=== PATIENT | male | born 1970 | race Caucasian/White ===

== ENCOUNTER 2018-10-25 15:11 | Inpatient (IN) | payer SELFPAY ==
[~2018-10-25] VITALS: Ht 165.1 cm; Wt 127.0 kg
--- OUTSIDE RECORDS SUMMARY | 2018-10-25 15:19 | XMS REPORT ---
Author Author CHRISTIANO MAHONEY Organization [facility] Address [address] [place] [address] Care Team Providers Care Water And [employer] Helper Name Role Phone CHRISTIANO MAHONEY Unavailable PROBLEMS Type Condition ICD9-CM Code SYO77-KT Code Onset Dates Condition Status SNOMED Code Problem Gastroesophageal reflux disease without esophagitis K21.9 Active 178914268 Problem Diabetes type 2, controlled E11.9 Active 36318436 Problem Uncontrolled type 2 diabetes mellitus with hyperglycemia E11.65 Active 021563274 Problem Uncontrolled type 2 diabetes mellitus without complication, without long-term current use of insulin E11.65 Active 054191206 Problem Lumbago with sciatica, 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 Active 989986909 Problem Sciatica, left side M54.32 Active 30990241 Problem Controlled type 2 diabetes mellitus without complication, without long -term current use of insulin E11.9 Active 354663288 Problem Other chronic pain G89.29 Active 02349800 ALLERGIES Substance Reaction Event Type Date Status Aleve Unknown Drug Allergy Aug, Active ENCOUNTERS Encounter Location Date Diagnosis [place] [id number] [place] [address]202[address] Aug, Uncontrolled type 2 diabetes mellitus with hyperglycemia E11.65 and Lumbago with sciatica, 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 [facility] [id number] [address] Aug, Diabetes type 2, controlled E11.9 [facility] [address], [place] [address] 8[address] Aug, Diabetes type 2, controlled E11.9 [facility] [address] [address] 97[address] May, Diabetes type 2, controlled E11.9 [facility] [address] [address] 6140 May, Diabetes type 2, controlled E11.9 and Lumbago with sciatica , 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 [facility] [id number] [place] [address] 90841- 7202 May, [facility] [id number] [place] [address] 15261- 2765 May, Diabetes type 2, controlled E11.9 [facility] [id number] [place] [address] 87107- 9200 May, Diabetes type 2, controlled E11.9 [facility] [id number] [place] [address] 01255- 1846 May, Diabetes type 2, controlled E11.9 [place] [id number] [place] [address] 90403- 6843 March, Uncontrolled type 2 diabetes mellitus without complication, without long-term current use of insulin E11.65 [facility] [id number] [place] [address] 77638- 5911 March, Other chronic pain G89.29 [place] [address] [address] [id number] [place] [address] 57550- 5417 Mar, Other chronic pain G89.29 [place] [address] [place] [address] [id number] [place] [address] 24521- 6762 Jan, BMI 45.0-49.9, adult Z68.42 ; Sciatica, left side M54.32 ; Other chronic pain G89.29 and Diabetes type 2, controlled E11.9 [facility] [address] [address] 94[address] Jan, Other chronic pain G89.29 [place] [address] [address] [id number] [place] [address] 91998- 5100 Jan, Diabetes type 2, controlled E11.9 and Other chronic pain G89.29 [place] [address] [address] [id number] [place] [address] 06109- 8219 Dec, Diabetes type 2, controlled E11.9 [facility] [address], [place] [address] 71[address] Oct, Diabetes type 2, controlled E11.9 [facility] [id number] [address] 5759 Oct, Diabetes type 2, controlled E11.9 [facility] [id number] [place] [address] 68878- 8668 Aug, Diabetes type 2, controlled E11.9 [facility] [address] [address] 2442 Aug, Diabetes type 2, controlled E11.9 and Lumbago with sciatica , 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 [facility] [id number] [place] [address] 99671- 3385 Jul, Diabetes type 2, controlled E11.9 [facility] [id number] [place] [address] 00273- 1525 May, Diabetes type 2, controlled E11.9 [facility] [address] [place] [address] 58543- 6311 May, Diabetes type 2, controlled E11.9 [facility] [address] [address] 7594 March, Diabetes type 2, controlled E11.9 [facility] [id number] [address] 5659 24 Mar, 2017 Diabetes type 2, controlled E11.9 and Sciatica, left side M54.32 [facility] [address], [place] [address]- 4008 14 Mar, 2017 Diabetes type 2, controlled E11.9 [facility] [address] [address]- 8728 Jan, Diabetes type 2, controlled E11.9 and Sciatica, left side M54.32 [facility] [id number] [address] 38[address] Jan, Controlled type 2 diabetes mellitus without complication, without long-term current use of insulin E11.9 [place] [address] [address] [id number] [place] [address] 33722- 6940 Dec, Controlled type 2 diabetes mellitus without complication, without long-term current use of insulin E11.9 [place] [address] [address] [id number] [place] [address] 28496- 2588 Oct, Diabetes type 2, controlled E11.9 [place] [address] [address] [id number] [place] [address] 72087- 2233 Oct, Diabetes type 2, controlled E11.9 ; Lumbago with sciatica, 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 and Other chronic pain G89.29 [place] [address] [address] [id number] [place] [address] 93576- 4658 Aug, Sciatica, left side M54.32 and Gastroesophageal reflux disease without esophagitis K21.9 [place] [address] [address] [id number] [place] [address] 54741- 4598 Aug, Pain in right knee M25.561 ; Pain in left hip M25.552 and Uncontrolled type 2 diabetes mellitus without complication, without long-term current use of insulin E11.65 [place] [address] [id number] [place] [address] 53434- 3320 Jul, Diabetes type 2, controlled E11.9 and Cardiac arrhythmia, unspecified cardiac arrhythmia type I49.9 [place] [address] [place] [address] 68862- 2467 15 Jul, 2016 Diabetes type 2, controlled E11.9 ; Cardiac arrhythmia, unspecified cardiac arrhythmia type I49.9 ; Other chronic pain G89.29 ; Pain in right knee M25.561 and Candidiasis B37.9 [place] [address] [place] [address] 83538- 6703 May, [place] [address] [address] [id number] [place] [address] 70273- 3879 Jan, [facility] [address] [facility] [id number] [address]- 0426 Jan, Diabetes type 2, controlled E11.9 [facility] [address] [facility] [id number] [address]- 7869 Oct, Type 2 diabetes mellitus without complications E11.9 and 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 [facility] [address] [facility] [id number] [address]- 9931 Oct, [facility] [address] [facility] [id number], [place] [address]- 9552 Mar, [facility] [address] [facility] [id number], [place] [address]- 9182 Mar, [facility] [address] [facility] [id number], [place] [address]- 2324 Jan, [facility] [address] [facility] [id number], [place] [address]- 5128 Jan, [facility] [address] [facility] [id number], [place] [address]- 4393 Jan, [facility] [id number] [address]- 0384 Jan, [facility] [address] [facility] [id number], [place] [address]- 1577 Dec, [facility] [address] [facility] [id number], [place] [address]- 7869 Dec, [facility] [address] [facility] [id number], [place] [address]- 5578 Oct, [facility] [address] [facility] [id number], [place] [address]- 8492 Oct, [facility] [address] [facility] [id number], [place] [address]- 8309 Aug, [facility] [address] [facility] [id number] [place] [address]- 7793 Aug, [facility] [place] [facility] [address] [id number] [place] [address]- 5891 Jul, [facility] [place] [facility] [address] [id number] [place] [address]- 1105 Jul, [facility] [place] [facility] [address] [id number] [place] [address]- 0175 May, [facility] [place] [facility] [address] [id number] [place] [address]- 6034 May, [facility] [place] [facility] [address] [id number] [place] [address]- 2278 May, [facility] [place] [facility] [address] [id number] [place] [address]- 4291 May, [facility] [place] [facility] [address] [id number] [place] [address]- 3251 March, [facility] [place] [facility] [address] [id number] [place] [address]- 1503 March, [facility] [place] [facility] [address] [id number] [place] [address]- 4637 March, [facility] [place] [facility] [address] [id number] [place] [address]- 8090 March, [facility] [place] [facility] [address] [id number] [place] [address]- 2779 March, [facility] [place] [facility] [address] [id number] [place] [address]- 1751 March, [facility] [place] [facility] [address] [id number] [place] [address]- 1468 Mar, [facility] [place] [facility] [address] [id number] [place] [address]- 3003 Mar, [facility] [place] [facility] [address] [id number] [place] [address]- 2582 Mar, [facility] [place] [facility] [address] [id number] [place] [address]- 8145 Mar, [facility] [place] [facility] [address] [id number] [place] [address]- 1492 Dec, [facility] [place] [facility] [address] [id number] [place] [address]- 9539 Aug, [facility] [place] [facility] [address] [id number] [place] [address]- 0709 Aug, [facility] [place] [facility] [address] [id number] [place] [address]- 8255 Aug, [facility] [place] [facility] [address] [id number] [place] [address]- 6976 20 Aug, 2012 [facility] [place] [facility] [address] [id number] [place] [address]- 1036 Aug, [facility] [place] [facility] [address] [id number] [place] [address]- 9210 Aug, [facility] [place] [facility] [address] [id number] [place] [address]- 7366 Jan, [facility] [place] [facility] [address] [id number] [place] [address]- 5998 Jan, [facility] [place] [facility] [address] [id number] [place] [address]- 3798 Jan, [facility] [place] [facility] [address] [id number] [place] [address]- 1489 Jan, [facility] [place] [facility] [address] [id number] [place] [address]- 8837 Oct, [facility] [place] [facility] [address] [id number] [place] [address]- 9376 Oct, [facility] [place] [facility] [address] [id number] [place] [address]- 4263 17 Oct, 2010 [facility] [place] [facility] [address] [id number] [place] [address]- 0073 Oct, [facility] [address] [facility] [id number] [place] [address]- 2546 Oct, [facility] [address] [facility] [id number], [place] [address]- 2546 Oct, [facility] [address] [facility] [id number] [place] [address]- 2546 Aug, IMMUNIZATIONS No Known Immunizations SOCIAL HISTORY Never Assessed REASON FOR VISIT diabtes and pain medication refill RIKKI Cai PLAN OF CARE Activity Details Follow Up 4 Months Reason:dm2 3mo. checkup VITAL SIGNS Height 62 in 2018-09-23 Weight 282.2 lbs 2018-09-23 Temperature 98.2 degrees Fahrenheit 2018-09-23 Heart Rate 90 bpm 2018-09-23 Respiratory Rate 20 2018-09-23 BMI 51.61 kg/m2 2018-09-23 Blood pressure systolic 138 mmHg 2018-09-23 Blood pressure diastolic 78 mmHg 2018-09-23 MEDICATIONS Medication Instructions Dosage Frequency Start Date End Date Duration Status Actos 30 MG Orally Once a day 1 tablet 24h Jan, 30 day(s) Active Viagra 100 mg 1 tablet as needed 24h 10 Active Ranitidine HCl 150 MG TAKE ONE TABLET BY MOUTH TWICE DAILY 30 Active Cyclobenzaprine HCl 10 mg 1 tablet as needed 8h Active Ibuprofen 200 MG Orally every 6 hrs 1 tablet as needed 6h Active Fish Oil 1200 MG Orally Twice a day 1 capsule 12h Active Victoza 18 MG/3ML Subcutaneous Once a day Inject 0.3 ml (1.8 mg) 24h MarchDec, 30 days Active [place] 10-325 MG Orally every 6 hrs 1 tablet as needed 6h 2018 28 days Active Metformin HCl 1000 mg 1 tablet with a meal 12h Active GlipiZIDE 10 mg 2 tablets 12h Active NovoFine 32G X 6 MM subcutaneously Once a day use for injectio of victoza pen 24h May, 90 days Unknown Aspirin 325 MG Orally Once a day 1 tablet 24h Active Cozaar 50 mg Orally Once a day 1 tablet 24h Jul, 30 day(s) Active RESULTS No Results PROCEDURES No Known procedures INSTRUCTIONS MEDICATIONS ADMINISTERED No Known Medications MEDICAL (GENERAL) HISTORY Type Description Date Medical History Diabetes mellitus without mention of complication, type II or unspecified type, not stated as uncontrolled Medical History Impotence of organic origin Medical History hypertension Medical History bells palsy Surgical History L foot maggi age 30 Surgical History colon rupture/ colostomy bag 2004 Surgical History removal of colostomy bag 2004 Hospitalization History surgery (multiple)
--- OUTSIDE RECORDS SUMMARY | 2018-10-25 15:20 | XMS REPORT ---
Author Author CHRISTIANO MAHONEY Organization [facility] Address [address] [place] [address] Care Team Providers Care Batter Depositor Name Role Phone CHRISTIANO MAHONEY Unavailable PROBLEMS Type Condition ICD9-CM Code IDH75-CM Code Onset Dates Condition Status SNOMED Code Problem Diabetes type 2, controlled E11.9 Active 57736414 Problem Uncontrolled type 2 diabetes mellitus without complication, without long-term current use of insulin E11.65 Active 438676506 Problem Controlled type 2 diabetes mellitus without complication, without long -term current use of insulin E11.9 Active 508545979 Problem Sciatica, left side M54.32 Active 42969814 Problem Gastroesophageal reflux disease without esophagitis K21.9 Active 212043350 Problem Other chronic pain G89.29 Active 19673395 Problem Lumbago with sciatica, 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 Active [id number] ALLERGIES No Information ENCOUNTERS Encounter Location Date Diagnosis [place] [id number] [place] [address] 86472- 0956 Aug, Diabetes type 2, controlled E11.9 [facility] [id number] [place] [address] 54512- 6509 May, Diabetes type 2, controlled E11.9 [facility] [id number] [place] [address] 67920- 9037 May, Diabetes type 2, controlled E11.9 and Lumbago with sciatica , 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 [facility] [id number] [place] [address] 48472- 8674 May, [facility] [id number] [place] [address] 64680- 6374 May, Diabetes type 2, controlled E11.9 [facility] [address] [address]- [address] May, Diabetes type 2, controlled E11.9 [facility] [address], [place] [address]29 May, Diabetes type 2, controlled E11.9 [facility] [id number] [place] [address] 24352- 5836 March, Uncontrolled type 2 diabetes mellitus without complication, without long-term current use of insulin E11.65 [facility] [id number] [place] [address] 99692- 6730 March, Other chronic pain G89.29 [place] [id number] [place] [address] 48923- 6028 Mar, Other chronic pain G89.29 [place] [id number] [place] [address] 63183- 3686 Jan, BMI 45.0-49.9, adult Z68.42 ; Sciatica, left side M54.32 ; Other chronic pain G89.29 and Diabetes type 2, controlled E11.9 [facility] [address], [place] [address] 8833 Jan, Other chronic pain G89.29 [place] [id number] [place] [address] 68200- 2847 Jan, Diabetes type 2, controlled E11.9 and Other chronic pain G89.29 [place] [address], [place] [address] Dec, Diabetes type 2, controlled E11.9 [facility] [address], [place] [address] 7991 Oct, Diabetes type 2, controlled E11.9 [facility] [address], [place] [address] 2896 Oct, Diabetes type 2, controlled E11.9 [facility] [address] [place] [address] 6849 Aug, Diabetes type 2, controlled E11.9 [facility] [address], [place] [address] 3810 Aug, Diabetes type 2, controlled E11.9 and Lumbago with sciatica , 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 [facility] [address], [place] [address] 6008 Jul, Diabetes type 2, controlled E11.9 [facility] [id number] [place] [address] 16336- 9035 May, Diabetes type 2, controlled E11.9 [facility] [id number] [place] [address] 67652- 1195 May, Diabetes type 2, controlled E11.9 [facility] [id number] [place] [address] 99606- 9873 March, Diabetes type 2, controlled E11.9 [place] [id number] [place] [address] 17578- 1279 Mar, Diabetes type 2, controlled E11.9 and Sciatica, left side M54.32 [place] [id number] [place] [address] 34969- 9937 Mar, Diabetes type 2, controlled E11.9 [facility] [address] [place] [address] 27199- 1231 Jan, Diabetes type 2, controlled E11.9 and Sciatica, left side M54.32 [facility] [address], [place] [address]- 4286 Jan, Controlled type 2 diabetes mellitus without complication, without long-term current use of insulin E11.9 [facility] [id number] [place] [address] 9819 Dec, Controlled type 2 diabetes mellitus without complication, without long-term current use of insulin E11.9 [place] [address], [place] [address]- 0118 Oct, Diabetes type 2, controlled E11.9 [place] [address], [place] [address] 7626 Oct, Diabetes type 2, controlled E11.9 ; Lumbago with sciatica, 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 and Other chronic pain G89.29 [place] [id number] [place] [address] 18765- 9987 Aug, Sciatica, left side M54.32 and Gastroesophageal reflux disease without esophagitis K21.9 [facility] [id number] [place] [address] 46299- 7828 19 Aug, 2016 Pain in right knee M25.561 ; Pain in left hip M25.552 and Uncontrolled type 2 diabetes mellitus without complication, without long-term current use of insulin E11.65 [place] [id number] [place] [address] 45226- 7442 Jul, Diabetes type 2, controlled E11.9 and Cardiac arrhythmia, unspecified cardiac arrhythmia type I49.9 [place] [id number] [place] [address] 12787- 6398 Jul, Diabetes type 2, controlled E11.9 ; Cardiac arrhythmia, unspecified cardiac arrhythmia type I49.9 ; Other chronic pain G89.29 ; Pain in right knee M25.561 and Candidiasis B37.9 [place] [address] [place] [address] 96303- 7284 May, [place] [id number] [place] [address] 46678- 9731 Jan, [place] [id number] [place] [address] 78760- 3724 Jan, Diabetes type 2, controlled E11.9 [place] [id number] [place] [address] 33253- 2982 14 Oct, 2015 Type 2 diabetes mellitus without complications E11.9 and 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 [place] [id number] [place] [address] 99215- 8934 Oct, [facility] [place] [facility] [address] [id number] [place] [address]- 5051 Mar, [facility] [place] [facility] [address] [id number] [place] [address]- 4352 Mar, [facility] [place] [facility] [address] [id number] [place] [address]- 0793 Jan, [facility] [place] [facility] [address] [id number] [place] [address]- 5671 Jan, [facility] [place] [facility] [address] [id number] [place] [address]- 1343 Jan, [facility] [place] [facility] [address] [id number] [place] [address]- 8299 Jan, [facility] [place] [facility] [address] [id number] [place] [address]- 8308 Dec, [facility] [place] [facility] [address] [id number] [place] [address]- 5826 Dec, [facility] [place] [facility] [address] [id number] [place] [address]- 6118 Oct, [facility] [place] [facility] [address] [id number] [place] [address]- 0782 Oct, [facility] [place] [facility] [address] [id number] [address]- 0068 Aug, [facility] [place] [facility] [address] [id number], [place] [address]- 7115 Aug, [facility] [place] [facility] [address] [id number] [place] [address]- 5128 Jul, [facility] [place] [facility] [address] [id number] [place] [address]- 0314 Jul, [facility] [place] [facility] [address] [id number] [place] [address]- 8571 May, [facility] [place] [facility] [address] [id number] [place] [address]- 9573 May, [facility] [place] [facility] [address] [id number] [place] [address]- 9460 May, [facility] [place] [facility] [address] [id number] [place] [address]- 3536 May, [facility] [place] [facility] [address] [id number] [place] [address]- 4623 March, [facility] [place] [facility] [address] [id number] [place] [address]- 7420 March, [facility] [place] [facility] [address] [id number] [place] [address]- 3099 March, [facility] [place] [facility] [address] [id number] [place] [address]- 2696 March, [facility] [place] [facility] [address] [id number] [place] [address]- 1984 March, [facility] [place] [facility] [address] [id number] [place] [address]- 6729 March, [facility] [place] [facility] [address] [id number] [place] [address]- 4710 Mar, [facility] [place] [facility] [address] [id number] [place] [address]- 1513 Mar, [facility] [place] [facility] [address] [id number] [place] [address]- 9138 Mar, [facility] [place] [facility] [address] [id number] [place] [address]- 6405 Mar, [facility] [place] [facility] [address] [id number] [place] [address]- 4052 Dec, [facility] [place] [facility] [address] [id number] [place] [address]- 7912 Aug, [facility] [place] [facility] [address] [id number] [place] [address]- 8160 Aug, [facility] [address] [id number], [place] [address]- 2766 Aug, [facility] [address] [facility] [id number], [place] [address]- 3116 Aug, [facility] [address] [facility] [id number], [place] [address]- 5776 Aug, [facility] [address] [facility] [id number], [place] [address]- 4521 Aug, [facility] [address] [id number], [place] [address]- 8513 Jan, [facility] [address] [facility] [id number], [place] [address]- 1376 Jan, [facility] [address] [facility] [id number], [place] [address]- 9714 Jan, [facility] [address] [facility] [id number], [place] [address]- 3237 Jan, [facility] [id number] [address] Oct, [facility] [id number] [address]- 7166 Oct, [facility] [address], [place] [address]- 8812 17 Oct, 2010 [facility] [address] [facility] [id number], [place] [address]- 1846 Oct, [facility] [address] [facility] [id number], [place] [address]- 5261 Oct, [facility] [address] [facility] [id number], [place] [address]- 5636 17 Oct, 2009 [facility] [address] [facility] [id number], [place] [address]- 2201 11 Aug, 2009 IMMUNIZATIONS No Known Immunizations SOCIAL HISTORY Never Assessed REASON FOR VISIT Controlled Med Refill PLAN OF CARE VITAL SIGNS MEDICATIONS Medication Instructions Dosage Frequency Start Date End Date Duration Status [place] 10-325 MG Orally every 6 hrs 1 tablet as needed 6h Aug, 28 days Active RESULTS No Results PROCEDURES No Known procedures INSTRUCTIONS MEDICATIONS ADMINISTERED No Known Medications MEDICAL (GENERAL) HISTORY Type Description Date Medical History Diabetes mellitus without mention of complication, type II or unspecified type, not stated as uncontrolled Medical History Impotence of organic origin Medical History hypertension Medical History bells palsy Surgical History L foot sugery age 30 Surgical History colon rupture/ colostomy bag 2003 Surgical History removal of colostomy bag 2003 Hospitalization History surgery (multiple)
--- OUTSIDE RECORDS SUMMARY | 2018-10-25 15:20 | XMS REPORT ---
Author Author CHRISTIANO MAHONEY Organization [facility], [place] Address [address] [place] [address] Care Team Providers Care Global Technical Writer Name Role Phone CHRISTIANO MAHONEY Unavailable PROBLEMS Type Condition ICD9-CM Code VIA60-CI Code Onset Dates Condition Status SNOMED Code Problem Diabetes type 2, controlled E11.9 Active 24289266 Problem Uncontrolled type 2 diabetes mellitus without complication, without long-term current use of insulin E11.65 Active 096625872 Problem Controlled type 2 diabetes mellitus without complication, without long -term current use of insulin E11.9 Active 415202160 Problem Sciatica, left side M54.32 Active 14308619 Problem Gastroesophageal reflux disease without esophagitis K21.9 Active 401121669 Problem Other chronic pain G89.29 Active 83023472 Problem Lumbago with sciatica, 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 Active 600901614 ALLERGIES No Information ENCOUNTERS Encounter Location Date Diagnosis [facility] [id number] [place] [address] 26619- 4257 Aug, [facility] [id number] [place] [address] 46851- 6391 Aug, Diabetes type 2, controlled E11.9 [facility] [place] [id number] [place] [address] 33241- 2656 Aug, Diabetes type 2, controlled E11.9 [facility] [place] [id number] [place] [address] 26149- 5979 May, Diabetes type 2, controlled E11.9 [facility] [place] [id number] [place] [address] 91319- 8484 May, Diabetes type 2, controlled E11.9 and Lumbago with sciatica , 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 [facility] [place] [id number] [place] [address] 35037- 2937 May, [facility] [place] [address], [place] [address] 6244 May, Diabetes type 2, controlled E11.9 [facility] [place] [address] [address] 8918 May, Diabetes type 2, controlled E11.9 [facility] [place] [id number] [place] [address] 39918- 3481 May, Diabetes type 2, controlled E11.9 [facility] [place] [id number] [address] 9754 March, Uncontrolled type 2 diabetes mellitus without complication, without long-term current use of insulin E11.65 [facility] [place] [address] [address] 3312 March, Other chronic pain G89.29 [facility] [place] [id number] [place] [address] 83494- 8717 Mar, Other chronic pain G89.29 [facility] [place] [address] [address] 5686 Jan, BMI 45.0-49.9, adult Z68.42 ; Sciatica, left side M54.32 ; Other chronic pain G89.29 and Diabetes type 2, controlled E11.9 [facility] [place] [address], [place] [address] 6749 Jan, Other chronic pain G89.29 [facility] [place] [address] [address] 1651 Jan, Diabetes type 2, controlled E11.9 and Other chronic pain G89.29 [facility] [place] [id number] [address] 5304 Dec, Diabetes type 2, controlled E11.9 [facility] [place] [address], [place] [address] 4982 Oct, Diabetes type 2, controlled E11.9 [facility] [place] [address] [address] 5914 17 Oct, 2017 Diabetes type 2, controlled E11.9 [facility] [place] [id number] [place] [address] 39993- 6335 18 Aug, 2017 Diabetes type 2, controlled E11.9 [facility] [place] [id number] [place] [address] 29957- 4198 Aug, Diabetes type 2, controlled E11.9 and Lumbago with sciatica , 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 [facility] [place] [id number] [place] [address] 33984- 4221 Jul, Diabetes type 2, controlled E11.9 [facility] [place] [id number] [place] [address] 47850- 5279 May, Diabetes type 2, controlled E11.9 [facility] [place] [id number] [place] [address] 77693- 0592 May, Diabetes type 2, controlled E11.9 [facility] [place] [id number] [place] [address] 13646- 6194 March, Diabetes type 2, controlled E11.9 [facility] [place] [id number] [place] [address] 26707- 5833 Mar, Diabetes type 2, controlled E11.9 and Sciatica, left side M54.32 [facility] [place] [id number] [place] [address] 64364- 2872 Mar, Diabetes type 2, controlled E11.9 [facility] [place] [address], [place] [address] 1614 Jan, Diabetes type 2, controlled E11.9 and Sciatica, left side M54.32 [facility] [place] [id number] [address] 2105 Jan, Controlled type 2 diabetes mellitus without complication, without long-term current use of insulin E11.9 [facility] [place] [id number] [address] 9493 Dec, Controlled type 2 diabetes mellitus without complication, without long-term current use of insulin E11.9 [facility] [address], [place] [address]- 2042 Oct, Diabetes type 2, controlled E11.9 [facility] [address], [place] [address]- 2123 Oct, Diabetes type 2, controlled E11.9 ; Lumbago with sciatica, 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 and Other chronic pain G89.29 [facility] [id number] [place] [address] 21604- 9715 Aug, Sciatica, left side M54.32 and Gastroesophageal reflux disease without esophagitis K21.9 [facility] [id number] [place] [address] 87732- 6266 Aug, Pain in right knee M25.561 ; Pain in left hip M25.552 and Uncontrolled type 2 diabetes mellitus without complication, without long-term current use of insulin E11.65 [facility] [place] [address] [place] [address] 66320- 3158 Jul, Diabetes type 2, controlled E11.9 and Cardiac arrhythmia, unspecified cardiac arrhythmia type I49.9 [facility] [place] [address], [place] [address]- 9775 Jul, Diabetes type 2, controlled E11.9 ; Cardiac arrhythmia, unspecified cardiac arrhythmia type I49.9 ; Other chronic pain G89.29 ; Pain in right knee M25.561 and Candidiasis B37.9 [facility] [address], [place] [address]- 2221 May, [facility] [place] [id number] [place] [address] 88350- 1549 Jan, [facility] [place] [address], [place] [address]- 1244 Jan, Diabetes type 2, controlled E11.9 [facility] [address], [place] [address]- 2935 14 Oct, 2015 Type 2 diabetes mellitus without complications E11.9 and 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 [facility] [place] [address], [place] [address]- 2863 Oct, [facility] [place] [address], [place] [address]- 6761 Mar, [facility] [place] [address] [facility] [address] [id number] [address] 0013 Mar, [facility] [place] [id number] [place] [address] 54419- 1644 Jan, [facility] [place] [id number] [place] [address]- 1363 Jan, [facility] [place] [id number] [place] [address] 75785- 1093 Jan, [facility] [place] [address], [place] [address]- 5229 Jan, [facility] [place] [address], [place] [address]- 4788 Dec, [facility] [place] [address], [place] [address]- 9643 Dec, [facility] [place] [address], [place] [address]- 0171 Oct, [facility] [place] [address], [place] [address]- 4961 Oct, [facility] [place] [address], [place] [address]- 9130 Aug, [facility] [place] [address], [place] [address]- 7158 Aug, [facility] [place] [address], [place] [address]- 2221 Jul, [facility] [place] [facility] [address] [id number] [place] [address]- 4514 Jul, [facility] [place] [facility] [address] [id number] [place] [address]- 7770 May, [facility] [place] [facility] [address] [id number] [place] [address]- 6245 May, [facility] [place] [facility] [address] [id number] [place] [address]- 1546 May, [facility] [place] [facility] [address] [id number] [place] [address]- 0974 May, [facility] [place] [facility] [address] [id number] [place] [address]- 3160 March, [facility] [place] [facility] [address] [id number] [place] [address]- 4731 March, [facility] [place] [facility] [address] [id number] [place] [address]- 9386 March, [facility] [place] [facility] [address] [id number] [place] [address]- 2293 March, [facility] [place] [facility] [address] [id number] [place] [address]- 7638 March, [facility] [place] [facility] [address] [id number] [place] [address]- 5948 March, [facility] [place] [facility] [address] [id number] [place] [address]- 4248 Mar, [facility] [place] [facility] [address] [id number] [place] [address]- 4421 Mar, [facility] [place] [facility] [address] [id number] [place] [address]- 3621 Mar, [facility] [place] [facility] [address] [id number] [place] [address]- 1915 Mar, [facility] [place] [facility] [address] [id number] [place] [address]- 3396 Dec, [facility] [place] [facility] [address] [id number] [place] [address]- 1456 Aug, [facility] [place] [facility] [address] [id number] [place] [address]- 0709 Aug, [facility] [place] [facility] [address] [id number] [place] [address]- 6576 Aug, [facility] [place] [facility] [address] [id number] [place] [address]- 1424 20 Aug, 2012 [facility] [place] [facility] [address] [id number] [place] [address]- 5190 13 Aug, 2012 [facility] [place] [facility] [address] [id number] [place] [address]- 0313 12 Aug, 2012 [facility] [place] [facility] [address] [id number] [place] [address]- 5074 Jan, [facility] [place] [facility] [address] [id number] [place] [address]- 0811 Jan, [facility] [place] [facility] [address] [id number] [place] [address]- 2881 Jan, [facility] [place] [facility] [address] [id number] [place] [address]- 3168 Jan, [facility] [place] [facility] [address] [id number] [address]- 2684 15 Oct, 2010 [facility] [place] [facility] [address] [id number] [address]- 3664 15 Oct, 2010 [facility] [place] [facility] [address] [id number] [place] [address]- 3181 17 Oct, 2010 [facility] [place] [facility] [address] [id number] [address]- 5726 17 Oct, 2010 [facility] [place] [facility] [address] [facility] [address] [id number] [place] [address]- 2546 17 Oct, 2010 [facility] [place] [facility] [address] [facility] [address] [id number] [place] [address]- 4585 Oct, [facility] [place] [address] [facility] [address] [id number] [place] [address]- 2306 Aug, IMMUNIZATIONS No Known Immunizations SOCIAL HISTORY Never Assessed REASON FOR VISIT Controlled Med Refill PLAN OF CARE VITAL SIGNS MEDICATIONS Medication Instructions Dosage Frequency Start Date End Date Duration Status Keyser 10-325 MG Orally every 6 hrs 1 tablet as needed 6h 14 Aug, 2018 28 days Active RESULTS No Results PROCEDURES [...]
--- OUTSIDE RECORDS SUMMARY | 2018-10-25 15:20 | XMS REPORT ---
Author Author CHRISTIANO MAHONEY Organization [facility] Address [address] [place] [address] Care Team Providers Care Superintendent Power Name Role Phone CHRISTIANO MAHONEY Unavailable PROBLEMS Type Condition ICD9-CM Code CRS60-RL Code Onset Dates Condition Status SNOMED Code Problem Diabetes type 2, controlled E11.9 Active 76142764 Problem Uncontrolled type 2 diabetes mellitus without complication, without long-term current use of insulin E11.65 Active 530119053 Problem Controlled type 2 diabetes mellitus without complication, without long -term current use of insulin E11.9 Active 597228465 Problem Sciatica, left side M54.32 Active 56862898 Problem Gastroesophageal reflux disease without esophagitis K21.9 Active 243391732 Problem Other chronic pain G89.29 Active 43163975 Problem Lumbago with sciatica, 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 Active 886262417 ALLERGIES Substance Reaction Event Type Date Status Aleve Unknown Drug Allergy May, Active ENCOUNTERS Encounter Location Date Diagnosis [facility] [id number] [place] [address] 93909- 9734 Aug, [facility] [id number] [place] [address] 33998- 3773 May, Diabetes type 2, controlled E11.9 [facility] [id number] [place] [address] 22279- 6762 May, Diabetes type 2, controlled E11.9 and Lumbago with sciatica , 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 [facility] [id number] [place] [address] 13933- 8038 May, [facility] [id number] [place] [address] 62167- 3094 May, Diabetes type 2, controlled E11.9 [facility] [id number] [place] [address] 34419- 0432 May, Diabetes type 2, controlled E11.9 [facility] [id number] [place] [address] 10115- 6466 May, Diabetes type 2, controlled E11.9 [facility] [id number] [place] [address] 33788- 3931 March, Uncontrolled type 2 diabetes mellitus without complication, without long-term current use of insulin E11.65 [facility] [id number] [place] [address] 34469- 7176 March, Other chronic pain G89.29 [facility] [id number] [place] [address] 15262- 8065 Mar, Other chronic pain G89.29 [facility] [id number] [place] [address] 16616- 1862 Jan, BMI 45.0-49.9, adult Z68.42 ; Sciatica, left side M54.32 ; Other chronic pain G89.29 and Diabetes type 2, controlled E11.9 [facility] [id number] [place] [address] 98664- 1446 Jan, Other chronic pain G89.29 [facility] [id number] [place] [address] 22335- 3842 Jan, Diabetes type 2, controlled E11.9 and Other chronic pain G89.29 [facility] [id number] [place] [address] 44704- 4342 Dec, Diabetes type 2, controlled E11.9 [facility] [address] [address] Oct, Diabetes type 2, controlled E11.9 [facility] [id number] [place] [address] 10077- 8026 Oct, Diabetes type 2, controlled E11.9 [facility] [id number] [place] [address] 26576- 4854 Aug, Diabetes type 2, controlled E11.9 [facility] [address] [address] 4531 Aug, Diabetes type 2, controlled E11.9 and Lumbago with sciatica , 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 [facility] [address] [address] 3977 Jul, Diabetes type 2, controlled E11.9 [facility] [id number] [place] [address] 57247- 9901 May, Diabetes type 2, controlled E11.9 [facility] [id number] [place] [address] 55764- 8784 May, Diabetes type 2, controlled E11.9 [facility] [id number] [place] [address] 14366- 5558 March, Diabetes type 2, controlled E11.9 [facility] [id number] [place] [address] 37289- 8141 Mar, Diabetes type 2, controlled E11.9 and Sciatica, left side M54.32 [facility] [id number] [place] [address] 69641- 2250 Mar, Diabetes type 2, controlled E11.9 [facility] [address] [address] 0667 Jan, Diabetes type 2, controlled E11.9 and Sciatica, left side M54.32 [facility] [address] [address] 94[address] Jan, Controlled type 2 diabetes mellitus without complication, without long-term current use of insulin E11.9 [facility] [id number] [address] 4523 Dec, Controlled type 2 diabetes mellitus without complication, without long-term current use of insulin E11.9 [facility] [address] [address] 6996 Oct, Diabetes type 2, controlled E11.9 [facility] [address] [address]- 1125 Oct, Diabetes type 2, controlled E11.9 ; Lumbago with sciatica, 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 and Other chronic pain G89.29 [facility] [address] [address]- 8566 Aug, Sciatica, left side M54.32 and Gastroesophageal reflux disease without esophagitis K21.9 [facility] [id number] [place] [address] 54776- 9691 19 Aug, 2016 Pain in right knee M25.561 ; Pain in left hip M25.552 and Uncontrolled type 2 diabetes mellitus without complication, without long-term current use of insulin E11.65 [facility] [id number] [place] [address] 79584- 9310 Jul, Diabetes type 2, controlled E11.9 and Cardiac arrhythmia, unspecified cardiac arrhythmia type I49.9 [facility] [id number] [place] [address] 27718- 3781 15 Jul, 2016 Diabetes type 2, controlled E11.9 ; Cardiac arrhythmia, unspecified cardiac arrhythmia type I49.9 ; Other chronic pain G89.29 ; Pain in right knee M25.561 and Candidiasis B37.9 [facility] [address] [address]- 6919 May, [place] [facility] [id number] [place] [address] 45395- 9384 Jan, [facility] [facility] [id number] [place] [address] 42381- 5450 Jan, Diabetes type 2, controlled E11.9 [facility] [id number] [place] [address] 47131- 4983 14 Oct, 2015 Type 2 diabetes mellitus without complications E11.9 and 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 [facility] [id number] [place] [address] 44833- 2546 Oct, [facility] [place] [facility] [address] [id number] [place] [address]- 3560 Mar, [facility] [place] [facility] [address] [id number] [place] [address]- 6480 Mar, [facility] [place] [facility] [address] [id number] [place] [address]- 8337 Jan, [facility] [place] [facility] [address] [id number] [place] [address] Jan, [facility] [place] [facility] [address] [id number] [place] [address]- 5613 Jan, [facility] [place] [facility] [address] [id number] [place] [address]- 6232 Jan, [facility] [place] [facility] [address] [id number] [place] [address]- 2632 Dec, [facility] [place] [facility] [address] [id number] [place] [address]- 9078 Dec, [facility] [place] [facility] [address] [id number] [place] [address]- 4140 Oct, [facility] [place] [facility] [address] [id number] [place] [address]- 8154 Oct, [facility] [place] [facility] [address] [id number] [place] [address]- 9170 Aug, [facility] [place] [facility] [address] [id number] [place] [address]- 8561 Aug, [facility] [place] [facility] [address] [id number] [place] [address]- 3479 Jul, [facility] [place] [facility] [address] [id number] [place] [address]- 1340 Jul, [facility] [place] [facility] [address] [id number] [place] [address]- 3635 May, [facility] [place] [facility] [address] [id number] [place] [address]- 9711 May, [facility] [address] [id number] [place] [address]- 9953 May, [facility] [place] [facility] [address] [id number] [place] [address]- 5919 May, [facility] [place] [facility] [address] [id number] [place] [address]- 1896 March, [facility] [place] [facility] [address] [id number] [place] [address]- 0923 March, [facility] [place] [facility] [address] [id number] [place] [address]- 8895 March, [facility] [place] [facility] [address] [id number] [place] [address]- 2003 March, [facility] [place] [facility] [address] [id number] [place] [address]- 0408 March, [facility] [place] [facility] [address] [id number] [place] [address]- 4332 March, [facility] [place] [facility] [address] [id number] [place] [address]- 2008 Mar, [facility] [place] [facility] [address] [id number] [place] [address]- 7802 Mar, [facility] [place] [facility] [address] [id number] [place] [address]- [address]111 Mar, [facility] [place] [facility] [address] [id number] [place] [address]- 3401 Mar, [facility] [place] [facility] [address] [id number] [place] [address]- 0562 Dec, [facility] [place] [facility] [address] [id number] [place] [address]- 4509 Aug, [facility] [place] [facility] [address] [id number] [place] [address]- 0812 Aug, [facility] [address] [facility] [id number] [address]- 2185 03 Aug, 2012 [facility] [address] [facility] [id number] [place] [address]- 3574 20 Aug, 2012 [facility] [address] [facility] [id number] [place] [address] 13 Aug, 2012 [facility] [address] [facility] [id number] [place] [address]- 0319 12 Aug, 2012 [facility] [address] [facility] [id number] [place] [address]004 Jan, [facility] [address] [facility] [id number] [place] [address]- 2823 Jan, [facility] [address] [facility] [id number] [place] [address]- 4928 Jan, [facility] [address] [facility] [id number] [place] [address]- 7995 Jan, [facility] [address] [facility] [id number] [place] [address]- 2908 15 Oct, 2010 [facility] [address] [facility] [id number] [place] [address]- 0342 15 Oct, 2010 [facility] [address] [facility] [id number] [place] [address]- 5789 17 Oct, 2010 [facility] [address] [facility] [id number] [place] [address]- 4299 17 Oct, 2010 [facility] [address] [facility] [id number] [place] 3796 17 Oct, 2010 [facility] [address] [facility] [id number] [place] [address]- 9830 17 Oct, 2009 [facility] [address] [facility] [id number] [place] [address]- 3655 11 Aug, 2009 IMMUNIZATIONS No Known Immunizations SOCIAL HISTORY Never Assessed REASON FOR VISIT Diabetes f/u, ghulamza was increased at last visit-RIKKI ascencio PLAN OF CARE VITAL SIGNS Height 62 in 2018-06-22 Weight 272.9 lbs 2018-06-22 Temperature 98.6 degrees Fahrenheit 2018-06-22 Heart Rate 84 bpm 2018-06-22 Respiratory Rate 20 2018-06-22 BMI 49.91 kg/m2 2018-06-22 Blood pressure systolic 140 mmHg 2018-06-22 Blood pressure diastolic 70 mmHg 2018-06-22 MEDICATIONS Medication Instructions Dosage Frequency Start Date End Date Duration Status [place] 10-325 MG Orally every 6 hrs 1 tablet as needed 6h May, Jul, 28 days Active NovoFine 32G X 6 MM subcutaneously Once a day use for injectio of victoza pen 24h May, 90 days Active Actos 30 MG Orally Once a day 1 tablet 24h Jan, 30 day(s) Active Metformin HCl 1000 MG 1 tablet with a meal 12h Active Cyclobenzaprine HCl 10 mg 1 tablet as needed 8h Active Aspirin 325 MG Orally Once a day 1 tablet 24h Active Ranitidine HCl 150 MG 1 tablet 12h Active Victoza 18 MG/3ML Subcutaneous Once a day Inject 0.3 ml (1.8 mg) 24h MarchDec, 30 days Active GlipiZIDE 10 mg 2 tablets 12h Active Ibuprofen 200 MG Orally every 6 hrs 1 tablet as needed 6h Active Viagra 100 mg 1 tablet as needed 24h 10 Active Cozaar 50 mg Orally Once a day 1 tablet 24h Jul, 30 day(s) Active Fish Oil 1200 MG Orally Twice a day 1 capsule 12h Active RESULTS No Results PROCEDURES No Known [...]
--- OUTSIDE RECORDS SUMMARY | 2018-10-25 15:20 | XMS REPORT ---
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 Role Phone CHRISTIANO MAHONEY Unavailable PROBLEMS Type Condition ICD9-CM Code SGZ39-UA Code Onset Dates Condition Status SNOMED Code Problem Diabetes type 2, controlled E11.9 Active 00243450 Problem Uncontrolled type 2 diabetes mellitus without complication, without long-term current use of insulin E11.65 Active 027802641 Problem Controlled type 2 diabetes mellitus without complication, without long -term current use of insulin E11.9 Active 605601871 Problem Sciatica, left side M54.32 Active 41358072 Problem Gastroesophageal reflux disease without esophagitis K21.9 Active 960844846 Problem Other chronic pain G89.29 Active 00486761 Problem Lumbago with sciatica, 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 Active 889875300 ALLERGIES No Information ENCOUNTERS Encounter Location Date Diagnosis [place] [id number] [place] [address] 57136- 7572 May, Diabetes type 2, controlled E11.9 [facility] [id number] [place] [address] 23746- 2163 May, Diabetes type 2, controlled E11.9 and Lumbago with sciatica , 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 [facility] [id number] [place] [address] 00385- 1017 May, [facility] [id number] [place] [address] 37419- 8740 May, Diabetes type 2, controlled E11.9 [facility] [id number] [place] [address] 48229- 6094 May, Diabetes type 2, controlled E11.9 [facility] [id number] [place] [address] 53300- 7531 May, Diabetes type 2, controlled E11.9 [facility] [address], [place] [address] 8816 March, Uncontrolled type 2 diabetes mellitus without complication, without long-term current use of insulin E11.65 [facility] [address], [place] [address] 8153 March, Other chronic pain G89.29 [facility] [id number] [place] [address] 50498- 1471 Mar, Other chronic pain G89.29 [place] [id number] [place] [address] 55689- 2881 Jan, BMI 45.0-49.9, adult Z68.42 ; Sciatica, left side M54.32 ; Other chronic pain G89.29 and Diabetes type 2, controlled E11.9 [facility] [id number] [place] [address] 20415- 9372 Jan, Other chronic pain G89.29 [facility] [id number] [place] [address] 26639- 4389 Jan, Diabetes type 2, controlled E11.9 and Other chronic pain G89.29 [facility] [address], [place] [address] 0488 Dec, Diabetes type 2, controlled E11.9 [facility] [id number] [address] 1607 Oct, Diabetes type 2, controlled E11.9 [facility] [address], [place] [address]- 7492 Oct, Diabetes type 2, controlled E11.9 [facility] [id number] [place] [address] 06731- 8934 Aug, Diabetes type 2, controlled E11.9 [facility] [id number] [place] [address] 74976- 2655 Aug, Diabetes type 2, controlled E11.9 and Lumbago with sciatica , 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 [facility] [address], [place] [address]- 8238 Jul, Diabetes type 2, controlled E11.9 [facility] [id number] [address]- 6716 May, Diabetes type 2, controlled E11.9 [facility] [id number] [place] [address] 78112- 2823 May, Diabetes type 2, controlled E11.9 [facility] [id number] [place] [address] 70311- 4388 March, Diabetes type 2, controlled E11.9 [facility] [id number] [place] [address] 36511- 0153 Mar, Diabetes type 2, controlled E11.9 and Sciatica, left side M54.32 [place] [id number] [place] [address] 01295- 4545 Mar, Diabetes type 2, controlled E11.9 [facility] [id number] [place] [address] 09668- 1537 Jan, Diabetes type 2, controlled E11.9 and Sciatica, left side M54.32 [facility] [address], [place] [address]- 9402 Jan, Controlled type 2 diabetes mellitus without complication, without long-term current use of insulin E11.9 [facility] [address], [place] [address]- 5399 Dec, Controlled type 2 diabetes mellitus without complication, without long-term current use of insulin E11.9 [facility] [id number] [place] [address] 89012- 5586 Oct, Diabetes type 2, controlled E11.9 [facility] [id number] [address]- 2681 Oct, Diabetes type 2, controlled E11.9 ; Lumbago with sciatica, 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 and Other chronic pain G89.29 [place] [id number] [place] [address] 73451- 4515 Aug, Sciatica, left side M54.32 and Gastroesophageal reflux disease without esophagitis K21.9 [facility] [id number] [place] [address] 09447- 1666 Aug, Pain in right knee M25.561 ; Pain in left hip M25.552 and Uncontrolled type 2 diabetes mellitus without complication, without long-term current use of insulin E11.65 [place] [id number] [place] [address] 89785- 5970 Jul, Diabetes type 2, controlled E11.9 and Cardiac arrhythmia, unspecified cardiac arrhythmia type I49.9 [place] [id number] [place] [address] 58232- 0631 Jul, Diabetes type 2, controlled E11.9 ; Cardiac arrhythmia, unspecified cardiac arrhythmia type I49.9 ; Other chronic pain G89.29 ; Pain in right knee M25.561 and Candidiasis B37.9 [place] [id number] [place] [address] 92929- 6055 May, [place] [id number] [place] [address] 53940- 0565 Jan, [place] [id number] [place] [address] 45967- 5721 Jan, Diabetes type 2, controlled E11.9 [facility] [id number] [place] [address] 59159- 3932 Oct, Type 2 diabetes mellitus without complications E11.9 and 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 [facility] [id number] [place] [address] 12217- 3057 Oct, [place] [id number] [place] [address] 55268- 5191 Mar, [facility] [place] [facility] [address] [id number] [place] [address]- 6470 Mar, [facility] [place] [facility] [address] [id number] [place] [address]- 6627 Jan, [facility] [place] [facility] [address] [id number] [place] [address]- 0585 Jan, [facility] [place] [facility] [address] [id number] [place] [address]- 9571 Jan, [facility] [place] [facility] [address] [id number] [place] [address]- 3137 Jan, [facility] [place] [facility] [address] [id number] [place] [address]- 6246 Dec, [facility] [place] [facility] [address] [id number] [place] [address]- 8276 Dec, [facility] [place] [facility] [address] [id number] [place] [address]- 5336 Oct, [facility] [place] [facility] [address] [id number] [place] [address]- 4090 Oct, [facility] [place] [facility] [address] [id number] [place] [address]- 0678 Aug, [facility] [place] [facility] [address] [id number] [place] [address]- 7391 Aug, [facility] [place] [facility] [address] [id number] [place] [address]- 9289 Jul, [facility] [place] [facility] [address] [id number] [place] [address]- 3307 Jul, [facility] [place] [facility] [address] [id number] [place] [address]- 9802 May, [facility] [place] [facility] [address] [id number] [place] [address]- 9975 May, [facility] [place] [facility] [address] [id number] [place] [address]- 5941 May, [facility] [place] [facility] [address] [id number] [place] [address]- 7238 May, [facility] [place] [facility] [address] [id number] [place] [address]- 4205 March, [facility] [place] [facility] [address] [id number] [place] [address]- 8317 March, [facility] [place] [facility] [address] [id number] [place] [address]- 2908 March, [facility] [place] [facility] [address] [id number] [place] [address]- 7686 March, [facility] [place] [facility] [address] [id number] [place] [address]- 8130 March, [facility] [place] [facility] [address] [id number] [place] [address]- 4143 March, [facility] [place] [facility] [address] [id number] [place] [address]- 0405 Mar, [facility] [place] [facility] [address] [id number] [place] [address]- 2888 Mar, [facility] [place] [facility] [address] [id number] [place] [address]- 7900 Mar, [facility] [place] [facility] [address] [id number] [place] [address]- 1168 Mar, [facility] [place] [facility] [address] [id number] [place] [address]- 9950 Dec, [facility] [place] [facility] [address] [id number] [place] [address]- 3869 Aug, [facility] [place] [facility] [address] [id number] [place] [address]- 9062 Aug, [facility] [place] [facility] [address] [id number] [place] [address]- 9237 Aug, [facility] [place] [facility] [address] [id number] [address]- 2017 20 Aug, 2012 [facility] [address] [facility] [id number] [address]- 9377 13 Aug, 2012 [facility] [address], [place] [address]- 9256 12 Aug, 2012 [facility] [address], [place] [address]- 4426 Jan, [facility] [address] [facility] [id number], [place] [address]- 3491 Jan, [facility] [id number] [place] [address] 88927- 4189 Jan, [facility] [address], [place] [address]- 0654 Jan, [facility] [address] [place] [address] 27333- 7578 15 Oct, 2010 [facility] [address] 3456 Oct, [facility] [address] 8902 Oct, [facility] [address]- 3814 17 Oct, 2010 [facility] [address], [place] [address]- 8704 Oct, [facility] [address] 6138 Oct, [facility] [address] 1351 Aug, IMMUNIZATIONS No Known Immunizations SOCIAL HISTORY Never Assessed REASON FOR VISIT Sample Request PLAN OF CARE VITAL SIGNS MEDICATIONS Medication Instructions Dosage Frequency Start Date End Date Duration Status NovoFine 32G X 6 MM subcutaneously Once a day use for injectio of victoza pen 24h May, 90 days Active RESULTS No Results PROCEDURES No [...]
--- OUTSIDE RECORDS SUMMARY | 2018-10-25 15:21 | XMS REPORT ---
Author Author CHRISTIANO MAHONEY Organization [facility] Address [address] [place] [address] Care Team Providers Care System Software Programmer Name Role Phone CHRISTIANO MAHONEY Unavailable PROBLEMS Type Condition ICD9-CM Code HIZ40-NB Code Onset Dates Condition Status SNOMED Code Problem Diabetes type 2, controlled E11.9 Active 41054934 Problem Uncontrolled type 2 diabetes mellitus without complication, without long-term current use of insulin E11.65 Active 360146657 Problem Controlled type 2 diabetes mellitus without complication, without long -term current use of insulin E11.9 Active 224912601 Problem Sciatica, left side M54.32 Active 05837713 Problem Gastroesophageal reflux disease without esophagitis K21.9 Active 806382200 Problem Other chronic pain G89.29 Active 19661769 Problem Lumbago with sciatica, 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 Active 072793230 ALLERGIES Substance Reaction Event Type Date Status Aleve Unknown Drug Allergy May, Active ENCOUNTERS Encounter Location Date Diagnosis [facility] [id number] [place] [address] 39728- 8984 Aug, [facility] [id number] [place] [address] 50153- 5920 May, Diabetes type 2, controlled E11.9 [facility] [id number] [place] [address] 89521- 8271 May, Diabetes type 2, controlled E11.9 and Lumbago with sciatica , 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 [facility] [id number] [place] [address] 72427- 4502 May, [facility] [id number] [place] [address] 41571- 1013 May, Diabetes type 2, controlled E11.9 [facility] [id number] [place] [address] 84980- 4923 May, Diabetes type 2, controlled E11.9 [facility] [id number] [place] [address] 17079- 8009 May, Diabetes type 2, controlled E11.9 [facility] [id number] [place] [address] 10784- 9110 March, Uncontrolled type 2 diabetes mellitus without complication, without long-term current use of insulin E11.65 [facility] [id number] [place] [address] 73155- 1690 March, Other chronic pain G89.29 [place] [id number] [place] [address] 99810- 5295 Mar, Other chronic pain G89.29 [place] [id number] [place] [address] 22500- 5012 Jan, BMI 45.0-49.9, adult Z68.42 ; Sciatica, left side M54.32 ; Other chronic pain G89.29 and Diabetes type 2, controlled E11.9 [facility] [id number] [place] [address] 47403- 2271 Jan, Other chronic pain G89.29 [place] [id number] [place] [address] 09172- 1882 Jan, Diabetes type 2, controlled E11.9 and Other chronic pain G89.29 [place] [id number] [place] [address] 09795- 1865 Dec, Diabetes type 2, controlled E11.9 [facility] [address] [address]- 6083 Oct, Diabetes type 2, controlled E11.9 [facility] [id number] [place] [address] 52891- 6760 Oct, Diabetes type 2, controlled E11.9 [facility] [id number] [place] [address] 97090- 5648 Aug, Diabetes type 2, controlled E11.9 [facility] [address] [address]- 0198 Aug, Diabetes type 2, controlled E11.9 and Lumbago with sciatica , 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 [facility] [address], [place] [address]- 2541 Jul, Diabetes type 2, controlled E11.9 [facility] [id number] [place] [address] 10691- 2861 May, Diabetes type 2, controlled E11.9 [facility] [id number] [place] [address] 04800- 2356 May, Diabetes type 2, controlled E11.9 [facility] [id number] [place] [address] 26208- 0924 March, Diabetes type 2, controlled E11.9 [facility] [id number] [place] [address] 42860- 1648 Mar, Diabetes type 2, controlled E11.9 and Sciatica, left side M54.32 [facility] [id number] [place] [address] 39276- 3450 Mar, Diabetes type 2, controlled E11.9 [facility] [address] [address]- 6631 Jan, Diabetes type 2, controlled E11.9 and Sciatica, left side M54.32 [facility] [address], [place] [address]- 6829 Jan, Controlled type 2 diabetes mellitus without complication, without long-term current use of insulin E11.9 [facility] [address], [place] [address]- 9279 Dec, Controlled type 2 diabetes mellitus without complication, without long-term current use of insulin E11.9 [facility] [address], [place] [address]- 9923 Oct, Diabetes type 2, controlled E11.9 [place] [address] [address]- 5390 Oct, Diabetes type 2, controlled E11.9 ; Lumbago with sciatica, 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 and Other chronic pain G89.29 [place] [address], [place] [address]- 9735 Aug, Sciatica, left side M54.32 and Gastroesophageal reflux disease without esophagitis K21.9 [place] [id number] [place] [address] 52148- 5719 19 Aug, 2016 Pain in right knee M25.561 ; Pain in left hip M25.552 and Uncontrolled type 2 diabetes mellitus without complication, without long-term current use of insulin E11.65 [place] [id number] [place] [address] 09634- 1292 Jul, Diabetes type 2, controlled E11.9 and Cardiac arrhythmia, unspecified cardiac arrhythmia type I49.9 [place] [id number] [place] [address] 33943- 3525 15 Jul, 2016 Diabetes type 2, controlled E11.9 ; Cardiac arrhythmia, unspecified cardiac arrhythmia type I49.9 ; Other chronic pain G89.29 ; Pain in right knee M25.561 and Candidiasis B37.9 [place] [address] [address]- 1795 May, [place] [id number] [place] [address] 27333- 9764 Jan, [place] [id number] [place] [address] 32509- 8110 Jan, Diabetes type 2, controlled E11.9 [place] [id number] [place] [address] 67822- 6558 14 Oct, 2015 Type 2 diabetes mellitus without complications E11.9 and 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 [place] [id number] [place] [address] 18306- 2546 Oct, [facility] [place] [facility] [address] [id number] [place] [address]- 0138 Mar, [facility] [place] [facility] [address] [id number] [place] [address]- 6216 Mar, [facility] [place] [facility] [address] [id number] [place] [address]- 2144 Jan, [facility] [place] [facility] [address] [id number] [place] 3855 Jan, [facility] [place] [facility] [address] [id number] [place] [address]- 2669 Jan, [facility] [place] [facility] [address] [id number] [place] [address]- 8525 Jan, [facility] [place] [facility] [address] [id number] [place] [address]- 4532 Dec, [facility] [place] [facility] [address] [id number] [place] [address]- 2864 Dec, [facility] [place] [facility] [address] [id number] [place] [address]- 6327 Oct, [facility] [place] [facility] [address] [id number] [place] [address]- 4625 Oct, [facility] [place] [facility] [address] [id number] [place] [address]- 7564 Aug, [facility] [place] [facility] [address] [id number] [place] [address]- 8294 Aug, [facility] [place] [facility] [address] [id number] [place] [address]- 1177 Jul, [facility] [place] [facility] [address] [id number] [place] [address]- 3550 Jul, [facility] [place] [facility] [address] [id number] [place] [address]- 4119 May, [facility] [place] [facility] [address] [id number] [place] [address]- 6987 May, [facility] [address] [id number] [place] [address]- 2364 May, [facility] [place] [facility] [address] [id number] [place] [address]- 9156 May, [facility] [place] [facility] [address] [id number] [place] [address]- 7677 March, [facility] [place] [facility] [address] [id number] [place] [address]- 0327 March, [facility] [place] [facility] [address] [id number] [place] [address]- 8099 March, [facility] [place] [facility] [address] [id number] [place] [address]- 8800 March, [facility] [place] [facility] [address] [id number] [place] [address]- 3417 March, [facility] [place] [facility] [address] [id number] [place] [address]- 5654 March, [facility] [place] [facility] [address] [id number] [place] [address]- 0105 Mar, [facility] [place] [facility] [address] [id number] [place] [address]- 7272 Mar, [facility] [place] [facility] [address] [id number] [place] [address]- 7324 Mar, [facility] [place] [facility] [address] [id number] [place] [address]- 4219 Mar, [facility] [place] [facility] [address] [id number] [place] [address]- 4716 Dec, [facility] [place] [facility] [address] [id number] [place] [address] Aug, [facility] [place] [facility] [address] [id number] [place] [address] Aug, [facility] [address] [facility] [id number] [address] 03 Aug, 2012 [facility] [address] [facility] [id number] [address] 20 Aug, 2012 [facility] [address] [facility] [id number] [address] 13 Aug, 2012 [facility] [address] [facility] [id number], [place] [address] 12 Aug, 2012 [facility] [address] [facility] [id number] [place] [address] Jan, [facility] [address] [facility] [id number] [address] Jan, [facility] [address] [facility] [id number] [address] Jan, [facility] [address] [facility] [id number] [address] Jan, [facility] [address] [facility] [id number] [address] 15 Oct, 2010 [facility] [address] [facility] [id number] [address] 15 Oct, 2010 [facility] [address] [facility] [id number] [address] 17 Oct, 2010 [facility] [address] [facility] [id number] [address] 17 Oct, 2010 [facility] [address] [facility] [id number] [address] 17 Oct, 2010 [facility] [address] [facility] [id number] [address] 17 Oct, 2009 [facility] [address] [facility] [id number] [address] 11 Aug, 2009 IMMUNIZATIONS No Known Immunizations SOCIAL HISTORY Never Assessed REASON FOR VISIT PALS-victoza PLAN OF CARE VITAL SIGNS MEDICATIONS Medication Instructions Dosage Frequency Start Date End Date Duration Status NovoFine 32G X 6 MM subcutaneously Once a day use for injectio of victoza pen 24h May, 90 days Active Victoza 18 MG/3ML Subcutaneous Once a day Inject 0.3 ml (1.8 mg) 24h March 90 days Active RESULTS No Results PROCEDURES [...]
--- OUTSIDE RECORDS SUMMARY | 2018-10-25 15:21 | XMS REPORT ---
Author Author CHRISTIANO MAHONEY Organization [facility] Address [address] [place] [address] Care Team Providers Care Retirement Assistant Name Role Phone CHRISTIANO MAHONEY Unavailable PROBLEMS Type Condition ICD9-CM Code NXN85-WT Code Onset Dates Condition Status SNOMED Code Problem Diabetes type 2, controlled E11.9 Active 79892279 Problem Uncontrolled type 2 diabetes mellitus without complication, without long-term current use of insulin E11.65 Active 822003239 Problem Controlled type 2 diabetes mellitus without complication, without long -term current use of insulin E11.9 Active 516434045 Problem Sciatica, left side M54.32 Active 45894949 Problem Gastroesophageal reflux disease without esophagitis K21.9 Active 961417436 Problem Other chronic pain G89.29 Active 62603491 Problem Lumbago with sciatica, 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 Active 295136183 ALLERGIES No Information ENCOUNTERS Encounter Location Date Diagnosis [place] [id number] [place] [address] 03412- 8091 Aug, [place] [id number] [place] [address] 34878- 6793 May, Diabetes type 2, controlled E11.9 [facility] [id number] [place] [address] 52475- 1752 May, Diabetes type 2, controlled E11.9 and Lumbago with sciatica , 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 [facility] [id number] [place] [address] 45055- 8398 May, [facility] [id number] [place] [address] 88881- 2526 May, Diabetes type 2, controlled E11.9 [facility] [id number] [place] [address] 33096- 1190 May, Diabetes type 2, controlled E11.9 [facility] [address] [address]- 7350 May, Diabetes type 2, controlled E11.9 [facility] [id number] [place] [address] 15786- 7003 March, Uncontrolled type 2 diabetes mellitus without complication, without long-term current use of insulin E11.65 [facility] [id number] [place] [address] 91504- 0567 March, Other chronic pain G89.29 [facility] [id number] [place] [address] 64492- 5556 Mar, Other chronic pain G89.29 [facility] [id number] [place] [address] 24497- 4698 Jan, BMI 45.0-49.9, adult Z68.42 ; Sciatica, left side M54.32 ; Other chronic pain G89.29 and Diabetes type 2, controlled E11.9 [facility] [id number] [place] [address] 59425- 9486 Jan, Other chronic pain G89.29 [facility] [id number] [place] [address] 52001- 2779 Jan, Diabetes type 2, controlled E11.9 and Other chronic pain G89.29 [facility] [address] [address]- 1844 Dec, Diabetes type 2, controlled E11.9 [facility] [address] [address]- 7342 Oct, Diabetes type 2, controlled E11.9 [facility] [id number] [place] [address] 88685- 3021 Oct, Diabetes type 2, controlled E11.9 [facility] [address] [address]- 5111 Aug, Diabetes type 2, controlled E11.9 [facility] [address] [address]- 8824 14 Aug, 2017 Diabetes type 2, controlled E11.9 and Lumbago with sciatica , 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 [facility] [id number] [address]- 9674 16 Jul, 2017 Diabetes type 2, controlled E11.9 [facility] [id number] [place] [address] 25781- 0566 May, Diabetes type 2, controlled E11.9 [facility] [id number] [place] [address] 15444- 2882 May, Diabetes type 2, controlled E11.9 [place] [id number] [place] [address] 44779- 2137 March, Diabetes type 2, controlled E11.9 [place] [id number] [place] [address] 08284- 9784 Mar, Diabetes type 2, controlled E11.9 and Sciatica, left side M54.32 [facility] [id number] [place] [address] 00087- 3611 Mar, Diabetes type 2, controlled E11.9 [facility] [id number] [place] [address] 56583- 5192 Jan, Diabetes type 2, controlled E11.9 and Sciatica, left side M54.32 [place] [address] [place] [address] 79962- 3024 Jan, Controlled type 2 diabetes mellitus without complication, without long-term current use of insulin E11.9 [place] [address] [place] [address] 11413- 5663 Dec, Controlled type 2 diabetes mellitus without complication, without long-term current use of insulin E11.9 [place] [address] [address]- 5786 Oct, Diabetes type 2, controlled E11.9 [place] [address] [place] [address] 15597- 5238 Oct, Diabetes type 2, controlled E11.9 ; Lumbago with sciatica, 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 and Other chronic pain G89.29 [place] [id number] [place] [address] 69002- 2004 Aug, Sciatica, left side M54.32 and Gastroesophageal reflux disease without esophagitis K21.9 [place] [id number] [place] [address] 53582- 8452 Aug, Pain in right knee M25.561 ; Pain in left hip M25.552 and Uncontrolled type 2 diabetes mellitus without complication, without long-term current use of insulin E11.65 [place] [id number] [place] [address] 41836- 0803 Jul, Diabetes type 2, controlled E11.9 and Cardiac arrhythmia, unspecified cardiac arrhythmia type I49.9 [place] [id number] [place] [address] 65272- 4592 Jul, Diabetes type 2, controlled E11.9 ; Cardiac arrhythmia, unspecified cardiac arrhythmia type I49.9 ; Other chronic pain G89.29 ; Pain in right knee M25.561 and Candidiasis B37.9 [place] [address] [place] [address] 03386- 7241 May, [place] [id number] [place] [address] 58438- 8522 Jan, [place] [id number] [place] [address] 37645- 8035 Jan, Diabetes type 2, controlled E11.9 [place] [id number] [place] [address] 35737- 5763 Oct, Type 2 diabetes mellitus without complications E11.9 and 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 [place] [id number] [place] [address] 22525- 4998 Oct, [facility] [place] [facility] [address] [id number] [place] [address]- 8739 Mar, [facility] [place] [facility] [address] [id number] [place] [address]- 1855 Mar, [facility] [place] [facility] [address] [id number] [place] [address]- 7808 Jan, [facility] [place] [facility] [address] [id number] [place] [address]- 0952 Jan, [facility] [place] [facility] [address] [id number] [place] [address]- 7256 Jan, [facility] [place] [facility] [address] [id number] [place] [address]- 4232 Jan, [facility] [place] [facility] [address] [id number] [place] [address]- 0552 Dec, [facility] [place] [facility] [address] [id number] [place] [address]- 3650 Dec, [facility] [place] [facility] [address] [id number] [place] [address]- 7425 Oct, [facility] [place] [facility] [address] [id number] [place] [address]- 0512 Oct, [facility] [place] [facility] [address] [id number] [place] [address]- 7544 Aug, [facility] [place] [facility] [address] [id number] [place] [address]- 6314 Aug, [facility] [place] [facility] [address] [id number] [place] [address]- 9790 Jul, [facility] [place] [facility] [address] [id number] [place] [address]- 8633 Jul, [facility] [place] [facility] [address] [id number] [place] [address]- 4684 May, [facility] [place] [facility] [address] [id number] [place] [address]- 1130 May, [facility] [place] [facility] [address] [id number] [place] [address]- 6500 May, [facility] [place] [facility] [address] [id number] [place] [address]- 2535 May, [facility] [place] [facility] [address] [id number] [place] [address]- 1587 March, [facility] [place] [facility] [address] [id number] [place] [address]- 3033 March, [facility] [place] [facility] [address] [id number] [place] [address]- 4859 March, [facility] [place] [facility] [address] [id number] [place] [address]- 1652 March, [facility] [place] [facility] [address] [id number] [place] [address]- 2639 March, [facility] [place] [facility] [address] [id number] [place] [address]- 5462 March, [facility] [place] [facility] [address] [id number] [place] [address]- 0358 Mar, [facility] [place] [facility] [address] [id number] [place] [address]- 4919 Mar, [facility] [place] [facility] [address] [id number] [place] [address]- 3210 Mar, [facility] [place] [facility] [address] [id number] [place] [address]- 3751 Mar, [facility] [place] [facility] [address] [id number] [place] [address]- 1388 Dec, [facility] [place] [facility] [address] [id number] [place] [address]- 4285 Aug, [facility] [place] [facility] [address] [id number] [place] [address]- 5865 Aug, [facility] [place] [facility] [address] [id number] [address] 2546 03 Aug, 2012 [facility] [address] [facility] [id number] [address]- 8262 20 Aug, 2012 [facility] [address] [facility] [id number] [place] [address]- 4236 13 Aug, 2012 [facility] [address] [facility] [id number] [address]- 7473 12 Aug, 2012 [facility] [address] [facility] [id number] [address]- 0271 22 Jan, 2012 [facility] [address] [facility] [id number] [place] [address]- 6463 Jan, [facility] [address] [facility] [id number] [address]- 4696 Jan, [facility] [address] [address]- 8436 Jan, [facility] [address] [address]- 7640 15 Oct, 2010 [facility] [address] [address]- 8220 15 Oct, 2010 [facility] [address] [address]- 9455 17 Oct, 2010 [facility] [address] [address]- 8104 17 Oct, 2010 [facility] [id number] [address]- 0213 17 Oct, 2010 [facility] [address] [address]- 9797 17 Oct, 2009 [facility] [address] 5650 11 Aug, 2009 IMMUNIZATIONS No Known Immunizations SOCIAL HISTORY Never Assessed REASON FOR [facility]ISIT [facility] PLAN OF CARE VITAL SIGNS MEDICATIONS Unknown Medications RESULTS No Results PROCEDURES No Known procedures [...] 2004 Surgical History removal of colostomy bag 2003 Hospitalization History surgery (multiple)
--- OUTSIDE RECORDS SUMMARY | 2018-10-25 15:21 | XMS REPORT ---
Author Author CHRISTIANO MAHONEY Organization [facility] Address [address] [place] [address] Care Team Providers Care Registered Safety Engineer Name Role Phone CHRISTIANO AMHONEY Unavailable PROBLEMS Type Condition ICD9-CM Code ITO05-IL Code Onset Dates Condition Status SNOMED Code Problem Diabetes type 2, controlled E11.9 Active 39688629 Problem Uncontrolled type 2 diabetes mellitus without complication, without long-term current use of insulin E11.65 Active 228727836 Problem Controlled type 2 diabetes mellitus without complication, without long -term current use of insulin E11.9 Active 853597089 Problem Sciatica, left side M54.32 Active 67447343 Problem Gastroesophageal reflux disease without esophagitis K21.9 Active 295023605 Problem Other chronic pain G89.29 Active 35445449 Problem Lumbago with sciatica, 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 Active 607848856 ALLERGIES No Information ENCOUNTERS Encounter Location Date Diagnosis [id number] [place] [address] 87458- 7711 Aug, [place] [id number] [place] [address] 86907- 8856 May, Diabetes type 2, controlled E11.9 [facility] [id number] [place] [address] 22608- 8303 May, Diabetes type 2, controlled E11.9 and Lumbago with sciatica , 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 [facility] [id number] [place] [address] 22442- 5552 May, [facility] [id number] [place] [address] 47711- 2378 May, Diabetes type 2, controlled E11.9 [facility] [id number] [place] [address] 77106- 2236 May, Diabetes type 2, controlled E11.9 [facility] [address], [place] [address]- 3479 May, Diabetes type 2, controlled E11.9 [facility] [id number] [place] [address] 50464- 3609 March, Uncontrolled type 2 diabetes mellitus without complication, without long-term current use of insulin E11.65 [facility] [id number] [place] [address] 17820- 7930 March, Other chronic pain G89.29 [facility] [id number] [place] [address] 34351- 5941 Mar, Other chronic pain G89.29 [facility] [id number] [place] [address] 56988- 1972 Jan, BMI 45.0-49.9, adult Z68.42 ; Sciatica, left side M54.32 ; Other chronic pain G89.29 and Diabetes type 2, controlled E11.9 [facility] [address] [place] [address] 90123- 9665 Jan, Other chronic pain G89.29 [facility] [id number] [place] [address] 74410- 7047 Jan, Diabetes type 2, controlled E11.9 and Other chronic pain G89.29 [facility] [address], [place] [address]- 5457 Dec, Diabetes type 2, controlled E11.9 [facility] [address], [place] [address]- 7036 Oct, Diabetes type 2, controlled E11.9 [facility] [id number] [place] [address] 69204- 8594 Oct, Diabetes type 2, controlled E11.9 [facility] [address], [place] [address]- 9074 Aug, Diabetes type 2, controlled E11.9 [facility] [address], [place] [address]- 5871 14 Aug, 2017 Diabetes type 2, controlled E11.9 and Lumbago with sciatica , 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 [facility] [id number] [address]- 7100 16 Jul, 2017 Diabetes type 2, controlled E11.9 [facility] [id number] [place] [address] 88428- 7194 May, Diabetes type 2, controlled E11.9 [facility] [id number] [place] [address] 72509- 1008 May, Diabetes type 2, controlled E11.9 [place] [id number] [place] [address] 09889- 8348 March, Diabetes type 2, controlled E11.9 [place] [id number] [place] [address] 62220- 1173 Mar, Diabetes type 2, controlled E11.9 and Sciatica, left side M54.32 [facility] [id number] [place] [address] 20760- 3434 Mar, Diabetes type 2, controlled E11.9 [facility] [address] [place] [address] 64677- 6050 Jan, Diabetes type 2, controlled E11.9 and Sciatica, left side M54.32 [place] [address] [place] [address] 61286- 2082 Jan, Controlled type 2 diabetes mellitus without complication, without long-term current use of insulin E11.9 [place] [address] [place] [address] 58588- 2030 Dec, Controlled type 2 diabetes mellitus without complication, without long-term current use of insulin E11.9 [place] [address] [address]- 1878 Oct, Diabetes type 2, controlled E11.9 [place] [address] [place] [address] 03196- 7931 Oct, Diabetes type 2, controlled E11.9 ; Lumbago with sciatica, 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 and Other chronic pain G89.29 [place] [id number] [place] [address] 01718- 0450 Aug, Sciatica, left side M54.32 and Gastroesophageal reflux disease without esophagitis K21.9 [place] [id number] [place] [address] 40286- 0010 Aug, Pain in right knee M25.561 ; Pain in left hip M25.552 and Uncontrolled type 2 diabetes mellitus without complication, without long-term current use of insulin E11.65 [place] [id number] [place] [address] 36586- 2877 Jul, Diabetes type 2, controlled E11.9 and Cardiac arrhythmia, unspecified cardiac arrhythmia type I49.9 [place] [id number] [place] [address] 33889- 5079 Jul, Diabetes type 2, controlled E11.9 ; Cardiac arrhythmia, unspecified cardiac arrhythmia type I49.9 ; Other chronic pain G89.29 ; Pain in right knee M25.561 and Candidiasis B37.9 [place] [address] [place] [address] 72617- 8932 May, [place] [id number] [place] [address] 75818- 3590 Jan, [place] [id number] [place] [address] 17835- 1694 Jan, Diabetes type 2, controlled E11.9 [place] [id number] [place] [address] 22764- 0342 Oct, Type 2 diabetes mellitus without complications E11.9 and 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 [id number] [place] [address] 01170- 5357 Oct, [facility] [place] [facility] [address] [id number] [place] [address]- 0380 Mar, [facility] [place] [facility] [address] [id number] [place] [address]- 8963 Mar, [facility] [place] [facility] [address] [id number] [place] [address]- 2193 Jan, [facility] [place] [facility] [address] [id number] [place] [address]- 7896 Jan, [facility] [place] [facility] [address] [id number] [place] [address]- 9777 Jan, [facility] [place] [facility] [address] [id number] [place] [address]- 6171 Jan, [facility] [place] [facility] [address] [id number] [place] [address]- 2796 Dec, [facility] [place] [facility] [address] [id number] [place] [address]- 1950 Dec, [facility] [place] [facility] [address] [id number] [place] [address]- 1038 Oct, [facility] [place] [facility] [address] [id number] [place] [address]- 5080 Oct, [facility] [place] [facility] [address] [id number] [place] [address]- 5000 Aug, [facility] [place] [facility] [address] [id number] [place] [address]- 6218 Aug, [facility] [place] [facility] [address] [id number] [place] [address]- 5644 Jul, [facility] [place] [facility] [address] [id number] [place] [address]- 5615 Jul, [facility] [place] [facility] [address] [id number] [place] [address]- 6626 May, [facility] [place] [facility] [address] [id number] [place] [address]- 5292 May, [facility] [place] [facility] [address] [id number] [place] [address]- 4629 May, [facility] [place] [facility] [address] [id number] [place] [address]- 7662 May, [facility] [place] [facility] [address] [id number] [place] [address]- 4451 March, [facility] [place] [facility] [address] [id number] [place] [address]- 8916 March, [facility] [place] [facility] [address] [id number] [place] [address]- 8343 March, [facility] [place] [facility] [address] [id number] [place] [address]- 5677 March, [facility] [place] [facility] [address] [id number] [place] [address]- 2309 March, [facility] [place] [facility] [address] [id number] [place] [address]- 0602 March, [facility] [place] [facility] [address] [id number] [place] [address]- 2300 Mar, [facility] [place] [facility] [address] [id number] [place] [address]- 5261 Mar, [facility] [place] [facility] [address] [id number] [place] [address]- 0932 Mar, [facility] [place] [facility] [address] [id number] [place] [address]- 1358 Mar, [facility] [place] [facility] [address] [id number] [place] [address]- 7454 Dec, [facility] [place] [facility] [address] [id number] [place] [address] Aug, [facility] [place] [facility] [address] [id number] [place] [address] Aug, [facility] [place] [facility] [address] [id number], [place] [address] 03 Aug, 2012 [facility] [address] [facility] [id number], [place] [address] 20 Aug, 2012 [facility] [address] [facility] [id number], [place] [address] 13 Aug, 2012 [facility] [address] [facility] [id number], [place] [address] 12 Aug, 2012 [facility] [address] [facility] [id number] [place] [address] 22 Jan, 2012 [facility] [address] [facility] [id number] [place] [address] Jan, [facility] [address] [facility] [id number], [place] [address] Jan, [facility] [id number] [address] Jan, [facility] [address] [facility] [id number], [place] [address] 15 Oct, 2010 [facility] [id number] [address] 15 Oct, 2010 [facility] [id number], [place] [address] 17 Oct, 2010 [facility] [id number], [place] [address] 17 Oct, 2010 [facility] [address] [facility] [id number], [place] [address] 17 Oct, 2010 [facility] [id number], [place] [address] 17 Oct, 2009 [facility] [address] [id number], [place] [address] 11 Aug, 2009 IMMUNIZATIONS No Known Immunizations SOCIAL HISTORY Never Assessed REASON FOR VISIT Refill request PLAN OF CARE VITAL SIGNS MEDICATIONS Medication Instructions Dosage Frequency Start Date End Date Duration Status Victoza 18 MG/3ML Subcutaneous Once a day Inject 0.3 ml (1.8 mg) 24h March 30 days Active RESULTS No Results PROCEDURES No [...]
--- OUTSIDE RECORDS SUMMARY | 2018-10-25 15:21 | XMS REPORT ---
Author Author CHRISTIANO MAHONEY Organization [facility] Address [address] [place] [address] Care Team Providers Care Product Safety Expert Name Role Phone CHRISTIANO MAHONEY Unavailable PROBLEMS Type Condition ICD9-CM Code [id number] Code Onset Dates Condition Status SNOMED Code Problem Diabetes type 2, controlled E11.9 Active 48581071 Problem Uncontrolled type 2 diabetes mellitus without complication, without long-term current use of insulin E11.65 Active 820734066 Problem Controlled type 2 diabetes mellitus without complication, without long -term current use of insulin E11.9 Active 500953613 Problem Sciatica, left side M54.32 Active 69455577 Problem Gastroesophageal reflux disease without esophagitis K21.9 Active 875533664 Problem Other chronic pain G89.29 Active 68253804 Problem Lumbago with sciatica, 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 Active 832039597 ALLERGIES Substance Reaction Event Type Date Status Aleve Unknown Drug Allergy May, Active ENCOUNTERS Encounter Location Date Diagnosis [facility] [id number] [place] [address] 47694- 3186 Aug, [facility] [id number] [place] [address] 27733- 2187 May, Diabetes type 2, controlled E11.9 [facility] [id number] [place] [address] 17604- 4292 May, Diabetes type 2, controlled E11.9 and Lumbago with sciatica , 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 [facility] [id number] [place] [address] 62771- 7028 May, [facility] [id number] [place] [address] 31062- 0841 May, Diabetes type 2, controlled E11.9 [facility] [id number] [place] [address] 13341- 0470 May, Diabetes type 2, controlled E11.9 [facility] [id number] [place] [address] 55206- 8268 May, Diabetes type 2, controlled E11.9 [facility] [id number] [place] [address] 03394- 3114 March, Uncontrolled type 2 diabetes mellitus without complication, without long-term current use of insulin E11.65 [facility] [id number] [place] [address] 12273- 9753 March, Other chronic pain G89.29 [facility] [id number] [place] [address] 62917- 4099 Mar, Other chronic pain G89.29 [facility] [id number] [place] [address] 27925- 1208 Jan, BMI 45.0-49.9, adult Z68.42 ; Sciatica, left side M54.32 ; Other chronic pain G89.29 and Diabetes type 2, controlled E11.9 [facility] [id number] [place] [address] 61687- 1048 Jan, Other chronic pain G89.29 [facility] [facility] [id number] [place] [address] 98470- 1721 Jan, Diabetes type 2, controlled E11.9 and Other chronic pain G89.29 [place] [id number] [place] [address] 25022- 9471 Dec, Diabetes type 2, controlled E11.9 [facility] [address] [address] 4043 Oct, Diabetes type 2, controlled E11.9 [facility] [id number] [place] [address] 06120- 3093 Oct, Diabetes type 2, controlled E11.9 [facility] [id number] [place] [address] 98710- 6626 Aug, Diabetes type 2, controlled E11.9 [facility] [address] [address] 3087 Aug, Diabetes type 2, controlled E11.9 and Lumbago with sciatica , 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 [facility] [address] [address]- 3399 Jul, Diabetes type 2, controlled E11.9 [facility] [id number] [place] [address] 38260- 9922 May, Diabetes type 2, controlled E11.9 [facility] [id number] [place] [address] 97740- 1971 May, Diabetes type 2, controlled E11.9 [facility] [id number] [place] [address] 02583- 7452 March, Diabetes type 2, controlled E11.9 [facility] [id number] [place] [address] 44771- 3965 Mar, Diabetes type 2, controlled E11.9 and Sciatica, left side M54.32 [facility] [id number] [place] [address] 60213- 4077 Mar, Diabetes type 2, controlled E11.9 [facility] [address] [address] 7994 Jan, Diabetes type 2, controlled E11.9 and Sciatica, left side M54.32 [facility] [address] [address] 5430 Jan, Controlled type 2 diabetes mellitus without complication, without long-term current use of insulin E11.9 [facility] [id number] [address]- 5867 Dec, Controlled type 2 diabetes mellitus without complication, without long-term current use of insulin E11.9 [facility] [address] [address]- 9386 Oct, Diabetes type 2, controlled E11.9 [facility] [address] [address]- 0786 Oct, Diabetes type 2, controlled E11.9 ; Lumbago with sciatica, 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 and Other chronic pain G89.29 [place] [address] [address]- 8952 Aug, Sciatica, left side M54.32 and Gastroesophageal reflux disease without esophagitis K21.9 [facility] [id number] [place] [address] 90965- 5953 19 Aug, 2016 Pain in right knee M25.561 ; Pain in left hip M25.552 and Uncontrolled type 2 diabetes mellitus without complication, without long-term current use of insulin E11.65 [facility] [id number] [place] [address] 61740- 0362 Jul, Diabetes type 2, controlled E11.9 and Cardiac arrhythmia, unspecified cardiac arrhythmia type I49.9 [facility] [facility] [id number] [place] [address] 00293- 2216 15 Jul, 2016 Diabetes type 2, controlled E11.9 ; Cardiac arrhythmia, unspecified cardiac arrhythmia type I49.9 ; Other chronic pain G89.29 ; Pain in right knee M25.561 and Candidiasis B37.9 [place] [address] [address]- 4574 May, [place] [id number] [place] [address] 70805- 2019 Jan, [place] [facility] [id number] [place] [address] 41922- 3852 Jan, Diabetes type 2, controlled E11.9 [facility] [id number] [place] [address] 17801- 7244 14 Oct, 2015 Type 2 diabetes mellitus without complications E11.9 and 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 [place] [id number] [place] [address] 84282- 2546 Oct, [facility] [place] [facility] [address] [id number] [place] [address]- 5463 Mar, [facility] [place] [facility] [address] [id number] [place] [address]- 3616 Mar, [facility] [place] [facility] [address] [id number] [place] [address]- 5655 Jan, [facility] [place] [facility] [address] [id number] [place] [address]10 Jan, [facility] [place] [facility] [address] [id number] [place] [address]- 8925 Jan, [facility] [place] [facility] [address] [id number] [place] [address]- 0624 Jan, [facility] [place] [facility] [address] [id number] [place] [address]- 1139 Dec, [facility] [place] [facility] [address] [id number] [place] [address]- 7255 Dec, [facility] [place] [facility] [address] [id number] [place] [address]- 3509 Oct, [facility] [place] [facility] [address] [id number] [place] [address]- 4358 Oct, [facility] [place] [facility] [address] [id number] [place] [address]- 3782 Aug, [facility] [place] [facility] [address] [id number] [place] [address]- 1914 Aug, [facility] [place] [facility] [address] [id number] [place] [address]- 3101 Jul, [facility] [place] [facility] [address] [id number] [place] [address]- 2808 Jul, [facility] [place] [facility] [address] [id number] [place] [address]- 8879 May, [facility] [place] [facility] [address] [id number] [place] [address]- 6950 May, [facility] [address] [id number] [place] [address]- 6741 May, [facility] [place] [facility] [address] [id number] [place] [address]- 8972 May, [facility] [place] [facility] [address] [id number] [place] [address]- 3491 March, [facility] [place] [facility] [address] [id number] [place] [address]- 8880 March, [facility] [place] [facility] [address] [id number] [place] [address]- 0631 March, [facility] [place] [facility] [address] [id number] [place] [address]- 2763 March, [facility] [place] [facility] [address] [id number] [place] [address]- 5920 March, [facility] [place] [facility] [address] [id number] [place] [address]- 1365 March, [facility] [place] [facility] [address] [id number] [place] [address]- 9604 Mar, [facility] [place] [facility] [address] [id number] [place] [address]- 3531 Mar, [facility] [place] [facility] [address] [id number] [place] [address]- 2066 Mar, [facility] [place] [facility] [address] [id number] [place] [address]- 1629 Mar, [facility] [place] [facility] [address] [id number] [place] [address]- 4240 Dec, [facility] [place] [facility] [address] [id number] [place] [address]- 6188 Aug, [facility] [place] [facility] [address] [id number] [place] [address]- 9188 Aug, [facility] [address] [facility] [id number] [address]- 5690 03 Aug, 2012 [facility] [address] [id number] [place] [address]- 9712 20 Aug, 2012 [facility] [address] [id number] [place] [address]- 9772 13 Aug, 2012 [facility] [address] [id number] [address]- 9530 12 Aug, 2012 [facility] [address] [id number] [place] [address]- 3912 Jan, [facility] [address] [id number] [place] 1182 Jan, [facility] [address] [id number] [place] [address]- 2122 Jan, [facility] [address] [id number] [place] [address]- 7477 Jan, [facility] [address] [id number] [place] [address]- 6902 15 Oct, 2010 [facility] [address] [id number] [place] [address]- 2368 15 Oct, 2010 [facility] [address] [id number] [address]- 1884 17 Oct, 2010 [facility] [address] [id number] [place] [address]- 7482 17 Oct, 2010 [facility] [address] [id number] [place] [address]- 7789 17 Oct, 2010 [facility] [address] [id number] [address]- 0796 17 Oct, 2009 [facility] [address] [id number] [place] 2108 11 Aug, 2009 IMMUNIZATIONS No Known Immunizations SOCIAL HISTORY Never Assessed REASON FOR VISIT Diabetes [facility] PLAN OF CARE VITAL SIGNS Height 62 in 2018-05-25 Weight 274 lbs 2018-05-25 Temperature 99.2 degrees Fahrenheit 2018-05-25 Heart Rate 108 bpm 2018-05-25 Respiratory Rate 20 2018-05-25 BMI 50.11 kg/m2 2018-05-25 Blood pressure systolic 138 mmHg 2018-05-25 Blood pressure diastolic 86 mmHg 2018-05-25 MEDICATIONS Medication Instructions Dosage Frequency Start Date End Date Duration Status Viagra 100 mg 1 tablet as needed 24h 10 Active Ranitidine HCl 150 MG 1 tablet 12h Active Metformin HCl 1000 MG 1 tablet with a meal 12h Active Cozaar 50 mg Orally Once a day 1 tablet 24h Jul, 30 day(s) Active Aspirin 325 MG Orally Once a day 1 tablet 24h Active Victoza 18 MG/3ML as directed March, Active GlipiZIDE 10 mg 2 tablets 12h Active [facility] 10-325 MG Orally every 6 hrs 1 tablet as needed 6h May, May, 28 days Active Ibuprofen 200 MG Orally every 6 hrs 1 tablet as needed 6h Active Cyclobenzaprine HCl 10 mg 1 tablet as needed 8h Active Fish Oil 1200 MG Orally Twice a day 1 capsule 12h Active Actos 30 MG Orally Once a day 1 tablet 24h Jan, 30 day(s) Active RESULTS Name Result Date Reference Range A1C (IN HOUSE) 2018-05-25 A1C IN HOUSE 10.6 4.3 - 5.6 % Previous A1c 12.0 Lot [id number] Exp date 01/2020 MICROALBUMIN, URINE (IN HOUSE) 2018-05-25 MICROALBUMIN Abnormal Lot # [id number] Exp date 03/2019 Clarity clear Color Yellow ALB 80mg/l CRE 200mg/dl A:C (IN HOUSE) 30-300mg/g Control + Control Lot # Exp date PROCEDURES Procedure Date Ordered Result Body Site GLYCATED HEMOGLOBIN TEST May 25, 2018 MICROALBUMIN, SEMIQUANT May 25, 2018 INSTRUCTIONS MEDICATIONS ADMINISTERED No Known Medications MEDICAL [...]
--- OUTSIDE RECORDS SUMMARY | 2018-10-25 15:22 | XMS REPORT ---
Author Author CHRISTIANO MAHONEY Organization [facility] Address [address] [place] [address] Care Team Providers Care Barrel Header Name Role Phone CHRISTIANO MAHONEY Unavailable PROBLEMS Type Condition ICD9-CM Code RPN01-RT Code Onset Dates Condition Status SNOMED Code Problem Diabetes type 2, controlled E11.9 Active 85944475 Problem Uncontrolled type 2 diabetes mellitus without complication, without long-term current use of insulin E11.65 Active 268774790 Problem Controlled type 2 diabetes mellitus without complication, without long -term current use of insulin E11.9 Active 898232002 Problem Sciatica, left side M54.32 Active 85026191 Problem Gastroesophageal reflux disease without esophagitis K21.9 Active 935705058 Problem Other chronic pain G89.29 Active 74250943 Problem Lumbago with sciatica, 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 Active 019579099 ALLERGIES Substance Reaction Event Type Date Status Aleve Unknown Drug Allergy Jan, Active ENCOUNTERS Encounter Location Date Diagnosis [facility] [id number] [place] [address]25- 1972 May, [facility] [id number] [place] [address] 53313- 7135 May, [facility] [id number] [place] [address] 85620- 8174 May, Diabetes type 2, controlled E11.9 [facility] [address], [place] [address] May, Diabetes type 2, controlled E11.9 [facility] [id number] [place] [address] 61485- 6850 May, Diabetes type 2, controlled E11.9 [facility] [id number] [place] [address] 50348- 5953 March, Uncontrolled type 2 diabetes mellitus without complication, without long-term current use of insulin E11.65 [place] [address] [address] March, Other chronic pain G89.29 [facility] [id number] [place] [address] 16100- 3719 Mar, Other chronic pain G89.29 [facility] [id number] [place] [address] 06553- 3203 Jan, BMI 45.0-49.9, adult Z68.42 ; Sciatica, left side M54.32 ; Other chronic pain G89.29 and Diabetes type 2, controlled E11.9 [facility] [id number] [place] [address] 55138- 2119 Jan, Other chronic pain G89.29 [facility] [id number] [place] [address] 54632- 6953 Jan, Diabetes type 2, controlled E11.9 and Other chronic pain G89.29 [facility] [facility] [address] [address] 2[address] Dec, Diabetes type 2, controlled E11.9 [facility] [id number] [address] 5764 Oct, Diabetes type 2, controlled E11.9 [facility] [id number] [address] 0847 Oct, Diabetes type 2, controlled E11.9 [facility] [id number] [place] [address] 81156- 4948 Aug, Diabetes type 2, controlled E11.9 [facility] [id number] [place] [address] 94852- 3052 14 Aug, 2017 Diabetes type 2, controlled E11.9 and Lumbago with sciatica , 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 [facility] [id number] [place] [address] 86442- 9801 Jul, Diabetes type 2, controlled E11.9 [facility] [id number] [address] 9151 May, Diabetes type 2, controlled E11.9 [facility] [address] [address] 6754 May, Diabetes type 2, controlled E11.9 [facility] [id number] [place] [address] 79045- 6275 March, Diabetes type 2, controlled E11.9 [facility] [address] [place] [address] 58201- 8108 Mar, Diabetes type 2, controlled E11.9 and Sciatica, left side M54.32 [facility] [id number] [place] [address] 38314- 6815 Mar, Diabetes type 2, controlled E11.9 [facility] [id number] [place] [address] 21428- 4986 Jan, Diabetes type 2, controlled E11.9 and Sciatica, left side M54.32 [facility] [id number] [place] [address] 14093- 1824 Jan, Controlled type 2 diabetes mellitus without complication, without long-term current use of insulin E11.9 [place] [address] [address]- 7[address] Dec, Controlled type 2 diabetes mellitus without complication, without long-term current use of insulin E11.9 [facility] [address] [address] 8355 Oct, Diabetes type 2, controlled E11.9 [facility] [id number] [place] [address] 30970- 2126 Oct, Diabetes type 2, controlled E11.9 ; Lumbago with sciatica, 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 and Other chronic pain G89.29 [facility] [id number] [place] [address] 32560- 6207 Aug, Sciatica, left side M54.32 and Gastroesophageal reflux disease without esophagitis K21.9 [facility] [id number] [place] [address] 94424- 4437 Aug, Pain in right knee M25.561 ; Pain in left hip M25.552 and Uncontrolled type 2 diabetes mellitus without complication, without long-term current use of insulin E11.65 [facility] [id number] [place] [address] 94958- 9660 Jul, Diabetes type 2, controlled E11.9 and Cardiac arrhythmia, unspecified cardiac arrhythmia type I49.9 [place] [address] [address]- 7830 Jul, Diabetes type 2, controlled E11.9 ; Cardiac arrhythmia, unspecified cardiac arrhythmia type I49.9 ; Other chronic pain G89.29 ; Pain in right knee M25.561 and Candidiasis B37.9 [facility] [id number] [place] [address] 07537- 8552 May, [facility] [id number] [place] [address] 73345- 9657 Jan, [facility] [id number] [place] [address] 34404- 3305 Jan, Diabetes type 2, controlled E11.9 [facility] [id number] [place] [address] 21937- 7274 Oct, Type 2 diabetes mellitus without complications E11.9 and 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 [facility] [address] [place] [address] 90808- 2725 Oct, [facility] [id number] [place] [address] 04347- 3994 Mar, [facility] [place] [id number] [place] [address] 86800- 2434 Mar, [facility] [id number] [place] [address] 13764- 4918 Jan, [facility] [place] [facility] [address] [id number] [place] [address]- 3644 Jan, [facility] [place] [facility] [address] [id number] [place] [address]- 0121 Jan, [facility] [place] [facility] [address] [id number] [place] [address]- 8386 Jan, [facility] [place] [facility] [address] [id number] [place] [address]- 1805 Dec, [facility] [place] [facility] [address] [id number] [place] [address]- 3599 Dec, [facility] [place] [facility] [address] [id number] [place] [address]- 9579 Oct, [facility] [place] [facility] [address] [id number] [place] [address]- 7869 Oct, [facility] [place] [facility] [address] [id number] [place] [address]- 4830 Aug, [facility] [place] [facility] [address] [id number] [place] [address]- 1792 Aug, [facility] [place] [facility] [address] [id number] [place] [address]- 2924 Jul, [facility] [place] [facility] [address] [id number] [place] [address]- 1683 Jul, [facility] [place] [facility] [address] [id number] [place] [address]- 0059 May, [facility] [place] [facility] [address] [id number] [place] [address]- 1497 May, [facility] [place] [facility] [address] [id number] [place] [address]21 May, [facility] [place] [facility] [address] [id number] [place] [address]004 May, [facility] [place] [facility] [address] [id number] [place] [address]- 8033 March, [facility] [place] [facility] [address] [id number] [place] [address]- 7658 March, [facility] [place] [facility] [address] [id number] [place] [address]- 0476 March, [facility] [place] [facility] [address] [id number] [place] [address]- 9515 March, [facility] [place] [facility] [address] [id number] [place] [address]- 9060 March, [facility] [place] [facility] [address] [id number] [place] [address]- 2867 March, [facility] [place] [facility] [address] [id number] [place] [address]- 4532 Mar, [facility] [place] [facility] [address] [id number] [place] [address]- 5193 Mar, [facility] [place] [facility] [address] [id number] [place] [address]- 5936 Mar, [facility] [place] [facility] [address] [id number] [place] [address]- 9558 Mar, [facility] [place] [facility] [address] [id number] [place] [address]- 1900 Dec, [facility] [place] [facility] [address] [id number] [place] [address]- 1013 Aug, [facility] [place] [facility] [address] [id number] [place] [address]- 1567 Aug, [facility] [place] [facility] [address] [id number] [place] [address]44 Aug, [facility] [place] [facility] [address] [id number] [place] [address]- 4454 Aug, [facility] [place] [facility] [address] [id number] [place] [address]- 2559 13 Aug, 2012 [facility] [id number] [address]- 7696 Aug, [facility] [address] [address]- 8605 Jan, [facility] [address] [address]- 5403 Jan, [facility] [id number] [place] [address] 11297- 7423 Jan, [facility] [address] [place] [address] 70916- 3819 Jan, [facility] [id number] [place] [address] 23468- 6000 Oct, [facility] [address], [place] [address]- 0225 Oct, [facility] [address] [address]- 3671 Oct, [facility] [address], [place] [address]- 9914 Oct, [facility] [address] [address]- 2662 Oct, [facility] [address] [place] [address]- 0224 Oct, [facility] [id number] [address]- 6985 Aug, IMMUNIZATIONS No Known Immunizations SOCIAL HISTORY Never Assessed REASON FOR VISIT Pain management (chronic), Contract/ameritox, diabetes , bells palsy started about a month ago. CBrumbackRN PLAN OF CARE Activity Details Follow Up 4 Weeks Reason:dm2 ooc VITAL SIGNS Height 62 in 2018-02-06 Weight 270.3 lbs 2018-02-06 Temperature 97.9 degrees Fahrenheit 2018-02-06 Heart Rate 84 bpm 2018-02-06 Respiratory Rate 20 2018-02-06 BMI 49.43 kg/m2 2018-02-06 Blood pressure systolic 136 mmHg 2018-02-06 Blood pressure diastolic 88 mmHg 2018-02-06 MEDICATIONS Medication Instructions Dosage Frequency Start Date End Date Duration Status Cyclobenzaprine HCl 10 mg Orally 3 times a day 1 tablet 8h 20 Aug, 2016 30 day(s) Active Cozaar 50 mg Orally Once a day 1 tablet 24h 15 Jul, 2016 30 day(s) Active Actos 30 MG Orally Once a day 1 tablet 24h Jan, 30 day(s) Active Metformin HCl 1000 MG Orally Twice a day 1 tablet with meals 12h Active Aspirin 325 MG Orally Once a day 1 tablet 24h Active Ibuprofen 200 MG Orally every 6 hrs 1 tablet as needed 6h Active Viagra 100 MG TAKE ONE TABLET BY MOUTH ONCE A DAY NEEDED 10 Active Killdeer 10-325 MG Orally every 6 hrs 1 tablet as needed 6h Jan, 28 days Active Fish Oil 1200 MG Orally Twice a day 1 capsule 12h Active Ranitidine HCl 150 MG TAKE ONE TABLET BY MOUTH TWICE DAILY 30 Active GlipiZIDE 10 mg Orally 2 times a day 2 tablets 12h Active RESULTS No Results PROCEDURES Procedure Date Ordered Result Body Site No Charge February 06, 2018 GLYCATED HEMOGLOBIN TEST February 06, 2018 COMPREHEN METABOLIC PANEL February 06, 2018 LIPID PANEL February 06, 2018 ASSAY THYROID STIM HORMONE February 06, 2018 COMPLETE CBC W/AUTO DIFF WBC February 06, 2018 INSTRUCTIONS MEDICATIONS ADMINISTERED No Known Medications [...]
--- OUTSIDE RECORDS SUMMARY | 2018-10-25 15:22 | XMS REPORT ---
Author Author CHRISTIANO MAHONEY Organization [facility] Address [address] [place] [address] Care Team Providers Care Magento Developer Name Role Phone CHRISTIANO MAHONEY Unavailable PROBLEMS Type Condition ICD9-CM Code VHB28-HI Code Onset Dates Condition Status SNOMED Code Problem Diabetes type 2, controlled E11.9 Active 93008023 Problem Uncontrolled type 2 diabetes mellitus without complication, without long-term current use of insulin E11.65 Active 477131861 Problem Controlled type 2 diabetes mellitus without complication, without long -term current use of insulin E11.9 Active 781641495 Problem Sciatica, left side M54.32 Active 83358531 Problem Gastroesophageal reflux disease without esophagitis K21.9 Active 808849966 Problem Other chronic pain G89.29 Active 91430876 Problem Lumbago with sciatica, 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 Active 065793481 ALLERGIES Substance Reaction Event Type Date Status Aleve Unknown Drug Allergy March, Active ENCOUNTERS Encounter Location Date Diagnosis [facility] [id number] [place] [address] 19446- 1684 Aug, [facility] [id number] [place] [address] 22980- 8253 May, Diabetes type 2, controlled E11.9 [facility] [id number] [place] [address] 44748- 4980 May, Diabetes type 2, controlled E11.9 and Lumbago with sciatica , 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 [facility] [id number] [place] [address] 09342- 1373 May, [facility] [id number] [place] [address] 86478- 1140 May, Diabetes type 2, controlled E11.9 [facility] [id number] [place] [address] 91082- 5330 May, Diabetes type 2, controlled E11.9 [facility] [id number] [place] [address] 29194- 0720 May, Diabetes type 2, controlled E11.9 [facility] [id number] [place] [address] 68259- 6646 March, Uncontrolled type 2 diabetes mellitus without complication, without long-term current use of insulin E11.65 [facility] [id number] [place] [address] 52840- 1704 March, Other chronic pain G89.29 [place] [id number] [place] [address] 41293- 7524 Mar, Other chronic pain G89.29 [place] [id number] [place] [address] 05508- 6607 Jan, BMI 45.0-49.9, adult Z68.42 ; Sciatica, left side M54.32 ; Other chronic pain G89.29 and Diabetes type 2, controlled E11.9 [facility] [id number] [place] [address] 78762- 0366 Jan, Other chronic pain G89.29 [place] [id number] [place] [address] 73251- 0395 Jan, Diabetes type 2, controlled E11.9 and Other chronic pain G89.29 [place] [id number] [place] [address] 35195- 6246 Dec, Diabetes type 2, controlled E11.9 [facility] [address] [address] 6128 Oct, Diabetes type 2, controlled E11.9 [facility] [id number] [place] [address] 80323- 5360 Oct, Diabetes type 2, controlled E11.9 [facility] [id number] [place] [address] 15890- 9182 Aug, Diabetes type 2, controlled E11.9 [facility] [address] [address] 2705 Aug, Diabetes type 2, controlled E11.9 and Lumbago with sciatica , 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 [facility] [address] [address] 1624 Jul, Diabetes type 2, controlled E11.9 [facility] [id number] [place] [address] 61160- 7349 May, Diabetes type 2, controlled E11.9 [facility] [id number] [place] [address] 13098- 5970 May, Diabetes type 2, controlled E11.9 [facility] [id number] [place] [address] 21216- 8802 March, Diabetes type 2, controlled E11.9 [facility] [id number] [place] [address] 95317- 7323 Mar, Diabetes type 2, controlled E11.9 and Sciatica, left side M54.32 [facility] [id number] [place] [address] 21146- 7507 Mar, Diabetes type 2, controlled E11.9 [facility] [address] [address]- 2807 Jan, Diabetes type 2, controlled E11.9 and Sciatica, left side M54.32 [facility] [address] [address]- 3252 Jan, Controlled type 2 diabetes mellitus without complication, without long-term current use of insulin E11.9 [facility] [id number] [address]- 7246 Dec, Controlled type 2 diabetes mellitus without complication, without long-term current use of insulin E11.9 [facility] [address] [address]- 0555 Oct, Diabetes type 2, controlled E11.9 [place] [address] [address]- 0143 Oct, Diabetes type 2, controlled E11.9 ; Lumbago with sciatica, 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 and Other chronic pain G89.29 [place] [address] [address]- 6065 Aug, Sciatica, left side M54.32 and Gastroesophageal reflux disease without esophagitis K21.9 [place] [id number] [place] [address] 38358- 2442 19 Aug, 2016 Pain in right knee M25.561 ; Pain in left hip M25.552 and Uncontrolled type 2 diabetes mellitus without complication, without long-term current use of insulin E11.65 [place] [id number] [place] [address] 51945- 7887 Jul, Diabetes type 2, controlled E11.9 and Cardiac arrhythmia, unspecified cardiac arrhythmia type I49.9 [place] [id number] [place] [address] 67346- 7118 15 Jul, 2016 Diabetes type 2, controlled E11.9 ; Cardiac arrhythmia, unspecified cardiac arrhythmia type I49.9 ; Other chronic pain G89.29 ; Pain in right knee M25.561 and Candidiasis B37.9 [place] [address] [address]- 0860 May, [place] [id number] [place] [address] 56197- 2740 Jan, [place] [id number] [place] [address] 00721- 8517 Jan, Diabetes type 2, controlled E11.9 [place] [id number] [place] [address] 66418- 1937 14 Oct, 2015 Type 2 diabetes mellitus without complications E11.9 and 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 [place] [id number] [place] [address] 12082- 2546 Oct, [facility] [place] [facility] [address] [id number] [place] [address]- 7694 Mar, [facility] [place] [facility] [address] [id number] [place] [address]- 0088 Mar, [facility] [place] [facility] [address] [id number] [place] [address]- 4333 Jan, [facility] [place] [facility] [address] [id number] [place] [address] Jan, [facility] [place] [facility] [address] [id number] [place] [address]- 9229 Jan, [facility] [place] [facility] [address] [id number] [place] [address]- 0287 Jan, [facility] [place] [facility] [address] [id number] [place] [address]- 3247 Dec, [facility] [place] [facility] [address] [id number] [place] [address]- 7641 Dec, [facility] [place] [facility] [address] [id number] [place] [address]- 0992 Oct, [facility] [place] [facility] [address] [id number] [place] [address]- 6515 Oct, [facility] [place] [facility] [address] [id number] [place] [address]- 1380 Aug, [facility] [place] [facility] [address] [id number] [place] [address]- 4192 Aug, [facility] [place] [facility] [address] [id number] [place] [address]- 8772 Jul, [facility] [place] [facility] [address] [id number] [place] [address]- 6439 Jul, [facility] [place] [facility] [address] [id number] [place] [address]- 5692 May, [facility] [place] [facility] [address] [id number] [place] [address]- 1049 May, [facility] [address] [id number] [place] [address]- 2748 May, [facility] [place] [facility] [address] [id number] [place] [address]- 5267 May, [facility] [place] [facility] [address] [id number] [place] [address]- 1911 March, [facility] [place] [facility] [address] [id number] [place] [address]- 5568 March, [facility] [place] [facility] [address] [id number] [place] [address]- 6517 March, [facility] [place] [facility] [address] [id number] [place] [address]- 0226 March, [facility] [place] [facility] [address] [id number] [place] [address]- 5915 March, [facility] [place] [facility] [address] [id number] [place] [address]- 7593 March, [facility] [place] [facility] [address] [id number] [place] [address]- 9141 Mar, [facility] [place] [facility] [address] [id number] [place] [address]- 2173 Mar, [facility] [place] [facility] [address] [id number] [place] [address]- 3641 Mar, [facility] [place] [facility] [address] [id number] [place] [address]- 6153 Mar, [facility] [place] [facility] [address] [id number] [place] [address]- 9433 Dec, [facility] [place] [facility] [address] [id number] [place] [address]- 8418 Aug, [facility] [place] [facility] [address] [id number] [place] [address]- 4904 Aug, [facility] [address] [facility] [id number] [address]- 0053 03 Aug, 2012 [facility] [address] [facility] [id number] [address]- 6706 20 Aug, 2012 [facility] [address] [facility] [id number] [address]- 7245 13 Aug, 2012 [facility] [address] [facility] [id number] [address]- 9776 12 Aug, 2012 [facility] [address] [facility] [id number] [place] [address]- 2924 Jan, [facility] [address] [facility] [id number] [address]- 3208 Jan, [facility] [address] [facility] [id number] [address]- 2542 Jan, [facility] [address] [facility] [id number] [address]- 3588 Jan, [facility] [address] [facility] [id number] [address]- 7475 15 Oct, 2010 [facility] [address] [facility] [id number] [address]- 7022 15 Oct, 2010 [facility] [address] [facility] [id number] [address]- 2296 17 Oct, 2010 [facility] [address] [facility] [id number] [address]- 6533 17 Oct, 2010 [facility] [address] [facility] [id number] [address]- 9848 17 Oct, 2010 [facility] [address] [facility] [id number] [address]- 5626 17 Oct, 2009 [facility] [address] [facility] [id number] [address]- 7700 11 Aug, 2009 IMMUNIZATIONS No Known Immunizations SOCIAL HISTORY Never Assessed REASON FOR VISIT [facility] PLAN OF CARE Activity Details Follow Up 4 Weeks Reason:dm2 ooc VITAL SIGNS Height 62 in 2018-04-23 Weight 274.0 lbs 2018-04-23 Temperature 97.7 degrees Fahrenheit 2018-04-23 Heart Rate 110 bpm 2018-04-23 Respiratory Rate 20 2018-04-23 BMI 50.11 kg/m2 2018-04-23 Blood pressure systolic 142 mmHg 2018-04-23 Blood pressure diastolic 74 mmHg 2018-04-23 MEDICATIONS Medication Instructions Dosage Frequency Start Date End Date Duration Status Metformin HCl 1000 MG 1 tablet with a meal 12h Active [place] 10-325 MG Orally every 6 hrs 1 tablet as needed 6h March, 28 days Active Ranitidine HCl 150 MG 1 tablet 12h Active Viagra 100 mg 1 tablet as needed 24h 10 Active Aspirin 325 MG Orally Once a day 1 tablet 24h Active Ibuprofen 200 MG Orally every 6 hrs 1 tablet as needed 6h Active Victoza 18 MG/3ML as directed March, Active Cyclobenzaprine HCl 10 mg 1 tablet as needed 8h Active GlipiZIDE 10 mg 2 tablets 12h Active Actos 30 MG Orally Once a day 1 tablet 24h Jan, 30 day(s) Active Cozaar 50 mg Orally Once a day 1 tablet 24h Jul, 30 day(s) Active Diflucan 100 mg Orally Once a day 1 tablet 24h March, May, 14 days Active Fish Oil 1200 MG Orally [...]
--- OUTSIDE RECORDS SUMMARY | 2018-10-25 15:22 | XMS REPORT ---
Author Author CHRISTIANO MAHONEY Organization [facility] Address [address] [place] [address] Care Team Providers Care Professor Of Counseling Name Role Phone CHRISTIANO MAHONEY Unavailable PROBLEMS Type Condition ICD9-CM Code SAW17-OS Code Onset Dates Condition Status SNOMED Code Problem Diabetes type 2, controlled E11.9 Active 90919166 Problem Uncontrolled type 2 diabetes mellitus without complication, without long-term current use of insulin E11.65 Active 786972488 Problem Controlled type 2 diabetes mellitus without complication, without long -term current use of insulin E11.9 Active 139937006 Problem Sciatica, left side M54.32 Active 72046485 Problem Gastroesophageal reflux disease without esophagitis K21.9 Active 166432691 Problem Other chronic pain G89.29 Active 03816513 Problem Lumbago with sciatica, 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 Active 331289875 ALLERGIES No Information ENCOUNTERS Encounter Location Date Diagnosis [place] [id number] [place] [address] 93335- 4454 Aug, [facility] [id number] [place] [address] 34991- 1910 May, [facility] [id number] [place] [address] 94136- 3155 May, Diabetes type 2, controlled E11.9 and Lumbago with sciatica , 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 [facility] [id number] [place] [address] 51675- 4189 May, [facility] [id number] [place] [address] 10175- 1362 May, Diabetes type 2, controlled E11.9 [facility] [id number] [place] [address] 03229- 3930 May, Diabetes type 2, controlled E11.9 [facility] [address] [address]- 8236 May, Diabetes type 2, controlled E11.9 [facility] [address] [place] [address] 19480- 4779 March, Uncontrolled type 2 diabetes mellitus without complication, without long-term current use of insulin E11.65 [facility] [address] [place] [address] 48585- 3868 March, Other chronic pain G89.29 [facility] [id number] [place] [address] 06634- 5252 Mar, Other chronic pain G89.29 [place] [id number] [place] [address] 09791- 2665 Jan, BMI 45.0-49.9, adult Z68.42 ; Sciatica, left side M54.32 ; Other chronic pain G89.29 and Diabetes type 2, controlled E11.9 [facility] [address] [place] [address] 62073- 0191 Jan, Other chronic pain G89.29 [facility] [address] [place] [address] 80654- 3782 Jan, Diabetes type 2, controlled E11.9 and Other chronic pain G89.29 [facility] [address] [address]- 6692 Dec, Diabetes type 2, controlled E11.9 [facility] [address] [address]- 8190 Oct, Diabetes type 2, controlled E11.9 [facility] [address] [place] [address] 32531- 2307 Oct, Diabetes type 2, controlled E11.9 [facility] [address] [address]- 4251 Aug, Diabetes type 2, controlled E11.9 [facility] [address] [address]- 6865 14 Aug, 2017 Diabetes type 2, controlled E11.9 and Lumbago with sciatica , 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 [facility] [id number] [place] [address] 66798- 9666 Jul, Diabetes type 2, controlled E11.9 [facility] [id number] [place] [address] 33982- 3879 May, Diabetes type 2, controlled E11.9 [facility] [id number] [place] [address] 18844- 5137 May, Diabetes type 2, controlled E11.9 [facility] [id number] [place] [address] 40614- 1362 March, Diabetes type 2, controlled E11.9 [place] [id number] [place] [address] 75930- 3298 Mar, Diabetes type 2, controlled E11.9 and Sciatica, left side M54.32 [facility] [address] [address]- 1430 Mar, Diabetes type 2, controlled E11.9 [facility] [id number] [place] [address] 18621- 5752 Jan, Diabetes type 2, controlled E11.9 and Sciatica, left side M54.32 [facility] [address] [address]- 2987 Jan, Controlled type 2 diabetes mellitus without complication, without long-term current use of insulin E11.9 [facility] [address] [address]- 0925 Dec, Controlled type 2 diabetes mellitus without complication, without long-term current use of insulin E11.9 [facility] [address] [address]- 1844 Oct, Diabetes type 2, controlled E11.9 [facility] [id number] [place] [address] 42832- 5521 Oct, Diabetes type 2, controlled E11.9 ; Lumbago with sciatica, 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 and Other chronic pain G89.29 [place] [id number] [place] [address] 20098- 4086 Aug, Sciatica, left side M54.32 and Gastroesophageal reflux disease without esophagitis K21.9 [place] [id number] [place] [address] 99014- 8728 Aug, Pain in right knee M25.561 ; Pain in left hip M25.552 and Uncontrolled type 2 diabetes mellitus without complication, without long-term current use of insulin E11.65 [place] [id number] [place] [address] 89769- 9373 Jul, Diabetes type 2, controlled E11.9 and Cardiac arrhythmia, unspecified cardiac arrhythmia type I49.9 [place] [id number] [place] [address] 00801- 8264 Jul, Diabetes type 2, controlled E11.9 ; Cardiac arrhythmia, unspecified cardiac arrhythmia type I49.9 ; Other chronic pain G89.29 ; Pain in right knee M25.561 and Candidiasis B37.9 [place] [address] [place] [address] 33067- 5487 May, [place] [address] [place] [address] 29971- 9680 Jan, [place] [id number] [place] [address] 89892- 6654 Jan, Diabetes type 2, controlled E11.9 [place] [id number] [place] [address] 75404- 1188 Oct, Type 2 diabetes mellitus without complications E11.9 and 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 [place] [id number] [place] [address] 59187- 5415 Oct, [place] [address] [place] [address] [place] [address]- 3068 14 Mar, 2015 [facility] [address] [id number] [place] [address]- 3351 Mar, [facility] [place] [facility] [address] [id number] [place] [address]- 5103 Jan, [facility] [place] [facility] [address] [id number] [place] [address]- 1658 Jan, [facility] [place] [facility] [address] [id number] [place] [address]- 3156 Jan, [facility] [place] [facility] [address] [id number] [place] [address]- 7916 Jan, [facility] [place] [facility] [address] [id number] [place] [address]- 1806 Dec, [facility] [place] [facility] [address] [id number] [place] [address]- 2195 Dec, [facility] [place] [facility] [address] [id number] [place] [address]- 3170 Oct, [facility] [place] [facility] [address] [id number] [place] [address]- 1238 Oct, [facility] [place] [facility] [address] [id number] [place] [address]- 6838 Aug, [facility] [place] [facility] [address] [id number] [place] [address]- 7433 Aug, [facility] [place] [facility] [address] [id number] [place] [address]- 7343 Jul, [facility] [place] [facility] [address] [id number] [place] [address]- 2355 Jul, [facility] [place] [facility] [address] [id number] [place] 5569 May, [facility] [place] [facility] [address] [id number] [place] [address]- 1200 May, [facility] [place] [facility] [address] [id number] [place] [address]- 7510 May, [facility] [place] [facility] [address] [id number] [place] [address]- 6936 May, [facility] [place] [facility] [address] [id number] [place] [address]- 7063 March, [facility] [place] [facility] [address] [id number] [place] [address]- 9986 March, [facility] [place] [facility] [address] [id number] [place] [address]- 5584 March, [facility] [place] [facility] [address] [id number] [place] [address]- 9381 March, [facility] [place] [facility] [address] [id number] [place] [address]- 5372 March, [facility] [place] [facility] [address] [id number] [place] [address]- 9508 March, [facility] [place] [facility] [address] [id number] [place] [address]- 0620 Mar, [facility] [place] [facility] [address] [id number] [place] [address]- 1545 Mar, [facility] [place] [facility] [address] [id number] [place] [address]- 1019 Mar, [facility] [place] [facility] [address] [id number] [place] [address]- 4988 Mar, [facility] [place] [facility] [address] [id number] [place] [address]- 6877 Dec, [facility] [place] [facility] [address] [id number] [place] [address]- 6914 Aug, [facility] [place] [facility] [address] [id number] [place] [address]- 0824 Aug, [facility] [place] [facility] [address] [id number] [address]- 5029 03 Aug, 2012 [facility] [address] [address]- 0743 20 Aug, 2012 [facility] [address] [address]- 7776 13 Aug, 2012 [facility] [address] [address]- 5920 12 Aug, 2012 [facility] [address] [address]- 1654 22 Jan, 2012 [facility] [address] [place] [address] 66204- 0459 Jan, [facility] [address] 5217 Jan, [facility] [address] [place] [address] 89204- 8826 Jan, [facility] [address] [address]- 7155 15 Oct, 2010 [facility] [address] [address]- 2616 Oct, [facility] [address] [address]- 2944 Oct, [facility] [address] [address]- 7013 17 Oct, 2010 [facility] [id number] [address]- 3367 Oct, [facility] [address] 8122 17 Oct, 2009 [facility] [address] [address]- 0343 11 Aug, 2009 IMMUNIZATIONS No Known Immunizations SOCIAL HISTORY Never Assessed REASON FOR VISIT Controlled Med Refill / PLAN OF CARE VITAL SIGNS MEDICATIONS Medication Instructions Dosage Frequency Start Date End Date Duration Status [place] 10-325 MG Orally every 6 hrs 1 tablet as needed 6h Mar, 28 days Active RESULTS No Results PROCEDURES [...]
--- OUTSIDE RECORDS SUMMARY | 2018-10-25 15:22 | XMS REPORT ---
Author Author CHRISTIANO MAHONEY Organization [facility] Address [address] [place] [address] Care Team Providers Care Transliterator Name Role Phone CHRISTIANO MAHONEY Unavailable PROBLEMS Type Condition ICD9-CM Code SGI80-PG Code Onset Dates Condition Status SNOMED Code Problem Diabetes type 2, controlled E11.9 Active 53928768 Problem Uncontrolled type 2 diabetes mellitus without complication, without long-term current use of insulin E11.65 Active 764718019 Problem Controlled type 2 diabetes mellitus without complication, without long -term current use of insulin E11.9 Active 897943540 Problem Sciatica, left side M54.32 Active 63031799 Problem Gastroesophageal reflux disease without esophagitis K21.9 Active 010742911 Problem Other chronic pain G89.29 Active 04861475 Problem Lumbago with sciatica, 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 Active 133478390 ALLERGIES No Information ENCOUNTERS Encounter Location Date Diagnosis [place] [id number] [place] [address] 00952- 9088 Aug, [place] [id number] [place] [address] 43244- 8225 May, Diabetes type 2, controlled E11.9 [facility] [id number] [place] [address] 92214- 6135 May, Diabetes type 2, controlled E11.9 and Lumbago with sciatica , 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 [facility] [id number] [place] [address] 35791- 3806 May, [facility] [id number] [place] [address] 06150- 3227 May, Diabetes type 2, controlled E11.9 [facility] [id number] [place] [address] 14488- 7452 May, Diabetes type 2, controlled E11.9 [facility] [address], [place] [address]- 5208 May, Diabetes type 2, controlled E11.9 [facility] [id number] [place] [address] 24733- 4139 March, Uncontrolled type 2 diabetes mellitus without complication, without long-term current use of insulin E11.65 [facility] [id number] [place] [address] 34883- 2545 March, Other chronic pain G89.29 [facility] [id number] [place] [address] 88268- 1083 Mar, Other chronic pain G89.29 [facility] [id number] [place] [address] 10909- 8601 Jan, BMI 45.0-49.9, adult Z68.42 ; Sciatica, left side M54.32 ; Other chronic pain G89.29 and Diabetes type 2, controlled E11.9 [facility] [address] [place] [address] 40412- 7482 Jan, Other chronic pain G89.29 [facility] [id number] [place] [address] 54903- 1011 Jan, Diabetes type 2, controlled E11.9 and Other chronic pain G89.29 [facility] [address], [place] [address]- 7789 Dec, Diabetes type 2, controlled E11.9 [facility] [address], [place] [address]- 4173 Oct, Diabetes type 2, controlled E11.9 [facility] [id number] [place] [address] 57033- 4070 Oct, Diabetes type 2, controlled E11.9 [facility] [address], [place] [address]- 6219 Aug, Diabetes type 2, controlled E11.9 [facility] [address], [place] [address]- 2901 14 Aug, 2017 Diabetes type 2, controlled E11.9 and Lumbago with sciatica , 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 [facility] [address], [place] [address]- 9270 16 Jul, 2017 Diabetes type 2, controlled E11.9 [facility] [id number] [place] [address] 16088- 6190 May, Diabetes type 2, controlled E11.9 [facility] [id number] [place] [address] 51649- 1899 May, Diabetes type 2, controlled E11.9 [place] [id number] [place] [address] 30858- 0535 March, Diabetes type 2, controlled E11.9 [place] [id number] [place] [address] 51628- 7760 Mar, Diabetes type 2, controlled E11.9 and Sciatica, left side M54.32 [facility] [id number] [place] [address] 46806- 0255 Mar, Diabetes type 2, controlled E11.9 [facility] [address] [place] [address] 04547- 5859 Jan, Diabetes type 2, controlled E11.9 and Sciatica, left side M54.32 [place] [address] [place] [address] 45787- 7122 Jan, Controlled type 2 diabetes mellitus without complication, without long-term current use of insulin E11.9 [place] [address] [place] [address] 22259- 7995 Dec, Controlled type 2 diabetes mellitus without complication, without long-term current use of insulin E11.9 [place] [address], [place] [address]- 4344 Oct, Diabetes type 2, controlled E11.9 [place] [address] [place] [address] 27530- 6419 Oct, Diabetes type 2, controlled E11.9 ; Lumbago with sciatica, 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 and Other chronic pain G89.29 [place] [id number] [place] [address] 58637- 2702 Aug, Sciatica, left side M54.32 and Gastroesophageal reflux disease without esophagitis K21.9 [place] [address] [place] [address] 07094- 3799 Aug, Pain in right knee M25.561 ; Pain in left hip M25.552 and Uncontrolled type 2 diabetes mellitus without complication, without long-term current use of insulin E11.65 [place] [address] [place] [address] 78546- 8027 Jul, Diabetes type 2, controlled E11.9 and Cardiac arrhythmia, unspecified cardiac arrhythmia type I49.9 [place] [id number] [place] [address] 25768- 3139 Jul, Diabetes type 2, controlled E11.9 ; Cardiac arrhythmia, unspecified cardiac arrhythmia type I49.9 ; Other chronic pain G89.29 ; Pain in right knee M25.561 and Candidiasis B37.9 [place] [address] [place] [address] 87767- 2468 May, [place] [id number] [place] [address] 81132- 0323 Jan, [place] [id number] [place] [address] 80197- 8412 Jan, Diabetes type 2, controlled E11.9 [place] [id number] [place] [address] 64677- 2448 Oct, Type 2 diabetes mellitus without complications E11.9 and 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 [place] [id number] [place] [address] 21507- 8422 Oct, [facility] [place] [facility] [address] [id number] [place] [address]- 7067 Mar, [facility] [place] [facility] [address] [id number] [place] [address]- 4042 Mar, [facility] [place] [facility] [address] [id number] [place] [address]- 8935 Jan, [facility] [place] [facility] [address] [id number] [place] [address]- 9192 Jan, [facility] [place] [facility] [address] [id number] [place] [address]- 2701 Jan, [facility] [place] [facility] [address] [id number] [place] [address]- 8164 Jan, [facility] [place] [facility] [address] [id number] [place] [address]- 5413 Dec, [facility] [place] [facility] [address] [id number] [place] [address]- 2820 Dec, [facility] [place] [facility] [address] [id number] [place] [address]- 6809 Oct, [facility] [place] [facility] [address] [id number] [place] [address]- 9501 Oct, [facility] [place] [facility] [address] [id number] [place] [address]- 0020 Aug, [facility] [place] [facility] [address] [id number] [place] [address]- 6316 Aug, [facility] [place] [facility] [address] [id number] [place] [address]- 4823 Jul, [facility] [place] [facility] [address] [id number] [place] [address]- 4311 Jul, [facility] [place] [facility] [address] [id number] [place] [address]- 7503 May, [facility] [place] [facility] [address] [id number] [place] [address]- 6429 May, [facility] [place] [facility] [address] [id number] [place] [address]- 4190 May, [facility] [place] [facility] [address] [id number] [place] [address]- 8835 May, [facility] [place] [facility] [address] [id number] [place] [address]- 4824 March, [facility] [place] [facility] [address] [id number] [place] [address]- 9900 March, [facility] [place] [facility] [address] [id number] [place] [address]- 1948 March, [facility] [place] [facility] [address] [id number] [place] [address]- 9508 March, [facility] [place] [facility] [address] [id number] [place] [address]- 4605 March, [facility] [place] [facility] [address] [id number] [place] [address]- 4667 March, [facility] [place] [facility] [address] [id number] [place] [address]- 1498 Mar, [facility] [place] [facility] [address] [id number] [place] [address]- 1983 Mar, [facility] [place] [facility] [address] [id number] [place] [address]- 5482 Mar, [facility] [place] [facility] [address] [id number] [place] [address]- 8451 Mar, [facility] [place] [facility] [address] [id number] [place] [address]- 4315 Dec, [facility] [place] [facility] [address] [id number] [place] [address]- 8809 Aug, [facility] [place] [facility] [address] [id number] [place] [address]- 1911 Aug, [facility] [place] [facility] [address] [id number] [address]- 2546 03 Aug, 2012 [facility] [address] [facility] [id number], [place] [address]- 2858 20 Aug, 2012 [facility] [address] [facility] [id number][place] [address] 13 Aug, 2012 [facility] [address] [facility] [id number], [place] [address] 12 Aug, 2012 [facility] [address] [facility] [id number] [place] [address] 22 Jan, 2012 [facility] [address] [facility] [id number], [place] [address] Jan, [facility] [address] [facility] [id number][place] [address] Jan, [facility] [id number], [place] [address] Jan, [facility] [address] [facility] [id number][place] [address] 15 Oct, 2010 [facility] [id number], [place] [address] 15 Oct, 2010 [facility] [id number], [place] [address] 17 Oct, 2010 [facility] [id number], [place] [address] 17 Oct, 2010 [facility] [address] [facility] [id number], [place] [address] 17 Oct, 2010 [facility] [id number], [place] [address] 17 Oct, 2009 [facility] [id number], [place] [address] 11 Aug, 2009 IMMUNIZATIONS No Known Immunizations SOCIAL HISTORY Never Assessed REASON FOR VISIT Controlled Med Refill PLAN OF CARE VITAL SIGNS MEDICATIONS Medication Instructions Dosage Frequency Start Date End Date Duration Status Eland 10-325 MG Orally every 6 hrs 1 tablet as needed 6h March, 28 days Active RESULTS No Results PROCEDURES [...]
--- OUTSIDE RECORDS SUMMARY | 2018-10-25 15:23 | XMS REPORT ---
Author Author CHRISTIANO MAHONEY Organization [facility] Address [address] [place] [address] Care Team Providers Care Food Storeroom Clerk Name Role Phone CHRISTIANO MAHONEY Unavailable PROBLEMS Type Condition ICD9-CM Code MJP91-SE Code Onset Dates Condition Status SNOMED Code Problem Diabetes type 2, controlled E11.9 Active 83634241 Problem Uncontrolled type 2 diabetes mellitus without complication, without long-term current use of insulin E11.65 Active 147931152 Problem Controlled type 2 diabetes mellitus without complication, without long -term current use of insulin E11.9 Active 609017605 Problem Sciatica, left side M54.32 Active 56452544 Problem Gastroesophageal reflux disease without esophagitis K21.9 Active 424572004 Problem Other chronic pain G89.29 Active 16905973 Problem Lumbago with sciatica, 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 Active 575704570 ALLERGIES No Information ENCOUNTERS Encounter Location Date Diagnosis [place] [id number] [place] [address] 48200- 7783 May, [place] [id number] [place] [address] 40128- 8821 March, Uncontrolled type 2 diabetes mellitus without complication, without long-term current use of insulin E11.65 [place] [id number] [place] [address] 14807- 2463 March, Other chronic pain G89.29 [place] [id number] [place] [address] 22559- 7750 Mar, Other chronic pain G89.29 [place] [address] [address]- 1244 Jan, BMI 45.0-49.9, adult Z68.42 ; Sciatica, left side M54.32 ; Other chronic pain G89.29 and Diabetes type 2, controlled E11.9 [facility] [address] [address] 4616 Jan, Other chronic pain G89.29 [facility] [id number] [place] [address] 26901- 4406 Jan, Diabetes type 2, controlled E11.9 and Other chronic pain G89.29 [facility] [id number] [place] [address] 91761- 2725 Dec, Diabetes type 2, controlled E11.9 [facility] [address] [place] [address] 64613- 4083 Oct, Diabetes type 2, controlled E11.9 [facility] [id number] [place] [address] 97556- 2897 Oct, Diabetes type 2, controlled E11.9 [facility] [id number] [place] [address] 81492- 5057 Aug, Diabetes type 2, controlled E11.9 [facility] [id number] [place] [address] 46910- 7266 14 Aug, 2017 Diabetes type 2, controlled E11.9 and Lumbago with sciatica , 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 [facility] [address] [address] 2457 Jul, Diabetes type 2, controlled E11.9 [facility] [id number] [address] 1503 May, Diabetes type 2, controlled E11.9 [facility] [address], [place] [address]- 8530 May, Diabetes type 2, controlled E11.9 [facility] [id number] [place] [address] 78172- 8402 March, Diabetes type 2, controlled E11.9 [facility] [id number] [place] [address] 05841- 9508 Mar, Diabetes type 2, controlled E11.9 and Sciatica, left side M54.32 [place] [id number] [place] [address] 13741- 6112 14 Mar, 2017 Diabetes type 2, controlled E11.9 [place] [id number] [place] [address] 93225- 8242 Jan, Diabetes type 2, controlled E11.9 and Sciatica, left side M54.32 [place] [id number] [place] [address] 18119- 0182 Jan, Controlled type 2 diabetes mellitus without complication, without long-term current use of insulin E11.9 [place] [address] 03621- 8563 Dec, Controlled type 2 diabetes mellitus without complication, without long-term current use of insulin E11.9 [place] [id number] [place] [address] 11772- 6724 Oct, Diabetes type 2, controlled E11.9 [place] [id number] [place] [address] 16876- 8493 Oct, Diabetes type 2, controlled E11.9 ; Lumbago with sciatica, 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 and Other chronic pain G89.29 [place] [id number] [place] [address] 14298- 7353 Aug, Sciatica, left side M54.32 and Gastroesophageal reflux disease without esophagitis K21.9 [place] [id number] [place] [address] 43833- 0871 Aug, Pain in right knee M25.561 ; Pain in left hip M25.552 and Uncontrolled type 2 diabetes mellitus without complication, without long-term current use of insulin E11.65 [place] [id number] [place] [address] 95302- 5261 Jul, Diabetes type 2, controlled E11.9 and Cardiac arrhythmia, unspecified cardiac arrhythmia type I49.9 [place] [address] [place] [address]- 9373 Jul, Diabetes type 2, controlled E11.9 ; Cardiac arrhythmia, unspecified cardiac arrhythmia type I49.9 ; Other chronic pain G89.29 ; Pain in right knee M25.561 and Candidiasis B37.9 [facility] [address], [place] [address]- 7704 May, [facility] [id number] [place] [address] 06447- 4594 Jan, [facility] [id number] [place] [address] 29452- 7222 Jan, Diabetes type 2, controlled E11.9 [facility] [id number] [place] [address] 14363- 9525 Oct, Type 2 diabetes mellitus without complications E11.9 and 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 [facility] [id number] [place] [address] 14211- 0892 Oct, [facility] [id number] [place] [address] 18009- 8295 Mar, [facility] [id number] [place] [address] 79567- 7962 Mar, [facility] [address] [place] [address] 37959- 5815 Jan, [facility] [id number] [place] [address] 95067- 7650 Jan, [facility] [id number] [place] [address] 74467- 9951 Jan, [facility] [id number] [place] [address] 91459- 1282 Jan, [facility] [address] [place] [address] 94993- 6923 Dec, [facility] [id number] [place] [address] 63428- 1633 Dec, [facility] [place] [facility] [address] [id number] [place] [address]- 5156 Oct, [facility] [place] [facility] [address] [id number] [place] [address]- 1203 Oct, [facility] [place] [facility] [address] [id number] [place] [address]- 5415 Aug, [facility] [place] [facility] [address] [id number] [place] [address]- 5787 Aug, [facility] [place] [facility] [address] [id number] [place] [address]- 8056 Jul, [facility] [place] [facility] [address] [id number] [place] [address]- 8108 Jul, [facility] [place] [facility] [address] [id number] [place] [address]- 1695 May, [facility] [place] [facility] [address] [id number] [place] [address]- 5152 May, [facility] [place] [facility] [address] [id number] [place] [address]- 0227 May, [facility] [place] [facility] [address] [id number] [place] [address]- 5542 May, [facility] [place] [facility] [address] [id number] [place] [address]- 7306 March, [facility] [place] [facility] [address] [id number] [place] [address]- 8030 March, [facility] [place] [facility] [address] [id number] [place] 1945 March, [facility] [place] [facility] [address] [id number] [place] [address]- 6969 March, [facility] [place] [facility] [address] [id number] [place] 0008 March, [facility] [place] [facility] [address] [id number] [place] [address]- 8785 March, [facility] [address] [id number] [place] [address]- 1356 Mar, [facility] [place] [facility] [address] [id number] [place] [address]- 1348 Mar, [facility] [address] [id number] [place] [address]- 6296 Mar, [facility] [address] [id number] [place] [address]- 4130 Mar, [facility] [address] [id number] [place] [address]- 1730 Dec, [facility] [address] [id number] [place] [address]- 9304 Aug, [facility] [address] [id number] [place] [address]- 3852 Aug, [facility] [address] [id number] [place] [address]- 6129 Aug, [facility] [address] [id number] [place] [address]- 7136 20 Aug, 2012 [facility] [address] [id number] [place] [address]- 0972 13 Aug, 2012 [facility] [place] [facility] [address] [id number] [place] [address]- 8599 12 Aug, 2012 [facility] [place] [facility] [address] [id number] [place] [address]- 1840 Jan, [facility] [place] [facility] [address] [id number] [place] [address]- 8641 Jan, [facility] [place] [facility] [address] [id number] [place] [address]- 9046 Jan, [facility] [place] [facility] [address] [id number] [place] [address]- 6784 Jan, [facility] [id number] [address]- 2546 Oct, [facility] [id number], [place] [address]- 2546 Oct, [facility] [id number] [address]- 2546 Oct, [facility] [id number] [address]- 2546 Oct, [facility] [id number], [place] [address]- 2546 Oct, [facility] [id number] [address]- 2546 Oct, [facility] [id number] [address]- 2546 Aug, IMMUNIZATIONS No Known Immunizations SOCIAL HISTORY Never Assessed REASON FOR VISIT Controlled Refill Request PLAN OF CARE VITAL SIGNS MEDICATIONS Medication Instructions Dosage Frequency Start Date End Date Duration Status [place] 10-325 MG Orally every 6 hrs 1 tablet as needed 6h Oct, 28 days Active RESULTS No Results PROCEDURES [...]
--- OUTSIDE RECORDS SUMMARY | 2018-10-25 15:23 | XMS REPORT ---
Author Author CHRISTIANO MAHONEY Organization [facility] Address [address] [place] [address] Care Team Providers Care It Service Manager Name Role Phone CHRISTIANO MAHONEY Unavailable PROBLEMS Type Condition ICD9-CM Code OED05-IE Code Onset Dates Condition Status SNOMED Code Problem Diabetes type 2, controlled E11.9 Active 15972770 Problem Uncontrolled type 2 diabetes mellitus without complication, without long-term current use of insulin E11.65 Active 901555113 Problem Controlled type 2 diabetes mellitus without complication, without long -term current use of insulin E11.9 Active 622198917 Problem Sciatica, left side M54.32 Active 89478214 Problem Gastroesophageal reflux disease without esophagitis K21.9 Active 625343326 Problem Other chronic pain G89.29 Active 07229311 Problem Lumbago with sciatica, 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 Active 897246688 ALLERGIES No Information ENCOUNTERS Encounter Location Date Diagnosis [place] [id number] [place] [address] 43333- 7663 May, [facility] [id number] [place] [address] 43019- 0074 May, [facility] [id number] [place] [address] 93136- 1145 May, Diabetes type 2, controlled E11.9 [facility] [id number] [place] [address] 83419- 4801 May, Diabetes type 2, controlled E11.9 [facility] [id number] [place] [address] 05553- 3711 May, Diabetes type 2, controlled E11.9 [facility] [id number] [place] [address] 56574- 8459 March, Uncontrolled type 2 diabetes mellitus without complication, without long-term current use of insulin E11.65 [facility] [address], [place] [address]- 7055 March, Other chronic pain G89.29 [facility] [id number] [place] [address] 949529- 6556 Mar, Other chronic pain G89.29 [facility] [id number] [place] [address] 48955- 2325 Jan, BMI 45.0-49.9, adult Z68.42 ; Sciatica, left side M54.32 ; Other chronic pain G89.29 and Diabetes type 2, controlled E11.9 [facility] [id number] [place] [address] 20786- 2295 Jan, Other chronic pain G89.29 [facility] [id number] [place] [address] 38363- 1506 Jan, Diabetes type 2, controlled E11.9 and Other chronic pain G89.29 [facility] [id number] [place] [address] 96059- 1851 Dec, Diabetes type 2, controlled E11.9 [facility] [id number] [place] [address] 06051- 6177 Oct, Diabetes type 2, controlled E11.9 [facility] [address], [place] [address]- 8898 Oct, Diabetes type 2, controlled E11.9 [facility] [id number], [place] [address]- 4966 Aug, Diabetes type 2, controlled E11.9 [facility] [id number] [place] [address] 59074- 5557 14 Aug, 2017 Diabetes type 2, controlled E11.9 and Lumbago with sciatica , 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 [facility] [address], [place] [address]- 3053 Jul, Diabetes type 2, controlled E11.9 [facility] [address], [place] [address]- 4702 May, Diabetes type 2, controlled E11.9 [facility] [id number] [place] [address] 39697- 7433 May, Diabetes type 2, controlled E11.9 [facility] [id number] [place] [address] 46922- 8273 March, Diabetes type 2, controlled E11.9 [place] [id number] [place] [address] 91046- 9016 Mar, Diabetes type 2, controlled E11.9 and Sciatica, left side M54.32 [place] [id number] [place] [address] 08008- 3412 Mar, Diabetes type 2, controlled E11.9 [place] [id number] [place] [address] 20892- 4276 Jan, Diabetes type 2, controlled E11.9 and Sciatica, left side M54.32 [place] [address] [place] [address] 49073- 8444 Jan, Controlled type 2 diabetes mellitus without complication, without long-term current use of insulin E11.9 [place] [address], [place] [address]- 4296 Dec, Controlled type 2 diabetes mellitus without complication, without long-term current use of insulin E11.9 [place] [address], [place] [address]- 4860 Oct, Diabetes type 2, controlled E11.9 [place] [id number] [place] [address] 65815- 8359 Oct, Diabetes type 2, controlled E11.9 ; Lumbago with sciatica, 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 and Other chronic pain G89.29 [place] [id number] [place] [address] 28327- 6816 Aug, Sciatica, left side M54.32 and Gastroesophageal reflux disease without esophagitis K21.9 [facility] [id number] [place] [address] 44383- 3576 Aug, Pain in right knee M25.561 ; Pain in left hip M25.552 and Uncontrolled type 2 diabetes mellitus without complication, without long-term current use of insulin E11.65 [place] [id number] [place] [address] 91405- 4686 Jul, Diabetes type 2, controlled E11.9 and Cardiac arrhythmia, unspecified cardiac arrhythmia type I49.9 [place] [id number] [place] [address] 38637- 3542 Jul, Diabetes type 2, controlled E11.9 ; Cardiac arrhythmia, unspecified cardiac arrhythmia type I49.9 ; Other chronic pain G89.29 ; Pain in right knee M25.561 and Candidiasis B37.9 [place] [id number] [place] [address] 83778- 1617 May, [place] [id number] [place] [address] 43652- 5219 Jan, [place] [id number] [place] [address] 97111- 2433 Jan, Diabetes type 2, controlled E11.9 [place] [id number] [place] [address] 40033- 1172 Oct, Type 2 diabetes mellitus without complications E11.9 and 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 [place] [id number] [place] [address] 23626- 5103 Oct, [place] [id number] [place] [address] 83398- 4376 Mar, [facility] [id number] [place] [address] 71734- 6425 Mar, [place] [id number] [place] [address] 03559- 5911 Jan, [facility] [place] [facility] [address] [id number] [place] [address]- 1073 Jan, [facility] [place] [facility] [address] [id number] [place] [address]- 4645 Jan, [facility] [place] [facility] [address] [id number] [place] [address]- 3982 Jan, [facility] [place] [facility] [address] [id number] [place] [address]- 0975 Dec, [facility] [place] [facility] [address] [id number] [place] [address]- 4438 Dec, [facility] [place] [facility] [address] [id number] [place] [address]- 7849 Oct, [facility] [place] [facility] [address] [id number] [place] [address]- 3339 Oct, [facility] [place] [facility] [address] [id number] [place] [address]- 3851 Aug, [facility] [place] [facility] [address] [id number] [place] [address]- 2704 Aug, [facility] [place] [facility] [address] [id number] [place] [address]- 4508 Jul, [facility] [place] [facility] [address] [id number] [place] [address]- 7259 Jul, [facility] [place] [facility] [address] [id number] [place] [address]- 2400 May, [facility] [place] [facility] [address] [id number] [place] [address]- 3375 May, [facility] [place] [facility] [address] [id number] [place] [address]- 4786 May, [facility] [place] [facility] [address] [id number] [place] [address]- 1481 May, [facility] [place] [facility] [address] [id number] [place] [address]- 3187 March, [facility] [place] [facility] [address] [id number] [place] [address]- 4472 March, [facility] [place] [facility] [address] [id number] [place] 9036 March, [facility] [place] [facility] [address] [id number] [place] [address]- 0426 March, [facility] [place] [facility] [address] [id number] [place] [address]- 1766 March, [facility] [place] [facility] [address] [id number] [place] [address]- 2422 March, [facility] [place] [facility] [address] [id number] [place] [address]- 1966 Mar, [facility] [place] [facility] [address] [id number] [place] [address]- 9489 Mar, [facility] [place] [facility] [address] [id number] [place] [address]- 5185 Mar, [facility] [place] [facility] [address] [id number] [place] [address]- 0397 Mar, [facility] [place] [facility] [address] [id number] [place] [address]- 9031 Dec, [facility] [place] [facility] [address] [id number] [place] [address]- 1702 Aug, [facility] [place] [facility] [address] [id number] [place] [address]- 2356 Aug, [facility] [place] [facility] [address] [id number] [place] [address]- 4256 Aug, [facility] [place] [facility] [address] [id number] [place] [address]- 8628 Aug, [facility] [place] [facility] [address] [id number] [place] [address]- 3620 Aug, [facility] [place] [facility] [address] [id number] [address]- 7616 Aug, [facility] [address] 3206 Jan, [facility] [address], [place] [address]- 3986 Jan, [facility] [address], [place] [address]- 1960 Jan, [facility] [address] 2894 Jan, [facility] [id number] [place] [address] 429111- 5293 Oct, [facility] [id number] [place] [address] 904555- 7981 Oct, [facility] [id number] [place] [address] 68557- 8894 Oct, [facility] [address], [place] [address]- 3699 Oct, [facility] [id number] [phone] Oct, [facility] [id number] [phone] Oct, [facility] [id number] [address] Aug, IMMUNIZATIONS No Known Immunizations SOCIAL HISTORY Never Assessed REASON FOR VISIT Controlled Med Refill PLAN OF CARE VITAL SIGNS MEDICATIONS Medication Instructions Dosage Frequency Start Date End Date Duration Status [place] 10-325 MG Orally every 6 hrs 1 tablet as needed 6h Jan, 28 days Active RESULTS No Results PROCEDURES [...]
--- OUTSIDE RECORDS SUMMARY | 2018-10-25 15:23 | XMS REPORT ---
Author Author CHRISTIANO MAHONEY Organization [facility] Address [address] [place] [address] Care Team Providers Care Sow Farm Manager Name Role Phone CHRISTIANO MAHONEY Unavailable PROBLEMS Type Condition ICD9-CM Code VWO54-WN Code Onset Dates Condition Status SNOMED Code Problem Diabetes type 2, controlled E11.9 Active 80016289 Problem Uncontrolled type 2 diabetes mellitus without complication, without long-term current use of insulin E11.65 Active 297652940 Problem Controlled type 2 diabetes mellitus without complication, without long -term current use of insulin E11.9 Active 595683978 Problem Sciatica, left side M54.32 Active 89407785 Problem Gastroesophageal reflux disease without esophagitis K21.9 Active 080429134 Problem Other chronic pain G89.29 Active 25762265 Problem Lumbago with sciatica, 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 Active 494839358 ALLERGIES No Information ENCOUNTERS Encounter Location Date Diagnosis [place] [id number] [place] [address] 05693- 3140 May, [place] [id number] [place] [address] 06034- 0888 March, Uncontrolled type 2 diabetes mellitus without complication, without long-term current use of insulin E11.65 [place] [id number] [place] [address] 41814- 7242 March, Other chronic pain G89.29 [place] [id number] [place] [address] 62889- 4815 Mar, Other chronic pain G89.29 [place] [address] 95934- 7432 Jan, BMI 45.0-49.9, adult Z68.42 ; Sciatica, left side M54.32 ; Other chronic pain G89.29 and Diabetes type 2, controlled E11.9 [facility] [address], [place] [address] 1119 Jan, Other chronic pain G89.29 [facility] [id number] [place] [address] 81040- 0876 Jan, Diabetes type 2, controlled E11.9 and Other chronic pain G89.29 [facility] [id number] [place] [address] 97406- 1025 Dec, Diabetes type 2, controlled E11.9 [facility] [id number] [place] [address] 18194- 5052 Oct, Diabetes type 2, controlled E11.9 [facility] [id number] [place] [address] 24238- 8116 Oct, Diabetes type 2, controlled E11.9 [facility] [id number] [place] [address] 72920- 9858 Aug, Diabetes type 2, controlled E11.9 [facility] [id number] [place] [address] 85072- 5154 14 Aug, 2017 Diabetes type 2, controlled E11.9 and Lumbago with sciatica , 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 [facility] [address], [place] [address]- 3717 Jul, Diabetes type 2, controlled E11.9 [facility] [id number], [place] [address]- 3927 May, Diabetes type 2, controlled E11.9 [facility] [address], [place] [address]- 9392 May, Diabetes type 2, controlled E11.9 [facility] [id number] [place] [address] 31225- 7409 March, Diabetes type 2, controlled E11.9 [facility] [id number] [place] [address] 67309- 6658 Mar, Diabetes type 2, controlled E11.9 and Sciatica, left side M54.32 [place] [id number] [place] [address] 17513- 7653 14 Mar, 2017 Diabetes type 2, controlled E11.9 [place] [id number] [place] [address] 14279- 7645 Jan, Diabetes type 2, controlled E11.9 and Sciatica, left side M54.32 [place] [id number] [place] [address] 10170- 9927 Jan, Controlled type 2 diabetes mellitus without complication, without long-term current use of insulin E11.9 [place] [address] 24377- 3269 Dec, Controlled type 2 diabetes mellitus without complication, without long-term current use of insulin E11.9 [place] [id number] [place] [address] 63800- 6149 Oct, Diabetes type 2, controlled E11.9 [place] [id number] [place] [address] 38879- 1615 Oct, Diabetes type 2, controlled E11.9 ; Lumbago with sciatica, 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 and Other chronic pain G89.29 [place] [id number] [place] [address] 86601- 6884 Aug, Sciatica, left side M54.32 and Gastroesophageal reflux disease without esophagitis K21.9 [place] [id number] [place] [address] 53386- 4068 Aug, Pain in right knee M25.561 ; Pain in left hip M25.552 and Uncontrolled type 2 diabetes mellitus without complication, without long-term current use of insulin E11.65 [place] [id number] [place] [address] 22256- 9297 Jul, Diabetes type 2, controlled E11.9 and Cardiac arrhythmia, unspecified cardiac arrhythmia type I49.9 [place] [address] [place] [address]- 2236 Jul, Diabetes type 2, controlled E11.9 ; Cardiac arrhythmia, unspecified cardiac arrhythmia type I49.9 ; Other chronic pain G89.29 ; Pain in right knee M25.561 and Candidiasis B37.9 [facility] [address], [place] [address]- 8959 May, [facility] [id number] [place] [address] 23231- 6777 Jan, [facility] [id number] [place] [address] 21796- 2614 Jan, Diabetes type 2, controlled E11.9 [facility] [id number] [place] [address] 41835- 3101 Oct, Type 2 diabetes mellitus without complications E11.9 and 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 [facility] [id number] [place] [address] 82016- 8975 Oct, [facility] [id number] [place] [address] 90417- 1414 Mar, [facility] [id number] [place] [address] 38988- 2888 Mar, [facility] [address] [place] [address] 99669- 1705 Jan, [facility] [id number] [place] [address] 71704- 9402 Jan, [facility] [id number] [place] [address] 68222- 6111 Jan, [facility] [id number] [place] [address] 60583- 5940 Jan, [facility] [id number] [place] [address] 90896- 0357 Dec, [facility] [id number] [place] [address] 08275- 1251 Dec, [facility] [place] [facility] [address] [id number] [place] [address]- 0056 Oct, [facility] [place] [facility] [address] [id number] [place] [address]- 3915 Oct, [facility] [place] [facility] [address] [id number] [place] [address]- 5154 Aug, [facility] [place] [facility] [address] [id number] [place] [address]- 6465 Aug, [facility] [place] [facility] [address] [id number] [place] [address]- 2252 Jul, [facility] [place] [facility] [address] [id number] [place] [address]- 8649 Jul, [facility] [place] [facility] [address] [id number] [place] [address]- 7438 May, [facility] [place] [facility] [address] [id number] [place] [address]- 0917 May, [facility] [place] [facility] [address] [id number] [place] [address]- 2401 May, [facility] [place] [facility] [address] [id number] [place] [address]- 4410 May, [facility] [place] [facility] [address] [id number] [place] [address]- 7421 March, [facility] [place] [facility] [address] [id number] [place] [address]- 8414 March, [facility] [place] [facility] [address] [id number] [place] 6331 March, [facility] [place] [facility] [address] [id number] [place] [address]- 7138 March, [facility] [place] [facility] [address] [id number] [place] 3052 March, [facility] [place] [facility] [address] [id number] [place] [address]- 2588 March, [facility] [address] [id number] [place] [address]- 0104 Mar, [facility] [place] [facility] [address] [id number] [place] [address]- 8236 Mar, [facility] [address] [id number] [place] [address]- 1818 Mar, [facility] [address] [id number] [place] [address]- 5854 Mar, [facility] [address] [id number] [place] [address]- 3389 Dec, [facility] [address] [id number] [place] [address]- 4990 Aug, [facility] [address] [id number] [place] [address]- 0091 Aug, [facility] [address] [id number] [place] [address]- 6302 Aug, [facility] [address] [id number] [place] [address]- 1035 20 Aug, 2012 [facility] [address] [id number] [place] [address]- 2998 13 Aug, 2012 [facility] [place] [facility] [address] [id number] [place] [address]- 1871 12 Aug, 2012 [facility] [place] [facility] [address] [id number] [place] [address]- 8282 Jan, [facility] [place] [facility] [address] [id number] [place] [address]- 2077 Jan, [facility] [place] [facility] [address] [id number] [place] [address]- 8168 Jan, [facility] [place] [facility] [address] [id number] [place] [address]- 6687 Jan, [facility] [id number], [place] [address] 2546 Oct, [facility] [id number], [place] [address] 2546 Oct, [facility] [id number], [place] [address]- 2546 Oct, [facility] [id number], [place] [address]- 2546 Oct, [facility] [id number], [place] [address]- 2546 Oct, [facility] [id number], [place] [address] 2546 Oct, [facility] [id number], [place] [address] 2546 Aug, IMMUNIZATIONS No Known Immunizations SOCIAL HISTORY Never Assessed REASON FOR VISIT Controlled Med Refill PLAN OF CARE VITAL SIGNS MEDICATIONS Medication Instructions Dosage Frequency Start Date End Date Duration Status [place] 10-325 MG Orally every 6 hrs 1 [...]
--- OUTSIDE RECORDS SUMMARY | 2018-10-25 15:23 | XMS REPORT ---
Author Author CHRISTIANO MAHONEY Organization [facility] Address [address] [place] [address] Care Team Providers Care Safety Deposit Supervisor Name Role Phone DENZEL CHRISTIANO Unavailable PROBLEMS Type Condition ICD9-CM Code BUR50-TP Code Onset Dates Condition Status SNOMED Code Problem Controlled type 2 diabetes mellitus without complication, without long -term current use of insulin E11.9 Active 398825636 Problem Other chronic pain G89.29 Active 19680361 Problem Gastroesophageal reflux disease without esophagitis K21.9 Active 510420787 Problem Diabetes type 2, controlled E11.9 Active 00875349 Problem Lumbago with sciatica, 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 Active 563245761 Problem Sciatica, left side M54.32 Active 06681115 ALLERGIES No Information SOCIAL HISTORY Never Assessed PLAN OF CARE VITAL SIGNS MEDICATIONS Medication Instructions Dosage Frequency Start Date End Date Duration Status [place] 10-325 MG Orally every 6 hrs 1 tablet as needed 6h Jan, Active RESULTS No Results PROCEDURES No Known procedures IMMUNIZATIONS No Known Immunizations MEDICAL (GENERAL) HISTORY Type Description Date Medical History Diabetes mellitus without mention of complication, type II or unspecified type, not stated as uncontrolled Medical History Impotence of organic origin Surgical History L foot sugery age 30 Surgical History colon rupture/ colostomy bag 2003 Surgical History removal of colostomy bag 2003 Hospitalization History surgery (multiple)
--- OUTSIDE RECORDS SUMMARY | 2018-10-25 15:23 | XMS REPORT ---
Author Author CHRISTIANO MAHONEY Organization [facility] [place] Address [address] [place] [address] Care Team Providers Care Patent Drafter Name Role Phone CHRISTIANO MAHONEY Unavailable PROBLEMS Type Condition ICD9-CM Code TTJ37-CL Code Onset Dates Condition Status SNOMED Code Problem Controlled type 2 diabetes mellitus without complication, without long -term current use of insulin E11.9 Active 515549880 Problem Other chronic pain G89.29 Active 42400698 Problem Gastroesophageal reflux disease without esophagitis K21.9 Active 635321939 Problem Diabetes type 2, controlled E11.9 Active 17988205 Problem Lumbago with sciatica, 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 Active 178305548 Problem Sciatica, left side M54.32 Active 82746563 ALLERGIES No Information ENCOUNTERS Encounter Location Date Diagnosis [place] [id number] [place] [address] 37015- 7541 Mar, Other chronic pain G89.29 [facility] [place] [id number] [place] [address] 58975- 0664 Jan, BMI 45.0-49.9, adult Z68.42 ; Sciatica, left side M54.32 ; Other chronic pain G89.29 and Diabetes type 2, controlled E11.9 [facility] [place] [id number] [place] [address] 65166- 6810 Jan, Other chronic pain G89.29 [facility] [place] [id number] [place] [address] 50774- 0507 Jan, Diabetes type 2, controlled E11.9 and Other chronic pain G89.29 [facility] [place] [id number] [place] [address] 54169- 0843 Dec, Diabetes type 2, controlled E11.9 [facility] [place] [address] [place] [address]- 0165 Oct, Diabetes type 2, controlled E11.9 [facility] [place] [id number], [place] [address]- 1386 Oct, Diabetes type 2, controlled E11.9 [facility] [place] [address], [place] [address]- 0671 Aug, Diabetes type 2, controlled E11.9 [facility] [place] [id number] [place] [address] 36348- 9980 Aug, Diabetes type 2, controlled E11.9 and Lumbago with sciatica , 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 [facility] [place] [id number] [place] [address] 29164- 3566 Jul, Diabetes type 2, controlled E11.9 [facility] [place] [id number] [place] [address] 89838- 7723 May, Diabetes type 2, controlled E11.9 [facility] [place] [id number], [place] [address]- 4367 May, Diabetes type 2, controlled E11.9 [facility] [place] [id number], [place] [address]- 4674 March, Diabetes type 2, controlled E11.9 [facility] [place] [address], [place] [address]- 3536 Mar, Diabetes type 2, controlled E11.9 and Sciatica, left side M54.32 [facility] [place] [address], [place] [address]- 0451 Mar, Diabetes type 2, controlled E11.9 [facility] [place] [address], [place] [address]- 4623 Jan, Diabetes type 2, controlled E11.9 and Sciatica, left side M54.32 [facility] [place] [address], [place] [address]- 5726 Jan, Controlled type 2 diabetes mellitus without complication, without long-term current use of insulin E11.9 [place] [address] [place] [address] 64050- 7574 Dec, Controlled type 2 diabetes mellitus without complication, without long-term current use of insulin E11.9 [place] [id number] [place] [address] 07887- 6238 Oct, Diabetes type 2, controlled E11.9 [place] [id number] [place] [address] 08046- 4763 Oct, Diabetes type 2, controlled E11.9 ; Lumbago with sciatica, 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 and Other chronic pain G89.29 [place] [id number] [place] [address] 82519- 6699 Aug, Sciatica, left side M54.32 and Gastroesophageal reflux disease without esophagitis K21.9 [place] [id number] [place] [address] 34990- 7677 Aug, Pain in right knee M25.561 ; Pain in left hip M25.552 and Uncontrolled type 2 diabetes mellitus without complication, without long-term current use of insulin E11.65 [place] [id number] [place] [address] 20657- 3264 Jul, Diabetes type 2, controlled E11.9 and Cardiac arrhythmia, unspecified cardiac arrhythmia type I49.9 [place] [id number] [place] [address] 65028- 2028 Jul, Diabetes type 2, controlled E11.9 ; Cardiac arrhythmia, unspecified cardiac arrhythmia type I49.9 ; Other chronic pain G89.29 ; Pain in right knee M25.561 and Candidiasis B37.9 [place] [id number] [place] [address] 00551- 8310 May, [place] [id number] [place] [address] 02058- 0979 Jan, [place] [id number] [place] [address] 76558- 0533 Jan, Diabetes type 2, controlled E11.9 [facility] [place] [address] [facility] [id number]- 7145 Oct, Type 2 diabetes mellitus without complications E11.9 and 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 [facility] [place] [address]- 8502 Oct, [facility] [place] [address] [facility] [id number], [place] [address]- 7309 Mar, [facility] [place] [address] [facility] [id number], [place] [address]- 1474 Mar, [facility] [place] [address], [place] [address]- 5835 Jan, [facility] [place] [address], [place] [address]- 7434 Jan, [facility] [place] [address] [facility] [id number], [place] [address]- 6528 Jan, [facility] [place] [id number], [place] [address]- 3905 Jan, [facility] [place] [id number], [place] [address]- 2923 Dec, [facility] [place] [id number], [place] [address]- 2890 Dec, [facility] [place] [id number], [place] [address]- 2605 Oct, [facility] [place] [address] [facility] [id number], [place] [address]- 9468 Oct, [facility] [place] [id number] 5534 Aug, [facility] [place] [id number], [place] [address]- 9380 Aug, [facility] [place] [facility] [address] [id number] [place] [address]- 1579 Jul, [facility] [address] [id number] [place] [address]- 0238 Jul, [facility] [place] [facility] [address] [id number] [place] [address]- 4459 May, [facility] [address] [id number] [place] [address]- 6661 May, [facility] [place] [facility] [address] [id number] [place] [address]- 5412 May, [facility] [address] [id number] [place] [address]- 0860 May, [facility] [address] [id number] [place] [address]- 8652 March, [facility] [place] [facility] [address] [id number] [place] [address]- 6960 March, [facility] [address] [id number] [place] [address]- 5868 March, [facility] [address] [id number] [place] [address]- 2844 March, [facility] [address] [id number] [place] [address]- 5361 March, [facility] [place] [facility] [address] [id number] [place] [address]- 8968 March, [facility] [place] [facility] [address] [id number] [place] [address]- 7529 Mar, [facility] [place] [facility] [address] [id number] [place] [address]- 6904 Mar, [facility] [place] [facility] [address] [id number] [place] [address]- 0773 Mar, [facility] [place] [facility] [address] [id number] [place] [address]- 8895 Mar, [facility] [address] [id number] [place] [address]- 6967 Dec, [facility] [place] [facility] [address] [id number] [place] [address]- 8578 Aug, [facility] [place] [facility] [address] [id number] [place] [address]- 1306 Aug, [facility] [place] [facility] [address] [id number] [place] [address]- 8136 Aug, [facility] [place] [facility] [address] [id number] [place] [address]- 6357 20 Aug, 2012 [facility] [place] [facility] [address] [id number] [place] [address] 13 Aug, 2012 [facility] [place] [facility] [address] [id number] [place] [address] Aug, [facility] [place] [facility] [address] [id number] [place] [address] Jan, [facility] [place] [facility] [address] [id number] [place] [address] Jan, [facility] [place] [facility] [address] [facility] [id number], [place] [address] Jan, [facility] [place] [facility] [address] [facility] [id number], [place] [address] Jan, [facility] [place] [facility] [address] [id number], [place] [address] Oct, [facility] [place] [facility] [address] [id number] [place] [address] Oct, [facility] [place] [facility] [address] [id number], [place] [address] Oct, [facility] [place] [facility] [address] [facility] [id number], [place] [address] 17 Oct, 2010 [facility] [place] [facility] [address] [id number], [place] [address] Oct, [facility] [place] [address] [facility] [id number], [place] [address] Oct, [facility] [place] [address] [facility] [id number], [place] [address] Aug, IMMUNIZATIONS No Known Immunizations SOCIAL HISTORY Never Assessed REASON FOR VISIT Controlled Med Refill PLAN OF CARE VITAL SIGNS MEDICATIONS Medication Instructions Dosage Frequency Start Date End Date Duration Status [place] 10-325 MG Orally every 6 hrs 1 [...]
--- OUTSIDE RECORDS SUMMARY | 2018-10-25 15:24 | XMS REPORT ---
Author Author CHRISTIANO MAHONEY [facility] Address [address] [place] [address] Care Team Providers Care Metallurgical Engineering Technician Name Role Phone CHRISTIANO MAHONEY Unavailable PROBLEMS Type Condition ICD9-CM Code [id number] Code Onset Dates Condition Status SNOMED Code Problem Special screening examination for unspecified chlamydial disease V73.98 Active Problem Impotence of organic origin 607.84 Active 235314412 Problem Candidiasis of other urogenital sites 112.2 Active 41642957 Assessment Uncontrolled type 2 diabetes mellitus without complication, without long-term current use of insulin E11.65 Aug, Active 277107789 Assessment Pain in left hip M25.552 Aug, Active 50029229 Assessment Pain in right knee M25.561 Aug, Active 91838318 Problem Diabetes type 2, controlled E11.9 Active 17911051 Problem Candidiasis of skin and nails 112.3 Active 333079143 Problem Screening examination for venereal disease V74.5 Active 971347952 Problem Contact with or exposure to venereal diseases V01.6 Active 098039730 Problem Issue of repeat prescriptions V68.1 Active Problem Diabetes mellitus without mention of complication, type II or unspecified type, not stated as uncontrolled 250.00 Active 896154342 ALLERGIES Substance Reaction Event Type Date Status Aleve Unknown Drug Allergy Aug, Active SOCIAL HISTORY No smoking Hx information available PLAN OF CARE VITAL SIGNS Height 62 in 2016-08-19 Weight 267.2 lbs 2016-08-19 Heart Rate irregular:88 bpm 2016-08-19 Respiratory Rate 20 2016-08-19 BMI 48.87 kg/m2 2016-08-19 Blood pressure systolic 152 mmHg 2016-08-19 Blood pressure diastolic 80 mmHg 2016-08-19 MEDICATIONS Medication Instructions Dosage Frequency Start Date End Date Duration Status GlipiZIDE 10 mg Orally 2 times a day 1 tablet 12h Active Cozaar 50 mg Orally Once a day 1 tablet 24h 15 Jul, 2016 30 day(s) Active Aspirin 325 MG Orally Once a day 1 tablet 24h Active Fish Oil 1200 MG Orally Once a day 1 capsule 24h Active Metformin HCl 1000 MG Orally Twice a day 1 tablet with meals 12h Active Viagra 100 MG Orally Once a day 1 tablet as needed 24h Aug, Active [place] 5-325 MG Orally every 6 hrs 1 tablet as needed 6h 15 Jul, 2016 Active RESULTS No Results PROCEDURES Procedure Date Ordered Related Diagnosis Body Site Office Visit, Est Pt., Level 3 Aug 19, 2016 IMMUNIZATIONS No Known Immunizations
--- OUTSIDE RECORDS SUMMARY | 2018-10-25 15:24 | XMS REPORT ---
Author Author CHRISTIANO MAHONEY Organization [facility] Address [address] [place] [address] Care Team Providers Care Web Producer Name Role Phone CHRISTIANO MAHONEY Unavailable PROBLEMS Type Condition ICD9-CM Code VZH82-KY Code Onset Dates Condition Status SNOMED Code Problem Controlled type 2 diabetes mellitus without complication, without long -term current use of insulin E11.9 Active 675654284 Problem Other chronic pain G89.29 Active 26475369 Problem Gastroesophageal reflux disease without esophagitis K21.9 Active 308620284 Problem Diabetes type 2, controlled E11.9 Active 98826774 Problem Lumbago with sciatica, 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 Active 740981912 Problem Sciatica, left side M54.32 Active 29867078 ALLERGIES Substance Reaction Event Type Date Status Aleve Unknown Drug Allergy Aug, Active ENCOUNTERS Encounter Location Date Diagnosis [place] [id number] [place] [address] 88396- 9596 Mar, Other chronic pain G89.29 [facility] [id number] [place] [address] 87023- 2273 Jan, BMI 45.0-49.9, adult Z68.42 ; Sciatica, left side M54.32 ; Other chronic pain G89.29 and Diabetes type 2, controlled E11.9 [facility] [id number] [place] [address] 78081- 5609 Jan, Other chronic pain G89.29 [place] [id number] [place] [address] 84483- 5361 Jan, Diabetes type 2, controlled E11.9 and Other chronic pain G89.29 [facility] [id number] [place] [address] 45388- 2634 Dec, Diabetes type 2, controlled E11.9 [facility] [address] [address] Oct, Diabetes type 2, controlled E11.9 [facility] [id number] [place] [address] 04012- 5436 Oct, Diabetes type 2, controlled E11.9 [facility] [id number] [place] [address] 29011- 4835 Aug, Diabetes type 2, controlled E11.9 [facility] [id number] [place] [address] 80317- 7907 Aug, Diabetes type 2, controlled E11.9 and Lumbago with sciatica , 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 [facility] [id number] [place] [address] 30285- 4565 Jul, Diabetes type 2, controlled E11.9 [facility] [id number] [place] [address] 70560- 2411 May, Diabetes type 2, controlled E11.9 [facility] [id number] [place] [address] 98531- 4649 May, Diabetes type 2, controlled E11.9 [facility] [id number] [place] [address] 93324- 8749 March, Diabetes type 2, controlled E11.9 [facility] [id number] [place] [address] 79839- 3804 Mar, Diabetes type 2, controlled E11.9 and Sciatica, left side M54.32 [facility] [address] [address] 228[address] Mar, Diabetes type 2, controlled E11.9 [facility] [id number] [place] [address] 17966- 6313 Jan, Diabetes type 2, controlled E11.9 and Sciatica, left side M54.32 [facility] [id number] [place] [address] 60601- 0537 Jan, Controlled type 2 diabetes mellitus without complication, without long-term current use of insulin E11.9 [place] [id number] [place] [address] 48225- 5743 Dec, Controlled type 2 diabetes mellitus without complication, without long-term current use of insulin E11.9 [place] [id number] [place] [address] 39117- 1014 Oct, Diabetes type 2, controlled E11.9 [place] [id number] [place] [address] 34142- 5877 Oct, Diabetes type 2, controlled E11.9 ; Lumbago with sciatica, 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 and Other chronic pain G89.29 [place] [id number] [place] [address] 55409- 9727 Aug, Sciatica, left side M54.32 and Gastroesophageal reflux disease without esophagitis K21.9 [place] [id number] [place] [address] 79314- 1555 Aug, Pain in right knee M25.561 ; Pain in left hip M25.552 and Uncontrolled type 2 diabetes mellitus without complication, without long-term current use of insulin E11.65 [place] [id number] [place] [address] 43011- 6749 Jul, Diabetes type 2, controlled E11.9 and Cardiac arrhythmia, unspecified cardiac arrhythmia type I49.9 [place] [id number] [place] [address] 74119- 5654 Jul, Diabetes type 2, controlled E11.9 ; Cardiac arrhythmia, unspecified cardiac arrhythmia type I49.9 ; Other chronic pain G89.29 ; Pain in right knee M25.561 and Candidiasis B37.9 [place] [id number] [place] [address] 80551- 7957 May, [place] [id number] [place] [address] 07020- 2182 Jan, [place] [address] [address] 8528 Jan, Diabetes type 2, controlled E11.9 [facility] [id number] [place] [address] 15597- 0020 Oct, Type 2 diabetes mellitus without complications E11.9 and 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 [facility] [address] [address] 0681 Oct, [facility] [id number] [place] [address] 21899- 3946 Mar, [facility] [id number] [place] [address] 25280- 1724 Mar, [facility] [id number] [address]- 6741 Jan, [facility] [id number] [place] [address] 40053- 5237 Jan, [facility] [id number] [address]- 1648 Jan, [facility] [id number] [address]- 3248 Jan, [facility] [id number] [address]- 3368 Dec, [facility] [id number] [address]- 9158 Dec, [facility] [id number] [address]- 8345 Oct, [facility] [id number] Oct, [facility] [id number] [address]- 0017 Aug, [facility] [id number] [address] Aug, [facility] [place] [facility] [address] [id number] [place] [address]- 8882 Jul, [facility] [place] [facility] [address] [id number] [place] [address]- 2619 Jul, [facility] [place] [facility] [address] [id number] [place] [address]- 0908 May, [facility] [place] [facility] [address] [id number] [place] [address]- 8561 May, [facility] [place] [facility] [address] [id number] [place] [address]- 2759 May, [facility] [place] [facility] [address] [id number] [place] [address]- 3429 May, [facility] [place] [facility] [address] [id number] [place] [address]- 1150 March, [facility] [place] [facility] [address] [id number] [place] [address]- 8290 March, [facility] [place] [facility] [address] [id number] [place] [address]- 2673 March, [facility] [place] [facility] [address] [id number] [place] [address]- 4844 March, [facility] [place] [facility] [address] [id number] [place] [address]- 0456 March, [facility] [place] [facility] [address] [id number] [place] [address]- 4002 March, [facility] [place] [facility] [address] [id number] [place] [address]- 9896 Mar, [facility] [place] [facility] [address] [id number] [place] [address]- 9181 Mar, [facility] [place] [facility] [address] [id number] [place] [address]- 8952 Mar, [facility] [place] [facility] [address] [id number] [place] [address]- 7574 Mar, [facility] [address] [id number] [place] [address]- 8396 Dec, [facility] [place] [facility] [address] [id number] [place] [address]- 7016 Aug, [facility] [place] [facility] [address] [id number] [place] [address]- 8036 Aug, [facility] [place] [facility] [address] [id number] [place] [address]- 6190 Aug, [facility] [address] [id number] [place] [address]- 2804 20 Aug, 2012 [facility] [place] [facility] [address] [id number] [place] [address]- 3711 13 Aug, 2012 [facility] [address] [id number] [place] [address]- 3084 Aug, [facility] [place] [facility] [address] [id number] [place] [address]- 9966 Jan, [facility] [place] [facility] [address] [id number] [place] [address]- 3397 Jan, [facility] [place] [facility] [address] [id number] [place] [address]- 7912 Jan, [facility] [place] [facility] [address] [id number] [place] [address]- 7246 Jan, [facility] [place] [facility] [address] [id number] [address]- 1266 Oct, [facility] [place] [facility] [address] [id number] [place] [address]- 1286 Oct, [facility] [place] [facility] [address] [id number] [place] [address]- 4492 Oct, [facility] [place] [facility] [address] [id number] [place] [address]- 4106 Oct, [facility] [place] [facility] [address] [facility] [id number] [place] [address] Oct, [facility] [address] [facility] [id number] [place]2 Oct, [facility] [address] [facility] [id number] [place] Aug, IMMUNIZATIONS No Known Immunizations SOCIAL HISTORY Never Assessed REASON FOR VISIT Diabetes f/u, medications refilled--H Preston BRANDT PLAN OF CARE VITAL SIGNS Height 62 in 2017-08-14 Weight 275.1 lbs 2017-08-14 Temperature 98.8 degrees Fahrenheit 2017-08-14 Heart Rate 102 bpm 2017-08-14 Respiratory Rate 20 2017-08-14 BMI 50.31 kg/m2 2017-08-14 Blood pressure systolic 134 mmHg 2017-08-14 Blood pressure diastolic 92 mmHg 2017-08-14 MEDICATIONS Medication Instructions Dosage Frequency Start Date End Date Duration Status Ranitidine HCl 150 MG Orally Twice a day 1 tablet 12h Aug, 30 day(s) Active Aspirin 325 MG Orally Once a day 1 tablet 24h Active Cozaar 50 mg Orally Once a day 1 tablet 24h Jul, 30 day(s) Active Fish Oil 1200 MG Orally Twice a day 1 capsule 12h Active Cyclobenzaprine HCl 10 mg Orally 3 times a day 1 tablet 8h Aug, 30 day(s) Active Metformin HCl 1000 MG Orally Twice a day 1 tablet with meals 12h Active Ibuprofen 200 MG Orally every 6 hrs 1 tablet as needed 6h Active Diflucan 100 mg Orally Once a day 1 tablet 24h Aug, Aug, 14 days Active GlipiZIDE 10 mg Orally 2 times a day 2 tablets 12h Active [place] 10-325 MG Orally every 6 hrs 1 tablet as needed 6h Aug, 28 days Active Viagra 100 MG Orally Once a day 1 tablet as needed 24h Aug, 10 Active RESULTS No Results PROCEDURES No Known [...]
--- OUTSIDE RECORDS SUMMARY | 2018-10-25 15:24 | XMS REPORT ---
Author Author CHRISTIANO MAHONEY Organization [facility] Address [address] [place] [address] Care Team Providers Care Journalism Internship Name Role Phone CHRISTIANO MAHONEY Unavailable PROBLEMS Type Condition ICD9-CM Code JEF01-MR Code Onset Dates Condition Status SNOMED Code Problem Diabetes type 2, controlled E11.9 Active 35698080 Problem Uncontrolled type 2 diabetes mellitus without complication, without long-term current use of insulin E11.65 Active 621278263 Problem Controlled type 2 diabetes mellitus without complication, without long -term current use of insulin E11.9 Active 925654364 Problem Sciatica, left side M54.32 Active 71446464 Problem Gastroesophageal reflux disease without esophagitis K21.9 Active 186339217 Problem Other chronic pain G89.29 Active 26503977 Problem Lumbago with sciatica, 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 Active 670983293 ALLERGIES No Information ENCOUNTERS Encounter Location Date Diagnosis [facility] [id number] [place] [address] 53982- 2419 May, [facility] [id number] [place] [address] 64668- 7892 May, Diabetes type 2, controlled E11.9 [facility] [id number] [place] [address] 81870- 5141 May, Diabetes type 2, controlled E11.9 [facility] [id number] [place] [address] 04900- 1739 March, Uncontrolled type 2 diabetes mellitus without complication, without long-term current use of insulin E11.65 [facility] [id number] [place] [address] 27812- 9521 March, Other chronic pain G89.29 [facility] [id number] [place] [address] 47027- 3192 Mar, Other chronic pain G89.29 [facility] [id number] [place] [address] 52888- 2574 Jan, BMI 45.0-49.9, adult Z68.42 ; Sciatica, left side M54.32 ; Other chronic pain G89.29 and Diabetes type 2, controlled E11.9 [facility] [id number] [place] [address] 18579- 5288 Jan, Other chronic pain G89.29 [facility] [id number] [place] [address] 97056- 0839 Jan, Diabetes type 2, controlled E11.9 and Other chronic pain G89.29 [facility] [id number] [place] [address] 44137- 1204 Dec, Diabetes type 2, controlled E11.9 [facility] [id number] [place] [address] 04164- 0624 Oct, Diabetes type 2, controlled E11.9 [facility] [id number] [place] [address] 57537- 7596 Oct, Diabetes type 2, controlled E11.9 [facility] [id number] [place] [address] 86100- 5679 Aug, Diabetes type 2, controlled E11.9 [facility] [id number] [place] [address] 58972- 1540 14 Aug, 2017 Diabetes type 2, controlled E11.9 and Lumbago with sciatica , 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 [facility] [id number] [place] [address] 56720- 4027 Jul, Diabetes type 2, controlled E11.9 [facility] [id number] [place] [address] 61434- 3553 May, Diabetes type 2, controlled E11.9 [facility] [id number] [place] [address] 09447- 5695 May, Diabetes type 2, controlled E11.9 [facility] [address] [address] 84[address] March, Diabetes type 2, controlled E11.9 [facility] [id number] [place] [address] 43380- 0543 Mar, Diabetes type 2, controlled E11.9 and Sciatica, left side M54.32 [facility] [id number] [place] [address] 62840- 8395 Mar, Diabetes type 2, controlled E11.9 [facility] [id number] [place] [address] 79406- 3835 Jan, Diabetes type 2, controlled E11.9 and Sciatica, left side M54.32 [facility] [id number] [place] [address] 60291- 4661 Jan, Controlled type 2 diabetes mellitus without complication, without long-term current use of insulin E11.9 [facility] [id number] [place] [address] 83543- 9184 Dec, Controlled type 2 diabetes mellitus without complication, without long-term current use of insulin E11.9 [facility] [id number] [place] [address] 88507- 7615 Oct, Diabetes type 2, controlled E11.9 [facility] [id number] [place] [address] 41166- 7930 Oct, Diabetes type 2, controlled E11.9 ; Lumbago with sciatica, 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 and Other chronic pain G89.29 [facility] [place] [address] [address] 3766 Aug, Sciatica, left side M54.32 and Gastroesophageal reflux disease without esophagitis K21.9 [facility] [id number] [place] [address] 54523- 9591 Aug, Pain in right knee M25.561 ; Pain in left hip M25.552 and Uncontrolled type 2 diabetes mellitus without complication, without long-term current use of insulin E11.65 [facility] [address] [address] 4076 Jul, Diabetes type 2, controlled E11.9 and Cardiac arrhythmia, unspecified cardiac arrhythmia type I49.9 [facility] [address] [address]- 2967 Jul, Diabetes type 2, controlled E11.9 ; Cardiac arrhythmia, unspecified cardiac arrhythmia type I49.9 ; Other chronic pain G89.29 ; Pain in right knee M25.561 and Candidiasis B37.9 [facility] [address] [address] 1394 May, [facility] [id number] [place] [address] 74256- 0545 Jan, [facility] [id number] [place] [address] 40187- 2697 Jan, Diabetes type 2, controlled E11.9 [facility] [address] [address]- 7287 Oct, Type 2 diabetes mellitus without complications E11.9 and 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 [facility] [address] [address]- 4582 Oct, [facility] [address] [address]- 3129 Mar, [facility] [address] [address]- 2480 Mar, [facility] [address] [address]- 1336 Jan, [facility] [address] [address]- 1444 Jan, [facility] [address] [address]- 4737 Jan, [facility] [place] [facility] [address] [id number] [place] [address]- 6295 Jan, [facility] [place] [facility] [address] [id number] [place] [address]- 6496 Dec, [facility] [place] [facility] [address] [id number] [place] [address]- 0475 Dec, [facility] [place] [facility] [address] [id number] [place] [address]- 4693 Oct, [facility] [place] [facility] [address] [id number] [place] [address]- 7517 Oct, [facility] [place] [facility] [address] [id number] [place] [address]- 0569 Aug, [facility] [place] [facility] [address] [id number] [place] [address]- 8872 Aug, [facility] [place] [facility] [address] [id number] [place] [address]- 2448 Jul, [facility] [place] [facility] [address] [id number] [place] [address]- 0972 Jul, [facility] [place] [facility] [address] [id number] [place] [address]- 4422 May, [facility] [place] [facility] [address] [id number] [place] [address]- 0329 May, [facility] [place] [facility] [address] [id number] [place] [address]- 0448 May, [facility] [place] [facility] [address] [id number] [place] [address]- 5000 May, [facility] [place] [facility] [address] [id number] [place] [address]- 2195 March, [facility] [place] [facility] [address] [id number] [place] [address]- 2136 March, [facility] [place] [facility] [address] [id number] [place] [address]- 0142 March, [facility] [place] [facility] [address] [id number] [place] [address]- 8370 March, [facility] [place] [facility] [address] [id number] [place] [address]- 2082 March, [facility] [place] [facility] [address] [id number] [place] [address]- 3327 March, [facility] [place] [facility] [address] [id number] [place] [address]- 1667 Mar, [facility] [place] [facility] [address] [id number] [place] [address]- 7417 Mar, [facility] [place] [facility] [address] [id number] [place] [address]- 0789 Mar, [facility] [place] [facility] [address] [id number] [place] [address]- 2190 Mar, [facility] [place] [facility] [address] [id number] [place] [address]- 5399 Dec, [facility] [place] [facility] [address] [id number] [place] [address]- 8626 Aug, [facility] [place] [facility] [address] [id number] [place] [address]- 5684 Aug, [facility] [place] [facility] [address] [id number] [place] [address]- 9949 Aug, [facility] [place] [facility] [address] [id number] [address]- 9413 20 Aug, 2012 [facility] [place] [facility] [address] [id number] [place] [address]- 6481 13 Aug, 2012 [facility] [place] [facility] [address] [id number] [place] [address]- 9126 Aug, [facility] [place] [facility] [address] [id number] [place] [address]- 6772 Jan, [facility] [place] [facility] [id number] [address]- 9239 Jan, [facility] [address] [address]- 4142 Jan, [facility] [id number] [address]- 2252 Jan, [facility] [address] [address]- 2825 Oct, [facility] [address] [address] [address]177 Oct, [facility] [address] [place] [address] 020563- 4731 Oct, [facility] [address] [address] 6129 Oct, [facility] [address] 4839 Oct, [facility] [address] [address]- 0842 Oct, [facility] [address] [address] [address] Aug, IMMUNIZATIONS No Known Immunizations SOCIAL HISTORY Never Assessed REASON FOR VISIT Controlled Med Refill PLAN OF CARE VITAL SIGNS MEDICATIONS Medication Instructions Dosage Frequency Start Date End Date Duration Status [place] 10-325 MG Orally every 6 hrs 1 [...]
--- OUTSIDE RECORDS SUMMARY | 2018-10-25 15:24 | XMS REPORT ---
Author Author CHRISTIANO MAHONEY Organization [facility] Address [address] [place] [address] Care Team Providers Care [employer] Name Role Phone DENZEL CHRISTIANO Unavailable PROBLEMS Type Condition ICD9-CM Code LJN58-PY Code Onset Dates Condition Status SNOMED Code Problem Controlled type 2 diabetes mellitus without complication, without long -term current use of insulin E11.9 Active 958114189 Problem Other chronic pain G89.29 Active 15133952 Problem Gastroesophageal reflux disease without esophagitis K21.9 Active 667143045 Problem Diabetes type 2, controlled E11.9 Active 52913510 Problem Lumbago with sciatica, 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 Active 712987967 Problem Sciatica, left side M54.32 Active 58747379 ALLERGIES No Information SOCIAL HISTORY Never Assessed PLAN OF CARE VITAL SIGNS MEDICATIONS Medication Instructions Dosage Frequency Start Date End Date Duration Status [place] 10-325 MG Orally every 6 hrs 1 [...]
--- OUTSIDE RECORDS SUMMARY | 2018-10-25 15:24 | XMS REPORT ---
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 Active Problem Candidiasis of skin and nails 112.3 Active Problem Issue of repeat prescriptions V68.1 Active Problem Type 2 diabetes mellitus without complications E11.9 Active Problem Contact with or exposure to venereal diseases V01.6 Active Problem Impotence of organic origin 607.84 Active Problem Diabetes mellitus without mention of complication, type II or unspecified type, not stated as uncontrolled 250.00 Active Problem Screening examination for venereal disease V74.5 Active Medications Medication Code System Code Instructions Start Date End Date Status Dosage GlipiZIDE [facility] [address]-14 5 MG TAKE ONE TABLET BY MOUTH TWICE DAILY Metformin HCl [facility] [address]-34 1000 MG Orally Twice a day Nov 09, 2015 1 tablet with meals Diflucan [facility] [address]-33 100 MG Orally Nov 13, 2015 Nov 23, 2015 1 tablet Procedures Procedure Coding System Code Date COMPREHEN METABOLIC PANEL CPT-4 04098 Nov 13, 2015 Office Visit, Est Pt., Level 4 CPT-4 59608 Nov 13, 2015 GLYCATED HEMOGLOBIN TEST CPT-4 61950 Nov 13, 2015 VENIPUNCT, ROUTINE* CPT-4 97380 Nov 13, 2015 Vital Signs Date/Time: Nov 13, 2015 Temperature 98.0 F Weight 271 lbs Height 62 in BMI 49.56 Index Blood Pressure Diastolic 88 mmHg Blood Pressure Systolic 160 mmHg Cardiac Monitoring Heart Rate 60 bpm Results Name Result Date Reference Range Unit Abnormality Flag ROUTINE VENIPUNCTURE Summary Purpose eClinicalWorks Submission
--- OUTSIDE RECORDS SUMMARY | 2018-10-25 15:24 | XMS REPORT ---
Author CHRISTIANO Saldana [facility] eClinicalWorks Address Unknown Phone Unavailable Care Team Providers Care Milling/Polishing Operator Name Role Phone CHRISTIANO MAHONEY CP Unavailable Allergies, Adverse Reactions, Alerts Substance Reaction Event Type Aleve Info Not Available Drug Allergy Problems Problem Type Condition Code Onset Dates Condition Status Assessment Diabetes type 2, controlled E11.9 Active Problem Candidiasis of other urogenital sites 112.2 Active Problem Special screening examination for unspecified chlamydial disease V73.98 Active Problem Candidiasis of skin and nails 112.3 Active Problem Issue of repeat prescriptions V68.1 Active Problem Diabetes type 2, controlled E11.9 Active Problem Contact with or exposure to venereal diseases V01.6 Active Problem Impotence of organic origin 607.84 Active Problem Diabetes mellitus without mention of complication, type II or unspecified type, not stated as uncontrolled 250.00 Active Problem Screening examination for venereal disease V74.5 Active Assessment Candidiasis B37.9 Active Assessment Pain in right knee M25.561 Active Assessment Other chronic pain G89.29 Active Assessment Cardiac arrhythmia, unspecified cardiac arrhythmia type I49.9 Active Medications Medication Code System Code Instructions Start Date End Date Status Dosage Diflucan [facility] [address]-52 100 MG Orally Once a day Jul 15, 2016 Jul 29, 2016 1 tablet [place] [facility] [address]-78 5-325 MG Orally every 6 hrs Jul 15, 2016 1 tablet as needed Aspirin [facility] [address]-05 325 MG Orally Once a day 1 tablet Metformin HCl [facility] 04175578489 1000 MG Orally Twice a day 1 tablet with meals Cozaar [facility] [address]-64 50 mg Orally Once a day Jul 15, 2016 1 tablet GlipiZIDE [facility] 67832267413 5 MG TAKE ONE TABLET BY MOUTH TWICE DAILY Procedures Procedure Coding System Code Date MICROALBUMIN, SEMIQUANT CPT-4 79499 Jul 15, 2016 ELECTROCARDIOGRAM, TRACING CPT-4 89893 Jul 15, 2016 GLYCATED HEMOGLOBIN TEST CPT-4 83605 Jul 15, 2016 Office Visit, Est Pt., Level 3 CPT-4 12145 Jul 15, 2016 Vital Signs Date/Time: Jul 15, 2016 Cardiac Monitoring Heart Rate irregular:72 bpm Weight 265.4 lbs Height 62 in BMI 48.54 Index Blood Pressure Diastolic 90 mmHg Blood Pressure Systolic 160 mmHg Results No Known Results Summary Purpose eClinicalWorks Submission
--- OUTSIDE RECORDS SUMMARY | 2018-10-25 15:24 | XMS REPORT ---
Author CHRISTIANO Saldana [facility] eClinicalWorks Address Unknown Phone Unavailable Care Team Providers Care Hand Shaper Name Role Phone CHRISTIANO MAHONEY CP Unavailable Allergies, Adverse Reactions, Alerts Substance Reaction Event Type Aleve Info Not Available Drug Allergy Problems Problem Type Condition Code Onset Dates Condition Status Problem Candidiasis of other urogenital sites 112.2 Active Problem Contact with or exposure to venereal diseases V01.6 Active Problem Impotence of organic origin 607.84 Active Problem Gastroesophageal reflux disease without esophagitis K21.9 Active Problem Diabetes type 2, controlled E11.9 Active Problem Sciatica, left side M54.32 Active Problem Diabetes mellitus without mention of complication, type II or unspecified type, not stated as uncontrolled 250.00 Active Problem Screening examination for venereal disease V74.5 Active Problem Candidiasis of skin and nails 112.3 Active Problem Issue of repeat prescriptions V68.1 Active Assessment Gastroesophageal reflux disease without esophagitis K21.9 Active Assessment Sciatica, left side M54.32 Active Problem Special screening examination for unspecified chlamydial disease V73.98 Active Medications Medication Code System Code Instructions Start Date End Date Status Dosage Fish Oil [facility] [address]49 1200 MG Orally Twice a day 1 capsule GlipiZIDE [facility] [address]-78 10 mg Orally 2 times a day 1 tablet Springer [facility] [address]-18 5-325 MG Orally every 6 hrs Jul 15, 2016 1 tablet as needed Cozaar [facility] [address]-82 50 mg Orally Once a day Jul 15, 2016 1 tablet Aspirin [facility] [address]-34 325 MG Orally Once a day 1 tablet Ranitidine HCl [facility] [address]-89 150 MG Orally Twice a day Sep 19, 2016 1 tablet Metformin HCl [facility] [address]-05 1000 MG Orally Twice a day 1 tablet with meals Viagra [facility] [address]-35 100 MG Orally Once a day Aug 19, 2016 1 tablet as needed Cyclobenzaprine HCl [facility] [address]-73 10 mg Orally 2 times a day Sep 19, 2016 March 18, 2017 1 tablet Procedures Procedure Coding System Code Date Office Visit, Est Pt., Level 3 CPT-4 73861 Sep 19, 2016 Vital Signs Date/Time: Sep 19, 2016 Cardiac Monitoring Heart Rate irregular:80 bpm Weight 264.2 lbs Height 62 in BMI 48.32 Index Blood Pressure Diastolic 84 mmHg Blood Pressure Systolic 150 mmHg Results No Known Results Summary Purpose eClinicalWorks Submission
--- OUTSIDE RECORDS SUMMARY | 2018-10-25 15:25 | XMS REPORT ---
Author Author CHRISTIANO MAHONEY Organization [facility] Address [address] [place] [address] Care Team Providers Care Molded Parts Inspector Name Role Phone CHRISTIANO MAHONEY Unavailable PROBLEMS Type Condition ICD9-CM Code WHQ87-LJ Code Onset Dates Condition Status SNOMED Code Problem Controlled type 2 diabetes mellitus without complication, without long -term current use of insulin E11.9 Active 921881774 Problem Other chronic pain G89.29 Active 11179771 Problem Gastroesophageal reflux disease without esophagitis K21.9 Active 866132697 Problem Diabetes type 2, controlled E11.9 Active 89890906 Problem Lumbago with sciatica, 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 Active 199875745 Problem Sciatica, left side M54.32 Active 28593788 ALLERGIES Substance Reaction Event Type Date Status Aleve Unknown Drug Allergy Dec, Active SOCIAL HISTORY No smoking Hx information available PLAN OF CARE VITAL SIGNS Height 62 in 2016-12-23 Weight 273 lbs 2016-12-23 Temperature 98.2 degrees Fahrenheit 2016-12-23 Heart Rate 160 bpm 2016-12-23 Respiratory Rate 20 2016-12-23 BMI 49.93 kg/m2 2016-12-23 Blood pressure systolic 158 mmHg 2016-12-23 Blood pressure diastolic 108 mmHg 2016-12-23 MEDICATIONS Medication Instructions Dosage Frequency Start Date End Date Duration Status Fish Oil 1200 MG Orally Twice a day 1 capsule 12h Active Ibuprofen 200 MG Orally every 6 hrs 1 tablet as needed 6h Active Viagra 100 MG Orally Once a day 1 tablet as needed 24h Aug, Active Metformin HCl 1000 MG Orally Twice a day 1 tablet with meals 12h Active Aspirin 325 MG Orally Once a day 1 tablet 24h Active Cyclobenzaprine HCl 10 mg Orally 3 times a day 1 tablet 8h Aug, 30 day(s) Active Ranitidine HCl 150 MG Orally Twice a day 1 tablet 12h Aug, 30 day(s) Active [place] 10-325 MG Orally every 6 hrs 1 tablet as needed 6h Dec, Active GlipiZIDE 10 mg Orally 2 times a day 1 tablet 12h Active Cozaar 50 mg Orally Once a day 1 tablet 24h 15 Jul, 2016 30 day(s) Active RESULTS No Results PROCEDURES Procedure Date Ordered Related Diagnosis Body Site Office Visit, Est Pt., Level 3 Dec 23, 2016 IMMUNIZATIONS No Known Immunizations
--- OUTSIDE RECORDS SUMMARY | 2018-10-25 15:25 | XMS REPORT ---
Author CHRISTIANO Saldana [facility] eClinicalWorks Address Unknown Phone Unavailable Care Team Providers Care Maintenance Assistant Name Role Phone CHRISTIANO MAHONEY CP Unavailable Allergies, Adverse Reactions, Alerts Substance Reaction Event Type Aleve Info Not Available Drug Allergy Problems Problem Type Condition Code Onset Dates Condition Status Problem Contact with or exposure to venereal diseases V01.6 Active Problem Diabetes mellitus without mention of complication, type II or unspecified type, not stated as uncontrolled 250.00 Active Problem Screening examination for venereal disease V74.5 Active Problem Other chronic pain G89.29 Active Problem Sciatica, left side M54.32 Active Problem Lumbago with sciatica, 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 Active Problem Candidiasis of skin and nails 112.3 Active Problem Issue of repeat prescriptions V68.1 Active Problem Gastroesophageal reflux disease without esophagitis K21.9 Active Problem Diabetes type 2, controlled E11.9 Active Assessment Diabetes type 2, controlled E11.9 Active Problem Special screening examination for unspecified chlamydial disease V73.98 Active Assessment Other chronic pain G89.29 Active Problem Candidiasis of other urogenital sites 112.2 Active Assessment Lumbago with sciatica, 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 Active Problem Impotence of organic origin 607.84 Active Medications Medication Code System Code Instructions Start Date End Date Status Dosage Cozaar [facility] [address]-08 50 mg Orally Once a day Jul 15, 2016 1 tablet GlipiZIDE [facility] [address]-14 10 mg Orally 2 times a day 1 tablet Aspirin [facility] [address]-78 325 MG Orally Once a day 1 tablet Ibuprofen [facility] [address]-05 200 MG Orally every 6 hrs 1 tablet as needed Cyclobenzaprine HCl [facility] [address]-00 10 mg Orally 3 times a day Sep 19, 2016 April 19, 2017 1 tablet Fish Oil [facility] [address]-79 1200 MG Orally Twice a day 1 capsule Viagra [facility] [address]-33 100 MG Orally Once a day Aug 19, 2016 1 tablet as needed Metformin HCl [facility] [address]-79 1000 MG Orally Twice a day 1 tablet with meals [place] [facility] [address]-75 10-325 MG Orally every 6 hrs Oct 21, 2016 1 tablet as needed Ranitidine HCl [facility] [address]-29 150 MG Orally Twice a day Sep 19, 2016 1 tablet Procedures Procedure Coding System Code Date Office Visit, Est Pt., Level 3 CPT-4 81282 Oct 21, 2016 GLYCATED HEMOGLOBIN TEST CPT-4 11748 Oct 21, 2016 Vital Signs Date/Time: Oct 21, 2016 Cardiac Monitoring Heart Rate 80 bpm Weight 277.3 lbs Height 62 in BMI 50.71 Index Blood Pressure Diastolic 82 mmHg Blood Pressure Systolic 132 mmHg Results Name Result Date Reference Range Unit Abnormality Flag A1C (IN HOUSE) ----A1C IN HOUSE 10.1 20161021 4.3 - 5.6 % ----Previous A1c >14.0 20161021 ----Lot [id number] ----Exp date 20161021 Summary Purpose eClinicalWorks Submission
--- OUTSIDE RECORDS SUMMARY | 2018-10-25 15:25 | XMS REPORT ---
Author Author CHRISTIANO MAHONEY Organization [facility] Address [address] [place] [address] Care Team Providers Care Squad Sergeant Name Role Phone CHRISTIANO MAHONEY Unavailable PROBLEMS Type Condition ICD9-CM Code [id number] Code Onset Dates Condition Status SNOMED Code Problem Controlled type 2 diabetes mellitus without complication, without long -term current use of insulin E11.9 Active 596357828 Problem Other chronic pain G89.29 Active 94358514 Problem Gastroesophageal reflux disease without esophagitis K21.9 Active 798203520 Problem Diabetes type 2, controlled E11.9 Active 96677224 Problem Lumbago with sciatica, 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 Active 650097163 Problem Sciatica, left side M54.32 Active 15026055 ALLERGIES Substance Reaction Event Type Date Status Aleve Unknown Drug Allergy Jan, Active SOCIAL HISTORY Never Assessed PLAN OF CARE Activity Details Follow Up 4 Weeks Reason:dm2 VITAL SIGNS Height 62 in 2017-02-17 Weight 272.3 lbs 2017-02-17 Temperature 98.5 degrees Fahrenheit 2017-02-17 Heart Rate 84 bpm 2017-02-17 Respiratory Rate 20 2017-02-17 BMI 49.80 kg/m2 2017-02-17 Blood pressure systolic 138 mmHg 2017-02-17 Blood pressure diastolic 90 mmHg 2017-02-17 MEDICATIONS Medication Instructions Dosage Frequency Start Date End Date Duration Status Viagra 100 MG Orally Once a day 1 tablet as needed 24h Aug, Active Aspirin 325 MG Orally Once a day 1 tablet 24h Active GlipiZIDE 10 mg Orally 2 times a day 2 tablets 12h Active [place] 10-325 MG Orally every 6 hrs 1 tablet as needed 6h Jan, Active Fish Oil 1200 MG Orally Twice a day 1 capsule 12h Active Cozaar 50 mg Orally Once a day 1 tablet 24h Jul, 30 day(s) Active Metformin HCl 1000 MG Orally Twice a day 1 tablet with meals 12h Active Ibuprofen 200 MG Orally every 6 hrs 1 tablet as needed 6h Active Ranitidine HCl 150 MG Orally Twice a day 1 tablet 12h Aug, 30 day(s) Active Cyclobenzaprine HCl 10 mg Orally 3 times a day 1 tablet 8h Aug, 30 day(s) Active RESULTS Name Result Date Reference Range A1C (IN HOUSE) 2017-02-17 A1C IN HOUSE 9.9 4.3 - 5.6 % Previous A1c 10.1 Lot [id number] Exp date 2018-12 PROCEDURES Procedure Date Ordered Result Body Site GLYCATED HEMOGLOBIN TEST February 17, 2017 IMMUNIZATIONS No Known Immunizations MEDICAL (GENERAL) HISTORY [...]
--- OUTSIDE RECORDS SUMMARY | 2018-10-25 15:26 | XMS REPORT | Continuity of Care Document ---
Author Author [facility] Address Unknown Phone Unavailable Allergies Active Description Code Type Severity Reaction Onset Reported/Identified Relationship to Patient Clinical Status Yes Aleve Drug Allergy 02/18/2012 Yes Aleve Drug Allergy N/A N/A 02/18/2012 Medications There is no data. Problems Date Dx Coded Attending Type Code Diagnosis Diagnosed By 08/09/2008 401.1 ESSENTIAL HYPERTENSION BENIGN 08/09/2008 BILL MITCHELL DO 401.1 ESSENTIAL HYPERTENSION BENIGN 08/09/2008 CHRISTIANO MAHONEY APRN 401.1 ESSENTIAL HYPERTENSION BENIGN 08/09/2008 CHRISTIANO MAHONEY APRN 401.1 ESSENTIAL HYPERTENSION BENIGN 08/09/2008 CHRISTIANO MAHONEY APRN 401.1 ESSENTIAL HYPERTENSION BENIGN 08/09/2008 CHRISTIANO MAHONEY APRN 401.1 ESSENTIAL HYPERTENSION BENIGN 08/09/2008 CHRISTIANO MAHONEY APRN 401.1 ESSENTIAL HYPERTENSION BENIGN 08/09/2008 CHRISTIANO MAHONEY APRN 401.1 ESSENTIAL HYPERTENSION BENIGN 08/09/2008 BILL MITCHELL DO K 401.1 ESSENTIAL HYPERTENSION BENIGN 08/09/2008 CHRISTIANO MAHONEY APRN 401.1 ESSENTIAL HYPERTENSION BENIGN 01/21/2009 272.4 HYPERLIPIDEMIA 01/21/2009 278.01 OBESITY MORBID 01/21/2009 BILL MITCHELL DO K 272.4 HYPERLIPIDEMIA 01/21/2009 ZENAIDA MITCHELL DOA K 278.01 OBESITY MORBID 01/21/2009 CHRISTIANO MAHONEY APRN T 272.4 HYPERLIPIDEMIA 01/21/2009 CHRISTIANO MAHONEY APRN T 278.01 OBESITY MORBID 01/21/2009 CHRISTIANO MAHONEY APRN T 272.4 HYPERLIPIDEMIA 01/21/2009 CHRISTIANO MAHONEY APRN T 278.01 OBESITY MORBID 01/21/2009 CHRISTIANO MAHONEY APRN T 272.4 HYPERLIPIDEMIA 01/21/2009 CHRISTIANO MAHONEY APRN T 278.01 OBESITY MORBID 01/21/2009 CHRISTIANO MAHONEY APRN T 272.4 HYPERLIPIDEMIA 01/21/2009 CHRISTIANO MAHONEY APRN T 278.01 OBESITY MORBID 01/21/2009 CHRISTIANO MAHONEY APRN T 272.4 HYPERLIPIDEMIA 01/21/2009 CHRISTIANO MAHONEY APRN T 278.01 OBESITY MORBID 01/21/2009 DENZEL VEGAN, CHRISTIANO T 272.4 HYPERLIPIDEMIA 01/21/2009 DENZEL VEGAN, CHRISTIANO T 278.01 OBESITY MORBID 01/21/2009 MITCHELL DO, BILL K 272.4 HYPERLIPIDEMIA 01/21/2009 MITCHELL DO, BILL K 278.01 OBESITY MORBID 01/21/2009 DENZEL VEGANCHRISTIANO T 272.4 HYPERLIPIDEMIA 01/21/2009 CHRISTIANO MAHONEY APRN T 278.01 OBESITY MORBID 01/29/2009 250.02 DIABETES MELLITUS POORLY CONTROLLED 01/29/2009 MITCHELL DO, BILL K 250.02 DIABETES MELLITUS POORLY CONTROLLED 01/29/2009 DENZEL VEGANCHRISTIANO T 250.02 DIABETES MELLITUS POORLY CONTROLLED 01/29/2009 CHRISTIANO MAHONEY APRN T 250.02 DIABETES MELLITUS POORLY CONTROLLED 01/29/2009 CHRISTIANO MAHONEY APRN T 250.02 DIABETES MELLITUS POORLY CONTROLLED 01/29/2009 CHRISTIANO MAHONEY APRN T 250.02 DIABETES MELLITUS POORLY CONTROLLED 01/29/2009 CHRISTIANO MAHONEY APRN T 250.02 DIABETES MELLITUS POORLY CONTROLLED 01/29/2009 CHRISTIANO MAHONEY APRN 250.02 DIABETES MELLITUS POORLY CONTROLLED 01/29/2009 MITCHELL DO, BILL K 250.02 DIABETES MELLITUS POORLY CONTROLLED 01/29/2009 CHRISTIANO MAHONEY APRN T 250.02 DIABETES MELLITUS POORLY CONTROLLED 08/11/2009 278.00 OBESITY 08/11/2009 401.9 HYPERTENSION ( SYSTEMIC) 08/11/2009 MITCHELL DO, BILL K 278.00 OBESITY 08/11/2009 MITCHELL DO, BILL K 401.9 HYPERTENSION (SYSTEMIC) 08/11/2009 CHRISTIANO MAHONEY APRN T 278.00 OBESITY 08/11/2009 CHRISTIANO MAHONEY APRN T 401.9 HYPERTENSION (SYSTEMIC) 08/11/2009 CHRISTIANO MAHONEY APRN T 278.00 OBESITY 08/11/2009 CHRISTIANO MAHONEY APRN T 401.9 HYPERTENSION (SYSTEMIC) 08/11/2009 CHRISTIANO MAHONEY APRN T 278.00 OBESITY 08/11/2009 CHRISTIANO MAHONEY APRN T 401.9 HYPERTENSION (SYSTEMIC) 08/11/2009 CHRISTIANO MAHONEY APRN T 278.00 OBESITY 08/11/2009 CHRISTIANO MAHONEY APRN T 401.9 HYPERTENSION (SYSTEMIC) 08/11/2009 CHRISTIANO MAHONEY APRN T 278.00 OBESITY 08/11/2009 CHRISTIANO MAHONEY APRN T 401.9 HYPERTENSION (SYSTEMIC) 08/11/2009 CHRISTIANO MAHONEY APRN 278.00 OBESITY 08/11/2009 CHRISTIANO MAHONEY APRN 401.9 HYPERTENSION (SYSTEMIC) 08/11/2009 MITCHELL DO, BILL K 278.00 OBESITY 08/11/2009 MITCHELL DO, BILL K 401.9 HYPERTENSION (SYSTEMIC) 08/11/2009 CHRISTIANO MAHONEY APRN 278.00 OBESITY 08/11/2009 CHRISTIANO MAHONEY APRN 401.9 HYPERTENSION (SYSTEMIC) 10/17/2010 302.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 10/17/2010 414.01 CAD 10/17/2010 PAULA DO BILL K 302.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 10/17/2010 MITCHELL DO BILL K 414.01 CAD 10/17/2010 CHRISTIANO MAHONEY APRN 302.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 10/17/2010 CHRISTIANO MAHONEY APRN 414.01 CAD 10/17/2010 CHRISTIANO MAHONEY APRN 302.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 10/17/2010 CHRISTIANO MAHONEY APRN 414.01 CAD 10/17/2010 CHRISTIANO MAHONEY APRN 302.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 10/17/2010 CHRISTIANO MAHONEY APRN 414.01 CAD 10/17/2010 CHRISTIANO MAHONEY APRN 302.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 10/17/2010 CHRISTIANO MAHONEY APRN 414.01 CAD 10/17/2010 CHRISTIANO MAHONEY APRN 302.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 10/17/2010 CHRISTIANO MAHONEY APRN 414.01 CAD 10/17/2010 CHRISTIANO MAHONEY APRN 302.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 10/17/2010 CHRISTIANO MAHONEY APRN 414.01 CAD 10/17/2010 PAULA DOZENAIDAA K 302.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 10/17/2010 MITCHELL DO BILL K 414.01 CAD 10/17/2010 CHRISTIANO MAHONEY APRN 302.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 10/17/2010 CHRISTIANO MAHONEY APRN 414.01 CAD 05/07/2011 698.9 PRURITUS NOS 05/07/2011 709.9 SKIN LESIONS 05/07/2011 MITCHELL DO, BILL K 698.9 PRURITUS NOS 05/07/2011 MITCHELL DO, BILL K 709.9 SKIN LESIONS 05/07/2011 DENZEL ICT PROJECT MANAGER, CHRISTIANO T 698.9 PRURITUS NOS 05/07/2011 DENZEL ICT PROJECT MANAGER, CHRISTIANO T 709.9 SKIN LESIONS 05/07/2011 DENZEL ICT PROJECT MANAGER, CHRISTIANO T 698.9 PRURITUS NOS 05/07/2011 DENZEL ICT PROJECT MANAGER, CHRISTIANO T 709.9 SKIN LESIONS 05/07/2011 DENZEL ICT PROJECT MANAGER, CHRISTIANO T 698.9 PRURITUS NOS 05/07/2011 DENZEL ICT PROJECT MANAGER, CHRISTIANO T 709.9 SKIN LESIONS 05/07/2011 DENZEL ICT PROJECT MANAGER, CHRISTIANO T 698.9 PRURITUS NOS 05/07/2011 DENZEL ICT PROJECT MANAGER, CHRISTIANO T 709.9 SKIN LESIONS 05/07/2011 DENZEL ICT PROJECT MANAGER, CHRISTIANO T 698.9 PRURITUS NOS 05/07/2011 DENZEL ICT PROJECT MANAGER, CHRISTIANO T 709.9 SKIN LESIONS 05/07/2011 DENZEL ICT PROJECT MANAGER, CHRISTIANO T 698.9 PRURITUS NOS 05/07/2011 DENZEL ICT PROJECT MANAGER, CHRISTIANO T 709.9 SKIN LESIONS 05/07/2011 MITCHELL DO, BILL K 698.9 PRURITUS NOS 05/07/2011 MITCHELL DO, BILL K 709.9 SKIN LESIONS 05/07/2011 DENZEL ICT PROJECT MANAGER, CHRISTIANO T 698.9 PRURITUS NOS 05/07/2011 DENZEL ICT PROJECT MANAGERCHRISTIANO T 709.9 SKIN LESIONS 02/03/2012 112.3 CANDIDIASIS OF THE SKIN 02/03/2012 BILL MITCHELL DO K 112.3 CANDIDIASIS OF THE SKIN 02/03/2012 CHRISTIANO MAHONEY APRN 112.3 CANDIDIASIS OF THE SKIN 02/03/2012 CHRISTIANO MAHONEY APRN 112.3 CANDIDIASIS OF THE SKIN 02/03/2012 CHRISTIANO MAHONEY APRN 112.3 CANDIDIASIS OF THE SKIN 02/03/2012 CHRISTIANO MAHONEY APRN 112.3 CANDIDIASIS OF THE SKIN 02/03/2012 CHRISTIANO MAHONEY APRN 112.3 CANDIDIASIS OF THE SKIN 02/03/2012 CHRISTIANO MAHONEY APRN 112.3 CANDIDIASIS OF THE SKIN 02/03/2012 ZENAIDA MITCHELL DOA K 112.3 CANDIDIASIS OF THE SKIN 02/03/2012 CHRISTIANO MAHONEY APRN 112.3 CANDIDIASIS OF THE SKIN 02/18/2012 V68.1 ISSUE OF REPEAT PRESCRIPTIONS 02/18/2012 ZENAIDA MITCHELL DOA K V68.1 ISSUE OF REPEAT PRESCRIPTIONS 02/18/2012 CHRISTIANO MAHONEY APRN V68.1 ISSUE OF REPEAT PRESCRIPTIONS 02/18/2012 CHRISTIANO MAHONEY APRN V68.1 ISSUE OF REPEAT PRESCRIPTIONS 02/18/2012 CHRISTIANO MAHONEY APRN V68.1 ISSUE OF REPEAT PRESCRIPTIONS 02/18/2012 CHRISTIANO MAHONEY APRN V68.1 ISSUE OF REPEAT PRESCRIPTIONS 02/18/2012 CHRISTIANO MAHONEY APRN V68.1 ISSUE OF REPEAT PRESCRIPTIONS 02/18/2012 CHRISTIANO MAHONEY APRN V68.1 ISSUE OF REPEAT PRESCRIPTIONS 02/18/2012 ZENAIDA MITCHELL DOA K V68.1 ISSUE OF REPEAT PRESCRIPTIONS 02/18/2012 CHRISTIANO MAHONEY APRN V68.1 ISSUE OF REPEAT PRESCRIPTIONS 03/29/2014 PAULA DOZENAIDAA K 112.2 CANDIDIASIS OF OTHER UROGENITAL SITES 03/29/2014 MITCHELL DO BILL K 607.84 IMPOTENCE OF ORGANIC ORIGIN 03/29/2014 PAULA KING BILL K V01.6 CONTACT WITH OR EXPOSURE TO VENEREAL DISEASES 03/29/2014 PAULA KING BILL K V73.98 SCREENING EXAMINATION FOR UNSPECIFIED CHLAMYDIAL DISEASE 03/29/2014 PAULA KING BILL K V74.5 STD SCREEN 03/29/2014 CHRISTIANO MAHONEY APRN 112.2 CANDIDIASIS OF OTHER UROGENITAL SITES 03/29/2014 CHRISTIANO MAHONEY APRN 607.84 IMPOTENCE OF ORGANIC ORIGIN 03/29/2014 CHRISTIANO MAHONEY APRN V01.6 CONTACT WITH OR EXPOSURE TO VENEREAL DISEASES 03/29/2014 CHRISTIANO MAHONEY APRN V73.98 SCREENING EXAMINATION FOR UNSPECIFIED CHLAMYDIAL DISEASE 03/29/2014 CHRISTIANO MAHONEY APRN V74.5 STD SCREEN 03/29/2014 CHRSITIANO MAHONEY APRN 112.2 CANDIDIASIS OF OTHER UROGENITAL SITES 03/29/2014 CHRISTIANO MAHONEY APRN 607.84 IMPOTENCE OF ORGANIC ORIGIN 03/29/2014 CHRISTIANO MAHONEY APRN V01.6 CONTACT WITH OR EXPOSURE TO VENEREAL DISEASES 03/29/2014 CHRISTIANO MAHONEY APRN V73.98 SCREENING EXAMINATION FOR UNSPECIFIED CHLAMYDIAL DISEASE 03/29/2014 CHRISTIANO MAHONEY APRN V74.5 STD SCREEN 03/29/2014 CHRISTIANO MAHONEY APRN 112.2 CANDIDIASIS OF OTHER UROGENITAL SITES 03/29/2014 CHRISTIANO MAHONEY APRN 607.84 IMPOTENCE OF ORGANIC ORIGIN 03/29/2014 CHRISTIANO MAHONEY APRN V01.6 CONTACT WITH OR EXPOSURE TO VENEREAL DISEASES 03/29/2014 CHRISTIANO MAHONEY APRN V73.98 SCREENING EXAMINATION FOR UNSPECIFIED CHLAMYDIAL DISEASE 03/29/2014 CHRISTIANO MAHONEY APRN V74.5 STD SCREEN 03/29/2014 CHRISTIANO MAHONEY APRN 112.2 CANDIDIASIS OF OTHER UROGENITAL SITES 03/29/2014 CHRISTIANO MAHONEY APRN 607.84 IMPOTENCE OF ORGANIC ORIGIN 03/29/2014 CHRISTIANO MAHONEY APRN V01.6 CONTACT WITH OR EXPOSURE TO VENEREAL DISEASES 03/29/2014 CHRISTIANO MAHONEY APRN V73.98 SCREENING EXAMINATION FOR UNSPECIFIED CHLAMYDIAL DISEASE 03/29/2014 CHRISTIANO MAHONEY APRN V74.5 STD SCREEN 03/29/2014 CHRISTIANO MAHONEY APRN 112.2 CANDIDIASIS OF OTHER UROGENITAL SITES 03/29/2014 CHRISTIANO MAHONEY APRN 607.84 IMPOTENCE OF ORGANIC ORIGIN 03/29/2014 CHRISTIANO MAHONEY APRN V01.6 CONTACT WITH OR EXPOSURE TO VENEREAL DISEASES 03/29/2014 CHRISTIANO MAHONEY APRN V73.98 SCREENING EXAMINATION FOR UNSPECIFIED CHLAMYDIAL DISEASE 03/29/2014 CHRISTIANO MAHONEY APRN V74.5 STD SCREEN 03/29/2014 CHRISTIANO MAHONEY APRN 112.2 CANDIDIASIS OF OTHER UROGENITAL SITES 03/29/2014 CHRISTIANO MAHONEY APRN 607.84 IMPOTENCE OF ORGANIC ORIGIN 03/29/2014 CHRISTIANO MAHONEY APRN V01.6 CONTACT WITH OR EXPOSURE TO VENEREAL DISEASES 03/29/2014 CHRISTIANO MAHONEY APRN V73.98 SCREENING EXAMINATION FOR UNSPECIFIED CHLAMYDIAL DISEASE 03/29/2014 CHRISTIANO MAHONEY APRN V74.5 STD SCREEN 03/29/2014 MITCHELL DO, BILL K 112.2 CANDIDIASIS OF OTHER UROGENITAL SITES 03/29/2014 MITCHELL DO, BILL K 607.84 IMPOTENCE OF ORGANIC ORIGIN 03/29/2014 MITCHELL DO, BILL K V01.6 CONTACT WITH OR EXPOSURE TO VENEREAL DISEASES 03/29/2014 MITCHELL DO, BILL K V73.98 SCREENING EXAMINATION FOR UNSPECIFIED CHLAMYDIAL DISEASE 03/29/2014 MITCHELL DO, BILL K V74.5 STD SCREEN 03/29/2014 CHRISTIANO MAHONEY APRN 112.2 CANDIDIASIS OF OTHER UROGENITAL SITES 03/29/2014 CHRISTIANO MAHONEY APRN 607.84 IMPOTENCE OF ORGANIC ORIGIN 03/29/2014 CHRISTIANO MAHONEY APRN V01.6 CONTACT WITH OR EXPOSURE TO VENEREAL DISEASES 03/29/2014 CHRISTIANO MAHONEY APRN V73.98 SCREENING EXAMINATION FOR UNSPECIFIED CHLAMYDIAL DISEASE 03/29/2014 CHRISTIANO MAHONEY APRN V74.5 STD SCREEN 06/20/2014 CHRISTIANO MAHONEY APRN 250.00 DIABETES II CONTROLLED (UNCOMPLICATED) 06/20/2014 CHRISTIANO MAHONEY APRN 250.00 DIABETES II CONTROLLED (UNCOMPLICATED) 06/20/2014 CHRISTIANO MAHONEY APRN 250.00 DIABETES II CONTROLLED (UNCOMPLICATED) 06/20/2014 BILL MITCHELL DO 250.00 DIABETES II CONTROLLED (UNCOMPLICATED) 06/20/2014 CHRISTIANO MAHONEY APRN 250.00 DIABETES II CONTROLLED (UNCOMPLICATED) Procedures Code Description [place] [address] [facility] 03/29/2014 96061 HIV ([facility]) 03/29/2014 11409 GC/CHLAM URINE ([facility]) 03/29/2014 46244 A1C (IN-HOUSE) 04/13/2014 12120 CMP 04/15/2014 41129 LIPID PANEL 04/15/2014 09443 CBC 04/15/2014 73902 ROUTINE VENIPUNCTURE 04/15/2014 20067 A1C (IN-HOUSE) 07/22/2014 34923 A1C (IN-HOUSE) 10/26/2014 31004 MICRO ALBUMIN-IN HOUSE 10/26/2014 Results Test Result Range LIPID PANEL - 02/06/18 11:13 CHOLESTEROL, TOTAL 156 mg/dL <200 HDL CHOLESTEROL 26 mg/dL >40 TRIGLYCERIDES 146 mg/dL <150 LDL-CHOLESTEROL 104 mg/dL (calc) NRG CHOL/HDLC RATIO 6.0 (calc) <5.0 NON HDL CHOLESTEROL 130 mg/dL (calc) <130 CMP - 02/06/18 11:13 GLUCOSE 192 mg/dL 65-99 UREA NITROGEN (BUN) 14 mg/dL 7-25 CREATININE 0.69 mg/dL 0.60-1.35 eGFR NON-AFR. POLISH 111 mL/min/1.73m2 > OR=60 eGFR 129 mL/min/1.73m2 > OR=60 BUN/CREATININE RATIO NOT APPLICABLE (calc) 6-22 SODIUM 137 mmol/L 135-146 POTASSIUM 4.3 mmol/L 3.5-5.3 CHLORIDE 105 mmol/L 98-110 CARBON DIOXIDE 25 mmol/L 20-31 CALCIUM 8.7 mg/dL 8.6-10.3 PROTEIN, TOTAL 6.7 g/dL 6.1-8.1 ALBUMIN 3.7 g/dL 3.6-5.1 GLOBULIN 3.0 g/dL (calc) 1.9-3.7 ALBUMIN/GLOBULIN RATIO 1.2 (calc) 1.0-2.5 BILIRUBIN, TOTAL 0.3 mg/dL 0.2-1.2 ALKALINE PHOSPHATASE 78 U/L 40-115 AST 10 U/L 10-40 ALT 26 U/L 9-46 CBC - 02/06/18 11:13 WHITE BLOOD CELL COUNT 9.9 Thousand/uL 3.8-10.8 RED BLOOD CELL COUNT 5.03 Million/uL 4.20-5.80 HEMOGLOBIN 14.5 g/dL 13.2-17.1 HEMATOCRIT 43.1 % 38.5-50.0 MCV 85.7 fL 80.0-100.0 MCH 28.8 pg 27.0-33.0 MCHC 33.6 g/dL 32.0-36.0 RDW 12.6 % 11.0-15.0 PLATELET COUNT 294 Thousand/uL 140-400 MPV 9.5 fL 7.5-12.5 ABSOLUTE NEUTROPHILS 4831 cells/uL 5845-5500 ABSOLUTE LYMPHOCYTES 4267 cells/uL 850-3900 ABSOLUTE MONOCYTES 584 cells/uL 200-950 ABSOLUTE EOSINOPHILS 178 cells/uL 15-500 ABSOLUTE BASOPHILS 40 cells/uL 0-200 NEUTROPHILS 48.8 % NRG LYMPHOCYTES 43.1 % NRG MONOCYTES 5.9 % NRG EOSINOPHILS 1.8 % NRG BASOPHILS 0.4 % NRG TSH - 02/06/18 11:13 TSH 1.20 mIU/L 0.40-4.50 Encounters ACCT No. Visit Date/Time Discharge Status Pt. Type Provider Facility Loc./Unit Complaint [id number] 02/22/2015 16:24:00 02/22/2015 23:59:59 CLS Outpatient CHRISTIANO MAHONEY APRN [id number] 10/26/2014 16:30:00 10/26/2014 23:59:59 CLS Outpatient BILL MITCHELL DO [id number] 09/21/2014 16:11:00 09/21/2014 23:59:59 CLS Outpatient DENZEL ICT PROJECT MANAGERCHRISTIANO Arreola [id number] 07/22/2014 11:58:00 07/22/2014 23:59:59 CLS Outpatient CHRISTIANO MAHONEY APRN [id number] 06/20/2014 11:53:00 06/20/2014 23:59:59 CLS Outpatient CHRISTIANO MAHONEY APRN [id number] 05/16/2014 11:06:00 05/16/2014 23:59:59 CLS Outpatient CHRISTIANO MAHONEY APRN [id number] 04/15/2014 09:42:00 04/15/2014 23:59:59 CLS Outpatient CHRISTIANO MAHONEY APRN [id number] 04/13/2014 12:37:00 04/13/2014 23:59:59 CLS Outpatient HCRISTIANO MAHONEY APRN [id number] 03/29/2014 10:45:00 03/29/2014 23:59:59 CLS Outpatient BILL MITCHELL DO [id number] 09/02/2012 16:57:00 09/02/2012 23:59:59 CLS Outpatient [id number] 06/22/2018 17:00:00 06/22/2018 23:59:59 CLS Outpatient CHRISTIANO MAHONEY APRN [facility] [id number] 02/06/2018 10:20:00 Document Registration
--- OUTSIDE RECORDS SUMMARY | 2018-10-25 15:26 | XMS REPORT ---
Author Author CHRISTIANO MAHONEY [facility] [place] eClinicalWorks Address Unknown Phone Unavailable Care Team Providers Care Internet Architect Name Role Phone CHRISTIANO MAHONEY CP Unavailable Allergies No Known Allergies Problems Problem Type Condition Code Onset Dates Condition Status Problem Special screening examination for unspecified chlamydial disease V73.98 Active Problem Issue of repeat prescriptions V68.1 Active Problem Diabetes mellitus without mention of complication, type II or unspecified type, not stated as uncontrolled 250.00 Active Problem Candidiasis of skin and nails 112.3 Active Problem Impotence of organic origin 607.84 Active Problem Candidiasis of other urogenital sites 112.2 Active Problem Screening examination for venereal disease V74.5 Active Problem Contact with or exposure to venereal diseases V01.6 Active Medications Medication Code System Code Instructions Start Date End Date Status Dosage GlipiZIDE [facility] [place] [address]-74 5 MG TAKE ONE TABLET BY MOUTH TWICE DAILY Metformin HCl [facility] [place] [address]-64 1000 MG Orally Twice a day Nov 09, 2015 1 tablet with meals Results No Known Results Summary Purpose eClinicalWorks Submission
--- OUTSIDE RECORDS SUMMARY | 2018-10-25 15:26 | XMS REPORT ---
Author Author CHRISTIANO MAHONEY Organization [facility] Address [address] [place] [address] Care Team Providers Care Fire Prevention Specialist Name Role Phone CHRISTIANO MAHONEY Unavailable PROBLEMS Type Condition ICD9-CM Code FDV48-BO Code Onset Dates Condition Status SNOMED Code Problem Controlled type 2 diabetes mellitus without complication, without long -term current use of insulin E11.9 Active 525588232 Problem Other chronic pain G89.29 Active 94997201 Problem Gastroesophageal reflux disease without esophagitis K21.9 Active 097978088 Problem Diabetes type 2, controlled E11.9 Active 97895662 Problem Lumbago with sciatica, 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 Active 972848191 Problem Sciatica, left side M54.32 Active 96507455 ALLERGIES No Information ENCOUNTERS Encounter Location Date Diagnosis [facility] [id number] [place] [address] 35743- 9733 Jan, BMI 45.0-49.9, adult Z68.42 ; Sciatica, left side M54.32 ; Other chronic pain G89.29 and Diabetes type 2, controlled E11.9 [facility] [id number] [place] [address] 77182- 9983 Jan, Other chronic pain G89.29 [facility] [id number] [place] [address] 66918- 5249 Jan, Diabetes type 2, controlled E11.9 and Other chronic pain G89.29 [facility] [id number] [place] [address] 09868- 6231 Dec, Diabetes type 2, controlled E11.9 [facility] [id number] [place] [address] 79526- 7287 Oct, Diabetes type 2, controlled E11.9 [facility] [address] [place] [address] 17 Oct, 2017 Diabetes type 2, controlled E11.9 [facility] [id number] [address] 18 Aug, 2017 Diabetes type 2, controlled E11.9 [facility] [id number] [place] [address] 16570- 9487 Aug, Diabetes type 2, controlled E11.9 and Lumbago with sciatica , 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 [facility] [id number] [address] Jul, Diabetes type 2, controlled E11.9 [facility] [id number] [place] [address] 25640- 3782 May, Diabetes type 2, controlled E11.9 [facility] [id number] [place] [address] 40651- 2383 May, Diabetes type 2, controlled E11.9 [facility] [address] [address] March, Diabetes type 2, controlled E11.9 [facility] [id number] [address] Mar, Diabetes type 2, controlled E11.9 and Sciatica, left side M54.32 [facility] [address] [address] Mar, Diabetes type 2, controlled E11.9 [facility] [address] [address] Jan, Diabetes type 2, controlled E11.9 and Sciatica, left side M54.32 [facility] [id number] [place] [address] 62121- 9846 Jan, Controlled type 2 diabetes mellitus without complication, without long-term current use of insulin E11.9 [facility] [address] [address] 8[address] Dec, Controlled type 2 diabetes mellitus without complication, without long-term current use of insulin E11.9 [facility] [facility] [address] [address] 67[address] Oct, Diabetes type 2, controlled E11.9 [place] [facility] [address] [place] [address] Oct, Diabetes type 2, controlled E11.9 ; Lumbago with sciatica, 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 and Other chronic pain G89.29 [facility] [id number] [place] [address] 30843- 5555 Aug, Sciatica, left side M54.32 and Gastroesophageal reflux disease without esophagitis K21.9 [facility] [facility] [id number] [place] [address] 89154- 1196 Aug, Pain in right knee M25.561 ; Pain in left hip M25.552 and Uncontrolled type 2 diabetes mellitus without complication, without long-term current use of insulin E11.65 [facility] [facility] [address] [address] Jul, Diabetes type 2, controlled E11.9 and Cardiac arrhythmia, unspecified cardiac arrhythmia type I49.9 [place] [address] [place] [address] 66915- 3627 15 Jul, 2016 Diabetes type 2, controlled E11.9 ; Cardiac arrhythmia, unspecified cardiac arrhythmia type I49.9 ; Other chronic pain G89.29 ; Pain in right knee M25.561 and Candidiasis B37.9 [place] [address] [address] 67[address] May, [facility] [facility] [id number] [place] [address] 87822- 2114 Jan, [place] [id number] [place] [address] 19884- 2372 Jan, Diabetes type 2, controlled E11.9 [place] [facility] [id number] [place] [address] 58845- 1705 Oct, Type 2 diabetes mellitus without complications E11.9 and 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 [facility] [address] Oct, [facility] [address] Mar, [facility] [id number] [place] [address] 85399- 0921 Mar, [facility] [id number] [address] 0658 Jan, [facility] [id number] [place] [address] 44519- 7009 Jan, [facility] [id number] [place] [address] 14366- 1371 Jan, [facility] [id number] [place] [address] 99883- 4914 Jan, [facility] [address], [place] [address]- 2182 Dec, [facility] [address], [place] [address] 4647 Dec, [facility] [address], [place] [address]- 4[address] Oct, [facility] [id number] [address] 6424 Oct, [facility] [id number] [address] 6134 Aug, [facility] [address] [place] [address] 3955 Aug, [facility] [id number] [address] Jul, [facility] [address] [place] [address] 1624 Jul, [facility] [address] [id number] [place] [address]- 6740 May, [facility] [place] [facility] [address] [id number] [place] [address]- 4294 May, [facility] [place] [facility] [address] [id number] [place] [address]- 2213 May, [facility] [place] [facility] [address] [id number] [place] [address]- 7696 May, [facility] [place] [facility] [address] [id number] [place] [address]- 5405 March, [facility] [place] [facility] [address] [id number] [place] [address]- 8183 March, [facility] [place] [facility] [address] [id number] [place] [address]- 2937 March, [facility] [place] [facility] [address] [id number] [place] [address]- 1976 March, [facility] [place] [facility] [address] [id number] [place] [address]- 2642 March, [facility] [place] [facility] [address] [id number] [place] [address]- 3465 March, [facility] [place] [facility] [address] [id number] [place] [address]- 2431 Mar, [facility] [place] [facility] [address] [id number] [place] [address]- 8060 Mar, [facility] [place] [facility] [address] [id number] [place] [address]- 9147 Mar, [facility] [place] [facility] [address] [id number] [place] [address]- 9585 Mar, [facility] [place] [facility] [address] [id number] [place] [address]- 7191 Dec, [facility] [place] [facility] [address] [id number] [place] [address]- 8106 Aug, [facility] [place] [facility] [address] [id number] [place] [address]- 6396 Aug, [facility] [place] [facility] [address] [id number] [place] [address]- 2546 Aug, [facility] [place] [facility] [address] [id number] [place] [address]- 3796 20 Aug, 2012 [facility] [place] [facility] [address] [id number] [place] [address]- 2546 13 Aug, 2012 [facility] [place] [facility] [address] [id number] [place] [address]- 3546 12 Aug, 2012 [facility] [place] [facility] [address] [id number] [place] [address]- 0778 Jan, [facility] [place] [facility] [address] [id number] [place] [address]- 2050 Jan, [facility] [place] [facility] [address] [id number] [place] [address]- 2703 Jan, [facility] [place] [facility] [address] [id number] [place] [address]- 2406 Jan, [facility] [place] [facility] [address] [id number] [place] [address]- 3651 15 Oct, 2010 [facility] [place] [facility] [address] [id number] [place] [address]- 2546 15 Oct, 2010 [facility] [place] [facility] [address] [id number] [place] [address]- 2546 17 Oct, 2010 [facility] [place] [facility] [address] [id number] [place] [address]- 2546 17 Oct, 2010 [facility] [place] [facility] [address] [id number] [place] [address]- 2546 17 Oct, 2010 [facility] [place] [facility] [address] [id number] [place] [address]- 6579 Oct, [facility] [address] [facility] [id number] [place] [address]- 4940 Aug, IMMUNIZATIONS No Known Immunizations SOCIAL HISTORY Never Assessed REASON FOR VISIT Controlled Med Refill PLAN OF CARE VITAL SIGNS MEDICATIONS Medication Instructions Dosage Frequency Start Date End Date Duration Status Gilmer 10-325 MG Orally every 6 hrs 1 tablet as needed 6h May, 28 days Active RESULTS No Results PROCEDURES [...]
--- NOTE | 2018-10-25 15:52 | ED Abdominal Pain ---
General Chief Complaint: Abdominal/GI Problems Stated Complaint: VOMITTING, PAIN LEFT SIDE Source of Information: Patient Exam Limitations: No Limitations History of Present Illness Date Seen by Provider: Oct 25, 2018 Time Seen by Provider: 15:51 Initial Comments To ER per private vehicle with reports of left lower quadrant abdominal pain for several weeks. He was seen by [facility], his primary care provider at the onset of this. He was told that this was likely a stomach virus and given medication for nausea. He felt a little bit better for several days but then he ate Thanksgiving dinner and has been worse since then. He is febrile and tachycardic upon arrival to the emergency room. He reports a history previously of "bowel rupture" but he is not sure why. He had a temporary diverting colostomy and subsequent reanastomosis. The surgeries were done at [facility]. Timing/Duration: Getting Worse Severity/Quality: Moderate Location: Q Radiation: No Radiation Associated Symptoms: Denies Symptoms, Nausea/Vomiting Allergies and Home Medications Allergies Coded Allergies: naproxen (Verified Allergy, Unknown, 10/25/18) Patient Home Medication List Home Medication List Reviewed: Yes Review of Systems Review of Systems Constitutional: see HPI EENTM: No Symptoms Reported Respiratory: No Symptoms Reported Cardiovascular: No Symptoms Reported Gastrointestinal: See HPI, Abdominal Pain Genitourinary: No Symptoms Reported Skin: no symptoms reported Psychiatric/Neurological: No Symptoms Reported Endocrine: No Symptoms Reported Past [id number]-[id number]-[id number] Hx Patient Social History Recent Foreign Travel: No Contact w/Someone Who Travel: No Physical Exam Vital Signs Vital Signs - First Documented 10/25/18 16:00 Temp 103.5 Pulse 130 Resp 18 B/P (MAP) 176/85 (115) Pulse Ox 95 Capillary Refill : Height/Weight/BMI Height: '" Weight: lbs. oz. kg; BMI Method: General Appearance: WD/WN, no apparent distress, obese HEENT: PERRL/EOMI, normal ENT inspection Respiratory: no respiratory distress, no accessory muscle use Cardiovascular: no murmur, tachycardia Gastrointestinal: normal bowel sounds, soft; No tenderness Extremities: normal range of motion, non-tender Neurologic/Psychiatric: alert, normal mood/affect, oriented x 3 Skin: normal color, warm/dry Focused Exam Lactate Level 10/25/18 15:45: Lactic Acid Level 1.30 Lactic Acid Level Laboratory Tests Test 10/25/18 15:45 Lactic Acid Level 1.30 MMOL/L (0.50-2.00) Progress/Results/Core Measures Results/Orders Lab Results Laboratory Tests Test 10/25/18 15:45 10/25/18 15:55 Range/Units White Blood Count 21.9 H 4.3-11.0 10^3/uL Red Blood Count 4.41 4.35-5.85 10^6/uL Hemoglobin 12.8 L 13.3-17.7 G/DL Hematocrit 38 L 40-54 % Mean Corpuscular Volume 87 80-99 FL Mean Corpuscular Hemoglobin 29 25-34 PG Mean Corpuscular Hemoglobin Concent 34 32-36 G/DL Red Cell Distribution Width 14.1 10.0-14.5 % Platelet Count 315 130-400 10^3/uL Mean Platelet Volume 9.8 7.4-10.4 FL Neutrophils (%) (Auto) 88 H 42-75 % Lymphocytes (%) (Auto) 5 L 12-44 % Monocytes (%) (Auto) 7 0-12 % Eosinophils (%) (Auto) 0 0-10 % Basophils (%) (Auto) 0 0-10 % Neutrophils # (Auto) 19.2 H 1.8-7.8 X 10^3 Lymphocytes # (Auto) 1.2 1.0-4.0 X 10^3 Monocytes # (Auto) 1.5 H 0.0-1.0 X 10^3 Eosinophils # (Auto) 0.0 0.0-0.3 10^3/uL Basophils # (Auto) 0.1 0.0-0.1 10^3/uL Neutrophils % (Manual) 83 % Lymphocytes % (Manual) 5 % Monocytes % (Manual) 9 % Band Neutrophils 3 % Toxic Granulation 2+ Polychromasia Blood Morphology Comment NORMAL Sodium Level 135 135-145 MMOL/L Potassium Level 4.2 3.6-5.0 MMOL/L Chloride Level 99 98-107 MMOL/L Carbon Dioxide Level 18 L 21-32 MMOL/L Anion Gap 18 H 5-14 MMOL/L Blood Urea Nitrogen 22 H 7-18 MG/DL Creatinine 1.46 H 0.60-1.30 MG/DL Estimat Glomerular Filtration Rate 51 BUN/Creatinine Ratio 15 Glucose Level 198 H 70-105 MG/DL Lactic Acid Level 1.30 0.50-2.00 MMOL/L Calcium Level 9.9 8.5-10.1 MG/DL Corrected Calcium 10.4 H 8.5-10.1 MG/DL Total Bilirubin 1.3 H 0.1-1.0 MG/DL Aspartate Amino Transf (AST/SGOT) 15 5-34 U/L Alanine Aminotransferase (ALT/SGPT) 13 0-55 U/L Alkaline Phosphatase 92 40-136 U/L Total Protein 7.9 6.4-8.2 GM/DL Albumin 3.4 3.2-4.5 GM/DL Urine Color YELLOW Urine Clarity CLEAR Urine pH 5 5-9 Urine Specific [place] 1.025 H 1.016-1.022 Urine Protein 3+ H NEGATIVE Urine Glucose (UA) 2+ H NEGATIVE Urine Ketones 4+ H NEGATIVE Urine Nitrite POSITIVE H NEGATIVE Urine Bilirubin 1+ H NEGATIVE Urine Urobilinogen 4 H NORMAL MG/DL Urine Leukocyte Esterase 2+ H NEGATIVE Urine RBC (Auto) 5+ H NEGATIVE Urine RBC NONE /HPF Urine WBC 50-100 H /HPF Urine Squamous Epithelial Cells RARE /HPF Urine Crystals PRESENT H /LPF Urine Amorphous Sediment MOD TRISHA URATES H /LPF Urine Bacteria MODERATE H /HPF Urine Casts PRESENT /LPF Urine Granular Casts 0-2 H /LPF Urine Mucus MODERATE H /LPF Urine Culture Indicated YES My Orders Orders - JORY GUPTA APRN Cbc With Automated Diff (10/25/18 15:46) Comprehensive Metabolic Panel (10/25/18 15:46) Blood Culture (10/25/18 15:46) Lactic Acid Analyzer (10/25/18 15:46) Ua Culture If Indicated (10/25/18 15:46) Iv Heplock-Insert (Order) (10/25/18 15:46) Ns Iv 1000 Ml (Sodium Chloride 0.9%) (10/25/18 16:00) Acetaminophen Tablet (Tylenol Tablet) (10/25/18 16:00) Ibuprofen Tablet (Motrin Tablet) (10/25/18 16:00) Piperacillin Sodium/Tazobactam (Zosyn Vi (10/25/18 16:00) Fentanyl Injection (Sublimaze Injection (10/25/18 16:00) Ondansetron Injection (Zofran Injectio (10/25/18 16:00) Manual Differential (10/25/18 15:45) Morphine Injection (Morphine Injection (10/25/18 16:15) Urine Culture (10/25/18 15:55) Ct Abdomen/Pelvis Wo (10/25/18 16:35) Ceftriaxone For Iv Use (Rocephin For I (10/25/18 17:30) Medications Given in ED Current Medications Medications Dose Ordered Sig/Son Route Start Time Stop Time Status Last Admin Dose Admin Acetaminophen 1,000 mg ONCE ONCE PO 10/25/18 16:00 10/25/18 16:01 DC 10/25/18 15:56 1,000 MG Fentanyl Citrate 50 mcg ONCE ONCE IVP 10/25/18 16:00 10/25/18 16:01 DC 10/25/18 15:56 50 MCG Ibuprofen 800 mg ONCE ONCE PO 10/25/18 16:00 10/25/18 16:01 DC 10/25/18 15:56 800 MG Morphine Sulfate 4 mg ONCE ONCE IVP 10/25/18 16:15 10/25/18 16:16 DC 10/25/18 16:54 4 MG Ondansetron HCl 4 mg ONCE ONCE IVP 10/25/18 16:00 10/25/18 16:01 DC 10/25/18 16:49 4 MG Piperacillin Sod/ Tazobactam Sod 4.5 gm/Sodium Chloride 100 ml @ 200 mls/hr ONCE ONCE IV 10/25/18 16:00 10/25/18 16:29 DC 10/25/18 16:49 200 MLS/HR Vital Signs/I&O 10/25/18 16:00 Temp 103.5 Pulse 130 Resp 18 B/P (MAP) 176/85 (115) Pulse Ox 95 Departure Communication (Admissions) Time/Spoke to Admitting Phy: 17:[address] Landon from urology. He is agreeable to consult on the patient but will not be back in town until tomorrow night and could not intervene in the form of stenting or lithotripsy until Friday. He would be happy to consult if primary care is willing to admit until he can see the patient, using IV antibiotics in the interim. Time/Spoke to Consulting Phy: 17:[address] Mora from [facility]. She is fine with admitting the patient and letting Dr. Landon consult either tomorrow night or Friday morning. Patient is not hypotensive, heart rate has reduced from 1:30 down to 102, respiratory rate 22. Impression Primary Impression: Pyelonephritis Additional Impression: Sepsis Qualified Codes: A41.9 - Sepsis, unspecified organism Disposition: ADMITTED INPATIENT Condition: Stable Admissions Decision to Admit Reason: Admit from ER (General) Decision to Admit/Date: Oct 25, 2018 Time/Decision to Admit Time: 17:30 JORY GUPTA APRN Oct 25, 2018 15:52
[2018-10-25 15:57] LABS: BASOPHILS # (AUTO) 0.1 10^3/uL (0.0-0.1); BASOPHILS % (AUTO) 0 % (0-10); EOSINOPHILS % (AUTO) 0 % (0-10); HEMATOCRIT 38 % (40-54); HEMOGLOBIN 12.8 G/DL (13.3-17.7); LYMPHOCYTES # (AUTO) 1.2 X 10^3 (1.0-4.0); LYMPHOCYTES % (AUTO) 5 % (12-44); MEAN CORPUSCULAR HEMOGLOBIN 29 PG (25-34); MEAN CORPUSCULAR HGB CONC 34 G/DL (32-36); MEAN CORPUSCULAR VOLUME 87 FL (80-99); MEAN PLATELET VOLUME 9.8 FL (7.4-10.4); MONOCYTES # (AUTO) 1.5 X 10^3 (0.0-1.0); MONOCYTES % (AUTO) 7 % (0-12); NEUTROPHILS # (AUTO) 19.2 X 10^3 (1.8-7.8); NEUTROPHILS % (AUTO) 88 % (42-75); PLATELET COUNT 315 10^3/uL (130-400); RED BLOOD COUNT 4.41 10^6/uL (4.35-5.85); RED CELL DISTRIBUTION WIDTH 14.1 % (10.0-14.5); WHITE BLOOD COUNT 21.9 10^3/uL (4.3-11.0)
[2018-10-25] MEDS ORDERED: fentaNYL INJECTION 100 MCG/2 ML AMP IVP ONE ×2 (16:00→17:45)
[2018-10-25] MEDS ORDERED: ONDANSETRON 4 MG/2 ML (SDV) Z0FRAN IVP ONE (16:00)
[2018-10-25] MEDS ORDERED: NS IV 1000 ML 1,000 ML IV SCH ×2 (16:00→17:45)
[2018-10-25] MEDS ORDERED: PIPERACILLIN SODIUM/TAZOBACTAM 4.5 GM in NS (IVPB) 100 ML IV ONE (16:00)
[2018-10-25] MEDS ORDERED: IBUPROFEN 800 MG (MOTRIN) TAB PO ONE (16:00)
[2018-10-25] MEDS ORDERED: ACETAMINOPHEN 500 MG TAB (TYLENOL) PO ONE (16:00)
[2018-10-25 16:11] LABS: BILIRUBIN,URINE 1+ (NEGATIVE); CLARITY,URINE CLEAR; COLOR,URINE YELLOW; GLUCOSE, URINE (UA) 2+ (NEGATIVE); KETONES,URINE 4+ (NEGATIVE); LEUKOCYTE ESTERASE ,URINE 2+ (NEGATIVE); NITRITE,URINE POSITIVE (NEGATIVE); PH,URINE 5 (5-9); PROTEIN,URINE 3+ (NEGATIVE); UROBILINOGEN,URINE 4 MG/DL (NORMAL)
[2018-10-25] MEDS ORDERED: morphine INJ 10 MG/ML 1ML (SYR OR VIAL) IVP ONE (16:15)
[2018-10-25 16:23] LABS: ALBUMIN 3.4 GM/DL (3.2-4.5); BILIRUBIN,TOTAL 1.3 MG/DL (0.1-1.0); CALCIUM 9.9 MG/DL (8.5-10.1); CREATININE SERUM 1.46 MG/DL (0.60-1.30); POTASSIUM 4.2 MMOL/L (3.6-5.0); TOTAL PROTEIN 7.9 GM/DL (6.4-8.2)
[2018-10-25 16:26] LABS: WBC,URINE 50-100 /HPF
[2018-10-25 16:27] LABS: BACTERIA,URINE MODERATE /HPF
[2018-10-25 16:28] LABS: AMORPHOUS SEDIMENT,UR MOD AMOR URATES /LPF; SQUAMOUS EPITHELIAL CELL,UR RARE /HPF
[2018-10-25 16:29] LABS: GRANULAR CASTS,URINE 0-2 /LPF
[2018-10-25] MEDS ORDERED: RANI150T11 PO (16:37)
[2018-10-25] MEDS ORDERED: CYCL10TA9 PO (16:37)
[2018-10-25] MEDS ORDERED: METF-399 PO (16:37)
[2018-10-25] MEDS ORDERED: LOSA50TA7 PO (16:37)
[2018-10-25] MEDS ORDERED: HYDR-3820 PO (16:37)
[2018-10-25] MEDS ORDERED: GLIP10TA13 PO (16:37)
[2018-10-25 16:49] LABS: BAND NEUTROPHILS 3 %; LYMPHOCYTES % (MANUAL) 5 %; MONOCYTES % (MANUAL) 9 %; NEUTROPHILS % (MANUAL) 83 %
[2018-10-25 16:50] LABS: RBC MORPH NORMAL; TOXIC GRANULATION/VACUOLAZATIO 2+
--- NOTE | 2018-10-25 17:19 | Diagnostic Imaging Report ---
PROCEDURE: CT abdomen and pelvis without contrast. TECHNIQUE: Multiple contiguous axial images were obtained through the abdomen and pelvis without the use of intravenous contrast. INDICATION: Right lower quadrant abdominal pain x3 weeks. Nausea and vomiting. COMPARISON: None. FINDINGS: Included portions of the lung bases are clear. CT ABDOMEN: Normal appendix is identified. Multiple ventral hernias are identified. There is a large midline ventral hernia seen inferiorly overlying the upper pelvis which contains loop of small bowel. There is, however, no evidence of strangulation or obstruction. Small bowel loops are nondistended. There is moderate left-sided hydronephrosis. This is felt to be secondary to 6 mm calculus within the proximal left ureter near the UPJ. No other renal or ureteral calculi seen on either side. There is no hydronephrosis or other evidence of obstruction on the right. Note is also made of mild asymmetric perirenal fat stranding on the left. No focal renal masses are seen on this noncontrast exam. The liver is diffusely hypodense consistent with background of hepatic steatosis. Otherwise, no focal hepatic lesions are seen. Benign right adrenal adenoma is identified and measures 1.6 cm in diameter. Left adrenal gland, spleen and pancreas have a normal CT appearance. There is no loculated fluid collection, free fluid, or free air within the abdomen. No abnormal mesenteric or retroperitoneal adenopathy is seen. There is mild scattered calcified aortic arterial atherosclerosis. Bony structures show no acute abnormality. CT PELVIS: Urinary bladder is unopacified. No calculi are seen within the urinary bladder. There is no loculated fluid collection, free fluid or free air within the pelvis. No abnormal lymph nodes are identified. Bony structures show no acute abnormality. IMPRESSION: 1. Moderate left-sided hydronephrosis secondary to 6 mm calculus at the left UPJ. 2. Multiple ventral hernias. Again, lower ventral hernia contains a loop of small bowel, but there is no evidence of strangulation or obstruction. 3. Hepatic steatosis. 4. Benign right adrenal adenoma. Dictated by: Dictated on workstation # [id number]
[2018-10-25] MEDS ORDERED: cefTRIAXone FOR IV USE 1,000 MG in NS (IVPB) 50 ML IV ONE (17:30)
--- OUTSIDE RECORDS SUMMARY | 2018-10-25 18:06 | XMS REPORT | Continuity of Care Document ---
Author Author [facility] Address Unknown Phone Unavailable Allergies Active Description [...] BILL K 709.9 SKIN LESIONS 05/07/2011 [employer], CHRISTIANO T 698.9 PRURITUS NOS 05/07/2011 [employer], CHRISTIANO T 709.9 SKIN LESIONS 05/07/2011 [employer], CHRISTIANO T 698.9 PRURITUS NOS 05/07/2011 [employer], CHRISTIANO T 709.9 SKIN LESIONS 05/07/2011 [employer], CHRISTIANO T 698.9 PRURITUS NOS 05/07/2011 [employer], CHRISTIANO T 709.9 SKIN LESIONS 05/07/2011 [employer], CHRISTIANO T 698.9 PRURITUS NOS 05/07/2011 [employer], CHRISTIANO T 709.9 SKIN LESIONS 05/07/2011 [employer], CHRISTIANO T 698.9 PRURITUS NOS 05/07/2011 [employer], CHRISTIANO T 709.9 SKIN LESIONS 05/07/2011 [employer], CHRISTIANO T 698.9 PRURITUS NOS 05/07/2011 [employer], CHRISTIANO T 709.9 SKIN LESIONS 05/07/2011 MITCHELL DO, BILL K 698.9 PRURITUS NOS 05/07/2011 MITCHELL DO, BILL K 709.9 SKIN LESIONS 05/07/2011 [employer], CHRISTIANO T 698.9 PRURITUS NOS 05/07/2011 [employer] SUPER[employer]ORCHRISTIANO T 709.9 SKIN LESIONS 02/03/2012 112.3 CANDIDIASIS [...] Procedures Code [place] [address] [facility] 03/29/2014 69937 HIV (STATE LAB) 03/29/2014 87357 GC/CHLAM URINE ([facility]) 03/29/2014 03355 A1C (IN-HOUSE) 04/13/2014 08264 CMP 04/15/2014 24094 LIPID PANEL 04/15/2014 36274 CBC 04/15/2014 22210 ROUTINE VENIPUNCTURE 04/15/2014 51628 A1C (IN-HOUSE) 07/22/2014 63678 A1C (IN-HOUSE) 10/26/2014 14557 MICRO ALBUMIN-IN HOUSE 10/26/2014 Results Test Result [...] 7-25 CREATININE 0.69 mg/dL 0.60-1.35 eGFR NON-AFR. ETHIOPIAN 111 mL/min/1.73m2 > OR=60 eGFR 129 mL/min/1.73m2 [...] 9.5 fL 7.5-12.5 ABSOLUTE NEUTROPHILS 4831 cells/uL 1609-0590 ABSOLUTE LYMPHOCYTES 4267 cells/uL 850-3900 ABSOLUTE MONOCYTES 584 cells/uL 200-950 ABSOLUTE EOSINOPHILS 178 cells/uL 15-500 ABSOLUTE BASOPHILS 40 cells/uL 0-200 NEUTROPHILS 48.8 % NRG LYMPHOCYTES 43.1 % NRG MONOCYTES 5.9 % NRG EOSINOPHILS 1.8 % NRG BASOPHILS 0.4 % NRG TSH - 02/06/18 11:13 TSH 1.20 mIU/L 0.40-4.50 Encounters ACCT No. Visit Date/Time Discharge Status Pt. Type Provider Facility Loc./Unit Complaint [id number] 02/22/2015 16:24:00 02/22/2015 23:59:59 CLS Outpatient CHRISTIANO MAHONEY APRN [id number] 10/26/2014 16:30:00 10/26/2014 23:59:59 CLS Outpatient BILL MITCHELL DO [id number] 09/21/2014 16:11:00 09/21/2014 23:59:59 CLS Outpatient [employer]CHRISTIANO Arreola [id number] 07/22/2014 11:58:00 07/22/2014 23:59:59 CLS Outpatient CHRISTIANO MAHONEY APRN [id number] 06/20/2014 11:53:00 06/20/2014 23:59:59 CLS Outpatient CHRISTIANO MAHONEY APRN [id number] 05/16/2014 11:06:00 05/16/2014 23:59:59 CLS Outpatient CHRISTIANO MAHONEY APRN [id number] 04/15/2014 09:42:00 04/15/2014 23:59:59 CLS Outpatient CHRISTIANO MAHONEY APRN [id number] 04/13/2014 12:37:00 04/13/2014 23:59:59 CLS Outpatient CHRISTIANO MAHONEY APRN [id number] 03/29/2014 10:45:00 03/29/2014 23:59:59 CLS Outpatient BILL MITCHELL DO [id number] 09/02/2012 16:57:00 09/02/2012 23:59:59 CLS Outpatient [id number] 06/22/2018 17:00:00 06/22/2018 23:59:59 CLS Outpatient CHRISTIANO MAHONEY APRN [facility] [id number] 02/06/2018 10:20:00 Document Registration
--- NOTE | 2018-10-25 18:30 | Diagnostic Imaging Report ---
INDICATION: Left ureteral calculus. Abdominal pain. COMPARISON: CT abdomen from earlier the same day. EXAMINATION: Two supine radiographic views of the abdomen were obtained. FINDINGS: Again demonstrated is an oblong calculus projecting over the left psoas muscle consistent with known left ureteral calculus. No other unexpected extraosseous calcifications or radiopaque foreign bodies are seen. Small bowel loops are nondistended. There is no large collection of free intraperitoneal air. IMPRESSION: Redemonstration of patient's known left ureteral calculus. Dictated by: Dictated on workstation # [id number]
[2018-10-25 19:44] VITALS: BP 137/69
[2018-10-25] MEDS ORDERED: NS IV 1000 ML 1,000 ML ONE (21:44)
[2018-10-25] MEDS ORDERED: HYDROcodone/APAP 5 MG/325 MG (LORTAB) TAB ONE (21:52)
[2018-10-25] MEDS: NS IV 1000 ML 1,000 ML IV SCH (21:55)
[2018-10-25] MEDS: CATHETER FLUSH 10 ML SYR IV SCH (21:58)
[2018-10-25] MEDS: HYDROcodone/APAP 5 MG/325 MG (LORTAB) TAB PO SCH (21:59)
[2018-10-25] MEDS ORDERED: CATHETER FLUSH 10 ML SYR IV PRN (22:00)
[2018-10-25] MEDS ORDERED: fentaNYL INJECTION 100 MCG/2 ML AMP IV PRN (22:00)
[2018-10-25] MEDS ORDERED: IBUPROFEN 800 MG (MOTRIN) TAB PO PRN (22:00)
[2018-10-25] MEDS ORDERED: ONDANSETRON 4 MG/2 ML (SDV) Z0FRAN IV PRN (22:00)
[2018-10-26] VITALS (7 sets, daily range): BP systolic 129–168; BP diastolic 64–85
[2018-10-26] MEDS: HYDROcodone/APAP 5 MG/325 MG (LORTAB) TAB PO SCH ×3 (03:31→11:56)
[2018-10-26] MEDS: NS IV 1000 ML 1,000 ML IV SCH ×3 (04:32→17:45)
[2018-10-26] MEDS: CATHETER FLUSH 10 ML SYR IV SCH ×3 (06:41→20:18)
[2018-10-26] MEDS ORDERED: FLU QUADRIvalent (5+ YOA) 2018-2019 (AFLURIA) 0.5 ML IM ONE (07:00)
[2018-10-26 07:09] LABS: BASOPHILS % (AUTO) 0 % (0-10); EOSINOPHILS % (AUTO) 0 % (0-10); HEMATOCRIT 34 % (40-54); LYMPHOCYTES # (AUTO) 1.4 X 10^3 (1.0-4.0); LYMPHOCYTES % (AUTO) 6 % (12-44); MEAN CORPUSCULAR HEMOGLOBIN 28 PG (25-34); MEAN CORPUSCULAR HGB CONC 33 G/DL (32-36); MEAN CORPUSCULAR VOLUME 87 FL (80-99); MEAN PLATELET VOLUME 10.3 FL (7.4-10.4); MONOCYTES # (AUTO) 1.7 X 10^3 (0.0-1.0); MONOCYTES % (AUTO) 8 % (0-12); NEUTROPHILS # (AUTO) 19.9 X 10^3 (1.8-7.8); NEUTROPHILS % (AUTO) 86 % (42-75); PLATELET COUNT 258 10^3/uL (130-400); RED BLOOD COUNT 3.86 10^6/uL (4.35-5.85); RED CELL DISTRIBUTION WIDTH 14.1 % (10.0-14.5)
[2018-10-26 07:24] LABS: ALBUMIN 2.9 GM/DL (3.2-4.5); BILIRUBIN,TOTAL 0.8 MG/DL (0.1-1.0); CALCIUM 8.7 MG/DL (8.5-10.1); CREATININE SERUM 1.4 MG/DL (0.60-1.30); POTASSIUM 3.9 MMOL/L (3.6-5.0); TOTAL PROTEIN 6.8 GM/DL (6.4-8.2)
--- NOTE | 2018-10-26 09:14 | Diagnostic Imaging Report ---
INDICATION: Pyelonephritis, sepsis KUB There is a 7 mm calculus in left ureter distribution at the level of L4 transverse process. This is unchanged in position since previous day. Bowel gas pattern is normal. There are no pathologic masses. IMPRESSION: Suspect left ureterolithiasis unchanged from previous day. Dictated by: Dictated on workstation # [id number]
--- NOTE | 2018-10-26 09:35 | History & Physical-Hospitalist ---
VANI CHRISTY DO 10/26/18 0935: History of Present Illness HPI/Chief Complaint CC: Acute pyelonephritis HPI: This is a 48yoWM clinic patient of [facility] Devaughn Zelaya who presented to the ER with flank pain and fever for the past 3 days. Pt was found to have a kidney stone and acute pyelonephritis. Dr Landon will see the patient in consultation and likely will perform procedure tomorrow. Source: patient, RN/MD Exam Limitations: no limitations Date Seen 10/26/18 Time Seen by a Provider: 09:00 Attending Physician Vani Christy DO PCP No,Local Physician Referring Physician Date of Admission Oct 25, 2018 at 17:56 Home Medications & Allergies Home Medications Reviewed patient Home Medication Reconciliation performed by pharmacy medication reconciliations transport technician and/or nursing. Patients Allergies have been reviewed. Allergies Allergies Coded Allergies naproxen (Verified Allergy, Unknown, 10/25/18) Past Ekcbxyy-Ckcbem-Wlcanh Hx Past Med/Social Hx: Reviewed Nursing Past Med/Soc Hx, Reviewed and Corrections made Patient Social History Marrital Status: single Employed/Student: employed ([employer]) Alcohol Use: Denies Use Number of Drinks Today: AA Recreational Drug Use: No Smoking Status: Current Everyday Smoker Type Used: Cigarettes Physical Abuse Screen: No Sexual Abuse: No Recent Foreign Travel: No Contact w/other who traveled: No Recent Hopitalizations: No Recent Infectious Disease Expo: No Immunizations Up To Date Date of Pneumonia Vaccine: Oct 03, 2014 Past Medical History Currently Using CPAP: Yes Currently Using BIPAP: No Cardiac: High Cholesterol, Hypertension Gastrointestinal: Abdominal Hernia, Hiatal Hernia Endocrine: Diabetes, Non-Insulin dep Are Your Blood Sugars Over 250: No History of Blood Disorders: No Review of Systems Constitutional: see HPI, chills, fever, weakness EENTM: no symptoms reported Respiratory: no symptoms reported Cardiovascular: no symptoms reported Gastrointestinal: abdominal pain, loss of appetite, nausea, vomiting Genitourinary: no symptoms reported Musculoskeletal: no symptoms reported Skin: no symptoms reported Psychiatric/Neurological: No Symptoms Reported All Other Systems Reviewed Negative Unless Noted: Yes Physical Exam Physical Exam Vital Signs Vital Signs - First Documented 10/25/18 10/25/18 16:00 18:50 Temp 103.5 Pulse 130 Resp 18 B/P (MAP) 176/85 (115) Pulse Ox 95 O2 Delivery Room Air Capillary Refill : Less Than 3 Seconds Height, Weight, BMI Height: 5'5.00" Weight: 280lbs. 0.0oz. [id number]; 46.6 BMI Method:Stated General Appearance: No Apparent Distress, WD/WN, Chronically ill, Obese Eyes: Bilateral Eye Normal Inspection, Bilateral Eye PERRL HEENT: PERRL/EOMI, Normal ENT Inspection, Pharynx Normal Neck: Full Range of Motion, Normal Inspection, Non Tender, Supple, Carotid Bruit Respiratory: Chest Non Tender, Lungs Clear, Normal Breath Sounds, No Accessory Muscle Use, No Respiratory Distress Cardiovascular: Regular Rate, Rhythm, No Edema, No Gallop, No JVD, No Murmur, Normal Peripheral Pulses Gastrointestinal: Normal Bowel Sounds, No Organomegaly, No Pulsatile Mass, Non Tender, Soft Back: Normal Inspection, No CVA Tenderness, No Vertebral Tenderness Extremity: Normal Capillary Refill, Normal Inspection, Normal Range of Motion, Non Tender, No Calf Tenderness, No Pedal Edema Neurologic/Psychiatric: Alert, Oriented x3, No Motor/Sensory Deficits, Normal Mood/Affect Skin: Normal Color, Warm/Dry Lymphatic: No Adenopathy Results Results/Procedures Labs Laboratory Tests 10/25/18 15:45 10/26/18 06:04 Patient resulted labs reviewed. Assessment/Plan Admission Diagnosis Assessment: Acute pyelonephritis Kidney stone with obstruction Chronic back pain Leukocytosis DM OOC Presumed ALY Plan: Monitor for fever Rocephin empirically UCx once completed Admission Status: Inpatient Order (span 2 midnights) Reason for Inpatient Admission: Acute pyeonephtritis with kidney stone obstruction will require 3 days of hospital stay Diagnosis/Problems Diagnosis/Problems (1) Sepsis Status: Acute Qualifiers: Sepsis type: sepsis due to unspecified organism Qualified Codes: A41.9 - Sepsis, unspecified organism (2) Pyelonephritis Status: Acute (3) Kidney calculi Status: Acute (4) Diabetes mellitus Status: Chronic Qualifiers: Diabetes mellitus type: type 2 Diabetes mellitus exterminator termite insulin use: without exterminator termite use Diabetes mellitus complication status: without complication Qualified Codes: E11.9 - Type 2 diabetes mellitus without complications (5) Hypertension Status: Chronic Qualifiers: Hypertension type: essential hypertension Qualified Codes: I10 - Essential (primary) hypertension Clinical Quality Measures DVT/VTE Risk/Contraindication: Risk Factor Score Per Nursin RFS Level Per Nursing on Admit: 4+=Very High DAVID MUKHERJEE MED STUDENT 10/26/18 1018: History of Present Illness HPI/Chief Complaint CC: Abdominal pain/vomiting HPI: The patient presented to the [facility] ER for severe nausea and vomiting since evening. He states that he has been having GI symptoms for the past two weeks and had been seen at [facility] and treated for gastroenteritis. He reports that he had been feeling somewhat better but began to feel very sick after his thanksgiving meal. In the ER he was found to be tachycardic and febrile. He has had multiple abdominal surgeries in the past. He was found to have an elevated WBC count and was admitted to the 4th floor for suspected pyelonephritis. Home Medications & Allergies Home Medications Active Scripts Medications Dose Route/Sig Max Daily Dose Days Date Category Metformin HCl 1,000 Mg Tablet 10/25/18 Reported Losartan Potassium 50 Mg Tablet 10/25/18 Reported Ranitidine HCl 150 Mg Tablet 10/25/18 Reported Cyclobenzaprine HCl 10 Mg Tablet 10/25/18 Reported Glipizide 10 Mg Tablet 10/25/18 Reported Hydrocodon-Acetaminophn 10-325 (Hydrocodone/Acetaminophen) 1 Each Tablet 10/25/18 Reported Past Jswkiry-Ihwwuz-Awjbxn Hx Past Med/Social Hx: Reviewed Nursing Past Med/Soc Hx Review of Systems Constitutional: no symptoms reported Respiratory: no symptoms reported Cardiovascular: no symptoms reported Gastrointestinal: abdominal pain Genitourinary: no symptoms reported Musculoskeletal: no symptoms reported Skin: no symptoms reported Psychiatric/Neurological: No Symptoms Reported Physical Exam Physical Exam General Appearance: No Apparent Distress, WD/WN Respiratory: Chest Non Tender, Lungs Clear, Normal Breath Sounds, No Accessory Muscle Use, No Respiratory Distress Cardiovascular: Regular Rate, Rhythm, No Edema, No Gallop, No JVD, No Murmur Neurologic/Psychiatric: Alert, Oriented x3, No Motor/Sensory Deficits, Normal Mood/Affect Skin: Normal Color, Warm/Dry Results Results/Procedures Labs Assessment/Plan Assessment and Plan Assessment: 1) Pyelonephritis 2) Nausea/vomiting Plan: 1) Continue IV antibiotics 2) Continue antiemetics VANI CHRISTY DO Oct 26, 2018 09:35 DAVID MUKHERJEE MED STUDENT Oct 26, 2018 10:18
[2018-10-26] MEDS ORDERED: ASPI-808 PO (10:54)
[2018-10-26] MEDS ORDERED: LIRA0.6P SQ (10:56)
[2018-10-26] MEDS ORDERED: PIOG30TA71 PO (11:09)
[2018-10-26] MEDS ORDERED: SILD100T PO (11:09)
[2018-10-26] MEDS: inSUlin ASPART (NovoLOG) 1 UNIT/0.01 ML (CHARGE PER UNIT) SC SCH ×3 (11:30→20:47)
[2018-10-26] MEDS: FAMOTIDINE 20 MG (PEPCID) TABLET PO SCH ×2 (11:56→20:18)
[2018-10-26] MEDS ORDERED: CYCLOBENZAPRINE 10 MG (FLEXERIL) TAB PO PRN (12:15)
[2018-10-26] MEDS: glipiZIDE 5 MG (GLUCOTROL) TAB PO SCH (16:20)
[2018-10-26] MEDS: cefTRIAXone 1 GM/NS 50 ML IVPB IV SCH ×2 (16:20)
[2018-10-26] MEDS: ACETAMINOPHEN 500 MG TAB (TYLENOL) PO PRN (17:08)
[2018-10-26] MEDS: HYDROcodone/APAP 10 MG/325 MG (LORTAB) TAB PO PRN (20:19)
[2018-10-27] MEDS: NS IV 1000 ML 1,000 ML IV SCH ×3 (00:25→17:04)
[2018-10-27 03:47] VITALS: BP 157/82
[2018-10-27] MEDS: CATHETER FLUSH 10 ML SYR IV SCH ×3 (05:22→21:21)
[2018-10-27] MEDS: inSUlin ASPART (NovoLOG) 1 UNIT/0.01 ML (CHARGE PER UNIT) SC SCH ×4 (05:23→21:20)
[2018-10-27] MEDS: glipiZIDE 5 MG (GLUCOTROL) TAB PO SCH ×2 (05:23→16:57)
[2018-10-27] MEDS: HYDROcodone/APAP 10 MG/325 MG (LORTAB) TAB PO PRN ×2 (05:28→21:27)
[2018-10-27 05:42] LABS: BASOPHILS % (AUTO) 0 % (0-10); EOSINOPHILS # (AUTO) 0.1 10^3/uL (0.0-0.3); EOSINOPHILS % (AUTO) 0 % (0-10); HEMATOCRIT 32 % (40-54); HEMOGLOBIN 10.4 G/DL (13.3-17.7); LYMPHOCYTES # (AUTO) 1.3 X 10^3 (1.0-4.0); LYMPHOCYTES % (AUTO) 8 % (12-44); MEAN CORPUSCULAR HEMOGLOBIN 29 PG (25-34); MEAN CORPUSCULAR HGB CONC 33 G/DL (32-36); MEAN CORPUSCULAR VOLUME 88 FL (80-99); MEAN PLATELET VOLUME 9.8 FL (7.4-10.4); MONOCYTES # (AUTO) 1.2 X 10^3 (0.0-1.0); MONOCYTES % (AUTO) 7 % (0-12); NEUTROPHILS % (AUTO) 85 % (42-75); PLATELET COUNT 266 10^3/uL (130-400); RED BLOOD COUNT 3.61 10^6/uL (4.35-5.85); RED CELL DISTRIBUTION WIDTH 14.2 % (10.0-14.5); WHITE BLOOD COUNT 17.6 10^3/uL (4.3-11.0)
[2018-10-27 06:08] LABS: ALANINE AMINOTRANSFERASE 9 U/L (0-55); ALBUMIN 2.8 GM/DL (3.2-4.5); ALKALINE PHOSPHATASE 76 U/L (40-136); BILIRUBIN,TOTAL 0.7 MG/DL (0.1-1.0); BUN/CREATININE RATIO 14; CALCIUM 8.7 MG/DL (8.5-10.1); CARBON DIOXIDE 18 MMOL/L (21-32); CHLORIDE 107 MMOL/L (98-107); CREATININE SERUM 1.18 MG/DL (0.60-1.30); GFR ESTIMATED > 60; GLUCOSE 145 MG/DL (70-105); POTASSIUM 3.9 MMOL/L (3.6-5.0); SODIUM 135 MMOL/L (135-145); TOTAL PROTEIN 6.6 GM/DL (6.4-8.2)
[2018-10-27] MEDS ORDERED: LIDOCAINE PF 2% 5 ML (XYLOCAINE) VIAL ONE (07:00)
[2018-10-27] MEDS ORDERED: proPOfol 200 MG/20 ML (DIPRIVAN) VIAL IV ONE (07:00)
[2018-10-27] MEDS ORDERED: MIDAZOLAM 2 MG/2 ML (VERSED) VIAL ONE (07:02)
[2018-10-27] MEDS ORDERED: fentaNYL INJECTION 100 MCG/2 ML AMP ONE (07:02)
[2018-10-27] MEDS ORDERED: ONDANSETRON 4 MG/2 ML (SDV) Z0FRAN ONE (07:05)
--- NOTE | 2018-10-27 07:13 | Progress Note-Pre Operative ---
Pre-Operative Progress Note H&P Reviewed The H&P was reviewed, patient examined and no changes noted. Date Seen by Provider: Oct 27, 2018 Time Seen by Provider: 07:12 Date H&P Reviewed: Oct 27, 2018 Time H&P Reviewed: 07:13 Pre-Operative Diagnosis: LT PROXIMAL URETERAL STONE RASHID BURGOS MD Oct 27, 2018 07:13
[2018-10-27 08:00] VITALS: BP 173/83
[2018-10-27] MEDS: LACTATED RINGERS 1,000 ML IV SCH (08:15)
[2018-10-27] MEDS ORDERED: ROCURONIUM 10 MG/ML 5 ML SYRINGE IV ONE (08:53)
[2018-10-27] MEDS ORDERED: SEVOFLURANE (ULTANE) 15 ML INHAL SOLN ONE ×3 (08:53→09:00)
--- NOTE | 2018-10-27 09:08 | Progress Note-Post Operative ---
Post-Operative Progess Note Surgeon (s)/Inspector Boiler (s) Surgeon RASHID BURGOS MD Inspector Boiler: NONE Pre-Operative Diagnosis LT PROXIMAL URETERAL STONE Post-Operative Diagnosis SAME, PHIMOSIS AN URETHRAL STRICTURES Procedure & Operative Findings Date of Procedure 10/27/18 Procedure Performed/Findings CYSTOSCOPY WITH LT URETERAL STONE MANIPULATION AND INSERTION OF STENT Anesthesia Type GENERAL Estimated Blood Loss Estimated blood loss (mL): NONE Specimens/Packing Specimens Removed NONE Packing: NONE RASHID BURGOS MD Oct 27, 2018 9:08 am
[2018-10-27] MEDS ORDERED: MEPERIDINE (DEMEROL) INJ 50 MG/ML IVP ONE (09:15)
[2018-10-27] MEDS ORDERED: ONDANSETRON 4 MG/2 ML (SDV) Z0FRAN IVP PRN (09:15)
[2018-10-27] MEDS ORDERED: morphine INJ 10 MG/ML 1ML (SYR OR VIAL) IVP ONE (09:15)
--- NOTE | 2018-10-27 09:25 | Diagnostic Imaging Report ---
INDICATION: Left-sided stones, left-sided pyelonephritis. TECHNIQUE: Two supine views of the abdomen were performed at 7:51 AM. CORRELATION STUDY: 10/26/2018. FINDINGS: The approximately 1 cm oval calcification in the left paraspinal region at the approximately L4 transverse process appears generally stable as to its position. No definitive calcification over the renal silhouette. Vascular and phlebolith calcifications are noted within the pelvis. The bowel gas pattern is unremarkable. IMPRESSION: No appreciable change in position or appearance of the suspect left ureteral calcification. Dictated by: Dictated on workstation # [id number]
[2018-10-27 10:05] VITALS: BP 155/74
--- NOTE | 2018-10-27 10:19 | Progress Note-Hospitalist ---
Subjective HPI/CC On Admission Date Seen by Provider: Oct 27, 2018 Time Seen by Provider: 10:20 CC: Acute pyelonephritis HPI: This is a 48yoWM clinic patient of [facility] Devaughn Zelaya who presented to the ER with flank pain and fever for the past 3 days. Pt was found to have a kidney stone and acute pyelonephritis. Dr Landon will see the patient in consultation and likely will perform procedure tomorrow. Subjective/Events-last exam Patient just returned from procedure from Dr Landon how placed stent in ureter due to kidney stone Pt feels better just drowsy from sedation Denies pain currently Wants a drink Checked meds and labs Review of Systems General: Fatigue Focused Exam Lactate Level 10/25/18 15:45: Lactic Acid Level 1.30 Objective Exam Vital Signs Vital Signs Date Time Temp Pulse Resp B/P (MAP) Pulse Ox O2 Delivery O2 Flow Rate FiO2 10/27/18 16:12 101.0 79 16 169/81 (110) 97 Nasal Cannula 2.00 Capillary Refill : Less Than 3 Seconds General Appearance: No Apparent Distress, WD/WN, Obese Respiratory: Chest Non Tender, Lungs Clear, Normal Breath Sounds, No Accessory Muscle Use, No Respiratory Distress Cardiovascular: Regular Rate, Rhythm, No Edema, No Gallop, No JVD, No Murmur, Normal Peripheral Pulses Neurologic/Psychiatric: Alert, Oriented x3, No Motor/Sensory Deficits, Normal Mood/Affect Skin: Normal Color, Warm/Dry Results/Procedures Lab Laboratory Tests 10/27/18 05:25 Patient resulted labs reviewed. Assessment/Plan Assessment and Plan Assess & Plan/Chief Complaint Assessment: Acute pyelonephritis Kidney stone with obstruction s/p stent placement POD # 0 Chronic back pain Leukocytosis DM OOC Presumed ALY Plan: Monitor labs Abx IVF Pain control Diagnosis/Problems Diagnosis/Problems (1) Sepsis Status: Acute Qualifiers: Sepsis type: sepsis due to unspecified organism Qualified Codes: A41.9 - Sepsis, unspecified organism (2) Pyelonephritis Status: Acute (3) Kidney calculi Status: Acute (4) Diabetes mellitus Status: Chronic Qualifiers: Diabetes mellitus type: type 2 Diabetes mellitus jail insulin use: without termite exterminator helper use Diabetes mellitus complication status: without complication Qualified Codes: E11.9 - Type 2 diabetes mellitus without complications (5) Hypertension Status: Chronic Qualifiers: Hypertension type: essential hypertension Qualified Codes: I10 - Essential (primary) hypertension (6) S/P cystoscopy with ureteral stent placement Status: Acute Clinical Quality Measures DVT/VTE Risk/Contraindication: Risk Factor Score Per Nursin RFS Level Per Nursing on Admit: 4+=Very High JENNA CHRISTY DO Oct 27, 2018 10:19
[2018-10-27] MEDS ORDERED: [UNRECOGNIZED DRUG - REMARK] MC ONE (10:30)
[2018-10-27] MEDS: FAMOTIDINE 20 MG (PEPCID) TABLET PO SCH ×2 (10:46→21:20)
--- NOTE | 2018-10-27 11:21 | CONSULTATION REPORT ---
DATE OF SERVICE: 10/27/2018 ATTENDING PHYSICIAN: Dr. Mora - Dr. James. SUMMARY: A 48-year-old white man admitted with left flank pain, fever and pyelonephritis secondary to a 6 mm stone in the left proximal ureter at the level of L4. The stone has not progressed. The patient has improved clinically. His white count is coming down. His creatinine has been stable; however, his KUB up until yesterday was unchanged. He also had one this morning, it has not been done yet. IMPRESSION: Left proximal ureteral stone with pain, pyelonephritis and urinary tract infection. PLAN: Take him to surgery today, at least attempt to manipulate the stone and put a stent to drain the kidney and later on, do ESWL once the infection is controlled and he is off the aspirin for a week. If I can commensurate with the ureteroscope, I will go ahead and do lithotripsy if possible or basket. Procedure risks were explained to the patient. All his questions were answered. Possibility of open surgery and percutaneous nephrostomy tube insertion if today's surgery fails. Job ID: [id number] DocumentID: [id number] Dictated Date: 10/27/2018 07:39:29 [employer] Dean Date: 10/27/2018 11:21:10 Dictated By: RASHID BURGOS MD
[2018-10-27 12:00] VITALS: BP 179/82
--- NOTE | 2018-10-27 14:05 | OPERATIVE REPORT ---
DATE OF SERVICE: 10/27/2018 PREOPERATIVE DIAGNOSIS: Left proximal ureteral stone. POSTOPERATIVE DIAGNOSES: 1. Left proximal ureteral stone. 2. Phimosis. 3. Urethral strictures. OPERATION PERFORMED: Cystoscopy, left ureter stone manipulation and insertion of double stent. SURGEON: Gustavo Burgos MD ANESTHESIA: General. COMPLICATIONS: None. PROCEDURE: Under satisfactory general anesthesia, the patient in lithotomy position, genitalia were prepped and draped in the usual sterile fashion. Noted a phimosis, which did not prevent me from passing the scope. There were some multiple strictures of wide caliber admitting this to the scope. The prostate was mildly enlarged with mild bladder neck obstruction. The bladder revealed some trabeculations. Ureteric orifices were normal in shape, size and configuration with clear efflux sluggish on the left side. Using the foroblique lens, I passed a 6-Maltese 26 cm stent. I was able to manipulate and push the stone back into the kidney, inserted the stent all the way to the left renal pelvis, removed the guidewire. The stent was seen draining nicely proximally fluoroscopically and distally endoscopically. The bladder was evacuated and the cystoscope was removed. The patient tolerated the procedure and anesthesia well and was sent to recovery room in stable condition. PLAN: We will continue the IV antibiotic once he is afebrile for 48 hours and when his parameters come back to normal and keeping him off the aspirin. We may discharge the patient home, have him come back and see me at the office next week to schedule him for ESWL next Friday when the machine is going to be here. Job ID: [id number] DocumentID: [id number] Dictated Date: 10/27/2018 09:16:30 Waste Recycler Date: 10/27/2018 14:05:11 Dictated By: GUSTAVO BURGOS MD
[2018-10-27] MEDS ORDERED: DOCUSATE SODIUM 100 MG (COLACE) CAP PO PRN (15:30)
[2018-10-27] MEDS: ACETAMINOPHEN 500 MG TAB (TYLENOL) PO PRN (16:09)
[2018-10-27 16:12] VITALS: BP 169/81
[2018-10-27] MEDS: cefTRIAXone 1 GM/NS 50 ML IVPB IV SCH ×2 (16:57)
[2018-10-27 20:05] VITALS: BP_SYST 141; BP_SYST 167; BP_DIAS 67; BP_DIAS 79
[2018-10-28 00:08] VITALS: BP 162/73
[2018-10-28] MEDS: NS IV 1000 ML 1,000 ML IV SCH ×4 (00:37→16:05)
[2018-10-28 04:04] VITALS: BP 158/75
[2018-10-28] MEDS: glipiZIDE 5 MG (GLUCOTROL) TAB PO SCH ×2 (06:49→16:11)
[2018-10-28] MEDS: CATHETER FLUSH 10 ML SYR IV SCH ×3 (06:49→21:39)
[2018-10-28] MEDS: inSUlin ASPART (NovoLOG) 1 UNIT/0.01 ML (CHARGE PER UNIT) SC SCH ×4 (06:50→21:39)
[2018-10-28] MEDS: LACTATED RINGERS 1,000 ML IV SCH (07:39)
[2018-10-28 08:00] VITALS: BP 172/82
[2018-10-28] MEDS: FAMOTIDINE 20 MG (PEPCID) TABLET PO SCH ×2 (08:04→21:39)
[2018-10-28] MEDS ORDERED: AZITHROMYCIN 250 MG TAB (ZITHROMAX) PO ONE (10:16)
[2018-10-28] MEDS ORDERED: KCL 20 MEQ TAB (K-DUR) PO ONE (10:16)
--- NOTE | 2018-10-28 10:16 | Anesthesia-General Post-Op ---
General Patient Condition Mental Status/LOC: Same as Preop Cardiovascular: Satisfactory Nausea/Vomiting: Absent Respiratory: Satisfactory Pain: Controlled Complications: Absent Post Op Complications Complications None Follow Up Care/Instructions Patient Instructions None needed. Anesthesia/Patient Condition Patient Condition Patient is doing well, no complaints, stable vital signs, no apparent adverse anesthesia problems. No complications reported per nursing. DAREK ANTHONY CRNA Oct 28, 2018 10:16
[2018-10-28] MEDS: HYDROcodone/APAP 10 MG/325 MG (LORTAB) TAB PO PRN ×2 (14:38→21:45)
--- NOTE | 2018-10-28 15:15 | Progress Note (SOAP) ---
Subjective Subjective/Events-last exam Pt feeling better. Getting appetite back. Tmax 101 yesterday afternoon. Review of Systems Date Seen by Provider: Oct 28, 2018 Time Seen by Provider: 09:45 Focused Exam Lactate Level 10/25/18 15:45: Lactic Acid Level 1.30 Objective Exam Last Set of Vital Signs Vital Signs Date Time Temp Pulse Resp B/P (MAP) Pulse Ox O2 Delivery O2 Flow Rate FiO2 10/28/18 12:35 77 10/28/18 08:00 98.5 22 172/82 (112) 95 Room Air 10/27/18 16:12 2.00 Capillary Refill : Less Than 3 Seconds I&O Intake and Output 10/28/18 00:00 Intake Total 4450 ml Output Total 1326 ml Balance 3124 ml Intake Oral 1400 ml IV Total 3050 ml Output Urine Total 1325 ml Stool Total 1 ml General: Alert, Oriented X3, Cooperative Lungs: Clear to Auscultation Psych/Mental Status: Mood NL Results/Procedures Lab Laboratory Tests 10/27/18 15:31: Glucometer 182H 10/27/18 20:09: Glucometer 144H 10/28/18 05:45: Glucometer 131H 10/28/18 11:15: Glucometer 225H Microbiology 10/25/18 Blood Culture - Preliminary, Resulted No growth 10/26/18 MRSA Screen - Final, Complete MRSA not isolated 10/25/18 Urine Culture - Final, Complete Escherichia coli Assessment/Plan Assessment/Plan Assessment & Plan Acute pyelonephritis secondary to E. coli 10/28 - on Rocephin; E. coli sensitive; likely ready for po antibiotics and DC when fever free for 24h Kidney stone with obstruction s/p stent placement 10/[address] Landon - management per Dr. Landon Chronic back pain Leukocytosis 10/28 - wbc trending down; will recheck in am DM Type 2 10/28 - on Glipizide and SSI Presumed ALY 10/28 - recommend sleep study as OP Clinical Quality Measures DVT/VTE Risk/Contraindication: Risk Factor Score Per Nursin RFS Level Per Nursing on Admit: 4+=Very High BILL MITCHELL DO Oct 28, 2018 15:15
[2018-10-28] MEDS: cefTRIAXone 1 GM/NS 50 ML IVPB IV SCH ×2 (16:11)
[2018-10-28 16:21] VITALS: BP 197/88
[2018-10-28 19:37] VITALS: BP 182/88
[2018-10-28] MEDS ORDERED: NON-FORMULARY MEDICATION 1 EA EA (Losartan Potassium 50 MG) PO SCH (21:00)
[2018-10-28] MEDS ORDERED: LOSARTAN 50 MG (COZAAR) TAB PO SCH (21:00)
[2018-10-29 00:24] VITALS: BP 146/82
[2018-10-29] MEDS: NS IV 1000 ML 1,000 ML IV SCH ×2 (00:27→06:19)
[2018-10-29 04:01] VITALS: BP 177/85
[2018-10-29] MEDS ORDERED: LOSA50TA7 PO (05:29)
[2018-10-29 05:31] LABS: BASOPHILS # (AUTO) 0.1 10^3/uL (0.0-0.1); BASOPHILS % (AUTO) 1 % (0-10); EOSINOPHILS # (AUTO) 0.1 10^3/uL (0.0-0.3); EOSINOPHILS % (AUTO) 1 % (0-10); HEMATOCRIT 32 % (40-54); HEMOGLOBIN 10.4 G/DL (13.3-17.7); LYMPHOCYTES # (AUTO) 2.9 X 10^3 (1.0-4.0); LYMPHOCYTES % (AUTO) 27 % (12-44); MEAN CORPUSCULAR HEMOGLOBIN 29 PG (25-34); MEAN CORPUSCULAR HGB CONC 33 G/DL (32-36); MEAN CORPUSCULAR VOLUME 88 FL (80-99); MEAN PLATELET VOLUME 9.9 FL (7.4-10.4); MONOCYTES # (AUTO) 1.1 X 10^3 (0.0-1.0); MONOCYTES % (AUTO) 10 % (0-12); NEUTROPHILS # (AUTO) 6.4 X 10^3 (1.8-7.8); NEUTROPHILS % (AUTO) 61 % (42-75); PLATELET COUNT 287 10^3/uL (130-400); RED BLOOD COUNT 3.61 10^6/uL (4.35-5.85); WHITE BLOOD COUNT 10.5 10^3/uL (4.3-11.0)
[2018-10-29] MEDS ORDERED: CIPR-225 PO (05:35)
[2018-10-29] MEDS: inSUlin ASPART (NovoLOG) 1 UNIT/0.01 ML (CHARGE PER UNIT) SC SCH ×2 (05:50→12:33)
[2018-10-29 05:51] LABS: BUN/CREATININE RATIO 14; CALCIUM 9.3 MG/DL (8.5-10.1); CARBON DIOXIDE 20 MMOL/L (21-32); CHLORIDE 109 MMOL/L (98-107); CREATININE SERUM 0.91 MG/DL (0.60-1.30); GFR ESTIMATED > 60; GLUCOSE 135 MG/DL (70-105); POTASSIUM 3.7 MMOL/L (3.6-5.0); SODIUM 140 MMOL/L (135-145)
[2018-10-29] MEDS: glipiZIDE 5 MG (GLUCOTROL) TAB PO SCH (06:18)
[2018-10-29] MEDS: CATHETER FLUSH 10 ML SYR IV SCH (06:18)
[2018-10-29 08:00] VITALS: BP 187/84
--- NOTE | 2018-10-29 08:41 | Discharge Summary ---
Diagnosis/Chief Complaint Date of Admission Oct 25, 2018 at 17:56 Date of Discharge Oct 29, 2018 Admission Diagnosis Admission Diagnosis Acute pyelonephritis Kidney stone with obstruction Chronic back pain Leukocytosis DM OOC Presumed ALY Discharge Diagnosis Acute pyelonephritis secondary to E. coli 10/28 - on Rocephin; E. coli sensitive; likely ready for po antibiotics and DC when fever free for 24h 10/29 - fever free; plan to DC home w/ po Cipro Kidney stone with obstruction s/p stent placement 10/[address] Landon - management per Dr. Landon Chronic back pain Leukocytosis 10/28 - wbc trending down; will recheck in am RESOLVED DM Type 2 10/28 - on Glipizide and SSI Presumed ALY 10/28 - recommend sleep study as OP Discharge Summary-Simple/Stand Consultations Discharge Physical Examination Allergies: Coded Allergies: naproxen (Verified Allergy, Unknown, 10/25/18) Vitals & I&Os Vital Sign - Last 12Hours Date Time Temp Pulse Resp B/P (MAP) Pulse Ox O2 Delivery O2 Flow Rate FiO2 10/29/18 07:00 79 10/29/18 04:01 98.0 18 177/85 (115) 94 Nasal Cannula 2.00 Intake and Output 10/29/18 00:00 Intake Total 1700 ml Balance 1700 ml Hospital Course See final discharge diagnosis. Discharge Instructions to patient/family Discharge [facility] Discharge Medications New, Converted or Re-Newed RX: Transmitted to Pharmacy ([facility]) New Medications: Ciprofloxacin HCl (Cipro) 500 Mg Tablet 500 MG PO BID for 3 Days, #6 TAB 0 Refills Changed Medications: Losartan Potassium (Losartan Potassium) 50 Mg Tablet 100 MG PO HS, #30 TAB 3 Refills (Changed from: 50 MG; Refills: ) Continued Medications: Aspirin (Aspirin) 325 Mg Tablet 325 MG PO DAILY, TAB Cyclobenzaprine HCl (Cyclobenzaprine HCl) 10 Mg Tablet 10 MG PO TID PRN for MUSCLE SPASMS, TAB Glipizide (Glipizide) 10 Mg Tablet 20 MG PO BID, TAB TAKES 2 (10MG) TABLETS Hydrocodone/Acetaminophen (Hydrocodon-Acetaminophn 10-325) 1 Each Tablet 1 TAB PO Q6H PRN for PAIN-MILD TO MODERATE Liraglutide (Victoza 2-Jax) 0.6 Mg/0.1 Ml Pen.injctr 1.8 UNITS SQ DAILY, VIAL Metformin HCl (Metformin HCl) 1,000 Mg Tablet 1000 MG PO BID WITH MEALS, TAB Pioglitazone HCl (Pioglitazone HCl) 30 Mg Tablet 30 MG PO DAILY, TAB Ranitidine HCl (Ranitidine HCl) 150 Mg Tablet 150 MG PO BID, TAB Sildenafil Citrate (Viagra) 100 Mg Tablet 100 MG PO DAILY PRN for ED, TAB Patient Instructions Patient Instructions Increase Losartan to 100mg daily for high blood pressure; new prescription sent to [facility]. Prescription for Cipo for 3 days to complete 10 days of antibiotics. Goal/Follow Up Appt: Follow up with Devaughn 11/05/18 at 2:00pm Activity & Diet Discharge Diet: ADA Diet Discharge Medications Reviewed and agree with Discharge Medication list on patient's Discharge Instruction sheet Clinical Quality Measures DVT/VTE Risk/Contraindication: Risk Factor Score Per Nursin RFS Level Per Nursing on Admit: 4+=Very High BILL MITCHELL DO Oct 29, 2018 08:41
[2018-10-29] MEDS: FAMOTIDINE 20 MG (PEPCID) TABLET PO SCH (09:01)
[2018-10-29] MEDS ORDERED: LOSARTAN 50 MG (COZAAR) TAB PO NR (09:15)
[2018-10-29 11:13] VITALS: BP 148/78
--- NOTE | 2018-10-29 11:29 | Progress Note-Urology ---
Progress Note-Urology Progress Notes/Assess & Plan Progress/Assessment & Plan DOING WELL. HOME. SEE ME ON FRIDAY FOR ESWL FRIDAY. KUB PRIOR TO DISCHARGE Final Diagnosis LT URETERAL STONE RASHID BURGOS MD Oct 29, 2018 11:29 am
[2018-10-29 12:45] VITALS: BP 148/78
--- NOTE | 2018-10-29 17:48 | Diagnostic Imaging Report ---
PATIENT HISTORY: Evaluate stent placement. TECHNIQUE: Supine frontal views of the abdomen. COMPARISON: 10/27/2018. FINDINGS: The left ureteral stent is seen, with the proximal coil in the expected region of the renal pelvis and the distal coil in the midline of the pelvis in the region of the bladder. No bowel obstruction or large collection of free air is seen. There are mild degenerative changes in the hip joints and in the lumbar spine. IMPRESSION: Left ureteral stent in expected location. Dictated on workstation # [id number]
== END 2018-10-29 12:40 | disposition home or self-care (01) | DRG 854 ==
LOC: ER 15:15 → 4TH 17:56 → UNDODISIN 10-27 10:30
PROVIDERS: ADMIT Family Medicine; ATTEND Family Medicine
PROC: 0T778DZ Dilation of Left Ureter with Intraluminal Device, Via Natural or Artificial Opening Endoscopic (ICD-10-PCS; principal; 2018-10-27 08:36)
DX: A41.9 Sepsis, unspecified organism (principal); N10 Acute pyelonephritis; B96.20 Unspecified Escherichia coli [E. coli] as the cause of diseases classified elsewhere; N13.6 Pyonephrosis; Z68.42 Body mass index [BMI] 45.0-49.9, adult; N20.1 Calculus of ureter; N35.919 Unspecified urethral stricture, male, unspecified site; N47.1 Phimosis; E11.65 Type 2 diabetes mellitus with hyperglycemia; I10 Essential (primary) hypertension; F17.210 Nicotine dependence, cigarettes, uncomplicated; E78.00 Pure hypercholesterolemia, unspecified; M54.9 Dorsalgia, unspecified; G47.33 Obstructive sleep apnea (adult) (pediatric); E66.9 Obesity, unspecified; Z79.84 Long term (current) use of oral hypoglycemic drugs
CPT/HCPCS: 36415; 74018; 74019; 74176; 80048; 80053; 81000; 82962; 83605; 85007; 85025; 85027; 87040; 87077; 87081; 87088; 87186; 94760; 96361; 96365; 96367; 96375; 96376

== ENCOUNTER → 2018-11-03 | Outpatient (CLI) | payer SELFPAY ==
[~2018-11-03] MED LIST: ASPI-808 PO; CIPR-225 PO; CYCL10TA9 PO; GLIP10TA13 PO; HYDR-3820 PO; LIRA0.6P SQ; LOSA50TA7 PO; METF-399 PO; PIOG30TA71 PO; RANI150T11 PO; SILD100T PO
--- NOTE | 2018-11-03 18:22 | Diagnostic Imaging Report ---
INDICATION: Follow up stent placement. TIME OF EXAM: 2:16 p.m. COMPARISON: Comparison is made with prior radiograph from 10/29/2018. FINDINGS: Left-sided double-J nephroureteral stent remains in place. Calcific density overlies the lower pole of the left kidney, unchanged. No definite calculi along the course of the stent are identified. Bowel gas pattern is unremarkable. IMPRESSION: Stable KUB when compared with examination from 10/29/2018. Dictated by: Dictated on workstation # [id number]
== END ==
LOC: RAD 13:44
PROVIDERS: ATTEND Urology
DX: N20.1 Calculus of ureter (principal); Z96.0 Presence of urogenital implants
CPT/HCPCS: 74018

== ENCOUNTER 2018-11-11 09:18 | Outpatient (CLI) | payer SELFPAY ==
[~2018-11-11] VITALS: Ht 165.1 cm; Wt 127.0 kg
== END 2018-11-11 09:36 | disposition home or self-care (01) ==
LOC: PREOP 09:18
PROVIDERS: ATTEND Urology
DX: Z01.818 Encounter for other preprocedural examination (principal)

== ENCOUNTER 2018-11-17 06:00 | Day surgery (SDC) | payer SELFPAY ==
[~2018-11-17] VITALS: Ht 165.1 cm; Wt 127.0 kg
--- OUTSIDE RECORDS SUMMARY | 2018-11-17 06:04 | XMS REPORT ---
Author Author JASON PATTERSON [facility] Address [address] [place] [address] Care Team Providers Care Breast Puller Name Role Phone JASON PATTERSON Unavailable PROBLEMS Type Condition ICD9-CM Code [id number] Code Onset Dates Condition Status SNOMED Code Problem Gastroesophageal reflux disease without esophagitis K21.9 Active 763565538 Problem Diabetes type 2, controlled E11.9 Active 76117638 Problem Uncontrolled type 2 diabetes mellitus with hyperglycemia E11.65 Active 222853330 Problem Uncontrolled type 2 diabetes mellitus without complication, without long-term current use of insulin E11.65 Active 102896050 Problem Lumbago with sciatica, 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 Active 846048659 Problem Sciatica, left side M54.32 Active 77617652 Problem Controlled type 2 diabetes mellitus without complication, without long -term current use of insulin E11.9 Active 573309321 Problem Other chronic pain G89.29 Active 26993945 ALLERGIES Substance Reaction Event Type Date Status Aleve Unknown Drug Allergy Oct, Active ENCOUNTERS Encounter Location Date Diagnosis [facility] [id number] [place] [address] 29894- 6669 Oct, Uncontrolled type 2 diabetes mellitus with hyperglycemia E11.65 [facility] [id number] [place] [address] 44694 -9616 Oct, BMI 50.0-59.9, adult Z68.43 and Acute gastroenteritis K52.9 [facility] [id number] [place] [address] 17600- 3903 Aug, Uncontrolled type 2 diabetes mellitus with hyperglycemia E11.65 and Lumbago with sciatica, 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 [facility] [id number] [place] [address] 64154- 3481 Aug, Diabetes type 2, controlled E11.9 [facility] [address], [place] [address] 6886 Aug, Diabetes type 2, controlled E11.9 [facility] [id number] [place] [address] 85103- 7796 May, Diabetes type 2, controlled E11.9 [facility] [id number] [place] [address] 46290- 6942 May, Diabetes type 2, controlled E11.9 and Lumbago with sciatica , 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 [facility] [id number] [place] [address] 42916- 5213 May, [place] [id number] [place] [address] 50901- 2608 May, Diabetes type 2, controlled E11.9 [facility] [id number] [place] [address] 78178- 0209 May, Diabetes type 2, controlled E11.9 [facility] [address] [address] 7165 May, Diabetes type 2, controlled E11.9 [facility] [id number] [place] [address] 98438- 2350 March, Uncontrolled type 2 diabetes mellitus without complication, without long-term current use of insulin E11.65 [facility] [address] [address] 7569 March, Other chronic pain G89.29 [facility] [address], [place] [address] 8548 Mar, Other chronic pain G89.29 [facility] [id number] [place] [address] 67742- 9128 Jan, BMI 45.0-49.9, adult Z68.42 ; Sciatica, left side M54.32 ; Other chronic pain G89.29 and Diabetes type 2, controlled E11.9 [facility] [address] [address] 8[address] Jan, Other chronic pain G89.29 [facility] [id number] [place] [address] 22025- 7872 Jan, Diabetes type 2, controlled E11.9 and Other chronic pain G89.29 [facility] [address], [place] [address] 3442 Dec, Diabetes type 2, controlled E11.9 [facility] [id number] [place] [address] 94087- 4744 Oct, Diabetes type 2, controlled E11.9 [facility] [id number] [place] [address] 58017- 8543 Oct, Diabetes type 2, controlled E11.9 [facility] [id number] [place] [address] 70874- 4456 Aug, Diabetes type 2, controlled E11.9 [facility] [id number] [place] [address] 54894- 3771 Aug, Diabetes type 2, controlled E11.9 and Lumbago with sciatica , 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 [facility] [id number] [place] [address] 80999- 7556 Jul, Diabetes type 2, controlled E11.9 [facility] [address] [address] 2634 May, Diabetes type 2, controlled E11.9 [facility] [address], [place] [address] 3832 May, Diabetes type 2, controlled E11.9 [facility] [id number] [place] [address] 27743- 4608 March, Diabetes type 2, controlled E11.9 [facility] [address], [place] [address] 3219 Mar, Diabetes type 2, controlled E11.9 and Sciatica, left side M54.32 [place] [facility] [id number] [place] [address] 98672- 3601 14 Mar, 2017 Diabetes type 2, controlled E11.9 [place] [facility] [id number] [place] [address] 39956- 7245 Jan, Diabetes type 2, controlled E11.9 and Sciatica, left side M54.32 [place] [address] 27543- 5163 Jan, Controlled type 2 diabetes mellitus without complication, without long-term current use of insulin E11.9 [place] [address] 63467- 7324 Dec, Controlled type 2 diabetes mellitus without complication, without long-term current use of insulin E11.9 [place] [id number] [place] [address] 58630- 2422 Oct, Diabetes type 2, controlled E11.9 [place] [id number] [place] [address] 73035- 6193 Oct, Diabetes type 2, controlled E11.9 ; Lumbago with sciatica, 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 and Other chronic pain G89.29 [place] [id number] [place] [address] 71247- 6223 Aug, Sciatica, left side M54.32 and Gastroesophageal reflux disease without esophagitis K21.9 [facility] [id number] [place] [address] 98589- 1605 Aug, Pain in right knee M25.561 ; Pain in left hip M25.552 and Uncontrolled type 2 diabetes mellitus without complication, without long-term current use of insulin E11.65 [facility] [id number] [place] [address] 06368- 8275 Jul, Diabetes type 2, controlled E11.9 and Cardiac arrhythmia, unspecified cardiac arrhythmia type I49.9 [place] [address] 04595- 6488 Jul, Diabetes type 2, controlled E11.9 ; Cardiac arrhythmia, unspecified cardiac arrhythmia type I49.9 ; Other chronic pain G89.29 ; Pain in right knee M25.[address] [facility] [address] [place] [address]6420- 0436 May, [facility] [id number] [place] [address] 58970- 3150 Jan, [facility] [id number] [place] [address] 53486- 5547 Jan, Diabetes type 2, controlled E11.9 [facility] [id number] [place] [address] 71061- 5447 Oct, Type 2 diabetes mellitus without complications E11.9 and 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 [facility] [id number] [place] [address] 31282- 2421 Oct, [facility] [id number] [place] [address] 42496- 7190 Mar, [facility] [id number] [place] [address] 84571- 4249 Mar, [facility] [id number] [place] [address] 99174- 3981 Jan, [facility] [address] [address] 0512 Jan, [facility] [id number] [place] [address] 93255- 1828 Jan, [facility] [id number] [place] [address] 53059- 9100 Jan, [facility] [id number] [place] [address] 07875- 4882 Dec, [facility] [address] [address]- 7011 Dec, [facility] [place] [facility] [address] [id number] [place] [address]- 7403 Oct, [facility] [place] [facility] [address] [id number] [place] [address] Oct, [facility] [place] [facility] [address] [id number] [place] [address]- 1382 Aug, [facility] [place] [facility] [address] [id number] [place] [address]- 6198 Aug, [facility] [place] [facility] [address] [id number] [place] [address]- 0979 Jul, [facility] [place] [facility] [address] [id number] [place] [address]- 4177 Jul, [facility] [place] [facility] [address] [id number] [place] [address]- 7402 May, [facility] [place] [facility] [address] [id number] [place] [address]- 3529 May, [facility] [place] [facility] [address] [id number] [place] [address]- 6861 May, [facility] [place] [facility] [address] [id number] [place] [address]- 9505 May, [facility] [place] [facility] [address] [id number] [place] [address]- 8027 March, [facility] [place] [facility] [address] [id number] [place] [address]- 6886 March, [facility] [place] [facility] [address] [id number] [place] [address]- 3567 March, [facility] [place] [facility] [address] [id number] [place] [address]- 1232 March, [facility] [place] [facility] [address] [id number] [place] [address]- 6250 March, [facility] [place] [facility] [address] [id number] [place] [address]12 March, [facility] [place] [facility] [address] [id number] [place] [address]- 5150 Mar, [facility] [place] [facility] [address] [id number] [place] [address]- 0353 Mar, [facility] [place] [facility] [address] [id number] [place] [address]- 2136 Mar, [facility] [place] [facility] [address] [id number] [place] [address]- 6073 Mar, [facility] [place] [facility] [address] [id number] [place] [address]- 2649 Dec, [facility] [place] [facility] [address] [id number] [place] [address]- 2436 Aug, [facility] [place] [facility] [address] [id number] [place] [address]- 8687 Aug, [facility] [place] [facility] [address] [id number] [place] [address]- 1200 Aug, [facility] [place] [facility] [address] [id number] [place] [address]- 7564 Aug, [facility] [place] [facility] [address] [id number] [place] [address]- 4739 Aug, [facility] [place] [facility] [address] [id number] [place] [address]- 8191 Aug, [facility] [place] [facility] [address] [id number] [address]- 9629 Jan, [facility] [place] [facility] [address] [id number] [place] [address]- 7389 Jan, [facility] [place] [facility] [address] [id number] [place] [address]- 4783 Jan, [facility] [place] [facility] [address] [id number] [place] [address]- 8657 Jan, [facility] [place] [facility] [id number] [address]- 8736 15 Oct, 2010 [facility] [id number] [address]- 6543 [address], [address] [facility] [id number] [address]- 3023 [address], [address] [facility] [id number] [address] Oct, [facility] [id number] [address] 5687 Oct, [facility] [id number] [address] 0110 Oct, [facility] [id number] [address] 5148 Aug, IMMUNIZATIONS No Known Immunizations SOCIAL HISTORY Never Assessed REASON FOR VISIT Headache/nausea/vomitting x 1 wk-awoods PLAN OF CARE Activity Details Follow Up if not improving with PCP or reg follow up Reason: VITAL SIGNS Height 62 in 2018-10-09 Weight 281.8 lbs 2018-10-09 Temperature 98.8 degrees Fahrenheit 2018-10-09 Heart Rate 92 bpm 2018-10-09 Respiratory Rate 20 2018-10-09 BMI 51.54 kg/m2 2018-10-09 Blood pressure systolic 118 mmHg 2018-10-09 Blood pressure diastolic 72 mmHg 2018-10-09 MEDICATIONS Medication Instructions Dosage Frequency Start Date End Date Duration Status Zofran 8 MG Orally Three times a day as needed 1 tablet Oct, 10 days Active Aspirin 325 MG Orally Once a day 1 tablet 24h Active Elgin 10-325 MG Orally every 6 hrs 1 tablet as needed 6h Aug, 28 days Active Actos 30 MG Orally Once a day 1 tablet 24h Jan, 30 day(s) Active Fish Oil 1200 MG Orally Twice a day 1 capsule 12h Active Cozaar 50 mg Orally Once a day 1 tablet 24h Jul, 30 day(s) Active GlipiZIDE 10 mg 2 tablets 12h Active Ibuprofen 200 MG Orally every 6 hrs 1 tablet as needed 6h Active Victoza 18 MG/3ML Subcutaneous Once a day Inject 0.3 ml (1.8 mg) 24h MarchDec, 30 days Active Cyclobenzaprine HCl 10 mg 1 tablet as needed 8h Active Viagra 100 mg 1 tablet as needed 24h 10 Active Metformin HCl 1000 mg 1 tablet with a meal 12h Active Ranitidine HCl 150 MG TAKE ONE TABLET BY MOUTH TWICE DAILY 30 Active NovoFine 32G X 6 MM subcutaneously Once a day use for injectio of victoza pen 24h May, 90 days Not-Taking RESULTS No Results PROCEDURES No Known procedures [...]
--- OUTSIDE RECORDS SUMMARY | 2018-11-17 06:04 | XMS REPORT ---
Author Author CHRISTIANO MAHONEY Organization [facility] Address [address] [place] [address] Care Team Providers Care [employer]ob[employer] Repairer Name Role Phone CHRISTIANO MAHONEY Unavailable PROBLEMS Type Condition ICD9-CM Code OLG93-ZP Code Onset Dates Condition Status SNOMED Code Problem Gastroesophageal reflux disease without esophagitis K21.9 Active 197005499 Problem Diabetes type 2, controlled E11.9 Active 73435518 Problem Uncontrolled type 2 diabetes mellitus with hyperglycemia E11.65 Active 035220699 Problem Uncontrolled type 2 diabetes mellitus without complication, without long-term current use of insulin E11.65 Active 688980755 Problem Lumbago with sciatica, 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 Active 945559034 Problem Sciatica, left side M54.32 Active 14460654 Problem Controlled type 2 diabetes mellitus without complication, without long -term current use of insulin E11.9 Active 178571561 Problem Other chronic pain G89.29 Active 67070725 ALLERGIES No Information ENCOUNTERS Encounter Location Date Diagnosis [facility] [address] [address] Oct, [facility] [address] [address] Oct, Uncontrolled type 2 diabetes mellitus with hyperglycemia E11.65 [facility] [address] [address] Oct, BMI 50.0-59.9, adult Z68.43 and Acute gastroenteritis K52.9 [facility] [address] [address] Aug, Uncontrolled type 2 diabetes mellitus with hyperglycemia E11.65 and Lumbago with sciatica, 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 [facility] [address] [address] Aug, Diabetes type 2, controlled E11.9 [facility] [address], [place] [address] Aug, Diabetes type 2, controlled E11.9 [facility] [address] [address] May, Diabetes type 2, controlled E11.9 [facility] [id number] [place] [address] May, Diabetes type 2, controlled E11.9 and Lumbago with sciatica , 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 [facility] [id number] [place] [address]- [address] May, [facility] [id number] [place] [address]- 9465 May, Diabetes type 2, controlled E11.9 [facility] [id number] [place] [address]- 1633 May, Diabetes type 2, controlled E11.9 [facility] [address], [place] [address] May, Diabetes type 2, controlled E11.9 [facility] [address], [place] [address] March, Uncontrolled type 2 diabetes mellitus without complication, without long-term current use of insulin E11.65 [facility] [address], [place] [address] March, Other chronic pain G89.29 [facility] [address] [place] [address] Mar, Other chronic pain G89.29 [facility] [id number] [place] [address] 9836[address]- [address] Jan, BMI 45.0-49.9, adult Z68.42 ; Sciatica, left side M54.32 ; Other chronic pain G89.29 and Diabetes type 2, controlled E11.9 [facility] [address], [place] [address] Jan, Other chronic pain G89.29 [facility] [id number] [place] [address] Jan, Diabetes type 2, controlled E11.9 and Other chronic pain G89.29 [facility] [id number] [place] [address] Dec, Diabetes type 2, controlled E11.9 [facility] [id number] [place] [address]- 8[address] Oct, Diabetes type 2, controlled E11.9 [facility] [id number] [place] [address]- 45[address] Oct, Diabetes type 2, controlled E11.9 [facility] [id number] [place] [address] 84326- 75[address] Aug, Diabetes type 2, controlled E11.9 [facility] [id number] [place] [address]- [address] 14 Aug, 2017 Diabetes type 2, controlled E11.9 and Lumbago with sciatica , 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 [facility] [address], [place] [address] Jul, Diabetes type 2, controlled E11.9 [facility] [address], [place] [address] May, Diabetes type 2, controlled E11.9 [facility] [address], [place] [address] May, Diabetes type 2, controlled E11.9 [facility] [address], [place] [address] March, Diabetes type 2, controlled E11.9 [facility] [address], [place] [address] Mar, Diabetes type 2, controlled E11.9 and Sciatica, left side M54.32 [facility] [id number] [place] [address]- [address] Mar, Diabetes type 2, controlled E11.9 [facility] [id number] [place] [address]- [address] Jan, Diabetes type 2, controlled E11.9 and Sciatica, left side M54.32 [facility] [id number] [place] [address]- 5[address] Jan, Controlled type 2 diabetes mellitus without complication, without long-term current use of insulin E11.9 [facility] [id number] [place] [address] 09471- 5560 Dec, Controlled type 2 diabetes mellitus without complication, without long-term current use of insulin E11.9 [facility] [id number] [place] [address] 83845- 3963 Oct, Diabetes type 2, controlled E11.9 [facility] [id number] [place] [address] 17014- 87[address] Oct, Diabetes type 2, controlled E11.9 ; Lumbago with sciatica, 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 and Other chronic pain G89.29 [facility] [id number] [place] [address]- [address] Aug, Sciatica, left side M54.32 and Gastroesophageal reflux disease without esophagitis K21.9 [facility] [id number] [place] [address]- 7559 Aug, Pain in right knee M25.561 ; Pain in left hip M25.552 and Uncontrolled type 2 diabetes mellitus without complication, without long-term current use of insulin E11.65 [facility] [id number] [place] [address]- [address] Jul, Diabetes type 2, controlled E11.9 and Cardiac arrhythmia, unspecified cardiac arrhythmia type I49.9 [facility] [id number] [place] [address] 05483- 1531 Jul, Diabetes type 2, controlled E11.9 ; Cardiac arrhythmia, unspecified cardiac arrhythmia type I49.9 ; Other chronic pain G89.29 ; Pain in right knee M25.561 and Candidiasis B37.9 [facility] [address], [place] [address] May, [facility] [id number] [place] [address] Jan, [facility] [id number] [place] [address] 213[address]- [address] Jan, Diabetes type 2, controlled E11.9 [facility] [id number] [place] [address] 39642- 7108 Oct, Type 2 diabetes mellitus without complications E11.9 and 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 [facility] [address], [place] [address] Oct, [facility] [id number] [place] [address] 83674- 1908 Mar, [facility] [id number] [place] [address] 96774- 5032 Mar, [facility] [address], [place] [address] Jan, [facility] [address], [place] [address]- [address] Jan, [facility] [address] [place] [address]- [address] Jan, [facility] [id number] [place] [address] 847261- 6928 Jan, [facility] [address], [place] [address]- [address] Dec, [facility] [id number] [place] [address] 08325- 6[address] Dec, [facility] [place] [facility] [address] [id number] [place] [address]- 6753 Oct, [facility] [place] [facility] [address] [id number] [place] [address]- 6[address] Oct, [facility] [place] [facility] [address] [id number] [place] [address]- 1660 Aug, [facility] [place] [facility] [address] [id number] [place] [address]- 3618 Aug, [facility] [place] [facility] [address] [id number] [place] [address]- 6626 Jul, [facility] [place] [facility] [address] [id number] [place] [address]- 8756 Jul, [facility] [place] [facility] [address] [id number] [place] [address]- 8694 May, [facility] [place] [facility] [address] [id number] [place] [address]- 4902 May, [facility] [place] [facility] [address] [id number] [place] [address]- 1088 May, [facility] [place] [facility] [address] [id number] [place] [address]- 7745 May, [facility] [place] [facility] [address] [id number] [place] [address]- 7153 March, [facility] [place] [facility] [address] [id number] [place] [address]- 0310 March, [facility] [place] [facility] [address] [id number] [place] [address]- 2370 March, [facility] [place] [facility] [address] [id number] [place] [address]- 4040 March, [facility] [place] [facility] [address] [id number] [place] [address] March, [facility] [place] [facility] [address] [id number], [place] [address]- 12[address] March, [facility] [place] [facility] [address] [id number] [place] [address]- 0445 Mar, [facility] [place] [facility] [address] [id number] [place] [address]- 3920 Mar, [facility] [place] [facility] [address] [facility] [id number] [place] [address]- 5358 Mar, [facility] [place] [facility] [address] [id number] [place] [address]- 0525 Mar, [facility] [place] [facility] [address] [id number] [place] [address]- 1433 Dec, [facility] [place] [facility] [address] [facility] [id number] [place] [address]- 2560 Aug, [facility] [address] [facility] [id number] [place] [address]- 4406 Aug, [facility] [place] [facility] [address] [facility] [id number] [place] [address]- 4145 Aug, [facility] [place] [facility] [id number] [place] [address]- 8[address] 20 Aug, 2012 [facility] [place] [facility] [address] [facility] [id number] [place] [address]- 0321 13 Aug, 2012 [facility] [place] [facility] [address] [facility] [id number] [place] [address]- 9824 Aug, [facility] [place] [facility] [address] [id number], [place] [address]- 6[address] Jan, [facility] [place] [facility] [address] [id number] [place] [address]- 3327 Jan, [facility] [place] [facility] [address] [facility] [id number] [place] [address]- 4324 Jan, [facility] [place] [facility] [address] [facility] [id number] [place] [address]- 0319 Jan, [facility] [place] [facility] [id number], [place] [address]- 2536 Oct, [facility] [id number], [place] [address]- 0[address] Oct, [facility] [address], [place] [address]- 8878 Oct, [facility] [id number], [place] [address]- 5273 Oct, [facility] [id number], [place] [address]- 2062 Oct, [facility] [id number], [place] [address]- 7323 Oct, [facility] [id number], [place] [address]- 8890 Aug, IMMUNIZATIONS No Known Immunizations SOCIAL HISTORY Never Assessed REASON FOR VISIT PALS IN-[employer] PLAN OF CARE VITAL SIGNS MEDICATIONS Unknown [...]
--- OUTSIDE RECORDS SUMMARY | 2018-11-17 06:09 | XMS REPORT | Continuity of Care Document ---
Author Author Formerly [facility] Address Unknown Phone Unavailable Allergies Active Description Code Type Severity Reaction Onset Reported/Identified Relationship to Patient Clinical Status Yes Aleve Drug Allergy 02/18/2012 Yes Aleve Drug Allergy N/A N/A 02/18/2012 Yes naproxen [id number] Drug Allergy Unknown N/A 10/25/2018 Medications There is no data. Problems Date [...] MAHONEY APRN 401.1 ESSENTIAL HYPERTENSION BENIGN 08/09/2008 ZENAIDA MITCHELL DOA K 401.1 ESSENTIAL HYPERTENSION BENIGN 08/09/2008 CHRISTIANO MAHONEY APRN 401.1 ESSENTIAL HYPERTENSION BENIGN 01/21/2009 272.4 HYPERLIPIDEMIA 01/21/2009 278.01 OBESITY MORBID 01/21/2009 ZENAIDA MITCHELL DOA K 272.4 HYPERLIPIDEMIA 01/21/2009 MITCHELL DO BILL K 278.01 OBESITY MORBID 01/21/2009 CHRISTIANO MAHONEY APRN T 272.4 HYPERLIPIDEMIA 01/21/2009 CHRISTIANO MAHONEY APRN 278.01 OBESITY MORBID 01/21/2009 CHRISTIANO MAHONEY APRN 272.4 HYPERLIPIDEMIA 01/21/2009 CHRISTIANO MAHONEY APRN T 278.01 OBESITY MORBID 01/21/2009 CHRISTIANO MAHONEY APRN 272.4 HYPERLIPIDEMIA 01/21/2009 CHRISTIANO MAHONEY APRN 278.01 OBESITY MORBID 01/21/2009 CHRISTIANO MAHONEY APRN 272.4 HYPERLIPIDEMIA 01/21/2009 DENZEL STACKER OPERATOR, CHRISTIANO T 278.01 OBESITY MORBID 01/21/2009 CHRISTIANO MAHONEY APRN T 272.4 HYPERLIPIDEMIA 01/21/2009 DENZEL VEGANCHRISTIANO T 278.01 OBESITY MORBID 01/21/2009 DENZEL VEGANCHRISTIANO T 272.4 HYPERLIPIDEMIA 01/21/2009 DENZEL VEGAN, CHRISTIANO T 278.01 OBESITY MORBID 01/21/2009 MITCHELL DO, BILL K 272.4 HYPERLIPIDEMIA 01/21/2009 MITCHELL DO, BILL K 278.01 OBESITY MORBID 01/21/2009 CHRISTIANO MAHONEY APRN T 272.4 HYPERLIPIDEMIA 01/21/2009 DENZEL VEGANCHRISTIANO T 278.01 OBESITY MORBID 01/29/2009 250.02 DIABETES [...] APRN 250.02 DIABETES MELLITUS POORLY CONTROLLED 01/29/2009 CHRISTIANO [...] T 278.00 OBESITY 08/11/2009 CHRISTIANO MAHONEY APRN 401.9 HYPERTENSION (SYSTEMIC) 08/11/2009 CHRISTIANO MAHONEY APRN 278.00 OBESITY 08/11/2009 CHRISTIANO MAHONEY APRN 401.9 HYPERTENSION (SYSTEMIC) 08/11/2009 MITCHELL DO, BILL K 278.00 OBESITY 08/11/2009 MITCHELL DO, BILL K 401.9 HYPERTENSION (SYSTEMIC) 08/11/2009 CHRISTIANO MAHONEY APRN 278.00 OBESITY 08/11/2009 CHRISTIANO MAHONEY APRN 401.9 HYPERTENSION (SYSTEMIC) 10/17/2010 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.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 10/17/2010 414.01 CAD 10/17/2010 MITCHELL DO, BILL K 302.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 10/17/2010 MITCHELL DO, BILL K 414.01 CAD 10/17/2010 CHRISTIANO MAHONEY [...] 10/17/2010 CHRISTIANO MAHONEY APRN 414.01 CAD 10/17/2010 MITCHELL DO BILL K 302.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 10/17/2010 MITCHELL DO, BILL K 414.01 CAD 10/17/2010 CHRISTIANO MAHONEY APRN 302.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 10/17/2010 CHRISTIANO MAHONEY APRN 414.01 CAD 05/07/2011 698.9 PRURITUS NOS 05/07/2011 709.9 SKIN LESIONS 05/07/2011 MITCHELL DO, BILL K 698.9 PRURITUS NOS 05/07/2011 MITCHELL DO, BILL K 709.9 SKIN LESIONS 05/07/2011 DENZEL STACKER OPERATOR, CHRISTIANO T 698.9 PRURITUS NOS 05/07/2011 DENZEL STACKER OPERATOR, CHRISTIANO T 709.9 SKIN LESIONS 05/07/2011 DENZEL STACKER OPERATOR, CHRISTIANO T 698.9 PRURITUS NOS 05/07/2011 DENZEL STACKER OPERATOR, CHRISTIANO T 709.9 SKIN LESIONS 05/07/2011 DENZEL STACKER OPERATOR, CHRISTIANO T 698.9 PRURITUS NOS 05/07/2011 DENZEL STACKER OPERATOR, CHRISTIANO T 709.9 SKIN LESIONS 05/07/2011 DENZEL STACKER OPERATOR, CHRISTIANO T 698.9 PRURITUS NOS 05/07/2011 DENZEL STACKER OPERATOR, CHRISTIANO T 709.9 SKIN LESIONS 05/07/2011 DENZEL STACKER OPERATOR, CHRISTIANO T 698.9 PRURITUS NOS 05/07/2011 DENZEL STACKER OPERATOR, CHRISTIANO T 709.9 SKIN LESIONS 05/07/2011 DENZEL STACKER OPERATORCHRISTIANO T 698.9 PRURITUS NOS 05/07/2011 DENZEL STACKER OPERATOR, CHRISTIANO T 709.9 SKIN LESIONS 05/07/2011 MITCHELL DO, BILL K 698.9 PRURITUS NOS 05/07/2011 MITCHELL DO, BILL K 709.9 SKIN LESIONS 05/07/2011 DENZEL STACKER OPERATOR, CHRISTIANO T 698.9 PRURITUS NOS 05/07/2011 DENZEL STACKER OPERATORCHRISTIANO T 709.9 SKIN LESIONS 02/03/2012 112.3 CANDIDIASIS [...] APRN 112.3 CANDIDIASIS OF THE SKIN 02/03/2012 BILL MITCHELL DO K 112.3 CANDIDIASIS OF THE SKIN 02/03/2012 CHRISTIANO MAHONEY APRN 112.3 CANDIDIASIS OF THE SKIN 02/18/2012 V68.1 ISSUE OF REPEAT PRESCRIPTIONS 02/18/2012 BILL MITCHELL DO K V68.1 ISSUE OF REPEAT PRESCRIPTIONS 02/18/2012 CHRISTIANO MAHONEY APRN V68.1 ISSUE OF REPEAT PRESCRIPTIONS 02/18/2012 CHRISTIANO MAHONEY APRN V68.1 ISSUE OF REPEAT PRESCRIPTIONS 02/18/2012 CHRISTIANO MAHONEY APRN V68.1 ISSUE OF REPEAT PRESCRIPTIONS 02/18/2012 CHRISTIANO MAHONEY APRN V68.1 ISSUE OF REPEAT PRESCRIPTIONS 02/18/2012 CHRISTIANO MAHONEY APRN V68.1 ISSUE OF REPEAT PRESCRIPTIONS 02/18/2012 CHRISTIANO MAHONEY APRN V68.1 ISSUE OF REPEAT PRESCRIPTIONS 02/18/2012 PAULA KING BILL K V68.1 ISSUE OF REPEAT PRESCRIPTIONS 02/18/2012 CHRISTIANO MAHONEY APRN V68.1 ISSUE OF REPEAT PRESCRIPTIONS 03/29/2014 MITCHELL DO BILL K 112.2 CANDIDIASIS OF OTHER UROGENITAL SITES 03/29/2014 MITCHELL DO BILL K 607.84 IMPOTENCE OF ORGANIC ORIGIN 03/29/2014 MITCHELL DO BILL K V01.6 CONTACT WITH OR EXPOSURE [...] CHRISTIANO MAHONEY APRN V74.5 STD SCREEN 03/29/2014 DENZEL STACKER OPERATOR, CHRISTIANO T 112.2 CANDIDIASIS OF OTHER UROGENITAL SITES 03/29/2014 [...] APRN 250.00 DIABETES II CONTROLLED (UNCOMPLICATED) 06/20/2014 PAULA KING BILL K 250.00 DIABETES II CONTROLLED (UNCOMPLICATED) 06/20/2014 CHRISTIANO MAHONEY APRN 250.00 DIABETES II CONTROLLED (UNCOMPLICATED) 10/28/2018 PAULA KING BILL K Ot A41.9 SEPSIS, UNSPECIFIED ORGANISM 10/28/2018 PAULA KING, BILL K Ot E11.65 TYPE 2 DIABETES MELLITUS WITH HYPERGLYCE 10/28/2018 PAULA KING, BILL K Ot E66.9 OBESITY, UNSPECIFIED 10/28/2018 MITCHELL DO, BILL K Ot E78.00 PURE HYPERCHOLESTEROLEMIA, UNSPECIFIED 10/28/2018 MITCHELL DO, BILL K Ot F17.210 NICOTINE DEPENDENCE, CIGARETTES, UNCOMPL 10/28/2018 MITCHELL DO, BILL K Ot G47.33 OBSTRUCTIVE SLEEP APNEA (ADULT) (PEDIATR 10/28/2018 MITCHELL DO, BILL K Ot I10 ESSENTIAL (PRIMARY) HYPERTENSION 10/28/2018 MITCHELL DO, BLIL K Ot M54.9 DORSALGIA, UNSPECIFIED 10/28/2018 MITCHELL DO, BILL K Ot N10 ACUTE PYELONEPHRITIS 10/28/2018 MITCHELL DO, BILL K Ot N13.6 PYONEPHROSIS 10/28/2018 MITCHELL DO, BILL K Ot Z68.42 BODY MASS INDEX (BMI) 45.0-49.9, ADULT 10/28/2018 MITCHELL DO BILL K Ot Z79.84 SNF (CURRENT) USE OF ORAL HYPOGLYC 10/29/2018 MITCHELL DO, BILL K Ot A41.9 SEPSIS, UNSPECIFIED ORGANISM 10/29/2018 PAULA KING BILL K Ot B96.20 UNSP ESCHERICHIA COLI THE CAUSE OF DI 10/29/2018 BILL MITCHELL DO Ot E11.65 TYPE 2 DIABETES MELLITUS WITH HYPERGLYCE 10/29/2018 BILL MITCHELL DO Ot E66.9 OBESITY, UNSPECIFIED 10/29/2018 BILL MITCHELL DO Ot E78.00 PURE HYPERCHOLESTEROLEMIA, UNSPECIFIED 10/29/2018 BILL MITCHELL DO Ot F17.210 NICOTINE DEPENDENCE, CIGARETTES, UNCOMPL 10/29/2018 BILL MITCHELL DO Ot G47.33 OBSTRUCTIVE SLEEP APNEA (ADULT) (PEDIATR 10/29/2018 BILL MITCHELL DO Ot I10 ESSENTIAL (PRIMARY) HYPERTENSION 10/29/2018 BILL MITCHELL DO Ot M54.9 DORSALGIA, UNSPECIFIED 10/29/2018 BILL MITCHELL DO Ot N10 ACUTE PYELONEPHRITIS 10/29/2018 BILL MITCHELL DO Ot N13.6 PYONEPHROSIS 10/29/2018 BILL MITCHELL DO Ot N20.1 CALCULUS OF URETER 10/29/2018 BILL MITCHELL DO Ot N35.919 UNSPECIFIED URETHRAL STRICTURE, MALE, UN 10/29/2018 BILL MITCHELL DO Ot N47.1 PHIMOSIS 10/29/2018 BILL MITCHELL DO Ot Z68.42 BODY MASS INDEX (BMI) 45.0-49.9, ADULT 10/29/2018 BILL MITCHELL DO Ot Z79.84 SNF (CURRENT) USE OF ORAL HYPOGLYC 11/04/2018 RASHID BURGOS MD Ot N20.1 CALCULUS OF URETER 11/04/2018 RASHID BURGOS MD Ot Z96.0 PRESENCE OF UROGENITAL IMPLANTS 11/11/2018 RASHID BURGOS MD Ot Z01.818 ENCOUNTER FOR OTHER PREPROCEDURAL EXAMIN Procedures Code Description [place] [address] [facility] 03/29/2014 75637 HIV ([facility]) 03/29/2014 03073 GC/CHLAM URINE (STATE) 03/29/2014 20107 A1C (IN-HOUSE) 04/13/2014 15749 CMP 04/15/2014 84966 LIPID PANEL 04/15/2014 64459 CBC 04/15/2014 86385 ROUTINE VENIPUNCTURE 04/15/2014 02657 A1C (IN-HOUSE) 07/22/2014 41125 A1C (IN-HOUSE) 10/26/2014 37222 MICRO ALBUMIN-IN HOUSE 10/26/2014 [id number] DILATION OF LEFT URETER WITH INTRALUMINA 10/27/2018 Results Test Result Range LIPID PANEL - 02/06/18 11:13 CHOLESTEROL, TOTAL 156 mg/dL <200 HDL CHOLESTEROL 26 mg/dL >40 TRIGLYCERIDES 146 mg/dL <150 LDL-CHOLESTEROL 104 mg/dL (calc) NRG CHOL/HDLC RATIO 6.0 (calc) <5.0 NON HDL CHOLESTEROL 130 mg/dL (calc) <130 CMP - 02/06/18 11:13 GLUCOSE 192 mg/dL 65-99 UREA NITROGEN (BUN) 14 mg/dL 7-25 CREATININE 0.69 mg/dL 0.60-1.35 eGFR NON-AFR. KAZAKH 111 mL/min/1.73m2 > OR=60 eGFR 129 mL/min/1.73m2 [...] 9.5 fL 7.5-12.5 ABSOLUTE NEUTROPHILS 4831 cells/uL 3360-0956 ABSOLUTE LYMPHOCYTES 4267 cells/uL 850-3900 ABSOLUTE MONOCYTES 584 cells/uL 200-950 ABSOLUTE EOSINOPHILS 178 cells/uL 15-500 ABSOLUTE BASOPHILS 40 cells/uL 0-200 NEUTROPHILS 48.8 % NRG LYMPHOCYTES 43.1 % NRG MONOCYTES 5.9 % NRG EOSINOPHILS 1.8 % NRG BASOPHILS 0.4 % NRG TSH - 02/06/18 11:13 TSH 1.20 mIU/L 0.40-4.50 Complete blood count (CBC) with automated white blood cell (WBC) differential - 10/25/18 15:45 Blood leukocytes automated count (number/volume) 21.9 10*3/uL 4.3-11.0 Blood erythrocytes automated count (number/volume) 4.41 10*6/uL 4.35-5.85 Venous blood hemoglobin measurement (mass/volume) 12.8 g/dL 13.3-17.7 Blood hematocrit (volume fraction) 38 % 40-54 Automated erythrocyte mean corpuscular volume 87 [foz_us] 80-99 Automated erythrocyte mean corpuscular hemoglobin (mass per erythrocyte) 29 pg 25-34 Automated erythrocyte mean corpuscular hemoglobin concentration measurement ( mass/volume) 34 g/dL 32-36 Automated erythrocyte distribution width ratio 14.1 % 10.0-14.5 Automated blood platelet count (count/volume) 315 10*3/uL 130-400 Automated blood platelet mean volume measurement 9.8 [foz_us] 7.4-10.4 Automated blood neutrophils/100 leukocytes 88 % 42-75 Automated blood lymphocytes/100 leukocytes 5 % 12-44 Blood monocytes/100 leukocytes 7 % 0-12 Automated blood eosinophils/100 leukocytes 0 % 0-10 Automated blood basophils/100 leukocytes 0 % 0-10 Blood neutrophils automated count (number/volume) 19.2 10*3 1.8-7.8 Blood lymphocytes automated count (number/volume) 1.2 10*3 1.0-4.0 Blood monocytes automated count (number/volume) 1.5 10*3 0.0-1.0 Automated eosinophil count 0.0 10*3/uL 0.0-0.3 Automated blood basophil count (count/volume) 0.1 10*3/uL 0.0-0.1 Blood lactic acid measurement (moles/volume) - 10/25/18 15:45 Blood lactic acid measurement (moles/volume) 1.30 mmol/L 0.50-2.00 Comprehensive metabolic panel - 10/25/18 15:45 Serum or plasma sodium measurement (moles/volume) 135 mmol/L 135-145 Serum or plasma potassium measurement (moles/volume) 4.2 mmol/L 3.6-5.0 Serum or plasma chloride measurement (moles/volume) 99 mmol/L 98-107 Carbon dioxide 18 mmol/L 21-32 Serum or plasma anion gap determination (moles/volume) 18 mmol/L 5-14 Serum or plasma urea nitrogen measurement (mass/volume) 22 mg/dL 7-18 Serum or plasma creatinine measurement (mass/volume) 1.46 mg/dL 0.60-1.30 Serum or plasma urea nitrogen/creatinine mass ratio 15 NRG Serum or plasma creatinine measurement with calculation of estimated glomerular filtration rate 51 NRG Serum or plasma glucose measurement (mass/volume) 198 mg/dL 70-105 Serum or plasma calcium measurement (mass/volume) 9.9 mg/dL 8.5-10.1 Serum or plasma total bilirubin measurement (mass/volume) 1.3 mg/dL 0.1-1.0 Serum or plasma alkaline phosphatase measurement (enzymatic activity/volume) 92 U/L 40-136 Serum or plasma aspartate aminotransferase measurement (enzymatic activity/ volume) 15 U/L 5-34 Serum or plasma alanine aminotransferase measurement (enzymatic activity/volume ) 13 U/L 0-55 Serum or plasma protein measurement (mass/volume) 7.9 g/dL 6.4-8.2 Serum or plasma albumin measurement (mass/volume) 3.4 g/dL 3.2-4.5 CALCIUM CORRECTED 10.4 mg/dL 8.5-10.1 Blood manual differential performed detection - 10/25/18 15:45 Blood monocytes/100 leukocytes 9 % NRG Manual blood segmented neutrophils/100 leukocytes 83 % NRG Blood band neutrophils/100 leukocytes 3 % NRG Manual blood lymphocytes/100 leukocytes 5 % NRG Blood erythrocyte morphology finding identification NORMAL NRG Blood toxic granules detection by light microscopy 2+ NRG Bacterial blood culture - 10/25/18 15:45 Bacterial blood culture NG NRG Complete urinalysis with reflex to culture - 10/25/18 15:55 Urine color determination YELLOW NRG Urine clarity determination CLEAR NRG Urine pH measurement by test strip 5 5-9 Specific gravity of urine by test strip 1.025 1.016- 1.022 Urine protein assay by test strip, semi-quantitative 3+ NEGATIVE Urine glucose detection by automated test strip 2+ NEGATIVE Erythrocytes detection in urine sediment by light microscopy 5+ NEGATIVE Urine ketones detection by automated test strip 4+ NEGATIVE Urine nitrite detection by test strip POSITIVE NEGATIVE Urine total bilirubin detection by test strip 1+ NEGATIVE Urine urobilinogen measurement by automated test strip (mass/volume) 4 mg/dL NORMAL Urine leukocyte esterase detection by dipstick 2+ NEGATIVE Automated urine sediment erythrocyte count by microscopy (number/high power field) NONE NRG Automated urine sediment leukocyte count by microscopy (number/high power field ) [HPF] NRG Bacteria detection in urine sediment by light microscopy MODERATE NRG Squamous epithelial cells detection in urine sediment by light microscopy RARE NRG Crystals detection in urine sediment by light microscopy PRESENT NRG Casts detection in urine sediment by light microscopy PRESENT NRG Mucus detection in urine sediment by light microscopy MODERATE NRG Complete urinalysis with reflex to culture YES NRG Amorphous sediment detection in urine sediment by light microscopy MOD TRISHA URATES NRG Granular casts detection in urine sediment by light microscopy 0-2 NRG Bacterial urine culture - 10/25/18 15:55 Bacterial urine culture [id number] NRG COLONY COUNT >100,000/ML NRG FTX;REPORTABLE SUSCEPTIBILITY REPORTED 10/28/18 09:05 NR FREE TEXT ENTRY 3 RML SENT PRELIMINARY REPORT 10/26 15:05 NR RML Sensitivity Panel - 10/25/18 15:55 Gentamicin susceptibility test by minimum inhibitory concentration < = NRG Trimethoprim/sulfamethoxazole susceptibility test by minimum inhibitoryconcentration <= NRG Levofloxacin susceptibility test by minimum inhibitory concentration <= NRG Ampicillin susceptibility test by minimum inhibitory concentration > NRG Cefazolin susceptibility test by minimum inhibitory concentration 2 NRG Ceftriaxone susceptibility test by minimum inhibitory concentration <= NRG Ciprofloxacin susceptibility test by minimum inhibitory concentration <= NRG Meropenem susceptibility test by minimum inhibitory concentration < = NRG Nitrofurantoin susceptibility test by minimum inhibitory concentration <= NRG Amoxicillin and clavulanate potassium susc EFRAIN = NRG Bacterial blood culture - 10/25/18 16:02 Bacterial blood culture NG NRG Complete blood count (CBC) with automated white blood cell (WBC) differential - 10/26/18 06:04 Blood leukocytes automated count (number/volume) 23.0 10*3/uL 4.3-11.0 Blood erythrocytes automated count (number/volume) 3.86 10*6/uL 4.35-5.85 Venous blood hemoglobin measurement (mass/volume) 11.0 g/dL 13.3-17.7 Blood hematocrit (volume fraction) 34 % 40-54 Automated erythrocyte mean corpuscular volume 87 [foz_us] 80-99 Automated erythrocyte mean corpuscular hemoglobin (mass per erythrocyte) 28 pg 25-34 Automated erythrocyte mean corpuscular hemoglobin concentration measurement ( mass/volume) 33 g/dL 32-36 Automated erythrocyte distribution width ratio 14.1 % 10.0-14.5 Automated blood platelet count (count/volume) 258 10*3/uL 130-400 Automated blood platelet mean volume measurement 10.3 [foz_us] 7.4-10.4 Automated blood neutrophils/100 leukocytes 86 % 42-75 Automated blood lymphocytes/100 leukocytes 6 % 12-44 Blood monocytes/100 leukocytes 8 % 0-12 Automated blood eosinophils/100 leukocytes 0 % 0-10 Automated blood basophils/100 leukocytes 0 % 0-10 Blood neutrophils automated count (number/volume) 19.9 10*3 1.8-7.8 Blood lymphocytes automated count (number/volume) 1.4 10*3 1.0-4.0 Blood monocytes automated count (number/volume) 1.7 10*3 0.0-1.0 Automated eosinophil count 0.0 10*3/uL 0.0-0.3 Automated blood basophil count (count/volume) 0.0 10*3/uL 0.0-0.1 Comprehensive metabolic panel - 10/26/18 06:04 Serum or plasma sodium measurement (moles/volume) 134 mmol/L 135-145 Serum or plasma potassium measurement (moles/volume) 3.9 mmol/L 3.6-5.0 Serum or plasma chloride measurement (moles/volume) 103 mmol/L 98-107 Carbon dioxide 20 mmol/L 21-32 Serum or plasma anion gap determination (moles/volume) 11 mmol/L 5-14 Serum or plasma urea nitrogen measurement (mass/volume) 22 mg/dL 7-18 Serum or plasma creatinine measurement (mass/volume) 1.40 mg/dL 0.60-1.30 Serum or plasma urea nitrogen/creatinine mass ratio 16 NRG Serum or plasma creatinine measurement with calculation of estimated glomerular filtration rate 54 NRG Serum or plasma glucose measurement (mass/volume) 170 mg/dL 70-105 Serum or plasma calcium measurement (mass/volume) 8.7 mg/dL 8.5-10.1 Serum or plasma total bilirubin measurement (mass/volume) 0.8 mg/dL 0.1-1.0 Serum or plasma alkaline phosphatase measurement (enzymatic activity/volume) 94 U/L 40-136 Serum or plasma aspartate aminotransferase measurement (enzymatic activity/ volume) 10 U/L 5-34 Serum or plasma alanine aminotransferase measurement (enzymatic activity/volume ) 10 U/L 0-55 Serum or plasma protein measurement (mass/volume) 6.8 g/dL 6.4-8.2 Serum or plasma albumin measurement (mass/volume) 2.9 g/dL 3.2-4.5 CALCIUM CORRECTED 9.6 mg/dL 8.5-10.1 Capillary blood glucose measurement by glucometer (mass/volume) - 10/26/18 11: 09 Capillary blood glucose measurement by glucometer (mass/volume) 205 mg/dL 70-110 Methicillin resistant Staphylococcus aureus (MRSA) screening culture - 15:30 Methicillin resistant Staphylococcus aureus (MRSA) screening culture NEG NRG Capillary blood glucose measurement by glucometer (mass/volume) - 10/26/18 15: 56 Capillary blood glucose measurement by glucometer (mass/volume) 119 mg/dL 70-110 Capillary blood glucose measurement by glucometer (mass/volume) - 10/26/18 20: 38 Capillary blood glucose measurement by glucometer (mass/volume) 160 mg/dL 70-110 Capillary blood glucose measurement by glucometer (mass/volume) - 10/27/18 05: 14 Capillary blood glucose measurement by glucometer (mass/volume) 161 mg/dL 70-110 Complete blood count (CBC) with automated white blood cell (WBC) differential - 10/27/18 05:25 Blood leukocytes automated count (number/volume) 17.6 10*3/uL 4.3-11.0 Blood erythrocytes automated count (number/volume) 3.61 10*6/uL 4.35-5.85 Venous blood hemoglobin measurement (mass/volume) 10.4 g/dL 13.3-17.7 Blood hematocrit (volume fraction) 32 % 40-54 Automated erythrocyte mean corpuscular volume 88 [foz_us] 80-99 Automated erythrocyte mean corpuscular hemoglobin (mass per erythrocyte) 29 pg 25-34 Automated erythrocyte mean corpuscular hemoglobin concentration measurement ( mass/volume) 33 g/dL 32-36 Automated erythrocyte distribution width ratio 14.2 % 10.0-14.5 Automated blood platelet count (count/volume) 266 10*3/uL 130-400 Automated blood platelet mean volume measurement 9.8 [foz_us] 7.4-10.4 Automated blood neutrophils/100 leukocytes 85 % 42-75 Automated blood lymphocytes/100 leukocytes 8 % 12-44 Blood monocytes/100 leukocytes 7 % 0-12 Automated blood eosinophils/100 leukocytes 0 % 0-10 Automated blood basophils/100 leukocytes 0 % 0-10 Blood neutrophils automated count (number/volume) 15.0 10*3 1.8-7.8 Blood lymphocytes automated count (number/volume) 1.3 10*3 1.0-4.0 Blood monocytes automated count (number/volume) 1.2 10*3 0.0-1.0 Automated eosinophil count 0.1 10*3/uL 0.0-0.3 Automated blood basophil count (count/volume) 0.0 10*3/uL 0.0-0.1 Comprehensive metabolic panel - 10/27/18 05:25 Serum or plasma sodium measurement (moles/volume) 135 mmol/L 135-145 Serum or plasma potassium measurement (moles/volume) 3.9 mmol/L 3.6-5.0 Serum or plasma chloride measurement (moles/volume) 107 mmol/L 98-107 Carbon dioxide 18 mmol/L 21-32 Serum or plasma anion gap determination (moles/volume) 10 mmol/L 5-14 Serum or plasma urea nitrogen measurement (mass/volume) 16 mg/dL 7-18 Serum or plasma creatinine measurement (mass/volume) 1.18 mg/dL 0.60-1.30 Serum or plasma urea nitrogen/creatinine mass ratio 14 NRG Serum or plasma creatinine measurement with calculation of estimated glomerular filtration rate > NRG Serum or plasma glucose measurement (mass/volume) 145 mg/dL 70-105 Serum or plasma calcium measurement (mass/volume) 8.7 mg/dL 8.5-10.1 Serum or plasma total bilirubin measurement (mass/volume) 0.7 mg/dL 0.1-1.0 Serum or plasma alkaline phosphatase measurement (enzymatic activity/volume) 76 U/L 40-136 Serum or plasma aspartate aminotransferase measurement (enzymatic activity/ volume) 10 U/L 5-34 Serum or plasma alanine aminotransferase measurement (enzymatic activity/volume ) 9 U/L 0-55 Serum or plasma protein measurement (mass/volume) 6.6 g/dL 6.4-8.2 Serum or plasma albumin measurement (mass/volume) 2.8 g/dL 3.2-4.5 CALCIUM CORRECTED 9.7 mg/dL 8.5-10.1 Capillary blood glucose measurement by glucometer (mass/volume) - 10/27/18 11: 14 Capillary blood glucose measurement by glucometer (mass/volume) 124 mg/dL 70-110 Capillary blood glucose measurement by glucometer (mass/volume) - 10/27/18 15: 31 Capillary blood glucose measurement by glucometer (mass/volume) 182 mg/dL 70-110 Capillary blood glucose measurement by glucometer (mass/volume) - 10/27/18 20: 09 Capillary blood glucose measurement by glucometer (mass/volume) 144 mg/dL 70-110 Capillary blood glucose measurement by glucometer (mass/volume) - 10/28/18 05: 45 Capillary blood glucose measurement by glucometer (mass/volume) 131 mg/dL 70-110 Capillary blood glucose measurement by glucometer (mass/volume) - 10/28/18 11: 15 Capillary blood glucose measurement by glucometer (mass/volume) 225 mg/dL 70-110 Capillary blood glucose measurement by glucometer (mass/volume) - 10/28/18 16: 25 Capillary blood glucose measurement by glucometer (mass/volume) 132 mg/dL 70-110 Capillary blood glucose measurement by glucometer (mass/volume) - 10/28/18 21: 06 Capillary blood glucose measurement by glucometer (mass/volume) 229 mg/dL 70-110 Complete blood count (CBC) with automated white blood cell (WBC) differential - 10/29/18 05:10 Blood leukocytes automated count (number/volume) 10.5 10*3/uL 4.3-11.0 Blood erythrocytes automated count (number/volume) 3.61 10*6/uL 4.35-5.85 Venous blood hemoglobin measurement (mass/volume) 10.4 g/dL 13.3-17.7 Blood hematocrit (volume fraction) 32 % 40-54 Automated erythrocyte mean corpuscular volume 88 [foz_us] 80-99 Automated erythrocyte mean corpuscular hemoglobin (mass per erythrocyte) 29 pg 25-34 Automated erythrocyte mean corpuscular hemoglobin concentration measurement ( mass/volume) 33 g/dL 32-36 Automated erythrocyte distribution width ratio 14.0 % 10.0-14.5 Automated blood platelet count (count/volume) 287 10*3/uL 130-400 Automated blood platelet mean volume measurement 9.9 [foz_us] 7.4-10.4 Automated blood neutrophils/100 leukocytes 61 % 42-75 Automated blood lymphocytes/100 leukocytes 27 % 12-44 Blood monocytes/100 leukocytes 10 % 0-12 Automated blood eosinophils/100 leukocytes 1 % 0-10 Automated blood basophils/100 leukocytes 1 % 0-10 Blood neutrophils automated count (number/volume) 6.4 10*3 1.8-7.8 Blood lymphocytes automated count (number/volume) 2.9 10*3 1.0-4.0 Blood monocytes automated count (number/volume) 1.1 10*3 0.0-1.0 Automated eosinophil count 0.1 10*3/uL 0.0-0.3 Automated blood basophil count (count/volume) 0.1 10*3/uL 0.0-0.1 Whole blood basic metabolic panel - 10/29/18 05:10 Serum or plasma sodium measurement (moles/volume) 140 mmol/L 135-145 Serum or plasma potassium measurement (moles/volume) 3.7 mmol/L 3.6-5.0 Serum or plasma chloride measurement (moles/volume) 109 mmol/L 98-107 Carbon dioxide 20 mmol/L 21-32 Serum or plasma anion gap determination (moles/volume) 11 mmol/L 5-14 Serum or plasma urea nitrogen measurement (mass/volume) 13 mg/dL 7-18 Serum or plasma creatinine measurement (mass/volume) 0.91 mg/dL 0.60-1.30 Serum or plasma urea nitrogen/creatinine mass ratio 14 NRG Serum or plasma creatinine measurement with calculation of estimated glomerular filtration rate > NRG Serum or plasma glucose measurement (mass/volume) 135 mg/dL 70-105 Serum or plasma calcium measurement (mass/volume) 9.3 mg/dL 8.5-10.1 Capillary blood glucose measurement by glucometer (mass/volume) - 10/29/18 05: 22 Capillary blood glucose measurement by glucometer (mass/volume) 149 mg/dL 70-110 Capillary blood glucose measurement by glucometer (mass/volume) - 10/29/18 11: 42 Capillary blood glucose measurement by glucometer (mass/volume) 172 mg/dL 70-110 Encounters ACCT No. Visit Date/Time Discharge Status Pt. Type Provider Facility Loc./Unit Complaint [id number] 02/22/2015 16:24:00 02/22/2015 23:59:59 [facility] Outpatient CHRISTIANO MAHONEY APRN [id number] 10/26/2014 16:30:00 10/26/2014 23:59:59 [facility] Outpatient BILL MITCHELL DO [id number] 09/21/2014 16:11:00 09/21/2014 23:59:59 [facility] Outpatient DENZEL STACKER OPERATORCHRISTIANO Arreola [id number] 07/22/2014 11:58:00 07/22/2014 23:59:59 [facility] Outpatient CHRISTIANO MAHONEY APRN [id number] 06/20/2014 11:53:00 06/20/2014 23:59:59 [facility] Out[facility] CHRISTIANO MAHONEY APRN [id number] 05/16/2014 11:06:00 05/16/2014 23:59:59 [facility] Outpatient CHRISTIANO MAHONEY APRN [id number] 04/15/2014 09:42:00 04/15/2014 23:59:59 [facility] Outpatient CHRISTIANO MAHONEY APRN [id number] 04/13/2014 12:37:00 04/13/2014 23:59:59 [facility] Outpatient CHRISTIANO MAHONEY APRN [id number] 03/29/2014 10:45:00 03/29/2014 23:59:59 [facility] Outpatient BILL MITCHELL DO [id number] 09/02/2012 16:57:00 09/02/2012 23:59:59 [facility] Outpatient [id number] 06/22/2018 17:00:00 06/22/2018 23:59:59 [facility] Outpatient CHRISTIANO MAHONEY APRN [facility] [id number] 02/06/2018 10:20:00 Document Registration [id number] 11/11/2018 09:18:00 11/11/2018 09:36:00 DIS Outpatient RASHID BURGOS MD [facility] PREOP LEFT URETERAL STONE [id number] 11/04/2018 10:00:00 11/04/2018 23:59:59 [facility]LS Preadmit RASHID BURGOS MD [facility] SDC LEFT URETERAL STONE [id number] 11/03/2018 13:44:00 11/03/2018 23:59:59 [facility] Outpatient RASHID BURGOS MD [facility] RAD LT URETERAL STONE [id number] 11/03/2018 15:00:00 11/03/2018 15:00:00 CAN Preadmit RASHID BURGOS MD [facility] PREOP LEFT ESWL [id number] 10/25/2018 17:56:00 10/29/2018 12:40:00 DIS Inpatient BILL MITCHELL DO [facility] 4TH L PYELONPHRITIS, L URETERAL STONE, SEPSIS
[2018-11-17 06:15] VITALS: BP 146/84
[2018-11-17] MEDS ORDERED: LACTATED RINGERS 1,000 ML IV PRN (06:37)
[2018-11-17] MEDS ORDERED: cefTRIAXone FOR IV USE 1,000 MG in NS (IVPB) 50 ML IV ONE (06:45)
[2018-11-17] MEDS ORDERED: fentaNYL INJECTION 100 MCG/2 ML AMP ONE (06:58)
[2018-11-17] MEDS ORDERED: FUROSEMIDE 40 MG/4 ML INJ (LASIX) ONE (06:58)
[2018-11-17] MEDS ORDERED: SEVOFLURANE (ULTANE) 15 ML INHAL SOLN ONE (06:58)
[2018-11-17] MEDS ORDERED: LIDOCAINE PF 2% 5 ML (XYLOCAINE) VIAL ONE (06:58)
[2018-11-17] MEDS ORDERED: MIDAZOLAM 2 MG/2 ML (VERSED) VIAL ONE (06:58)
[2018-11-17] MEDS ORDERED: proPOfol 200 MG/20 ML (DIPRIVAN) VIAL IV ONE (06:58)
[2018-11-17] MEDS ORDERED: ONDANSETRON 4 MG/2 ML (SDV) Z0FRAN ONE (06:58)
--- NOTE | 2018-11-17 07:06 | Progress Note-Pre Operative ---
Pre-Operative Progress Note H&P Reviewed The H&P was reviewed, patient examined and no changes noted. Date Seen by Provider: Nov 17, 2018 Time Seen by Provider: 07:06 Date H&P Reviewed: Nov 17, 2018 Time H&P Reviewed: 07:06 Pre-Operative Diagnosis: LT RENAL STONE RASHID BURGOS MD Nov 17, 2018 07:06
[2018-11-17] MEDS: LACTATED RINGERS 1,000 ML IV PRN ×2 (07:15→08:05)
--- NOTE | 2018-11-17 07:33 | Progress Note-Post Operative ---
Post-Operative Progess Note Surgeon (s)/Exhauster Engineer (s) Surgeon RASHID BURGOS MD Exhauster Engineer: NONE Pre-Operative Diagnosis LT RENAL STONE AND URETHRAL STRICTURES Post-Operative Diagnosis SAME Procedure & Operative Findings Date of Procedure 11/17/18 Procedure Performed/Findings LT ESWL , CYSTOSCOPY WITH ATTEMPTED REMOVAL OF STENT Anesthesia Type GENERAL Estimated Blood Loss Estimated blood loss (mL): NONE Specimens/Packing Specimens Removed NONE Packing: NONE RASHID BURGOS MD Nov 17, 2018 07:33
--- NOTE | 2018-11-17 07:35 | Discharge Inst-Urology ---
Discharge Inst-Urology Discharge Medications New, Converted, or Re-newed RX: RX on Chart Patient Instructions/Follow Up Plan Discharge with marina and leg bag day time and large bag night time with instructions. Office tomorrow 9am [address] Post ESWL instructions Off ASA Increase oral fluids for 48 hours and then as needed. Diet and Activity as tolerated. If questions or concerns contact your physician Or seek help at emergency department. RASHID BURGOS MD Nov 17, 2018 07:35
[2018-11-17] MEDS ORDERED: PHENYLEPHRINE 100 MCG/ML 10 ML (ANESTHESIA) SYR ONE (07:47)
--- NOTE | 2018-11-17 08:10 | Diagnostic Imaging Report ---
INDICATION: Left-sided extracorporeal shock wave lithotripsy. TECHNIQUE: 2 supine view of the abdomen 7:37 AM CORRELATION STUDY: 11/03/2018 FINDINGS: Left-sided ureteral stent remains in place in unchanged configuration. 11 mm calcification of the inferior pole of the left kidney appears relatively stable. No definitive calcification along the course of the stent. Bowel gas pattern appearing relatively unremarkable. Vascular type calcifications are present. IMPRESSION: 1. Stable configuration of left ureteral stent as well as a calcification projecting over the inferior pole left kidney. Dictated by: Dictated on workstation # [id number]
--- NOTE | 2018-11-17 08:20 | OPERATIVE REPORT ---
DATE OF SERVICE: 11/17/2018 PREOPERATIVE DIAGNOSES: 1. Left renal stone. 2. Urethral strictures. POSTOPERATIVE DIAGNOSES: 1. Left renal stone. 2. Urethral strictures. OPERATION PERFORMED: Left ESWL, cystoscopy and attempted removal of stent. SURGEON: Gustavo Burgos MD. ANESTHESIA: General. COMPLICATIONS: None. PROCEDURE: Under satisfactory general anesthesia, the patient in supine position on the ESWL table, the left renal stone was localized. Shocks were delivered at a kV of 4. A total of 3000 shocks completely fragmented the stone. The genitalia were prepped and draped in the usual sterile fashion. Flexible cystoscope was introduced under vision. With quite a bit of manipulation, I was able to enter the bladder by passing several strictures. The bladder was pulled, not able to get to the stent and then the scope deflected, the flexion mechanism broke, could not use it anymore, so I removed the cystoscope and inserted a 16-Estonian Parrish catheter, drained the bladder and left it indwelling. The patient tolerated the procedure and anesthesia well, was sent to recovery room in stable condition. PLAN: Tomorrow, we will start soft dilatation at the office daily and then on Friday at the office, we will do cystoscopy and removal of stent, later on, we will deal with the strictures. Job ID: [id number] DocumentID: [id number] Dictated Date: 11/17/2018 08:09:04 Transplant Rn Date: 11/17/2018 08:19:38 Dictated By: GUSTAVO BURGOS MD
[2018-11-17] MEDS ORDERED: ONDANSETRON 4 MG/2 ML (SDV) Z0FRAN IVP PRN (08:30)
[2018-11-17] MEDS ORDERED: morphine INJ 10 MG/ML 1ML (SYR OR VIAL) IVP ONE (08:30)
[2018-11-17 09:10] VITALS: BP 138/89
[2018-11-17 09:15] VITALS: BP 138/89
[2018-11-17 09:40] VITALS: BP 130/83
[2018-11-17] MEDS ORDERED: HYDROcodone/APAP 5 MG/325 MG (LORTAB) TAB PO ONE (10:00)
[2018-11-17] MEDS ORDERED: HYDROcodone/APAP 5 MG/325 MG (LORTAB) TAB ONE (10:01)
[2018-11-17 10:10] VITALS: BP 132/76
[2018-11-17] MEDS ORDERED: HYDR-3870 PO (10:25)
[2018-11-17] MEDS ORDERED: NITR-68 PO (10:25)
[2018-11-17] MEDS ORDERED: TAMS0.4C98 PO (10:25)
--- NOTE | 2018-11-17 12:49 | Diagnostic Imaging Report ---
INDICATION: Post extracorporeal shock wave lithotripsy.. TECHNIQUE: 2 supine view of the abdomen 10:42 AM CORRELATION STUDY: 11/17/2018 FINDINGS: Left-sided ureteral stent unchanged. Calcification projecting over the inferior pole of the left kidney appears to be likely in two fragments, changed from prior study. No definitive calcification along expected course of either ureter. IMPRESSION: 1. Previously noted calcification of the inferior pole left kidney appears to be a likely be in 2 parts post lithotripsy. Dictated by: Dictated on workstation # [id number]
--- NOTE | 2018-11-17 14:30 | Anesthesia-General Post-Op ---
General Patient Condition Mental Status/LOC: Same as Preop Cardiovascular: Satisfactory Nausea/Vomiting: Absent Respiratory: Satisfactory Pain: Controlled Complications: Absent Post Op Complications Complications None Follow Up Care/Instructions Patient Instructions None needed. Anesthesia/Patient Condition Patient Condition Patient is doing well, no complaints, stable vital signs, no apparent adverse anesthesia problems. No complications reported per nursing. CINDY DENNISON CRNA Nov 17, 2018 14:30
--- NOTE | 2018-11-17 14:36 | Anesthesia-General Post-Op ---
General Patient Condition Mental Status/LOC: Same as Preop Cardiovascular: Satisfactory Nausea/Vomiting: Absent Respiratory: Satisfactory Pain: Controlled Complications: Absent Post Op Complications Complications None Follow Up Care/Instructions Patient Instructions None needed. Anesthesia/Patient Condition Patient Condition Patient is doing well, no complaints, stable vital signs, no apparent adverse anesthesia problems. No complications reported per nursing. SHANTEL BULLOCK CRNA Nov 17, 2018 14:36
== END 2018-11-17 11:30 | disposition home or self-care (01) ==
LOC: SDC 06:00
PROVIDERS: ATTEND Urology
DX: N20.0 Calculus of kidney (principal); N35.919 Unspecified urethral stricture, male, unspecified site; I10 Essential (primary) hypertension; I11.9 Hypertensive heart disease without heart failure; G47.33 Obstructive sleep apnea (adult) (pediatric); F17.210 Nicotine dependence, cigarettes, uncomplicated; E66.01 Morbid (severe) obesity due to excess calories; Z68.42 Body mass index [BMI] 45.0-49.9, adult; Z79.82 Long term (current) use of aspirin; Z79.84 Long term (current) use of oral hypoglycemic drugs; Z79.899 Other long term (current) drug therapy
CPT/HCPCS: 74018; 82962; 87081

== ENCOUNTER → 2018-11-20 | Outpatient (CLI) | payer SELFPAY ==
[~2018-11-20] MED LIST changes: +HYDR-3870 PO; +NITR-68 PO; +TAMS0.4C98 PO
--- NOTE | 2018-11-20 13:30 | Diagnostic Imaging Report ---
INDICATION: Extracorporeal shock wave lithotripsy. TECHNIQUE: Single supine view of the abdomen 11:30 AM CORRELATION STUDY: 11/17/2018 FINDINGS: Left ureteral stent unchanged in position and configuration. Multiple calcified fragments of renal stones projecting over the mid inferior pole of the left kidney are noted. These do appear to be changed in their overall appearance, smaller and distributed over a greater portion of the kidney compared to the prior study. Definitive calcification along the course of the stent however is not suggested. Moderate amount of overlying bowel gas and stool is present obscuring detail. Rather advanced degenerative change about the lumbar spine. IMPRESSION: 1. Change in the overall appearance, size and distribution of the calcification of the left kidney post lithotripsy. Dictated by: Dictated on workstation # [id number]
== END ==
LOC: LAB 10:08
PROVIDERS: ATTEND Urology
DX: N20.0 Calculus of kidney (principal); N28.89 Other specified disorders of kidney and ureter
CPT/HCPCS: 74018

== ENCOUNTER 2021-01-03 19:52 | Inpatient (IN) | payer OTHER ==
[~2021-01-03] VITALS: Ht 165.1 cm; Wt 154.6 kg
[~2021-01-03 19:52] MED LIST changes: +ACHYD1T PO; -HYDR-3820 PO; +LOSA50TA63 PO; -LOSA50TA7 PO; -TAMS0.4C98 PO; +TMSL.4C PO
[2021-01-03] MEDS ORDERED: fentaNYL INJECTION 100 MCG/2 ML AMP IVP ONE (20:15)
[2021-01-03] MEDS ORDERED: PANTOPRAZOLE 40 MG (PROTONIX) VIAL IV ONE (20:15)
[2021-01-03] MEDS ORDERED: NS IV 1000 ML 1,000 ML IV SCH (20:15)
--- NOTE | 2021-01-03 20:15 | ED Abdominal Pain ---
General Chief Complaint: Abdominal/GI Problems Stated Complaint: STOMACH PAIN Source of Information: Patient Exam Limitations: No Limitations History of Present Illness Date Seen by Provider: Jan 03, 2021 Time Seen by Provider: 20:05 Initial Comments Patient presents ER by private conveyance from home with chief complaint of epigastric abdominal pain with some occasional nausea and a couple episodes of diarrhea 3 days ago. The pain initiated a week ago and has progressively gotten worse. He was able to pass a very small stool last night. He has a history of multiple abdominal surgeries related to bowel rupture and subsequent surgeries to stoma as well as multiple ventral hernias. He has not seen anybody for it because he thought maybe it was food poisoning at first. No fevers or chills. No one else was sick. He has not vomited for several days. He is only been eating and drinking small amounts. He did take 2 tablets of 7.5 mg Percocet each a few hours prior to arrival with no relief of symptoms. Rates his pain as a 9 out of 10. He thinks his gallbladder and appendix are still intact. He tried Tums, Mylanta without relief of symptoms. He is insulin-dependent diabetic but denies a history of gastroparesis. Allergies and Home Medications Allergies Coded Allergies: naproxen (Verified Allergy, Unknown, 10/25/18) Home Medications Cyclobenzaprine HCl 10 Mg Tablet, 10 MG PO TID PRN for MUSCLE SPASMS, (Reported) Glipizide 10 Mg Tablet, 20 MG PO BID, (Reported) TAKES 2 (10MG) TABLETS Hydrocodone Bit/Acetaminophen 1 Each Tablet, 1 TAB PO Q6H PRN for PAIN-MILD TO MODERATE, (Reported) Hydrocodone/Acetaminophen 1 Each Tablet, 1-2 EACH PO Q6H PRN for PAIN-MODERATE Prescribed by: NAGA PASCUAL on 11/17/18 1025 Liraglutide 0.6 Mg/0.1 Ml Pen.injctr, 1.8 UNITS SQ DAILY, (Reported) Losartan Potassium 50 Mg Tablet, 100 MG PO HS Prescribed by: BILL MITCHELL on 10/29/18 0529 Metformin HCl 1,000 Mg Tablet, 1,000 MG PO BID WITH MEALS, (Reported) Nitrofurantoin Macrocrystal 100 Mg Capsule, 100 MG PO BID Prescribed by: NAGA PASCUAL on 11/17/18 1025 Pioglitazone HCl 30 Mg Tablet, 30 MG PO DAILY, (Reported) Ranitidine HCl 150 Mg Tablet, 150 MG PO BID, (Reported) Sildenafil Citrate 100 Mg Tablet, 100 MG PO DAILY PRN for ED, (Reported) Tamsulosin HCl 0.4 Mg Cap, 0.4 MG PO DAILY Prescribed by: NAGA PASCUAL on 11/17/18 1025 Patient Home Medication List Home Medication List Reviewed: Yes Review of Systems Review of Systems Constitutional: No chills, No diaphoresis EENTM: No Blurred Vision, No Double Vision Respiratory: Denies Cough, Denies Shortness of Air Cardiovascular: Denies Chest Pain, Denies Lightheadedness Gastrointestinal: See HPI, Abdomen Distended, Abdominal Pain; Denies Constipated; Diarrhea, Nausea, Poor Fluid Intake Genitourinary: Denies Burning, Denies Discharge Musculoskeletal: No back pain, No joint pain Skin: No change in color, No pruritus Psychiatric/Neurological: Denies Anxiety, Denies Depressed All Other Systems Reviewed Negative Unless Noted: Yes Past Oqcdpvc-Ycurcv-Uytupa Hx Patient Social History Alcohol Use: Denies Use Smoking Status: Current Everyday Smoker Type Used: Cigarettes Recent Hopitalizations: No Immunizations Up To Date Tetanus Booster (TDap): Unknown PED Vaccines UTD: No Date of Pneumonia Vaccine: Oct 03, 2014 Seasonal Allergies Seasonal Allergies: No Past Medical History Surgeries: Yes (bowel resection, ostomy, and reversal) Respiratory: Yes Sleep Apnea Currently Using CPAP: Yes Currently Using BIPAP: No Cardiac: Yes High Cholesterol, Hypertension Neurological: No Reproductive Disorders: No Genitourinary: No Kidney Stones Gastrointestinal: Yes (bowel resection due to rupture) Abdominal Hernia, Hiatal Hernia Musculoskeletal: No Endocrine: Yes Diabetes, Non-Insulin dep HEENT: No Cancer: No Psychosocial: No Integumentary: No Blood Disorders: No Physical Exam Vital Signs Vital Signs - First Documented 01/03/21 20:12 Temp 36.7 Pulse 90 Resp 20 B/P (MAP) 176/88 (117) Capillary Refill : Height/Weight/BMI Height: 5'5.00" Weight: 280lbs. 0.0oz. 127.946362qn; 46.6 BMI Method:Stated General Appearance: WD/WN, moderate distress HEENT: PERRL/EOMI, pharynx normal Neck: full range of motion, normal inspection Respiratory: lungs clear, normal breath sounds, no respiratory distress, no accessory muscle use Cardiovascular: normal peripheral pulses, regular rate, rhythm Peripheral Pulses: 2+ Radial Pulses (R), 2+ Radial Pulses (L) Gastrointestinal: normal bowel sounds (Active), guarding; No rebound; te nderness (Epigastric and right upper quadrant) Extremities: normal range of motion, normal inspection, normal capillary refill Neurologic/Psychiatric: alert, oriented x 3, other (Anxious affect) Skin: normal color, warm/dry Progress/Results/Core Measures Results/Orders Lab Results Laboratory Tests Test 01/03/21 20:10 01/03/21 20:15 Range/Units White Blood Count 15.3 H 4.3-11.0 10^3/uL Red Blood Count 4.85 4.30-5.52 10^6/uL Hemoglobin 13.1 L 13.3-17.7 g/dL Hematocrit 42 40-54 % Mean Corpuscular Volume 86 80-99 fL Mean Corpuscular Hemoglobin 27 25-34 pg Mean Corpuscular Hemoglobin Concent 32 32-36 g/dL Red Cell Distribution Width 14.5 10.0-14.5 % Platelet Count 332 130-400 10^3/uL Mean Platelet Volume 9.6 9.0-12.2 fL Immature Granulocyte % (Auto) 0 % Neutrophils (%) (Auto) 76 H 42-75 % Lymphocytes (%) (Auto) 15 12-44 % Monocytes (%) (Auto) 7 0-12 % Eosinophils (%) (Auto) 1 0-10 % Basophils (%) (Auto) 0 0-10 % Neutrophils # (Auto) 11.6 H 1.8-7.8 10^3/uL Lymphocytes # (Auto) 2.3 1.0-4.0 10^3/uL Monocytes # (Auto) 1.1 H 0.0-1.0 10^3/uL Eosinophils # (Auto) 0.1 0.0-0.3 10^3/uL Basophils # (Auto) 0.1 0.0-0.1 10^3/uL Immature Granulocyte # (Auto) 0.1 0.0-0.1 10^3/uL Neutrophils % (Manual) 76 % Lymphocytes % (Manual) 19 % Monocytes % (Manual) 4 % Eosinophils % (Manual) 1 % Blood Morphology Comment NORMAL Sodium Level 140 135-145 MMOL/L Potassium Level 4.3 3.6-5.0 MMOL/L Chloride Level 101 98-107 MMOL/L Carbon Dioxide Level 24 21-32 MMOL/L Anion Gap 15 H 5-14 MMOL/L Blood Urea Nitrogen 19 H 7-18 MG/DL Creatinine 1.14 0.60-1.30 MG/DL Estimat Glomerular Filtration Rate > 60 BUN/Creatinine Ratio 17 Glucose Level 252 H 70-105 MG/DL Calcium Level 9.5 8.5-10.1 MG/DL Corrected Calcium 9.7 8.5-10.1 MG/DL Total Bilirubin 0.4 0.1-1.0 MG/DL Aspartate Amino Transf (AST/SGOT) 19 5-34 U/L Alanine Aminotransferase (ALT/SGPT) 40 0-55 U/L Alkaline Phosphatase 70 40-136 U/L C-Reactive Protein High Sensitivity 6.10 H 0.00-0.50 MG/DL Total Protein 7.5 6.4-8.2 GM/DL Albumin 3.8 3.2-4.5 GM/DL Lipase 29 8-78 U/L Glucometer 239 H 70-110 MG/DL My Orders Orders - LAUREL ADAME Fentanyl Injection (Sublimaze Injection (01/03/21 20:15) Pantoprazole Injection (Protonix Injecti (01/03/21 20:15) Ct Abdomen/Pelvis W (01/03/21 20:12) Ed Iv/Invasive Line Start (01/03/21 20:12) Ns Iv 1000 Ml (Sodium Chloride 0.9%) (01/03/21 20:15) Cbc With Automated Diff (01/03/21 20:12) Comprehensive Metabolic Panel (01/03/21 20:12) Hs C Reactive Protein (01/03/21 20:12) Lipase (01/03/21 20:12) Ua Culture If Indicated (01/03/21 20:12) Accucheck Stat ONCE (01/03/21 20:15) Manual Differential (01/03/21 20:10) Iohexol Injection (Omnipaque 350 Mg/Ml 1 (01/03/21 21:00) Received Contrast (Hold Metformin- Contr (01/03/21 21:00) Ns (Ivpb) (Sodium Chloride 0.9% Ivpb Bag (01/03/21 21:00) Hydromorphone Injection (Dilaudid Inject (01/03/21 21:15) Ketamine Syringe (Ed Only) (Ketamine Syr (01/03/21 21:45) Hydromorphone Injection (Dilaudid Inject (01/03/21 21:45) Medications Given in ED Current Medications Medications Dose Ordered Sig/Son Route Start Time Stop Time Status Last Admin Dose Admin Fentanyl Citrate 100 mcg ONCE ONCE IVP 01/03/21 20:15 01/03/21 20:16 DC 01/03/21 20:20 100 MCG Hydromorphone HCl 0.5 mg ONCE ONCE IV 01/03/21 21:15 01/03/21 21:16 DC 01/03/21 21:19 0.5 MG Iohexol 100 ml ONCE ONCE IV 01/03/21 21:00 01/03/21 21:01 UNV 01/03/21 21:06 100 ML Pantoprazole 40 mg ONCE ONCE IV 01/03/21 20:15 01/03/21 20:16 DC 01/03/21 20:23 40 MG Sodium Chloride 100 ml ONCE ONCE IV 01/03/21 21:00 01/03/21 21:01 UNV 01/03/21 21:06 100 ML Vital Signs/I&O 01/03/21 20:12 Temp 36.7 Pulse 90 Resp 20 B/P (MAP) 176/88 (117) Progress Progress Note : Time: 20:18 Progress Note Plan to give him a dose of pantoprazole and some fentanyl 100 mcg to attempt to control his discomfort. Plan to get a CT of his abdomen and pelvis. He has already tried antacids without much success. We will get a lipase and some labs as well as a urine to help us locate the source of his severe discomfort. Gallbladder is certainly a culprit as well as a possible ulcer. Pancreatitis, internal hernia/adhesions with possible obstruction. Mildly elevated heart rate of 105 likely due to pain. Will give a liter of fluids and reassess. Diagnostic Imaging Diagonstic Imaging: CT Plain Films/CT/US/NM/MRI: abdomen, pelvis Comments NAME: BROOK GARCIA MED REC#: [id number] PT STATUS: REG ER : 1970 PHYSICIAN: LAUREL ADAME MD ADMIT DATE: 01/03/21/ER Signed Date of Exam:01/03/21 CT ABDOMEN/PELVIS W EXAMINATION: CT abdomen and pelvis with intravenous contrast. TECHNIQUE: Multiple contiguous axial images were obtained through the abdomen and pelvis after the uneventful administration of intravenous contrast. All CT scans use one or more of the following dose optimizing techniques: automated exposure control, MA and/or KvP adjustment based on patient size and exam type or iterative reconstruction. HISTORY: Abdominal pain. Nausea and vomiting. Bloating. COMPARISON: 10/25/2018. FINDINGS: The heart is unremarkable. The included lung bases are clear. Dilated and fluid-filled loops of small bowel are seen throughout the mid abdomen. A ventral hernia right of midline in the periumbilical region is seen containing loops of small bowel, representing the transition point. No evidence of free air or free fluid in the abdomen and pelvis. Normal appendix is seen in the right lower quadrant. Stable right adrenal adenoma. The left adrenal gland is unremarkable. The liver, spleen, pancreas and kidneys have a normal appearance. There is no pathologically enlarged mesenteric or retroperitoneal adenopathy. No acute osseous abnormality. The urinary bladder is nondistended. There is no free air, loculated collection or adenopathy in the pelvis. IMPRESSION: Small bowel obstruction with the transition point in a ventral hernia right of midline in the periumbilical region containing loops of small bowel. No free fluid or free air in the abdomen or pelvis. Dictated by: Dictated on workstation # [id number] Dict: 01/03/212113 Trans: 01/03/212128 [facility] [id number] Interpreted by: SUDHEER KINCAID DO Electronically signed by: SUDHEER KINCAID DO 01/03/212128 Reviewed: Reviewed by Md Departure Communication (Admissions) Time/Spoke to Admitting Phy: 21:45 Discussed the case with Dr. Mccray and he agrees for ice chips but otherwise n.p.o. IV fluids, pain and nausea medicines. Consult to medical service Time/Spoke to Consulting Phy: 21:50 Discussed the case with Dr. Wellington and she agrees with the plan of care. She agrees to consult. Impression Primary Impression: Ventral hernia with bowel obstruction Disposition: ADMITTED INPATIENT Condition: Stable Admissions Decision to Admit Reason: Admit from ER (General) Decision to Admit/Date: Jan 03, 2021 Time/Decision to Admit Time: 21:40 Departure-Patient Inst. Referrals: [facility] (PCP) Primary Care Physician CHRISTIANO MAHONEY (Family) Primary Care Physician LAUREL ADAME Jan 03, 2021 20:15
[2021-01-03 20:19] LABS: BASOPHILS # (AUTO) 0.1 10^3/uL (0.0-0.1); BASOPHILS % (AUTO) 0 % (0-10); EOSINOPHILS # (AUTO) 0.1 10^3/uL (0.0-0.3); EOSINOPHILS % (AUTO) 1 % (0-10); HEMATOCRIT 42 % (40-54); HEMOGLOBIN 13.1 g/dL (13.3-17.7); LYMPHOCYTES # (AUTO) 2.3 10^3/uL (1.0-4.0); LYMPHOCYTES % (AUTO) 15 % (12-44); MEAN CORPUSCULAR HEMOGLOBIN 27 pg (25-34); MEAN CORPUSCULAR HGB CONC 32 g/dL (32-36); MEAN CORPUSCULAR VOLUME 86 fL (80-99); MEAN PLATELET VOLUME 9.6 fL (9.0-12.2); MONOCYTES # (AUTO) 1.1 10^3/uL (0.0-1.0); MONOCYTES % (AUTO) 7 % (0-12); NEUTROPHILS # (AUTO) 11.6 10^3/uL (1.8-7.8); NEUTROPHILS % (AUTO) 76 % (42-75); PLATELET COUNT 332 10^3/uL (130-400); WHITE BLOOD COUNT 15.3 10^3/uL (4.3-11.0)
[2021-01-03 20:43] LABS: ALANINE AMINOTRANSFERASE 40 U/L (0-55); ALBUMIN 3.8 GM/DL (3.2-4.5); ALKALINE PHOSPHATASE 70 U/L (40-136); BILIRUBIN,TOTAL 0.4 MG/DL (0.1-1.0); BUN/CREATININE RATIO 17; CALCIUM 9.5 MG/DL (8.5-10.1); CARBON DIOXIDE 24 MMOL/L (21-32); CHLORIDE 101 MMOL/L (98-107); CREATININE SERUM 1.14 MG/DL (0.60-1.30); GFR ESTIMATED > 60; GLUCOSE 252 MG/DL (70-105); LIPASE 29 U/L (8-78); NEUTROPHILS % (MANUAL) 76 %; POTASSIUM 4.3 MMOL/L (3.6-5.0); SODIUM 140 MMOL/L (135-145); TOTAL PROTEIN 7.5 GM/DL (6.4-8.2)
[2021-01-03 20:44] LABS: EOSINOPHILS % (MANUAL) 1 %; LYMPHOCYTES % (MANUAL) 19 %; MONOCYTES % (MANUAL) 4 %; RBC MORPH NORMAL
[2021-01-03] MEDS ORDERED: HOLD METFORMIN - RECEIVED CONTRAST 20 ML VIAL IV SCH (21:00)
[2021-01-03] MEDS ORDERED: NS 100 ML (IVPB) BAG IV ONE (21:00)
[2021-01-03] MEDS ORDERED: IOHEXOL 350 MG/ML 100 ML (OMNIPAQUE 350) VIAL IV ONE (21:00)
[2021-01-03] MEDS ORDERED: HYDROmorphone 2 MG/ML VIAL (DILAUDID) IV ONE ×2 (21:15→21:45)
--- NOTE | 2021-01-03 21:21 | Diagnostic Imaging Report ---
EXAMINATION: CT abdomen and pelvis with intravenous contrast. TECHNIQUE: Multiple contiguous axial images were obtained through the abdomen and pelvis after the uneventful administration of intravenous contrast. All CT scans use one or more of the following dose optimizing techniques: automated exposure control, MA and/or KvP adjustment based on patient size and exam type or iterative reconstruction. HISTORY: Abdominal pain. Nausea and vomiting. Bloating. COMPARISON: 10/25/2018. FINDINGS: The heart is unremarkable. The included lung bases are clear. Dilated and fluid-filled loops of small bowel are seen throughout the mid abdomen. A ventral hernia right of midline in the periumbilical region is seen containing loops of small bowel, representing the transition point. No evidence of free air or free fluid in the abdomen and pelvis. Normal appendix is seen in the right lower quadrant. Stable right adrenal adenoma. The left adrenal gland is unremarkable. The liver, spleen, pancreas and kidneys have a normal appearance. There is no pathologically enlarged mesenteric or retroperitoneal adenopathy. No acute osseous abnormality. The urinary bladder is nondistended. There is no free air, loculated collection or adenopathy in the pelvis. IMPRESSION: Small bowel obstruction with the transition point in a ventral hernia right of midline in the periumbilical region containing loops of small bowel. No free fluid or free air in the abdomen or pelvis. Dictated by: Dictated on workstation # [id number]
[2021-01-03] MEDS ORDERED: KETAMINE/NaCl 50 MG/5 ML SYRINGE (ED ONLY) IV ONE (21:45)
[2021-01-03 22:04] LABS: BILIRUBIN,URINE 1+ (NEGATIVE); CLARITY,URINE CLEAR; COLOR,URINE YELLOW; GLUCOSE, URINE (UA) TRACE (NEGATIVE); KETONES,URINE NEGATIVE (NEGATIVE); LEUKOCYTE ESTERASE ,URINE NEGATIVE (NEGATIVE); NITRITE,URINE NEGATIVE (NEGATIVE); PROTEIN,URINE 1+ (NEGATIVE)
[2021-01-03 22:17] LABS: AMORPHOUS SEDIMENT,UR FEW AMOR URATES /LPF; BACTERIA,URINE TRACE /HPF; RBC,URINE 0-2 /HPF
--- NOTE | 2021-01-03 23:07 | HISTORY AND PHYSICAL ---
DATE OF SERVICE: ATTENDING LUNCHROOM SUPERVISOR: Devaughn Zelaya APRN HISTORY OF PRESENT ILLNESS: The patient is a 50-year-old male who presented to the Emergency Department with abdominal pain. He reports that he has had this pain for the past week, which is crampy in nature and focused more in the right lower abdominal quadrant. He does have a number of medical comorbidities including morbid obesity and appears to have had a perforated diverticulitis at some point requiring sigmoidectomy and an end colostomy, which was later reversed. Since that time, he has had multiple hernias, which were repaired. CT scan was performed, which did show a recurrent incisional hernia of significant size with omentum and small bowel within the hernia sac. This appears to be chronic. He states that he does have some intermittent episodes of nausea; however, no vomiting. He reports that he has had diarrhea for the past few days. He does not report any fever, no chills. PAST MEDICAL HISTORY: Diabetes, hypertension, gastroesophageal reflux disease, hypercholesterolemia, sleep apnea, nephrolithiasis. PAST SURGICAL HISTORY: Exploratory laparotomy, resection of perforated diverticulitis, end colostomy, reversal colostomy, multiple hernia repairs. ALLERGIES: NAPROXEN. MEDICATIONS: Glipizide, liraglutide, losartan, metformin, nitrofurantoin, pioglitazone, ranitidine, tamsulosin, sildenafil, cyclobenzaprine, hydrocodone. SOCIAL HISTORY: Positive smoke 30 pack years. Negative alcohol. FAMILY HISTORY: Noncontributory. VITAL SIGNS: Temperature 36.7, blood pressure 176/88, pulse 90, respirations 20. REVIEW OF SYSTEMS: Well-nourished male, currently guarded secondary to the abdominal pain. He is not experiencing any shortness of breath or difficulty breathing. No chest pain, palpitations, diaphoresis. Intermittent episodes of nausea, no vomiting. He has had diarrhea in the past few days; however, this resolved and states that he did have a small bowel movement earlier today. No red blood per rectum, no dark tarry stools. No fever, chills, no recent inadvertent weight loss. All other review of systems negative. PHYSICAL EXAMINATION: CHEST: Decreased breath sounds, bibasilar. HEART: Regular, no murmurs. EXTREMITIES: A +1/3 bilateral lower extremity edema, negative Homans sign. HEENT: No scleral icterus. NECK: No cervical lymphadenopathy. ABDOMEN: Soft. There is pain in the right mid to lower abdominal quadrant with a palpable mass consistent with chronically incarcerated incisional hernia. SKIN: Warm, dry. LABORATORY DATA: WBC 15.3, hemoglobin 13.1, hematocrit 42, platelets 332, BUN 19, creatinine 1.14. ASSESSMENT AND PLAN: A 50-year-old male with chronic large reducible incisional hernia. At this time, it appears that he does not fully obstructed; however, has some level of partial small bowel obstruction likely due to the hernia. He is morbidly obese and does have significant medical comorbidities and does have elevated risk for complications as well as hernia reoccurrence due to his body habitus. At this time, we will treat him conservatively with bowel rest and IV hydration as well as pain control. We will discuss the possibility of surgery; however, ideally, he will need to lose weight and may need a component separation and biologic mesh implantation, which may be better served by a hernia specialist. We will continue to discuss these options. Job ID: [id number] DocumentID: [id number] Dictated Date: 01/03/2021 22:38:34 Feeder Loader Date: 01/03/2021 23:07:25 Dictated By: MORAIMA PEREA MD [facility]ITAL[facility]iv[facility]
[2021-01-03 23:10] VITALS: BP 141/87
--- NOTE | 2021-01-03 23:10 | NUR ---
BROOK GARCIA admitted to room 419-1, with an admitting diagnosis of small Bowel obstruction, on 01/03/21 from ER via , accompanied by ER STAFF. BROOK AGRCIA introduced to surroundings, call light, bed controls, phone, TV, temperature control, lights, meal times, smoking policy, visitor policy, side rail policy, bathrooms and showers. Patient Rights given to patient in the handbook. BROOK GARCIA verbalizes understanding that [facility] is not responsible for the loss or damage to any personal effects or valuables that are kept in the patients possession during their hospitalization. BROOK GARCIA verbalizes understanding of Interdisciplinary Patient Education. Patient and/or family were informed about the Rapid Response Team and its purpose.
[2021-01-03] MEDS: NS IV 1000 ML 1,000 ML IV SCH (23:26)
--- NOTE | 2021-01-03 23:26 | Progress Note-Pre Operative ---
Pre-Operative Progress Note H&P Reviewed The H&P was reviewed, patient examined and no changes noted. Time Seen by Provider: 23:30 Date H&P Reviewed: Jan 03, 2021 Time H&P Reviewed: 23:30 Pre-Operative Diagnosis: incarcerated ventral abd incisional hernia MORAIMA PEREA MD Jan 03, 2021 23:26
[2021-01-03] MEDS ORDERED: ONDANSETRON 4 MG/2 ML (SDV) Z0FRAN IVP PRN (23:30)
[2021-01-03] MEDS ORDERED: ACETAMINOPHEN 650 MG SUPP (TYLENOL) PR PRN (23:30)
[2021-01-03] MEDS: inSUlin ASPART (NovoLOG) 1 UNIT/0.01 ML (CHARGE PER UNIT) SC SCH (23:35)
[2021-01-04] MEDS: HYDROmorphone 2 MG/ML VIAL (DILAUDID) IV PRN ×3 (01:28→21:11)
[2021-01-04 04:21] VITALS: BP 168/81
[2021-01-04] MEDS: inSUlin ASPART (NovoLOG) 1 UNIT/0.01 ML (CHARGE PER UNIT) SC SCH ×7 (05:33→21:58)
[2021-01-04] MEDS: NS IV 1000 ML 1,000 ML IV SCH ×3 (05:54→18:40)
[2021-01-04] MEDS: HYDROmorphone 2 MG/ML VIAL (DILAUDID) IVP PRN ×2 (06:57→18:41)
[2021-01-04 07:01] LABS: BASOPHILS # (AUTO) 0.1 10^3/uL (0.0-0.1); BASOPHILS % (AUTO) 1 % (0-10); EOSINOPHILS # (AUTO) 0.2 10^3/uL (0.0-0.3); EOSINOPHILS % (AUTO) 2 % (0-10); HEMATOCRIT 39 % (40-54); HEMOGLOBIN 11.9 g/dL (13.3-17.7); LYMPHOCYTES % (AUTO) 27 % (12-44); MEAN CORPUSCULAR HEMOGLOBIN 28 pg (25-34); MEAN CORPUSCULAR HGB CONC 31 g/dL (32-36); MEAN CORPUSCULAR VOLUME 89 fL (80-99); MEAN PLATELET VOLUME 9.5 fL (9.0-12.2); MONOCYTES # (AUTO) 1.1 10^3/uL (0.0-1.0); MONOCYTES % (AUTO) 10 % (0-12); NEUTROPHILS # (AUTO) 6.7 10^3/uL (1.8-7.8); NEUTROPHILS % (AUTO) 61 % (42-75); PLATELET COUNT 264 10^3/uL (130-400)
[2021-01-04 07:14] LABS: ALANINE AMINOTRANSFERASE 32 U/L (0-55); ALBUMIN 3.3 GM/DL (3.2-4.5); ALKALINE PHOSPHATASE 57 U/L (40-136); BILIRUBIN,TOTAL 0.4 MG/DL (0.1-1.0); BUN/CREATININE RATIO 16; CALCIUM 8.9 MG/DL (8.5-10.1); CARBON DIOXIDE 23 MMOL/L (21-32); CHLORIDE 106 MMOL/L (98-107); CREATININE SERUM 0.99 MG/DL (0.60-1.30); GFR ESTIMATED > 60; GLUCOSE 176 MG/DL (70-105); POTASSIUM 4.4 MMOL/L (3.6-5.0); SODIUM 140 MMOL/L (135-145); TOTAL PROTEIN 6.5 GM/DL (6.4-8.2)
--- NOTE | 2021-01-04 07:45 | NUR ---
Messaged Dr. Mccray at this time requesting if I could non administer the 80 units of Levemir scheduled for this AM since the patient is currently NPO and blood sugar of 176. Dr. Mccray requested to hold Levemir at this time.
[2021-01-04 08:00] VITALS: BP 160/76
[2021-01-04] MEDS ORDERED: INSU100V16 SQ (09:50)
[2021-01-04] MEDS ORDERED: OXYC-464 PO (09:50)
[2021-01-04] MEDS ORDERED: AMIT50TA3 PO (09:50)
[2021-01-04] MEDS ORDERED: LOSA100T57 PO (09:50)
[2021-01-04] MEDS ORDERED: PIOG30TA71 PO (09:50)
[2021-01-04] MEDS ORDERED: ATOR20TA66 PO (09:50)
[2021-01-04] MEDS ORDERED: FAMO20TA3 PO (09:50)
[2021-01-04] MEDS ORDERED: INSU100V5 SQ (09:50)
[2021-01-04] MEDS ORDERED: MTP25TSR PO (09:50)
[2021-01-04] MEDS ORDERED: IBUP-2185 PO (09:51)
[2021-01-04] MEDS ORDERED: FISH1CAP15 PO (09:51)
[2021-01-04] MEDS ORDERED: ASPI325T32 PO (09:51)
--- NOTE | 2021-01-04 09:52 | NUR ---
SPOKE WITH THE PT AND CALLED [facility] TO COMPLETE THE MED REC FILL DATES FROM [facility]: 10-11-2020 NOVOLOG #5/45 DS 11-20-2020 FAMOTIDINE 20MG #60/30DS 11-20-2020 METFORMIN 1000MG #180/90DS 11-20-2020 LOSARTAN 100MG #30/30DS 11-22-2020 OXYCODONE/APAP 7.5/325MG #112 12-11-2020 METOPROLOL SUCC 25MG #30/30DS 01-02-2021 PIOGLITAZONE 30MG #30/30DS 01-02-2021 ATORVASTATIN 20MG #30/30DS 01-02-2021 GLIPIZIDE 10MG #120/30DS 01-02-2021 AMITRIPTYLINE 50MG #60/30DS 01-02-2021 LEVEMIR #5 VIAL/30DS PT FILLED LYRICA 50MG ON 11-21-2020 #56/28DS HOWEVER PT SAYS HE IS NO LONGER TAKING DUE TO IT NOT WORKING OTC MEDS: ASPIRIN 325MG FISH OIL IBUPROFEN
--- NOTE | 2021-01-04 10:20 | NUR ---
Dr. Mccray in to assess patient at this time. States he will not be doing a hernia repair because the situation is chronic and the patient is too high risk. Dr. Mccray states to advance patient to clear liquid diet at this time and to advance as tolerated. Dr. Mccray requests application of abdominal binder with gauze or and abd pad to hernia to allow for more pressure to that area. Orders placed at this time.
[2021-01-04 12:00] VITALS: BP 144/66
[2021-01-04 16:00] VITALS: BP 156/68
--- NOTE | 2021-01-04 18:05 | NUR ---
Patient blood sugar 150 and has not yet eaten today. Non administered 20 units of Novolog at this time
--- NOTE | 2021-01-04 19:51 | Consultation ---
HPI History of Present Illness: 50 yo male having abdominal pain for last couple of weeks that was getting worse. Last BM yesterday am. Reports he believes he passed gas this morning. Has had multiple abdominal surgeries. Denies fever. Source: patient Date seen by provider: Jan 04, 2021 Time Seen by Provider: 10:40 Attending Physician Inessa Mccray MD PCP [facility] Consult Date of Admission Jan 03, 2021 at 22:49 Home Medications Home Medications Reviewed patient Home Medication Reconciliation performed by pharmacy medication reconciliations clinical dental technician and/or nursing. Patients Allergies have been reviewed. Allergies Coded Allergies: naproxen (Verified Allergy, Unknown, 10/25/18) HOJ-Susnit-Dydbcc Hx Patient Social History Smoking Status: Current Everyday Smoker Recent Hopitalizations: No Alcohol Use?: Yes Have you traveled recently?: No Immunizations Up To Date Tetanus Booster (TDap): Unknown Date of Pneumonia Vaccine: Oct 03, 2014 Past Medical History PMHx: DMII HTN ALY SurgHx: Colon resection Ostomy take down Kidney stones Left foot Family Medical History Significant Family History: Diabetes Review of Systems (CHC) Constitutional: No fever EENTM: No nose congestion, No throat pain Respiratory: No cough, No short of breath Cardiovascular: No chest pain Gastrointestinal: see HPI Genitourinary: no symptoms reported Reviewed Test Results Reviewed Test Results Lab Laboratory Tests Test 01/03/21 20:10 01/03/21 20:15 01/03/21 21:58 01/03/21 23:35 Range/Units White Blood Count 15.3 H 4.3-11.0 10^3/uL Red Blood Count 4.85 4.30-5.52 10^6/uL Hemoglobin 13.1 L 13.3-17.7 g/dL Hematocrit 42 40-54 % Mean Corpuscular Volume 86 80-99 fL Mean Corpuscular Hemoglobin 27 25-34 pg Mean Corpuscular Hemoglobin Concent 32 32-36 g/dL Red Cell Distribution Width 14.5 10.0-14.5 % Platelet Count 332 130-400 10^3/uL Mean Platelet Volume 9.6 9.0-12.2 fL Immature Granulocyte % (Auto) 0 % Neutrophils (%) (Auto) 76 H 42-75 % Lymphocytes (%) (Auto) 15 12-44 % Monocytes (%) (Auto) 7 0-12 % Eosinophils (%) (Auto) 1 0-10 % Basophils (%) (Auto) 0 0-10 % Neutrophils # (Auto) 11.6 H 1.8-7.8 10^3/uL Lymphocytes # (Auto) 2.3 1.0-4.0 10^3/uL Monocytes # (Auto) 1.1 H 0.0-1.0 10^3/uL Eosinophils # (Auto) 0.1 0.0-0.3 10^3/uL Basophils # (Auto) 0.1 0.0-0.1 10^3/uL Immature Granulocyte # (Auto) 0.1 0.0-0.1 10^3/uL Neutrophils % (Manual) 76 % Lymphocytes % (Manual) 19 % Monocytes % (Manual) 4 % Eosinophils % (Manual) 1 % Blood Morphology Comment NORMAL Sodium Level 140 135-145 MMOL/L Potassium Level 4.3 3.6-5.0 MMOL/L Chloride Level 101 98-107 MMOL/L Carbon Dioxide Level 24 21-32 MMOL/L Anion Gap 15 H 5-14 MMOL/L Blood Urea Nitrogen 19 H 7-18 MG/DL Creatinine 1.14 0.60-1.30 MG/DL Estimat Glomerular Filtration Rate > 60 BUN/Creatinine Ratio 17 Glucose Level 252 H 70-105 MG/DL Calcium Level 9.5 8.5-10.1 MG/DL Corrected Calcium 9.7 8.5-10.1 MG/DL Total Bilirubin 0.4 0.1-1.0 MG/DL Aspartate Amino Transf (AST/SGOT) 19 5-34 U/L Alanine Aminotransferase (ALT/SGPT) 40 0-55 U/L Alkaline Phosphatase 70 40-136 U/L C-Reactive Protein High Sensitivity 6.10 H 0.00-0.50 MG/DL Total Protein 7.5 6.4-8.2 GM/DL Albumin 3.8 3.2-4.5 GM/DL Lipase 29 8-78 U/L Glucometer 239 H 198 H 70-110 MG/DL Urine Color YELLOW Urine Clarity CLEAR Urine pH 5.0 5-9 Urine Specific [place] 1.020 1.016-1.022 Urine Protein 1+ H NEGATIVE Urine Glucose (UA) TRACE H NEGATIVE Urine Ketones NEGATIVE NEGATIVE Urine Nitrite NEGATIVE NEGATIVE Urine Bilirubin 1+ H NEGATIVE Urine Urobilinogen 1.0 < = 1.0 MG/DL Urine Leukocyte Esterase NEGATIVE NEGATIVE Urine RBC (Auto) NEGATIVE NEGATIVE Urine RBC 0-2 /HPF Urine WBC 2-5 /HPF Urine Squamous Epithelial Cells 5-10 /HPF Urine Crystals PRESENT H /LPF Urine Amorphous Sediment FEW TRISHA URATES H /LPF Urine Bacteria TRACE /HPF Urine Casts NONE /LPF Urine Mucus SMALL H /LPF Urine Culture Indicated NO Test 01/04/21 05:27 01/04/21 06:50 01/04/21 11:52 01/04/21 15:48 Range/Units Glucometer 149 H 168 H 151 H 70-110 MG/DL White Blood Count 11.0 4.3-11.0 10^3/uL Red Blood Count 4.31 4.30-5.52 10^6/uL Hemoglobin 11.9 L 13.3-17.7 g/dL Hematocrit 39 L 40-54 % Mean Corpuscular Volume 89 80-99 fL Mean Corpuscular Hemoglobin 28 25-34 pg Mean Corpuscular Hemoglobin Concent 31 L 32-36 g/dL Red Cell Distribution Width 14.6 H 10.0-14.5 % Platelet Count 264 130-400 10^3/uL Mean Platelet Volume 9.5 9.0-12.2 fL Immature Granulocyte % (Auto) 0 % Neutrophils (%) (Auto) 61 42-75 % Lymphocytes (%) (Auto) 27 12-44 % Monocytes (%) (Auto) 10 0-12 % Eosinophils (%) (Auto) 2 0-10 % Basophils (%) (Auto) 1 0-10 % Neutrophils # (Auto) 6.7 1.8-7.8 10^3/uL Lymphocytes # (Auto) 3.0 1.0-4.0 10^3/uL Monocytes # (Auto) 1.1 H 0.0-1.0 10^3/uL Eosinophils # (Auto) 0.2 0.0-0.3 10^3/uL Basophils # (Auto) 0.1 0.0-0.1 10^3/uL Immature Granulocyte # (Auto) 0.0 0.0-0.1 10^3/uL Sodium Level 140 135-145 MMOL/L Potassium Level 4.4 3.6-5.0 MMOL/L Chloride Level 106 98-107 MMOL/L Carbon Dioxide Level 23 21-32 MMOL/L Anion Gap 11 5-14 MMOL/L Blood Urea Nitrogen 16 7-18 MG/DL Creatinine 0.99 0.60-1.30 MG/DL Estimat Glomerular Filtration Rate > 60 BUN/Creatinine Ratio 16 Glucose Level 176 H 70-105 MG/DL Calcium Level 8.9 8.5-10.1 MG/DL Corrected Calcium 9.5 8.5-10.1 MG/DL Total Bilirubin 0.4 0.1-1.0 MG/DL Aspartate Amino Transf (AST/SGOT) 16 5-34 U/L Alanine Aminotransferase (ALT/SGPT) 32 0-55 U/L Alkaline Phosphatase 57 40-136 U/L Total Protein 6.5 6.4-8.2 GM/DL Albumin 3.3 3.2-4.5 GM/DL Radiology CT abdomen: IMPRESSION: Small bowel obstruction with the transition point in a ventral hernia right of midline in the periumbilical region containing loops of small bowel. No free fluid or free air in the abdomen or pelvis. Physical Exam-([facility]) Physical Exam Vital Signs VS - Last 72 Hours, by Label 01/03/21 01/03/21 01/03/21 01/03/21 20:12 22:56 23:10 23:20 Temp 36.7 36.9 37.0 Pulse 90 106 102 Resp 20 20 18 B/P (MAP) 176/88 (117) 128/66 (117) 141/87 (105) Pulse Ox 93 97 O2 Delivery Nasal Cannula Nasal Cannula Nasal Cannula O2 Flow Rate 3.00 3.00 3.00 01/04/21 01/04/21 01/04/21 01/04/21 04:21 08:00 08:00 12:00 Temp 36.1 36.2 36.4 Pulse 97 88 79 Resp 18 20 20 B/P (MAP) 168/81 (110) 160/76 (104) 144/66 (92) Pulse Ox 98 95 99 O2 Delivery Nasal Cannula Nasal Cannula Nasal Cannula Nasal Cannula O2 Flow Rate 3.00 2.00 2.00 2.00 Capillary Refill : Less Than 3 Seconds General Appearance: no apparent distress, obese Respiratory: lungs clear, normal breath sounds Cardiovascular: regular rate, rhythm, no murmur Gastrointestinal: normal bowel sounds, distended, other (mild diffuse ttp, ventral and lower right hernias noted that are soft and at least partially reducible) Extremities: no pedal edema Neurologic/Psychiatric: alert, normal mood/affect Skin: normal color, warm/dry Assessment/Plan Assessment/Plan (1) Small bowel obstruction Status: Acute Assessment & Plan: Management per Surgery (2) Leukocytosis Status: Resolved Assessment & Plan: Suspect reactive, resolved without specific intervention. (3) Sleep apnea Status: Chronic Assessment & Plan: Use home CPAP if able (4) Diabetes mellitus Status: Chronic Assessment & Plan: On large doses of insulin, glipizide, metformin and pioglitazone at home. Hold home meds and start lower dose long-acting insulin given likely decreased intake with SBO concern. Qualifiers: Qualified Codes: E11.65 - Type 2 diabetes mellitus with hyperglycemia; Z79.4 - detention (current) use of insulin (5) Hypertension Status: Chronic Assessment & Plan: Resume home losartan and metoprolol. Qualifiers: Qualified Codes: I10 - Essential (primary) hypertension ESSENCE PARK MD Jan 04, 2021 19:50
[2021-01-04 20:00] VITALS: BP 168/76
[2021-01-04] MEDS ORDERED: AMITRIPTYLINE 50 MG (ELAVIL) TAB PO SCH (21:00)
[2021-01-04] MEDS: FAMOTIDINE 20 MG (PEPCID) TABLET PO SCH (21:11)
[2021-01-05] MEDS: ACETAMINOPHEN 325 MG TABLET PO PRN ×2 (00:08→15:14)
[2021-01-05] MEDS: NS IV 1000 ML 1,000 ML IV SCH ×2 (01:32→08:26)
[2021-01-05 02:08] VITALS: BP 177/87
[2021-01-05 04:00] VITALS: BP 166/80
[2021-01-05] MEDS: inSUlin ASPART (NovoLOG) 1 UNIT/0.01 ML (CHARGE PER UNIT) SC SCH ×2 (06:07→13:20)
[2021-01-05 08:00] VITALS: BP 163/92
[2021-01-05] MEDS: FAMOTIDINE 20 MG (PEPCID) TABLET PO SCH (08:26)
[2021-01-05] MEDS ORDERED: LOSARTAN 100 MG (COZAAR) TABLET PO SCH (09:00)
--- NOTE | 2021-01-05 09:05 | NUR ---
Messaged Dr. Mccray at this time and informed him that the patient is not managing with his abdominal binder and that it has been removed during the cnc machinist 2nd shift. Dr. Mccray requests Miralax BID at this time. Orders placed by this RN
[2021-01-05] MEDS ORDERED: polyethylene glycoL POWDER 17 GM (MIRALAX) PACK ONE (09:44)
[2021-01-05] MEDS: HYDROmorphone 2 MG/ML VIAL (DILAUDID) IVP PRN (10:16)
--- NOTE | 2021-01-05 10:53 | Progress Note ---
Subjective Date Seen by a Provider: Jan 05, 2021 Time Seen by a Provider: 10:30 Subjective/Events-last exam doing better today. tolerating diet and having BM. pain controlled. ambulating well. Objective Exam Vital Signs Date Time Temp Pulse Resp B/P (MAP) Pulse Ox O2 Delivery O2 Flow Rate FiO2 01/05/21 08:00 Nasal Cannula 2.00 01/05/21 08:00 36.4 86 18 163/92 (115) 94 Nasal Cannula 2.00 01/05/21 04:00 36.0 90 18 166/80 (108) 98 Nasal Cannula 2.00 01/05/21 02:08 177/87 (117) 01/05/21 00:00 36.5 99 20 95 Nasal Cannula 2.00 01/04/21 23:22 96 Nasal Cannula 2.00 01/04/21 21:00 Nasal Cannula 2.00 01/04/21 20:00 36.3 92 16 168/76 (106) 95 01/04/21 16:00 36.0 82 16 156/68 (97) 97 01/04/21 12:00 36.4 79 20 144/66 (92) 99 Nasal Cannula 2.00 I & O 01/05/21 07:00 Intake Total 3170 ml Output Total 1100 ml Balance 2070 ml Capillary Refill : Less Than 3 Seconds General Appearance: No Apparent Distress HEENT: PERRL/EOMI Neck: Full Range of Motion Respiratory: Chest Non Tender, Decreased Breath Sounds Cardiovascular: Regular Rate, Rhythm Gastrointestinal: normal bowel sounds, soft, tenderness Extremity: Normal Capillary Refill Neurologic/Psychiatric: Alert, Oriented x3 Skin: Normal Color Lymphatic: No Adenopathy Results Lab Laboratory Tests 01/04/21 11:52: Glucometer 168H 01/04/21 15:48: Glucometer 151H 01/04/21 20:16: Glucometer 176H 01/05/21 06:05: Glucometer 167H Assessment/Plan Assessment/Plan Assess & Plan/Chief Complaint large chronic recurrent ventral abdominal incisional hernia. high risk surgery due to medical comorbidites and body habitus. hernia chronic and no signs symptoms ischemia. recommend medical optimization and weight loss to goal BMI <30. MORAIMA PEREA MD Jan 05, 2021 10:53
[2021-01-05 12:00] VITALS: BP 152/84
--- NOTE | 2021-01-05 12:26 | Discharge Inst-Surgical ---
D/C Lap Instructions-BRIT Follow Up PRN Activity as tolerated Proceed with any exercise and diet modality for weight loss. High Fiber Diet 25g or more per day Avoid Alcohol, Caffeine, Spicy [place] and Acid foods. Drink 64 fluid oz or more of fluids per day. Symptoms to Report: Fever over 101 degree F, Nausea/Vomiting If any problems/questions: Contact your physician or go to Emergency Room MORAIMA PEREA MD Jan 05, 2021 12:26
--- NOTE | 2021-01-05 13:24 | NUR ---
RD ASSESSMENT PMHx: DM; HTN; hypercholesterolemia; GERD; kidney stones; PT INTERACTION: Pt was awake and pleasant during nutrition assessment. Pt states current appetite is "so-so." Note avg PO intake 75% x3meal, per chart review. Pt states following a low-CHO diet at home, and has no issues with chewing/swallowing food. Pt states some recent issues with constipation, and that his last BM was 2/3. Note pt currently on bowel regimen of miralax BID, per chart review. Pt states recent wt loss, but is unsure of amount/timeframe. Note unable to determine recent wt hx, per chart review. Pt states current DM management is "pretty decent." Note unable to determine recent HbA1c, per chart review. Est. kcal needs: 9474-4083 kcal | 25-30 kcal/kg IBW, based on IBW of 61.8 kg (136#) Est. Pro needs: 62-74 g Pro | 1.0-1.2 g Pro/kg IBW PES STATEMENT: Given current PO intake, no nutrition diagnosis at this time (NO-1.1). INTERVENTION: Continue with current diet order of Regular diet. Pt may benefit from consistent CHO restriction if blood glucose levels become elevated. Offered diet education on DM management, but pt declined. May attempt to offer again prior discharge. Will continue to follow and reassess as pt needs, intake, and status change. Trung COLBERT, MS RD [phone] cell
--- NOTE | 2021-01-05 14:53 | Progress Note ---
Subjective Subjective/Events-last exam Afebrile, still having pain whenever he eats. Is passing gas, denies having a BM. Objective Exam Last Set of Vital Signs Vital Signs Date Time Temp Pulse Resp B/P (MAP) Pulse Ox O2 Delivery O2 Flow Rate FiO2 01/05/21 12:00 36.4 82 16 152/84 (106) 94 Room Air 01/05/21 08:00 2.00 Capillary Refill : Less Than 3 Seconds I&O Intake and Output 01/05/21 00:00 Intake Total 2020 ml Output Total 875 ml Balance 1145 ml Intake Oral 2020 ml Output Urine Total 875 ml # Voids 2 General: Alert, No Acute Distress Lungs: Clear to Auscultation, Normal Air Movement Heart: Regular Rate, No Murmurs Abdomen: Normal Bowel Sounds, Other (mildly distended, obese) Extremities: No Edema Neuro: Normal Speech Psych/Mental Status: Mood NL Results/Procedures Lab Laboratory Tests 01/04/21 15:48: Glucometer 151H 01/04/21 20:16: Glucometer 176H 01/05/21 06:05: Glucometer 167H 01/05/21 12:53: Glucometer 194H Radiology CT abdomen: IMPRESSION: Small bowel obstruction with the transition point in a ventral hernia right of midline in the periumbilical region containing loops of small bowel. No free fluid or free air in the abdomen or pelvis. Assessment/Plan Assessment/Plan (1) Small bowel obstruction Status: Acute Assessment & Plan: Management per Surgery (2) Leukocytosis Status: Resolved Assessment & Plan: Suspect reactive, resolved without specific intervention. (3) Sleep apnea Status: Chronic Assessment & Plan: Use home CPAP if able (4) Diabetes mellitus Status: Chronic Assessment & Plan: On large doses of insulin, glipizide, metformin and pioglitazone at home. Hold home meds and start lower dose long-acting insulin given likely decreased intake with SBO concern. Qualifiers: Qualified Codes: E11.65 - Type 2 diabetes mellitus with hyperglycemia; Z79.4 - intermediate (current) use of insulin (5) Hypertension Status: Chronic Assessment & Plan: Resume home losartan and metoprolol. Qualifiers: Qualified Codes: I10 - Essential (primary) hypertension ESSENCE PARK MD Jan 05, 2021 14:53
[2021-01-05] MEDS: HYDROmorphone 2 MG/ML VIAL (DILAUDID) IV PRN (16:31)
--- NOTE | 2021-01-05 16:37 | NUR ---
Patient had small bowel movement and per orders can discharge home. Patient concerned as he states his pain is the same as it was when admitted. States he's afraid he'll end up in another hospital emergency dept. Contacted Dr Mccray who indicated patient okay to discharge as there are no planned medical interventions. Encouraged patient to walk as much as possible for some relief so his bowels continue to move. Did provide pain medication about 30-45 prior to discharge.
--- NOTE | 2021-01-05 18:05 | NUR ---
BROOK GARCIA demonstrates understanding of discharge instructions and accurately returns instructions upon questioning. Copy of Post-Discharge Instructions given to patient. BROOK GARCIA is able to manage continuing needs after discharge. Patient discharged from [facility] on 01/05/21 at 1705. BROOK GARCIA left floor via wheelchair, accompanied by staff.
[2021-01-05] MEDS ORDERED: polyethylene glycoL POWDER 17 GM (MIRALAX) PACK PO SCH (21:00)
--- NOTE | 2021-01-05 21:05 | Progress Note ---
Standard Progress Note Progress Notes/Assess & Plan Date Seen by a Provider: Jan 05, 2021 Time Seen by a Provider: 16:00 Progress/Assessment & Plan patients overall clinical scenario explained in depth with patient. recommended conservative management for now due to multiple comorbities, morbid obesity and unacceptable hernia recurrence rates. patient having bowel fxn and tolerating diet. no fever/chill and no peritoneal signs. large chronic reducible hernia identified with no signs/symptoms strangulation. patient however wanted to be discharged so he could go to [place] ED where all of his other abdominal surgeries were performed. risks and benefits reiterarted by nurse and patient wanted to be discharged so we honored his wishes. Final Diagnosis chronic reducible incisional hernia with PSBO. MORAIMA PEREA MD Jan 05, 2021 21:05
== END 2021-01-05 17:05 | disposition home or self-care (01) | DRG 394 ==
LOC: EDUNIT# 19:52 → ER 19:54 → 4TH 22:49
PROVIDERS: ADMIT Surgery; ATTEND Surgery
DX: K43.0 Incisional hernia with obstruction, without gangrene (principal); Z68.43 Body mass index [BMI] 50.0-59.9, adult; E66.01 Morbid (severe) obesity due to excess calories; E11.9 Type 2 diabetes mellitus without complications; Z79.84 Long term (current) use of oral hypoglycemic drugs; E78.00 Pure hypercholesterolemia, unspecified; I10 Essential (primary) hypertension; K43.6 Other and unspecified ventral hernia with obstruction, without gangrene; K21.9 Gastro-esophageal reflux disease without esophagitis; D72.829 Elevated white blood cell count, unspecified; F17.210 Nicotine dependence, cigarettes, uncomplicated; G47.33 Obstructive sleep apnea (adult) (pediatric); Z90.49 Acquired absence of other specified parts of digestive tract
CPT/HCPCS: 36415; 74177; 80053; 81000; 82962; 83690; 85007; 85025; 85027; 86141; 94760